=== PATIENT | female | born 1970 | race Caucasian/White ===

== ENCOUNTER → 2021-03-04 12:14 | Outpatient (BNVA) | payer OTHER, SELFPAY | PROVIDERS: PCP Internal Medicine; Visit Provider Physician Assistant | DX: E66.01 Morbid (severe) obesity due to excess calories (principal); E78.5 Hyperlipidemia, unspecified; E03.9 Hypothyroidism, unspecified; I50.9 Heart failure, unspecified; G47.00 Insomnia, unspecified; F32.9 Major depressive disorder, single episode, unspecified; K21.9 Gastro-esophageal reflux disease without esophagitis; M79.7 Fibromyalgia | CPT/HCPCS: 99202 ==

== ENCOUNTER → 2021-03-08 09:45 | Outpatient (BNVA) | payer OTHER, SELFPAY | PROVIDERS: PCP Internal Medicine; Visit Provider Anesthesiology | DX: M47.816 Spondylosis without myelopathy or radiculopathy, lumbar region (principal); M16.0 Bilateral primary osteoarthritis of hip; M79.7 Fibromyalgia; F32.9 Major depressive disorder, single episode, unspecified; E66.01 Morbid (severe) obesity due to excess calories; Z79.899 Other long term (current) drug therapy | CPT/HCPCS: 99202 ==

== ENCOUNTER 2021-04-29 11:52 | Emergency (ER) | payer OTHER, SELFPAY ==
--- NOTE | ~2021-04-29 | XR_ITS ---
EXAMINATION: XR SHOULDER, RIGHT CLINICAL INFORMATION: Right shoulder pain COMPARISON: None TECHNIQUE: AP external rotation, Grashey, scapular Y, and axillary views of the right shoulder. FINDINGS: The bones and soft tissues are normal. No fracture. Glenohumeral and acromioclavicular alignment is anatomic with normal joint space. No abnormal soft tissue calcifications. XR/XR shoulder RT min 2V IMPRESSION: No significant bony abnormality of the right shoulder identified.
[2021-04-29 12:04] VITALS: BP 136/59; PULSE 89; RESP 16; TEMP 36.7; O2SAT 98; BMI 39.9
[2021-04-29] MEDS: Acetaminophen 325 MG TABLET 650 MG PO (12:08)
--- NOTE | 2021-04-29 14:01 | ED_ITS ---
HPI - Extremity Problem General Chief complaint: Extremity Problem Stated complaint: shoulder pain Time Seen by Provider: 04/29/21 13:35 History of Present Illness HPI Narrative: 50-year-old female with past medical history of fibromyalgia, GERD, depression, hypothyroidism him a hyperlipidemia, PTSD, anxiety disorder is here today for complaining of right shoulder pain. Patient does not remember any injury. Pain has been going on for last 5 days. Patient denies sleeping on that side. Patient reports that sometimes when she moves she feels like her joint is . Unable to lift her arm up over 90?. Patient denies any fever or chills. Related Data Home Medications Medication Instructions Recorded Confirmed atorvastatin 10 mg tablet 10 mg PO DAILY 03/02/21 03/25/21 biotin 10,000 mcg capsule 10,000 mcg PO DAILY cap 03/02/21 03/25/21 clonazepam 0.5 mg tablet 0.5 mg PO TID 03/02/21 03/25/21 duloxetine 20 mg capsule,delayed 20 mg PO DAILY cap 03/02/21 03/25/21 release duloxetine 60 mg capsule,delayed 60 mg PO DAILY 03/02/21 03/25/21 release ferrous sulfate 325 mg (65 mg 325 mg PO Q OTHER DAY tab 03/02/21 03/25/21 iron) tablet furosemide 20 mg tablet 20 mg PO DAILY 03/02/21 03/25/21 hydroxyzine HCl 50 mg tablet 50 mg PO BID 03/02/21 03/25/21 hydroxyzine HCl 50 mg tablet 75 mg PO BEDTIME tab 03/02/21 03/25/21 levothyroxine 88 mcg capsule 88 mcg PO DAILY 03/02/21 03/25/21 loratadine 10 mg capsule 10 mg PO DAILY 03/02/21 03/25/21 omeprazole 20 mg capsule,delayed 20 mg PO DAILY 03/02/21 03/25/21 release oxcarbazepine 150 mg tablet 150 mg PO BID 03/02/21 03/25/21 oxycodone-acetaminophen 7.5 mg-325 1 tab PO ONCE PRN tab 03/02/21 03/02/21 mg tablet varenicline 1 mg tablet (Chantix) 1 mg PO BID 03/02/21 03/25/21 zolpidem 5 mg tablet 5 mg PO BEDTIME PRN 03/02/21 03/25/21 Previous Rx's Medication Instructions Recorded baclofen 10 mg tablet 10 mg PO TID 30 Days #90 tab 03/08/21 acetaminophen 325 mg capsule 650 mg PO Q6H PRN #20 cap 04/29/21 cyclobenzaprine 10 mg tablet 10 mg PO BID PRN #10 tab 04/29/21 Allergies Allergy/AdvReac Type Severity Reaction Status Date / Time NSAIDS (Non-Steroidal AdvReac Severe acute Verified 03/08/21 09:57 Anti-Inflamma kidney damage tramadol AdvReac Nausea Verified 04/29/21 12:07 Review of Systems Review of Systems: Constitutional : No Weight loss, No Fever, No Chills, No Night Sweats, No Fatigue, No Malaise ENT/Mouth : No Hearing loss, No Ear Pain, No Nasal Congestion, No Sinus Pain, No Hoarseness, No sore throat, No Rhinorrhea, No Swallowing Difficulty Eyes: No Eye Pain, No Swelling, No Redness, No Foreign Body, No Discharge, No Vision Changes Cardiovascular : No Chest Pain, No SOB, No Dyspnea on Exertion, No Orthopnea, No Edema, No Palpitations Respiratory : No Cough, No Sputum, No Wheezing, No Smoke Exposure, No Dyspnea Gastrointestinal : No Nausea, No Vomiting, No Diarrhea, No Constipation, No abdominal Pain, No Hematochezia, No Melena Genitourinary : no irregular bleeding, No Dysuria, No Urinary Frequency, No Hematuria, No Urinary Incontinence, No Urgency, No Flank Pain, No Urinary Flow Changes, No Hesitancy Musculoskeletal : joint pain, Myalgias, No Joint Swelling right shoulder Skin : No Skin Lesions, No rash Neuro : No Weakness, No Numbness, No Paresthesias, No Loss of Consciousness, No Dizziness, No Headache Psych : No Anxiety/Panic, No Depression, No SI/HI/AH/VH, No Social Issues, Heme/Lymph: No Bruising, No Bleeding,No Lymphadenopathy Endocrine : No Polyuria, No Polydipsia, No Temperature Intolerance Yes all other systems are reviewed and are negative [facility] Past Medical History Medical History (Updated 04/29/21 @ 15:11 by Tina Jordan [facility]-) Elevated cholesterol Fibromyalgia GERD (gastroesophageal reflux disease) Headache Spondylosis of lumbar spine Suicide attempt Thyroid disease Surgical History History of dental surgery Hx of anterior cruciate ligament surgery Hx of tubal ligation Family History Family History (Updated 03/02/21 @ 10:19 by Shakira Greenberg LPN) Mother Depression Father No problems noted. Sister Diabetes Fibromyalgia Degenerative disc disease Bipolar 1 disorder Depression Son Depression Bipolar 2 disorder Son Depression Son Depression Daughter Depression Migraine Social History Social History (Updated 03/02/21 @ 16:04 by Shakira Greenberg LPN) Alcohol intake: never Patient Tobacco Use Status: Former Tobacco user Quit Date: 02/25/2021 Advance Directives: No Advance Directives Information Provided: No Patient : No Physical Exam Vital Signs: Vital Signs: Last Vital Signs Temp 98.0 F 04/29/21 12:04 Pulse 84 04/29/21 14:07 Resp 16 04/29/21 14:07 BP 143/89 H 04/29/21 14:07 Pulse Ox 97 04/29/21 14:04 Body Mass Index 39.9 Const: General: healthy appearing, no acute distress and well developed Nutritional Appearance: well nourished Orientation/consciousness: patient oriented x3 Neck: Neck: Yes normal visual inspection, Yes full ROM and Yes no JVD Resp: Effort & Inspection: normal respiratory effort Auscultation: clear to auscultation bilaterally Cardio: Rate: regular rate Rhythm: regular rhythm Heart sounds: S1 normal heart sound present, S2 normal heart sound present, no gallops, no murmurs and no rubs Peripheral pulses: Peripheral pulses 2+ throughout and radial pulses present GI: Inspection: Yes normal to inspection and No distended Palpation (GI): Soft to palpation, Firmness to palpation present (GI), nontender and no guarding Auscultation: normal bowel sounds Skin: General skin exam: elasticity normal, turgor normal and dry skin Neuro: General: patient oriented x3 and moves all extremities Extrem: Other: Right shoulder ROM 90?. Patient unable to lift her arm past that. Complains of pain. Positive palpable tenderness to deltoid, and sternocostal head of pectoralis major. General: Yes no joint enlargement Course Course Course Narrative: 50-year-old female with past medical history of GERD, depression, hypothyroidism, hyperlipidemia, PTSD, fibromyalgia is here today with complaining of right shoulder pain. Patient reports that she had no injury and does not sleep on that side. However she does report to me that when she moves certain way she feels that her joint is . I will obtain x-ray although clinically I do not think it is a fracture. Patient received Tylenol for pain. She reports allergy to all NSAIDs. Most likely pain is muscular, mild tenderness to deltoid and sternocostal head of pectoralis major area Reevaluation(s) Reevaluation #1: X-ray negative for any abnormalities, no soft tissue swelling. We will send her home with cyclobenzaprine and Tylenol. Most likely muscular strain. Patient can follow up with her PCP to go to physical therapy. MDM - Extremity (Nontraumatic) Imaging Data Right shoulder x-ray: Radiologist's impression: FINDINGS: The bones and soft tissues are normal. No fracture. Glenohumeral and acromioclavicular alignment is anatomic with normal joint space. No abnormal soft tissue calcifications.? Discharge Plan Discharge Clinical Impression: Muscle strain Patient Disposition: Home, Self-Care Instructions: Muscle Strain (ED) Additional Instructions: You were seen here today for complaining of right shoulder pain. Your x-ray was negative for any abnormalities. You were given script for muscle relaxers. Please follow-up with your primary care provider in 2-3 days. You might need to go for physical therapy. You may apply heat to the painful areas. Prescriptions: New cyclobenzaprine 10 mg tablet 10 mg PO BID PRN (Reason: muscle spasm) Qty: 10 RF: 0 acetaminophen 325 mg capsule 650 mg PO Q6H PRN (Reason: pain) Qty: 20 RF: 0 No Action oxycodone-acetaminophen 7.5-325 mg tablet 1 tab PO ONCE PRNRF: 0 atorvastatin 10 mg tablet 10 mg PO DAILY RF: 0 zolpidem 5 mg tablet 5 mg PO BEDTIME PRN (Reason: Insomnia) RF: 0 duloxetine 60 mg capsule,delayed release(DR/EC) 60 mg PO DAILY RF: 0 duloxetine 20 mg capsule,delayed release(DR/EC) 20 mg PO DAILY RF: 0 Chantix 1 mg tablet 1 mg PO BID RF: 0 furosemide 20 mg tablet 20 mg PO DAILY RF: 0 hydroxyzine HCl 50 mg tablet 50 mg PO BID RF: 0 hydroxyzine HCl 50 mg tablet 75 mg PO BEDTIME RF: 0 omeprazole 20 mg capsule,delayed release(DR/EC) 20 mg PO DAILY RF: 0 clonazepam 0.5 mg tablet 0.5 mg PO TID RF: 0 oxcarbazepine 150 mg tablet 150 mg PO BID RF: 0 levothyroxine 88 mcg capsule 88 mcg PO DAILY RF: 0 ferrous sulfate 325 mg (65 mg iron) tablet 325 mg PO Q OTHER DAY RF: 0 loratadine 10 mg capsule 10 mg PO DAILY RF: 0 biotin 10,000 mcg capsule 10,000 mcg PO DAILY RF: 0 baclofen 10 mg tablet 10 mg PO TID 30 Days Qty: 90 RF: 8
[2021-04-29 14:04] VITALS: BP 143/89; PULSE 80; RESP 16; O2SAT 97
[2021-04-29 14:07] VITALS: BP 143/89; PULSE 84; RESP 16
== END 2021-04-29 15:42 | disposition home or self-care (01) ==
PROVIDERS: Emergency Provider Emergency Medicine; PCP Internal Medicine
DX: S46.911A Strain of unspecified muscle, fascia and tendon at shoulder and upper arm level, right arm, initial encounter (principal); X58.XXXA Exposure to other specified factors, initial encounter; M25.511 Pain in right shoulder; Y93.9 Activity, unspecified; Y92.9 Unspecified place or not applicable; Y99.9 Unspecified external cause status
CPT/HCPCS: 73030; 99283; 99284

== ENCOUNTER 2021-05-25 06:37 | Outpatient (REF) | payer OTHER, SELFPAY ==
--- NOTE | ~2021-05-25 | FL_ITS ---
EXAMINATION: XR FLUOROSCOPY WITH IMAGES CLINICAL INFORMATION: M47.816 - Spondylosis without myelopathy or radiculopathy COMPARISON: CT abdomen and pelvis 12/06/2016 TECHNIQUE: Fluoroscopy performed by Dr. Marshall Lima. Fluoroscopy time: 0.8 minutes DAP: 18.4 Gycm2 Images: 6 FINDINGS: There are spinal needles overlying the bilateral outer L3, L4, and L5 neural foramen. There is contrast seen in the respective nerve sheaths. Some early transforaminal epidural extension is suggested. No visible vascular communication. FL/FL guidance in treatment room IMPRESSION: Fluoroscopy for pain management procedures.
== END 2021-05-25 06:38 | disposition home or self-care (01) ==
LOC: HO.RADIR 06:37
PROVIDERS: Visit Provider Anesthesiology
DX: M47.816 Spondylosis without myelopathy or radiculopathy, lumbar region (principal); M16.0 Bilateral primary osteoarthritis of hip; M79.7 Fibromyalgia; F32.9 Major depressive disorder, single episode, unspecified; E66.01 Morbid (severe) obesity due to excess calories
CPT/HCPCS: 64493; 64494; Q9967

== ENCOUNTER → 2021-05-31 11:39 | Outpatient (BNVA) | payer OTHER, SELFPAY | PROVIDERS: PCP Internal Medicine; Visit Provider Anesthesiology ==

== ENCOUNTER → 2021-06-07 08:21 | Outpatient (BNVA) | payer OTHER, SELFPAY | PROVIDERS: PCP Internal Medicine; Visit Provider Anesthesiology ==

== ENCOUNTER 2021-07-20 05:44 | Outpatient (REF) | payer OTHER, SELFPAY | END 2021-07-20 05:45 | disposition home or self-care (01) | LOC: HO.RADIR 05:44 | PROVIDERS: Visit Provider Anesthesiology | DX: Z13.89 Encounter for screening for other disorder (principal) ==

== ENCOUNTER 2021-08-17 06:25 | Outpatient (REF) | payer OTHER, SELFPAY ==
--- NOTE | ~2021-08-17 | FL_ITS ---
EXAMINATION: XR FLUOROSCOPY WITH IMAGES CLINICAL INFORMATION: M47.816 - Spondylosis without myelopathy or radiculopathy COMPARISON: CT abdomen and pelvis 12/06/2016 TECHNIQUE: Fluoroscopy performed by Dr. Marshall Lima. Fluoroscopy time: 0.3 minutes DAP: 7.23 Gycm2 Images: 2 FINDINGS: There is an interlaminar spinal needle at level of L4-L5. Epidural contrast is suggested on lateral view. FL/FL guidance in treatment room IMPRESSION: Fluoroscopy for pain management procedure.
== END 2021-08-17 06:26 | disposition home or self-care (01) ==
LOC: HO.RADIR 06:25
PROVIDERS: Visit Provider Anesthesiology
DX: M47.816 Spondylosis without myelopathy or radiculopathy, lumbar region (principal); M16.0 Bilateral primary osteoarthritis of hip; M79.7 Fibromyalgia; F32.9 Major depressive disorder, single episode, unspecified; E66.01 Morbid (severe) obesity due to excess calories
CPT/HCPCS: J3300; Q9967

== ENCOUNTER 2023-10-17 | Outpatient (REF) | payer MEDICARE, MEDICAID, SELFPAY ==
[2023-10-23 23:49] LABS: HPV mRNA E6/E7 rflx Not Detected (Not Detected)
== END 2023-10-17 00:01 | disposition home or self-care (01) ==
LOC: HO.HHCLNP
PROVIDERS: Visit Provider Advanced Practice Midwife
DX: Z01.419 Encounter for gynecological examination (general) (routine) without abnormal findings (principal)
CPT/HCPCS: 87624; 88142

== ENCOUNTER 2023-12-06 08:39 | Outpatient (REF) | payer MEDICARE, SELFPAY ==
[2023-12-06 12:58] LABS: MANUAL DIFF FLAG NO
[2023-12-06 13:05] LABS: Basophils Absolute Auto 0.1 X10*3/uL (0.0-0.2); Basophils Percent Auto 1.2 % (0-2); Eosinophils Absolute Auto 0.2 X10*3/uL (0.0-0.4); Eosinophils Percent Auto 3.4 % (0-4); Hematocrit 38.3 % (37.0-47.0); Hemoglobin 12.4 g/dl (12.0-16.0); Imm Gran Abs Auto 0.02 X10*3/uL (0.00-0.03); Imm Gran Pct Auto 0.3 % (0.0-0.4); Lymphocytes Absolute Auto 2.4 X10*3/uL (1.2-4.9); Lymphocytes Percent Auto 40.4 % (20-40); Mean Corpuscular HGB Conc 32.4 g/dl (31.0-35.0); Mean Corpuscular Hemoglobin 28.6 pg (27.0-33.0); Mean Corpuscular Volume 88.2 fL (80.0-98.0); Mean Platelet Volume 9.9 fL (9.4-12.3); Monocytes Absolute Auto 0.4 X10*3/uL (0.1-1.2); Monocytes Percent Auto 7.2 % (2-11); Neutrophils Absolute Auto 2.8 x10*3/uL (2.0-8.3); Neutrophils Percent Auto 47.5 % (45-73); Platelet Count 362 X10*3/uL (160-400); Red Blood Count 4.34 X10*6/uL (4.20-5.50); Red Cell Distribution Width 13.1 % (11.0-16.0); White Blood Count 5.9 X10*3/uL (4.8-10.8)
[2023-12-06 13:06] LABS: Estimated Average Glucose 114 mg/dL; Hemoglobin A1c % 5.6 % (<6.0)
[2023-12-06 13:25] LABS: Alanine Aminotransferase 42 U/L (0-31); Albumin Level 4.1 g/dL (3.5-5.0); Alkaline Phosphatase 93 U/L (39-117); Anion Gap 13 (12-20); Aspartate Amino Transferase 28 U/L (5-31); Bilirubin Total 0.2 mg/dL (0.0-1.0); Blood Urea Nitrogen 14 mg/dL (9-16); Calcium 9.5 mg/dL (8.4-10.2); Carbon Dioxide 30 mmol/L (22-29); Chloride 100 mmol/L (96-108); Cholesterol 203 mg/dL (<200); Estimated Glomerular Filt Rate 53; Glucose Random 108 mg/dL (60-115); HDL Cholesterol 61 mg/dL (>40); LDL Cholesterol Calculated 96 mg/dL (<100); Potassium 3.9 mmol/L (3.3-5.1); Sodium 139 mmol/L (135-145); Total Protein 7.2 g/dL (6.5-8.0); Triglycerides 234 mg/dL (<150)
[2023-12-06 13:42] LABS: TSH reflex Free T4 20.54 uIU/mL (0.32-4.0)
[2023-12-06 14:41] LABS: Free T4 (Free Thyroxine) 0.56 ng/dL (0.71-1.85)
[2023-12-07 08:28] LABS: ~Hepatitis C Antibody Nonreactive (Nonreactive)
[2023-12-09 18:33] LABS: HIV RNA PCR Qn Copies Not Detected Copies/mL; HIV RNA PCR Qn Log Copies Not Detected Log cps/mL
== END 2023-12-06 08:40 | disposition home or self-care (01) ==
LOC: HO.CHCLDS 08:39
PROVIDERS: Visit Provider Internal Medicine
DX: Z11.4 Encounter for screening for human immunodeficiency virus [HIV] (principal); I50.32 Chronic diastolic (congestive) heart failure
CPT/HCPCS: 36415; 80053; 80061; 83036; 84439; 84443; 85025; 86803; 87536; 87900

== ENCOUNTER 2024-01-05 10:57 | Outpatient (AMB) | payer OTHER, MEDICAID, SELFPAY ==
--- NOTE | 2024-01-05 11:02 | A.OFFVIS_ITS ---
Vital Signs 01/05/24 11:03 Height 5 ft 5 in Weight 250 lb BMI 41.6 BP 138/68 Blood Pressure Location Lt brachial Position Sitting Pulse 83 Intake Visit Reasons: Colonoscopy Screening Intake Note: Patient new consult for 12nd pre colonoscopy screening. Patient cc: acid reflex with burning sensation and swallowing problems with solid and liquid on and off. Fisher Clam Required: No Accompanied by: Self / Same As Patient Allergies NSAIDS (Non-Steroidal Anti-Inflamma Adverse Reaction (Severe, Verified 01/05/24 11:01) acute kidney damage tramadol Adverse Reaction (Verified 01/05/24 11:01) Nausea HPI HPI Colonoscopy Screening: Details: 53 year old? female with past medical history of anxiety disorder, MDD, PTSD, hyperlipidemia, hypothyroidism, insomnia, GERD, fibromyalgia, Congestive heart failure is here today for pre colonoscopy screening.? History of Congestive heart failure, is following with [facility] in [place]. Patient will have echo done. Denies any cardiac or respiratory symptoms at this time. Patient was sent to us by her PCP.? Patient reports acid reflux and dyspepsia. Takes omeprazole 20 mg every other day and sometimes daily. Patient feels like the omeprazole is making her constipated so she only takes it every other day. Patient also reports dysphagia. Patient reports having trouble swallow anything.? Denies any personal or family history of gastrointestinal disease or cancer.? Denies history of difficulty with sedation or anesthesia in the past.? Negative for history of sleep apnea.? Denies any history of renal, pulmonary, or hepatic disease.?? No history of infectious? diseases like hepatitis A, B, C, HIV or tuberculosis.? Patient is not on any anticoagulation therapy. [facility] Medical History (Updated 01/05/24 @ 11:16 by Tina Jordan, [facility]) GERD (gastroesophageal reflux disease) Thyroid disease Elevated cholesterol Spondylosis of lumbar spine Fibromyalgia Suicide attempt Headache Surgical History History of dental surgery Hx of anterior cruciate ligament surgery Hx of tubal ligation Family History Mother Depression Father No problems noted. Sister Diabetes Fibromyalgia Degenerative disc disease Bipolar 1 disorder Depression Son Depression Bipolar 2 disorder Son Depression Son Depression Daughter Depression Migraine Social History Alcohol intake: never Patient Tobacco Use Status: Former Tobacco user Quit Date: 02/25/2021 Review of Systems Const Denies weight gain and Denies weight loss ENT Reports no additional complaints, Reports dysphagia and Denies odynophagia Card Reports no additional complaints Resp Reports no additional complaints GI Denies abdominal pain, Denies belching, Denies melena, Denies bloating, Denies change in bowel habits, Reports constipation (Occasional), Reports dysphagia, Denies excessive flatus, Reports dyspepsia, Reports heartburn, Denies diarrhea, Denies loose stools, Denies nausea, Denies odynophagia and Denies vomiting Reports no additional complaints Musc Reports no additional complaints Neuro Reports no additional complaints Psych Reports no additional complaints Endo Reports no additional complaints Physical Exam Vital Signs: Last Vital Signs Pulse 83 01/05/24 11:03 BP 138/68 01/05/24 11:03 BMI result Body Mass Index 41.6 Const General: healthy appearing and no acute distress Nutritional Appearance: well nourished Orientation/consciousness: patient oriented x3 Resp Effort & Inspection: normal respiratory effort, able to speak in complete sentences, no tracheal deviation and symmetric chest movement Auscultation: clear to auscultation bilaterally Cardio Rate: regular rate GI Inspection: Yes normal to inspection, No distended and Yes obesity Palpation (GI): Soft to palpation, not firm, nontender and No hepatosplenomegaly present Auscultation: normal bowel sounds General: Yes no CVA tenderness Back/Spine/Pelvis Back: no CVA tenderness Skin General skin exam: elasticity normal, turgor normal and dry skin Neuro General: patient oriented x3 Psych Appearance: grossly normal Mental Status: mental status grossly normal Assessment & Plan Assessment & Plan (1) GERD (gastroesophageal reflux disease): Code(s): K21.9 - Gastro-esophageal reflux disease without esophagitis Category: Medical Qualifiers: Esophagitis presence: esophagitis presence not specified Qualified Code(s): K21.9 - Gastro-esophageal reflux disease without esophagitis (2) Screen for colon cancer: Code(s): Z12.11 - Encounter for screening for malignant neoplasm of colon (3) Dysphagia: Code(s): R13.10 - Dysphagia, unspecified Qualifiers: Dysphagia type: pharyngoesophageal phase Qualified Code(s): R13.14 - Dysphagia, pharyngoesophageal phase Plan Patient denies any cardiac or respiratory symptoms. However patient does have a history of Congestive heart failure and is getting echo repeated. Patient sees [facility]. Will call for clearance. ?Denies any issues with anesthesia in the past.? Denies any history of sleep apnea.? No history infectious diseases in the past or present.? Not on any anticoagulation therapy.? No family of colon cancer.? Patient denies melena, hematochezia, unintentional weight loss or ribbon like stools.? Patient feels like she gets constipated with taking omeprazole so she only takes it every other day, however she reports that she feels that she is experiencing acid reflux on the days when she is not taking it. I will start her on pantoprazole and patient will take it daily. Trouble swallowing liquids and solids. Will send patient for barium swallow. Patient will be also send for upper endoscopy to rule out gastritis, esophagitis, duodenitis, House's, gastric or peptic ulcers, achalasia, Schatzki ring. Patient will also return in 2 months to re-evaluate. Patient will start taking Colace daily and will call the office if she will continue to be constipated. Discussed at length the pre-procedure,? prep, diet & medications as well as what to expect prior, during and after the procedure.?? Stressed the importance of good bowel prep. ?Recommended the use of Vaseline or Calmoseptine OTC & baby wipes with bowel movements to promote comfort.? ?Patient verbalizes understanding and agrees to plan of care.? She was given the opportunity to ask questions and all questions answered.? We will see her after the procedure.? Orders: Orders FL barium swallow Today R13.10 - Dysphagia, unspecified Medications: New docusate sodium 100 mg PO BEDTIME 30 caps 3RF K59.00 - Constipation, unspecified pantoprazole take one tablet half an hour before breakfast 40 mg PO DAILY 30 tabs 3RF K21.9 - Gastro-esophageal reflux disease without esophagitis bisacodyl (Dulcolax (bisacodyl)) Start taking 2 tablet every night 7 days before the procedure and 1 day before procedure take 4 tablets at noon time followed by MiraLax prep 10 mg (2 x 5 mg) PO BEDTIME 16 tabs 0RF Z12.11 - Encounter for screening for malignant neoplasm of colon polyethylene glycol 3350 (Miralax) As directed by gastroenterology department at [facility] 238 grams PO ONCE 238 grams 0RF Z12.11 - Encounter for screening for malignant neoplasm of colon pantoprazole take one tablet half an hour before breakfast 40 mg PO DAILY 30 tabs 3RF K21.9 - Gastro-esophageal reflux disease without esophagitis bisacodyl (Dulcolax (bisacodyl)) Start taking 2 tablet every night 7 days before the procedure and 1 day before procedure take 4 tablets at noon time followed by MiraLax prep 10 mg (2 x 5 mg) PO BEDTIME 16 tabs 0RF Z12.11 - Encounter for screening for malignant neoplasm of colon docusate sodium 100 mg PO BEDTIME 30 caps 3RF K59.00 - Constipation, unspecified polyethylene glycol 3350 (Miralax) As directed by gastroenterology department at [facility] 238 grams PO ONCE 238 grams 0RF Z12.11 - Encounter for screening for malignant neoplasm of colon
[2024-01-05 11:03] VITALS: BP 138/68; PULSE 83; BMI 41.6
== END 2024-01-05 12:03 | disposition home or self-care (01) ==
PROVIDERS: PCP Internal Medicine; Visit Provider Nurse Practitioner Family
DX: K21.9 Gastro-esophageal reflux disease without esophagitis (principal); Z12.11 Encounter for screening for malignant neoplasm of colon; R13.14 Dysphagia, pharyngoesophageal phase
CPT/HCPCS: 99204

== ENCOUNTER → 2024-01-05 10:57 | Outpatient (BNVA) | payer OTHER, MEDICAID, SELFPAY | PROVIDERS: PCP Internal Medicine; Visit Provider Nurse Practitioner Family ==

== ENCOUNTER 2024-04-19 14:12 | Outpatient (REF) | payer OTHER, MEDICAID, SELFPAY ==
--- NOTE | ~2024-04-19 | MM_ITS ---
EXAMINATION: MM SCREENING DIGITAL BREAST TOMOSYNTHESIS, BILATERAL CLINICAL INFORMATION: Screening. Asymptomatic. COMPARISON: Mammography: This study is compared with prior exams dating back to . TECHNIQUE: Digital breast tomosynthesis is performed in both the craniocaudal and mediolateral oblique views along with computer-aided detection (CAD). Synthesized 2D images are generated from the tomosynthesis. FINDINGS: The breasts are almost entirely fatty (ACR BI-RADS breast composition Category a). There are no significant masses, abnormal calcifications, or other abnormalities. MM/MM tomosynthesis screening BI IMPRESSION: No mammographic evidence of malignancy. ASSESSMENT: BI-RADS BI-RADS 1 - Negative RECOMMENDATION: Routine annual mammography screening. 1 year F/U This examination should not preclude the clinical evaluation of a suspicious palpable abnormality. This patient's information was entered into a reminder system with a target due date for their next mammogram. Electronically signed by: Kelli Jacob MD 05/20/2024 11:48 PM EDT
== END 2024-04-19 14:13 | disposition home or self-care (01) ==
LOC: HO.MAMMO 14:12
PROVIDERS: PCP Internal Medicine; Visit Provider Internal Medicine
DX: Z12.31 Encounter for screening mammogram for malignant neoplasm of breast (principal)
CPT/HCPCS: 77063; 77067

== ENCOUNTER → 2024-04-19 14:15 | Outpatient (BNV) | payer OTHER, MEDICAID, SELFPAY | PROVIDERS: PCP Internal Medicine; Visit Provider Radiology Diagnostic Radiology | DX: Z12.31 Encounter for screening mammogram for malignant neoplasm of breast (principal) | CPT/HCPCS: 77063; 77067 ==

== ENCOUNTER 2024-04-22 11:11 | Outpatient (AMB) | payer OTHER, MEDICAID, SELFPAY ==
--- NOTE | 2024-04-22 11:28 | A.OFFVIS_ITS ---
Vital Signs 04/22/24 11:37 Height 5 ft 5 in Weight 258 lb BMI 42.9 BP 116/74 Blood Pressure Location Lt brachial Position Sitting Pulse 86 Intake Visit Reasons: 2 mos f/u per Antoinette Intake Note: Patient 2 month follow up for dysphagia. Patient have BS s/c for middle of April, and she is not having any GI complain for today. 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 However patient does have a history of Congestive heart failure and is getting echo repeated. Patient sees [facility]. Will call for clearance. ?Denies any issues with anesthesia in the past.? Denies any history of sleep apnea.? No history infectious diseases in the past or present.? Not on any anticoagulation therapy.? No family of colon cancer.? Patient denies melena, hematochezia, unintentional weight loss or ribbon like stools.? Patient feels like she gets constipated with taking omeprazole so she only takes it every other day, however she reports that she feels that she is experiencing acid reflux on the days when she is not taking it. I will start her on pantoprazole and patient will take it daily. Trouble swallowing liquids and solids. Will send patient for barium swallow. Patient will be also send for upper endoscopy to rule out gastritis, esophagitis, duodenitis, House's, gastric or peptic ulcers, achalasia, Schatzki ring. Patient will also return in 2 months to re-evaluate. Patient will start taking Colace daily and will call the office if she will continue to be co nstipated. Discussed at length the pre-procedure,? prep, diet & medications as well as what to expect prior, during and after the procedure.?? Stressed the importance of good bowel prep. ?Recommended the use of Vaseline or Calmoseptine OTC & baby wipes with bowel movements to promote comfort.? ?Patient verbalizes understanding and agrees to plan of care.? She was given the opportunity to ask questions and all questions answered.? We will see her after the procedure.? Orders Orders FL barium swallow Today R13.10 Medications New docusate sodium 100 mg PO BEDTIME 30 caps 3RF K59.00 pantoprazole take one tablet half an hour before breakfast 40 mg PO DAILY 30 tabs 3RF K21.9 bisacodyl (Dulcolax (bisacodyl)) Start taking 2 tablet every night 7 days before the procedure and 1 day before procedure take 4 tablets at noon time followed by MiraLax prep 10 mg (2 x 5 mg) PO BEDTIME 16 tabs 0RF Z12.11 polyethylene glycol 3350 (Miralax) As directed by gastroenterology department at [facility] 238 grams PO ONCE 238 grams 0RF Z12.11 TODAY'S VISIT Patient is here today for follow-up and to discuss going for colonoscopy. Patient reports that she has been doing much better. Patient was unable to go for her appointment for barium swallow as she was sick and had to reschedule that. Appointment is scheduled in couple weeks. Patient has appointment for procedure scheduled already as well as follow-up appointment with me. Patient is taking pantoprazole and her symptoms of acid reflux and dysphagia already gone. Patient states that she is able to move her bowels better now. Patient is taking Colace daily. Patient denies dyspepsia, dysphagia or odynophagia. Denies melena, hematochezia. No issues with anesthesia in the past. No history of sleep apnea. Not on any anticoagulation medication. 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 Patient already had echo done. Denies any cardiac or respiratory symptoms at this time. [facility] Medical History (Updated 01/05/24 @ 11:16 by MARQUIS Gonzalez-) GERD (gastroesophageal reflux disease) Thyroid disease Elevated cholesterol Spondylosis of lumbar spine Fibromyalgia Suicide attempt Headache Surgical History History of dental surgery Hx of anterior cruciate ligament surgery Hx of tubal ligation Family History Mother Depression Father No problems noted. Sister Diabetes Fibromyalgia Degenerative disc disease Bipolar 1 disorder Depression Son Depression Bipolar 2 disorder Son Depression Son Depression Daughter Depression Migraine Social History Alcohol intake: never Patient Tobacco Use Status: Former Tobacco user Review of Systems Const Denies weight gain and Denies weight loss ENT Reports no additional complaints, Denies dysphagia and Denies odynophagia Card Reports no additional complaints Resp Reports no additional complaints GI Denies abdominal pain, Denies belching, Denies melena, Denies bloating, Denies change in bowel habits, Denies dysphagia, Denies excessive flatus, Denies dyspepsia, Denies heartburn, Denies diarrhea, Denies loose stools, Denies nausea, Denies odynophagia and Denies vomiting Musc Reports no additional complaints Neuro Reports no additional complaints Psych Reports no additional complaints Endo Reports no additional complaints Physical Exam Vital Signs: Last Vital Signs Pulse 86 04/22/24 11:37 BP 116/74 04/22/24 11:37 BMI result Body Mass Index 42.9 Const General: healthy appearing and no acute distress Nutritional Appearance: well nourished Orientation/consciousness: patient oriented x3 Resp Effort & Inspection: normal respiratory effort, able to speak in complete sentences, no tracheal deviation and symmetric chest movement Auscultation: clear to auscultation bilaterally Cardio Rate: regular rate GI Inspection: Yes normal to inspection, No distended and Yes obesity Palpation (GI): Soft to palpation, not firm, nontender and No hepatosplenomegaly present Auscultation: normal bowel sounds General: Yes no CVA tenderness Back/Spine/Pelvis Back: no CVA tenderness Skin General skin exam: elasticity normal, turgor normal and dry skin Neuro General: patient oriented x3 Psych Appearance: grossly normal Mental Status: mental status grossly normal Assessment & Plan Assessment & Plan (1) GERD (gastroesophageal reflux disease): Code(s): K21.9 - Gastro-esophageal reflux disease without esophagitis Category: Medical Qualifiers: Esophagitis presence: esophagitis presence not specified Qualified Code(s): K21.9 - Gastro-esophageal reflux disease without esophagitis (2) Screen for colon cancer: Code(s): Z12.11 - Encounter for screening for malignant neoplasm of colon (3) Dysphagia: Code(s): R13.10 - Dysphagia, unspecified Qualifiers: Dysphagia type: other dysphagia Qualified Code(s): R13.19 - Other dysphagia Plan Symptoms improved with pantoprazole. Patient will continue taking the medication. Avoid dietary triggers and late night snacking. Staying upright for minimum 3 hours after meals discussed with patient. Patient can continue taking Colace. She will start taking Dulcolax tablets we before the procedure to ensure that she has a good prep. What to expect before during and after procedure discussed with patient. Clear liquid diet and good bowel prep day before procedure discussed with patient. I will see patient after the procedure, sooner on as needed basis. Patient is agreeable to this plan and verbalizes understanding of instructions. She was given the opportunity to ask questions and all questions answered. Thank you for allowing me to participate in her care Medications: Refilled docusate sodium 100 mg PO BEDTIME 90 caps 3RF K59.00 - Constipation, unspecified pantoprazole take one tablet half an hour before breakfast 40 mg PO DAILY 90 tabs 3RF K21.9 - Gastro-esophageal reflux disease without esophagitis Coding Level of Care Code Est Pt Level 3 (30299) Diagnoses Gastroesophageal reflux disease, unspecified whether esophagitis present K21.9 Esophagitis presence: esophagitis presence not specified Screen for colon cancer Z12.11 Other dysphagia R13.19 Dysphagia type: other dysphagia Time Spent (min) 30 Comment 20 minutes spent with patient and additional 10 minutes spent reviewing her records
[2024-04-22 11:37] VITALS: BP 116/74; PULSE 86; BMI 42.9
== END 2024-04-22 12:06 | disposition home or self-care (01) ==
PROVIDERS: PCP Internal Medicine; Visit Provider Nurse Practitioner Family
DX: K21.9 Gastro-esophageal reflux disease without esophagitis (principal); Z12.11 Encounter for screening for malignant neoplasm of colon; R13.19 Other dysphagia
CPT/HCPCS: 99213

== ENCOUNTER → 2024-04-22 11:11 | Outpatient (BNVA) | payer OTHER, MEDICAID, SELFPAY | PROVIDERS: PCP Internal Medicine; Visit Provider Nurse Practitioner Family ==

== ENCOUNTER 2024-05-03 08:53 | Outpatient (REF) | payer MEDICARE, MEDICAID, SELFPAY ==
--- NOTE | ~2024-05-03 | FL_ITS ---
EXAMINATION: XR FLUOROSCOPY UPPER GI WITH AIR CLINICAL INFORMATION: Dysphagia COMPARISON: None TECHNIQUE: Fluoroscopic air contrast upper GI examination was performed utilizing standard techniques with thin and thick barium and effervescent granules. Numerous spot images were obtained. FINDINGS: Lateral cine images of the oropharynx and hypopharynx demonstrate normal swallow mechanism with normal epiglottic inversion and soft palate elevation. No tracheal penetration, glottic or subglottic aspiration identified. No nasopharyngeal reflux present. Hypopharyngeal structures appear normal without evidence of mass or diverticulum. There was no significant cricopharyngeal achalasia. Patient is status post ACDF of C5-C6. Dual and single contrast images of the esophagus demonstrate a normal caliber, contour, and mucosal pattern. No evidence of stricture, mass, or ulcerations identified. Esophageal peristalsis was normal. A small type I hiatal hernia is present. No significant gastroesophageal reflux was seen during the course of the examination and on reflux views. Dual contrast and single contrast images of the stomach demonstrated a normal contour. The gastric rugal folds have a thickened appearance. In addition, there are multiple foci of contrast pooling throughout the stomach that may represents small superficial aphthous ulcers. No masses are present. Contrast freely passed into the gastric antrum and duodenal bulb without delay. Single and air-contrast images of the duodenal bulb demonstrate no abnormality. The duodenal sweep has a normal appearance, course, and mucosal fold appearance. The imaged proximal jejunum has a normal fold pattern and caliber. FLUOROSCOPY TIME: 3 minutes 49 seconds Number of Spot Images: 5 Number of Cine: 14 DOSE AREA PRODUCT: 2984 uGy-m2 (microgray-meter squared) FL/FL barium swallow with air IMPRESSION: 1. Status post ACDF of C5-C6. 2. Small type I hiatal hernia. 3. Thickened gastric rugal folds. In addition there are multiple foci of contrast pooling throughout the stomach. These findings are suggestive of erosive gastritis. Recommend correlation with EGD. This procedure was performed by Rey Turner PA-C, and supervised by Dr. Fernandez
== END 2024-05-03 08:54 | disposition home or self-care (01) ==
LOC: HO.XRAY 08:53
PROVIDERS: PCP Internal Medicine; Visit Provider Nurse Practitioner Family
DX: R13.10 Dysphagia, unspecified (principal)
CPT/HCPCS: 74221

== ENCOUNTER → 2024-05-03 08:54 | Outpatient (BNV) | payer MEDICARE, MEDICAID, SELFPAY | PROVIDERS: PCP Internal Medicine; Visit Provider Physician Assistant Surgical | DX: R13.10 Dysphagia, unspecified (principal) | CPT/HCPCS: 74246 ==

== ENCOUNTER 2024-05-16 08:56 | Day surgery (SDC) | payer MEDICARE, MEDICAID, SELFPAY ==
[2024-05-16 09:27] VITALS: BP 152/83; PULSE 97; RESP 18; TEMP 36.6; O2SAT 96; BMI 42.3
[2024-05-16] MEDS: Lactated Ringers 1,000 ML 100 ML IVCONT (09:36)
--- NOTE | 2024-05-16 09:47 | P.HPSUR_ITS ---
Pre-Procedural Eval Section A - 24 Hr Update-Section A only Date of Service: 05/16/24 Section B - Complete if H&P > 30 days Chief Complaint: Encounter for screening for malignant neoplasm of Relevant Family History (Specify if Yes): No Relevant Social History: None Present Medications: see Short Stay Collaborative assessment Medical History: Significant History (GERD (gastroesophageal reflux disease) T hyroid disease Elevated cholesterol Spondylosis of lumbar spine Fibromyalgia Suicide attempt Headache) History of Previous Operations: Relevant previous surgery/procedure and date(s) (History of dental surgery Hx of anterior cruciate ligament surgery Hx of tubal ligation) Allergies: Allergies Allergy/AdvReac Type Severity Reaction Status Date / Time NSAIDS (Non-Steroidal AdvReac Severe acute Verified 04/22/24 11:28 Anti-Inflamma kidney damage tramadol AdvReac Nausea Verified 01/05/24 11:01 Review of Systems Sugical H&P ROS: Negative: Constitution, Cardiovascular, Respiratory, Neurological, Psychiatric, Hem-Onc, Allergic/Immunologic, Gastrointestinal, Genitourinary, Musculoskeletal, Integumentary, Endocrine and Eyes/Ears/Nose/Throat Exam Surgical H&P Exam: Normal: HEENT, Normal: Heart, Normal: Lungs, Normal: Extremities, Normal: Abdomen, Normal: Skin and Normal: Neurological Plan Diagnosis/Plan: Unchanged I have reviewed the history and physical and performed a pertinent physical examination on my patient. No changes have occurred unless specified. egd for dysphagia Time Spent With Patient Time: Total time managing care of this patient today ____ minutes.
--- NOTE | 2024-05-16 10:00 | P.CONAN_ITS ---
Documented by User: Angélica Benoit NP 05/15/24 09:01 HPI - Anesthesia Eval Consult details Narrative: 54yo F for Upper Endoscopy and Colonoscopy PMFSH Active Problems Active Problems: All Active Problems Generalized anxiety disorder (Acute) Panic disorder (Acute) MDD (recurrent major depressive disorder) in remission (Acute) PTSD (post-traumatic stress disorder) (Acute) Hyperlipidemia (Acute) Hypothyroid (Acute) Insomnia (Acute) Depression (Acute) GERD (gastroesophageal reflux disease) (Acute) Heart failure (Acute) Fibromyalgia (Acute) Morbid obesity (Acute) Spondylosis of lumbar spine (Acute) Fibromyalgia (Acute) Past Medical History Medical History (Updated 01/05/24 @ 11:16 by Tina Jordan, [facility]) GERD (gastroesophageal reflux disease) Thyroid disease Elevated cholesterol Spondylosis of lumbar spine Fibromyalgia Suicide attempt Headache Family History Family History Mother Depression Father No problems noted. Sister Diabetes Fibromyalgia Degenerative disc disease Bipolar 1 disorder Depression Son Depression Bipolar 2 disorder Son Depression Son Depression Daughter Depression Migraine Surgical History Surgical History History of dental surgery Hx of anterior cruciate ligament surgery Hx of tubal ligation Social History Social History Are you a primary healthcare administration intern to a significant other at home: No Do you presently have visiting nurse or other home services: No Alcohol intake: never Patient Tobacco Use Status: Former Tobacco user Use of substances other than those prescribed or required for medical reasons: No Have you been hit, kicked, punched, or otherwise hurt by someone within the past year? If so, by whom?: No Are you DNR?: No Advance Directives: No Advance Directives Information Provided: Yes Recently lost weight without trying: No Meds Allergies Allergy/AdvReac Type Severity Reaction Status Date / Time NSAIDS (Non-Steroidal AdvReac Severe acute Verified 04/22/24 11:28 Anti-Inflamma kidney damage tramadol AdvReac Nausea Verified 01/05/24 11:01 Home Medications ?Medication ?Instructions ?Recorded ?Confirmed ?Last Taken ?Type atorvastatin 10 mg tablet 10 mg PO DAILY 03/02/21 03/25/21 Unknown History biotin 10,000 mcg capsule 10,000 mcg PO DAILY 03/02/21 03/25/21 Unknown History clonazepam 0.5 mg tablet 0.5 mg PO TID 03/02/21 03/25/21 Unknown History duloxetine 20 mg capsule,delayed 20 mg PO DAILY 03/02/21 03/25/21 Unknown History release duloxetine 60 mg capsule,delayed 60 mg PO DAILY 03/02/21 03/25/21 Unknown History release ferrous sulfate 325 mg (65 mg 325 mg PO Q OTHER DAY 03/02/21 03/25/21 Unknown History iron) tablet furosemide 20 mg tablet 20 mg PO DAILY 03/02/21 03/25/21 Unknown History hydroxyzine HCl 50 mg tablet 50 mg PO BID 03/02/21 03/25/21 Unknown History hydroxyzine HCl 50 mg tablet 75 mg PO BEDTIME 03/02/21 03/25/21 Unknown History levothyroxine 88 mcg capsule 88 mcg PO DAILY 03/02/21 03/25/21 05/16/24 History loratadine 10 mg capsule 10 mg PO DAILY 03/02/21 03/25/21 Unknown History oxcarbazepine 150 mg tablet 150 mg PO BID 03/02/21 03/25/21 Unknown History oxycodone-acetaminophen 7.5 mg-325 1 tab PO ONCE PRN 03/02/21 03/02/21 Unknown History mg tablet varenicline 1 mg tablet (Chantix) 1 mg PO BID 03/02/21 03/25/21 Unknown History zolpidem 5 mg tablet 5 mg PO BEDTIME PRN Insomnia 03/02/21 03/25/21 Unknown History alprazolam 0.5 mg tablet PO 05/16/24 05/16/24 05/16/24 History Assessment and Plan Assessment Anesthesia Assessment: Chart Reviewed Documented by User: Barbara Lr DO 05/16/24 10:02 PENDING SALE TO [facility] Past Medical History Medical History (Updated 01/05/24 @ 11:16 by Tina Jordan, COMPUTER ARTIST-) GERD (gastroesophageal reflux disease) Thyroid disease Elevated cholesterol Spondylosis of lumbar spine Fibromyalgia Suicide attempt Headache Family History Family History Mother Depression Father No problems noted. Sister Diabetes Fibromyalgia Degenerative disc disease Bipolar 1 disorder Depression Son Depression Bipolar 2 disorder Son Depression Son Depression Daughter Depression Migraine Family history of problems with anesthesia: No Surgical History Surgical History History of dental surgery Hx of anterior cruciate ligament surgery Hx of tubal ligation History of Problems with Anesthesia: No Social History Social History Are you a primary healthcare administration intern to a significant other at home: No Do you presently have visiting nurse or other home services: No Alcohol intake: never Patient Tobacco Use Status: Former Tobacco user Use of substances other than those prescribed or required for medical reasons: No Have you been hit, kicked, punched, or otherwise hurt by someone within the past year? If so, by whom?: No Are you DNR?: No Advance Directives: No Advance Directives Information Provided: Yes Recently lost weight without trying: No Meds Allergies Allergy/AdvReac Type Severity Reaction Status Date / Time NSAIDS (Non-Steroidal AdvReac Severe acute Verified 04/22/24 11:28 Anti-Inflamma kidney damage tramadol AdvReac Nausea Verified 01/05/24 11:01 Home Medications ?Medication ?Instructions ?Recorded ?Confirmed ?Last Taken ?Type atorvastatin 10 mg tablet 10 mg PO DAILY 03/02/21 03/25/21 Unknown History biotin 10,000 mcg capsule 10,000 mcg PO DAILY 03/02/21 03/25/21 Unknown History clonazepam 0.5 mg tablet 0.5 mg PO TID 03/02/21 03/25/21 Unknown History duloxetine 20 mg capsule,delayed 20 mg PO DAILY 03/02/21 03/25/21 Unknown History release duloxetine 60 mg capsule,delayed 60 mg PO DAILY 03/02/21 03/25/21 Unknown History release ferrous sulfate 325 mg (65 mg 325 mg PO Q OTHER DAY 03/02/21 03/25/21 Unknown History iron) tablet furosemide 20 mg tablet 20 mg PO DAILY 03/02/21 03/25/21 Unknown History hydroxyzine HCl 50 mg tablet 50 mg PO BID 03/02/21 03/25/21 Unknown History hydroxyzine HCl 50 mg tablet 75 mg PO BEDTIME 03/02/21 03/25/21 Unknown History levothyroxine 88 mcg capsule 88 mcg PO DAILY 03/02/21 03/25/21 05/16/24 History loratadine 10 mg capsule 10 mg PO DAILY 03/02/21 03/25/21 Unknown History oxcarbazepine 150 mg tablet 150 mg PO BID 03/02/21 03/25/21 Unknown History oxycodone-acetaminophen 7.5 mg-325 1 tab PO ONCE PRN 03/02/21 03/02/21 Unknown History mg tablet varenicline 1 mg tablet (Chantix) 1 mg PO BID 03/02/21 03/25/21 Unknown History zolpidem 5 mg tablet 5 mg PO BEDTIME PRN Insomnia 03/02/21 03/25/21 Unknown History alprazolam 0.5 mg tablet PO 05/16/24 05/16/24 05/16/24 History Exam Exam Date and Time: 05/16/24 1000 Height,Weight and Vital Signs: Height 5 ft 5 in Weight 115.212 kg Vital Signs Temperature 97.8 F 05/16/24 09:27 Pulse Rate 97 05/16/24 09:27 Respiratory Rate 18 05/16/24 09:27 Blood Pressure 152/83 H 05/16/24 09:27 Pulse Oximetry 96 05/16/24 09:27 Oxygen Delivery Method Room Air 05/16/24 09:27 Temperature 97.8 F 05/16/24 09:27 Pulse Rate 97 05/16/24 09:27 Respiratory Rate 18 05/16/24 09:27 Blood Pressure 152/83 H 05/16/24 09:27 Pulse Oximetry 96 05/16/24 09:27 Oxygen Delivery Method Room Air 05/16/24 09:27 Airway Mallampati Class: I TM Dist: >3cm Neck ROM: Full Loose/Missing/Broken Teeth: Yes (edentulous) Heart: S1S2 Lungs: CTAB Assessment and Plan Assessment Anesthesia Assessment: Anesthesia Plan Discussed and Chart Reviewed Final Anesthetic Review Family History of Problems with Anesthesia: No History of Problems with Anesthesia: No NPO: Yes ASA Class: III Final Preanesthetic Review: No Changes in Pt Med Stat, Meds/Allgs Chart Reviewed, Consent Obtained/Reviewed and Anes Risks/Benef Reviewed Patient Risk: Intermediate Procedure Risk: Low Anesthetic Plan Anesthetic Plan: MAC: and Agree w/ Assess. and Plan Disposition: Standard PACU
--- NOTE | 2024-05-16 11:13 | HO.OPN-COLON ---
Colonoscopy Operative Note Operative Note Date of Service: 05/16/24 Narrative: Operative Information Procedure Description: EGD, Colonoscopy Indication: dysphagia and screening colo Anesthesia: MAC FLEXIBLE TRANSORAL UPPER GASTROINTESTINAL ENDOSCOPY AND COLONOSCOPY PROCEDURE NOTE UPPER ENDOSCOPY Consent: Indications for the procedure and potential complications of bleeding, perforation, reaction to medications and missed diagnosis were discussed with the patient and informed consent was obtained. Instrument: Olympus GIF H 190 J mid size upper endoscope Monitoring: Vital signs and clinical assessment, continuous EKG monitoring, Pulse oximetry, Carbon Dioxide monitoring and blood pressure monitoring were done throughout the procedure. Procedure: The patient was placed in the left lateral decubitis position and pre-procedure medications were administered and a bite block was placed. The endoscope was inserted into the mouth and advanced under direct vision to the third part of duodenum. A careful inspection was made as the upper endoscope was withdrawn including a retroflexed examination of the proximal stomach; Findings and interventions are described below. Findings: Larynx:normal Esophagus: GE junction at 40 cm, diaphragm hiatus at 40 cm, esophagitis dissicans in the distal esophagus, bx taken from GEJ, distal and proximal esophagus, balloon dilation done to 20 mm at UES and LES Stomach: Patchy erythema mostly at the proximal body, may be due to pill gastritis. Biopsies were obtained. Grade 2 flap valve on retroflexed examination of the cardia. Duodenum: Normal bulb and descending duodenum, Intervention: Biopsies as noted above, balloon dilation COLONOSCOPY Instrument: Olympus variable stiffness pediatric scope 190L Colonoscopy Monitoring: Vital signs and clinical assessment, continuous EKG monitoring, Pulse oximetry, Carbon Dioxide monitoring and blood pressure monitoring were done throughout the procedure. Colon withdrawal time was 12 minutes. Procedure: The patient was placed in the left lateral decubitis position and pre-procedure medications were administered. After a digital rectal examination of the ano-rectum, the video colonoscope was inserted into the rectum and advanced through the colon to the cecum/TI. The colonoscope was slowly withdrawn in a retrograde panoramic fashion and the colon mucosa was carefully examined including a retroflexed view of the rectum. Findings and interventions are described below. Procedure Difficulty:moderate Findings: Terminal Ileum-normal Cecum:normal Ascending Colon: normal Transverse Colon -normal Descending Colon: x 2 sessile polyps 12-12 mm removed with cold snare, 5-7 mm sessile polyp removed with cold forceps Sigmoid Colon: moderate diverticulosis seen Rectum: Retroflexion with small internal hemorrhoids, grade I Anorectum - normal Colon preparation: [place] Bowel Preparation Scale Right colon; 2 Transverse colon: 2 Left colon; 1-2 (0 = Unprepared colon segment with mucosa not seen due to solid stool that cannot be cleared. 1 = Portion of mucosa of the colon segment seen, but other areas of the colon segment not well seen due to staining, residual stool and/or opaque liquid. 2 = Minor amount of residual staining, small fragments of stool and/or opaque liquid, but mucosa of colon segment seen well. 3 = Entire mucosa of colon segment seen well with no residual staining, small fragments of stool or opaque liquid) Impression and Post Procedure Diagnosis: Endoscopy Findings: esophagitis dissicans gastritis Colonoscopy Findings: diverticulosis colon polyps internal hemorrhoids Plan: Await Pathology results Repeat Colonoscopy in 1-2 years due to polyps removed and areas of fair prep on left or earlier if clinically indicated High fiber diet leaflet avoid straining at stool, epsom salts and sitz bath, anusol supps or cream GERD precautions, check for PPI compliance Above findings were reviewed with the patient and relevant handouts were provided if indicated.
[2024-05-16 11:21] VITALS: BP 143/86; PULSE 96; RESP 16; TEMP 36.1; O2SAT 93
[2024-05-16 11:36] VITALS: BP 147/93; PULSE 91; RESP 16; TEMP 36.2; O2SAT 95
== END 2024-05-16 12:19 | disposition home or self-care (01) ==
PROVIDERS: PCP Internal Medicine; Visit Provider Internal Medicine Gastroenterology
PROC: (CPT 45385; principal; 2024-05-16 11:10)
DX: Z12.11 Encounter for screening for malignant neoplasm of colon (principal); D12.4 Benign neoplasm of descending colon; K57.30 Diverticulosis of large intestine without perforation or abscess without bleeding; K64.0 First degree hemorrhoids; K59.00 Constipation, unspecified; R13.19 Other dysphagia; K21.9 Gastro-esophageal reflux disease without esophagitis; K20.80 Other esophagitis without bleeding; K44.9 Diaphragmatic hernia without obstruction or gangrene; I50.9 Heart failure, unspecified; E78.00 Pure hypercholesterolemia, unspecified; M79.7 Fibromyalgia; Z88.6 Allergy status to analgesic agent; Z88.8 Allergy status to other drugs, medicaments and biological substances; Z98.890 Other specified postprocedural states; Z87.891 Personal history of nicotine dependence; Z79.899 Other long term (current) drug therapy
CPT/HCPCS: 45385; 45380; 43249; 43239; 88305; 88313; 88342; C1726; J1596; J2704

== ENCOUNTER → 2024-05-16 08:56 | Outpatient (BNV) | payer MEDICARE, MEDICAID, SELFPAY | PROVIDERS: PCP Internal Medicine; Visit Provider Internal Medicine Gastroenterology | DX: K29.70 Gastritis, unspecified, without bleeding (principal); K57.30 Diverticulosis of large intestine without perforation or abscess without bleeding; K64.8 Other hemorrhoids; D12.4 Benign neoplasm of descending colon | CPT/HCPCS: 43239; 43249; 45380; 45385 ==

== ENCOUNTER 2024-06-05 10:54 | Outpatient (AMB) | payer OTHER, MEDICAID, SELFPAY ==
[2024-06-05 10:56] VITALS: BP 118/62; PULSE 78; O2SAT 93; BMI 43.6
--- NOTE | 2024-06-05 10:56 | A.OFFVIS_ITS ---
Vital Signs 06/05/24 10:56 Height 5 ft 5 in Weight 261 lb 14.546 oz BMI 43.6 BP 118/62 Blood Pressure Location Rt brachial Position Sitting Pulse 78 Pulse Source Pulse Oximeter Pulse Oximetry (%) 93 Oxygen Delivery Method Room Air Intake Visit Reasons: S/P Double; Dr. Ortiz Intake Note: Manuela presents in office today for a scheduled s/p FUV. CC; Pt denies any complications or new concerns post op. Pt is here to discuss the findings of their procedure. Pt does report however, over the last few days, she has been having GERD breakthrough. Pantoprazole had been working well up untilt his point. Pt denies any need for refills of their medications. Le[employer] Tender Required: No Allergies NSAIDS (Non-Steroidal Anti-Inflamma Adverse Reaction (Severe, Verified 06/05/24 10:57) acute kidney damage tramadol Adverse Reaction (Verified 06/05/24 10:57) Nausea HPI HPI S/P Double; Dr. Ortiz: Details: LAST VISIT GERD (gastroesophageal reflux disease) Screen for colon cancer Dysphagia Plan Symptoms improved with pantoprazole. Patient will continue taking the medication. Avoid dietary triggers and late night snacking. Staying upright for minimum 3 hours after meals discussed with patient. Patient can continue taking Colace. She will start taking Dulcolax tablets we before the procedure to ensure that she has a good prep. What to expect before during and after procedure discussed with patient. Clear liquid diet and good bowel prep day before procedure discussed with patient. I will see patient after the procedure, sooner on as needed basis. Patient is agreeable to this plan and verbalizes understanding of instructions. She was given the opportunity to ask questions and all questions answered. ? Thank you for allowing me to participate in her care Medications Refilled docusate sodium 100 mg PO BEDTIME 90 caps 3RF K59.00 pantoprazole take one tablet half an hour before breakfast 40 mg PO DAILY 90 tabs 3RF K21.9 UPPER ENDOSCOPY AND COLONOSCOPY Findings: Larynx:normal Esophagus: GE junction at 40 cm, diaphragm hiatus at 40 cm, esophagitis dissicans in the distal esophagus, bx taken from GEJ, distal and proximal esophagus, balloon dilation done to 20 mm at UES and LES Stomach: Patchy erythema mostly at the proximal body, may be due to pill gastritis. Biopsies were obtained. Grade 2 flap valve on retroflexed examination of the cardia. Duodenum: Normal bulb and descending duodenum, Intervention: Biopsies as noted above, balloon dilation COLONOSCOPY Instrument: Olympus variable stiffness pediatric scope 190L Colonoscopy Monitoring: Vital signs and clinical assessment, continuous EKG monitoring, Pulse oximetry, Carbon Dioxide monitoring and blood pressure monitoring were done throughout the procedure. Colon withdrawal time was 12 minutes. Procedure: The patient was placed in the left lateral decubitis position and pre-procedure medications were administered. After a digital rectal examination of the ano-rectum, the video colonoscope was inserted into the rectum and advanced through the colon to the cecum/TI. The colonoscope was slowly withdrawn in a retrograde panoramic fashion and the colon mucosa was carefully examined including a retroflexed view of the rectum. Findings and interventions are described below. Procedure Difficulty:moderate Findings: Terminal Ileum-normal Cecum:normal Ascending Colon: normal Transverse Colon -normal Descending Colon: x 2 sessile polyps 12-12 mm removed with cold snare, 5-7 mm sessile polyp removed with cold forceps Sigmoid Colon: moderate diverticulosis seen Rectum: Retroflexion with small internal hemorrhoids, grade I Anorectum - normal Colon preparation: Waterman Bowel Preparation Scale Right colon; 2 Transverse colon: 2 Left colon; 1-2 (0 = Unprepared colon segment with mucosa not seen due to solid stool that cannot be cleared. 1 = Portion of mucosa of the colon segment seen, but other areas of the colon segment not well seen due to staining, residual stool and/or opaque liquid. 2 = Minor amount of residual staining, small fragments of stool and/or opaque liquid, but mucosa of colon segment seen well. 3 = Entire mucosa of colon segment seen well with no residual staining, small fragments of stool or opaque liquid) Impression and Post Procedure Diagnosis: Endoscopy Findings: esophagitis dissicans gastritis Colonoscopy Findings: diverticulosis colon polyps internal hemorrhoids Plan: Await Pathology results Repeat Colonoscopy in 1-2 years due to polyps removed and areas of fair prep on left or earlier if clinically indicated High fiber diet leaflet avoid straining at stool, epsom salts and sitz bath, anusol supps or cream GERD precautions, check for PPI compliance PATHOLOGY RESULTS Diagnosis A. Colon, descending, polypectomies: Fragments of tubular adenomata; negative for high-grade dysplasia or carcinoma. B. Stomach, biopsy: Antral-type and oxyntic mucosa with mild chronic inactive inflammation; no Helicobacter organisms seen. C. EG junction, biopsy: - Cardiofundic-type mucosa with moderate chronic inactive inflammation; no intestinal metaplasia seen. - Active esophagitis (few neutrophils and eosinophils). D. Esophagus, distal, biopsy: - Cardiofundic-type mucosa with mild chronic inactive inflammation; no intestinal metaplasia seen. - Squamous mucosa within normal limits. E. Esophagus, proximal, biopsy: Squamous epithelium within normal limits; no inflammation seen TODAY'S VISIT Patient is here today for follow-up and to discuss upper endoscopy and colonoscopy results. Patient denies any ill effects from the prep, anesthesia or procedure itself. Active esophagitis seen, confirmed with biopsy. Colonoscopy with polyps, fragments of tubular adenoma without high-grade dysplasia or carcinoma. Patient had suboptimal prep and will need to return for colonoscopy in 1-2 years. Patient reports that she was doing found on pantoprazole, however in the last few weeks her symptoms of acid reflux her return. Patient has not change anything, no food changes. Patient denies any nausea or vomiting. Reports occasional dyspepsia without dysphagia or odynophagia. Patient reports symptoms usually after meals. Reports symptoms also at bedtime. Patient denies eating late at night [facility] Medical History (Updated 06/05/24 @ 11:28 by Tina Jordan, [facility]-) Tubular adenoma of colon GERD (gastroesophageal reflux disease) Thyroid disease Elevated cholesterol Spondylosis of lumbar spine Fibromyalgia Suicide attempt Headache Surgical History History of dental surgery Hx of anterior cruciate ligament surgery Hx of tubal ligation Family History Mother Depression Father No problems noted. Sister Diabetes Fibromyalgia Degenerative disc disease Bipolar 1 disorder Depression Son Depression Bipolar 2 disorder Son Depression Son Depression Daughter Depression Migraine Social History Are you a primary resident care manager rn to a significant other at home: No Do you presently have visiting nurse or other home services: No Alcohol intake: never Patient Tobacco Use Status: Former Tobacco user Review of Systems Const Denies weight gain and Denies weight loss ENT Reports no additional complaints, Denies dysphagia and Denies odynophagia Card Reports no additional complaints Resp Reports no additional complaints GI Denies abdominal pain, Denies belching, Denies melena, Reports bloating, Denies change in bowel habits, Denies dysphagia, Denies excessive flatus, Denies dyspepsia, Reports heartburn, Denies diarrhea, Denies loose stools, Denies nausea, Denies odynophagia and Denies vomiting Reports no additional complaints Musc Reports no additional complaints Neuro Reports no additional complaints Psych Reports no additional complaints Endo Reports no additional complaints Physical Exam Vital Signs: Last Vital Signs Pulse 78 06/05/24 10:56 BP 118/62 06/05/24 10:56 Pulse Ox 93 06/05/24 10:56 Oxygen Delivery Method Room Air 06/05/24 10:56 BMI result Body Mass Index 43.6 Const General: healthy appearing and no acute distress Nutritional Appearance: obese Orientation/consciousness: patient oriented x3 Resp Effort & Inspection: normal respiratory effort, able to speak in complete sentences, no tracheal deviation and symmetric chest movement Auscultation: clear to auscultation bilaterally Cardio Rate: regular rate GI Inspection: Yes normal to inspection, No distended and Yes obesity Palpation (GI): Soft to palpation, not firm, nontender and No hepatosplenomegaly present Auscultation: normal bowel sounds General: Yes no CVA tenderness Back/Spine/Pelvis Back: no CVA tenderness Skin General skin exam: elasticity normal, turgor normal and dry skin Neuro General: patient oriented x3 Psych Appearance: grossly normal Mental Status: mental status grossly normal Assessment & Plan Assessment & Plan (1) GERD (gastroesophageal reflux disease): Code(s): K21.9 - Gastro-esophageal reflux disease without esophagitis Category: Medical Qualifiers: Esophagitis bleeding: without hemorrhage Esophagitis presence: with esophagitis Qualified Code(s): K21.00 - Gastro-esophageal reflux disease with esophagitis, without bleeding (2) Tubular adenoma of colon: Code(s): D12.6 - Benign neoplasm of colon, unspecified Category: Medical (3) Dysphagia: Code(s): R13.10 - Dysphagia, unspecified Qualifiers: Dysphagia type: unspecified Qualified Code(s): R13.10 - Dysphagia, unspecified Plan Will change PPI to Nexium. Patient will start famotidine at bedtime. Avoid dietary triggers and late night snacking. Staying upright for minimum 3 hours after meals discussed with patient. Patient will try to take Dulcolax daily. Does not empty her bowels completely. Increase fluid intake and activity to promote better bowel motility. Follow-up in the office in 1 year to discuss going for colonoscopy. Patient will call our office if she will have any GI concerning symptoms. Patient is agreeable to current plan of care and verbalizes understanding of instructions. She was given the opportunity to ask questions and all questions answered. Thank you for allowing me to participate in her care Medications: New esomeprazole magnesium (Nexium) 40 mg PO DAILY 90 caps 5RF K21.9 - Gastro- esophageal reflux disease without esophagitis famotidine (Pepcid) 20 mg PO BEDTIME 90 tabs 3RF K21.9 - Gastro-esophageal reflux disease without esophagitis Refilled bisacodyl (Dulcolax (bisacodyl)) Start taking 2 tablet every night 7 days before the procedure and 1 day before procedure take 4 tablets at noon time followed by MiraLax prep 10 mg (2 x 5 mg) PO BEDTIME 16 tabs 0RF Z12.11 - Encounter for screening for malignant neoplasm of colon Discontinued pantoprazole take one tablet half an hour before breakfast Discontinued Reason: Doctor's Order 40 mg PO DAILY 90 tabs 3RF K21.9 - Gastro-esophageal reflux disease without esophagitis Coding Level of Care Code Est Pt Level 4 (64444) Diagnoses Gastroesophageal reflux disease with esophagitis without hemorrhage K21.00 Esophagitis bleeding: without hemorrhage Esophagitis presence: with esophagitis Tubular adenoma of colon D12.6 Dysphagia, unspecified type R13.10 Dysphagia type: unspecified Time Spent (min) 35 Comment 25 minutes spent with patient and additional 10 minutes spent reviewing her records
== END 2024-06-05 11:47 | disposition home or self-care (01) ==
PROVIDERS: PCP Internal Medicine; Visit Provider Nurse Practitioner Family
DX: K21.00 Gastro-esophageal reflux disease with esophagitis, without bleeding (principal); D12.6 Benign neoplasm of colon, unspecified; R13.10 Dysphagia, unspecified
CPT/HCPCS: 99214

== ENCOUNTER → 2024-06-05 10:54 | Outpatient (BNVA) | payer OTHER, MEDICAID, SELFPAY | PROVIDERS: PCP Internal Medicine; Visit Provider Nurse Practitioner Family ==

== ENCOUNTER 2024-06-19 09:57 | Outpatient (REF) | payer OTHER, MEDICAID, SELFPAY ==
[2024-06-19 16:35] LABS: Free T4 (Free Thyroxine) 0.69 ng/dL (0.71-1.85)
== END 2024-06-19 09:58 | disposition home or self-care (01) ==
LOC: HO.CHCLDS 09:57
PROVIDERS: Visit Provider Internal Medicine
DX: E03.9 Hypothyroidism, unspecified (principal)
CPT/HCPCS: 36415; 84439; 84443

== ENCOUNTER 2024-07-12 12:55 | Outpatient (REF) | payer MEDICARE, MEDICAID, SELFPAY ==
--- NOTE | 2024-07-12 13:00 | PFT_ITS ---
Flows: FEV1: 72 % of predicted at 1.97 L FVC: 98 % of predicted at 3.38 L FEV1/FVC: 58 % Bronchodilator response: Present Volumes: Total lung capacity: 90 % of predicted at 4.80 L Residual volume: 106 % of predicted at 1.75 L Slow vital capacity: 82 % of predicted at 3.05 L Expiratory reserve volume: 29 % of predicted at 0.29 L Diffusion capacity: Normal Impression: Moderate obstructive ventilatory defect with positive bronchodilator response. Decreased expiratory reserve volume suggests extrathoracic restriction likely secondary to abdominal obesity. MTDD
[2024-07-29 13:36] VITALS: PULSE 90; RESP 16; O2SAT 92
== END 2024-07-12 12:56 | disposition home or self-care (01) ==
LOC: HO.RESP 12:55
PROVIDERS: PCP Internal Medicine; Visit Provider Internal Medicine
DX: R06.02 Shortness of breath (principal)
CPT/HCPCS: 94010; 94640; 94727; 94729

== ENCOUNTER → 2024-07-12 14:00 | Outpatient (BNV) | payer MEDICARE, MEDICAID, SELFPAY | PROVIDERS: PCP Internal Medicine; Visit Provider Internal Medicine Pulmonary Disease | DX: R06.02 Shortness of breath (principal) | CPT/HCPCS: 94060; 94727; 94729 ==

== ENCOUNTER 2024-08-02 11:09 | Outpatient (REF) | payer MEDICARE, MEDICAID, SELFPAY ==
[2024-08-02 14:08] LABS: Appearance Urine Turbid; Color Urine Yellow; Glucose Urine UA Negative (Negative); Leukocyte Esterase Urine Small (1+) (Negative); Nitrite Urine Negative (Negative); PH 7.5 (5.0-9.0); UMIC TRIGGER UA YES; Urine Blood Negative (Negative); Urine Ketones Negative (Negative); Urine Protein Negative (Neg-Trace)
[2024-08-02 14:14] LABS: Bacteria Urine 4+ (None Seen); Hyaline Casts Urine 0-2 /LPF (0-2); RBC Urine 0-2 /HPF (0-2); Squamous Epithelial Cell Urine >20 /HPF (0-2)
[2024-08-02 14:47] LABS: TSH reflex Free T4 1.89 uIU/mL (0.32-4.0)
== END 2024-08-02 11:10 | disposition home or self-care (01) ==
LOC: HO.CHCLDS 11:09
PROVIDERS: Visit Provider Internal Medicine
DX: E03.9 Hypothyroidism, unspecified (principal); R31.29 Other microscopic hematuria
CPT/HCPCS: 36415; 81001; 84443

== ENCOUNTER 2024-12-09 14:28 | Outpatient (AMB) | payer MEDICARE, MEDICAID, SELFPAY ==
[2024-12-09 14:52] VITALS: BP 144/82; PULSE 84; O2SAT 95; BMI 46.4
--- NOTE | 2024-12-09 14:52 | MHC.OFFVIS ---
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 Allergies NSAIDS (Non-Steroidal Anti-Inflamma Adverse Reaction (Severe, Verified 12/09/24 14:53) acute kidney damage tramadol Adverse Reaction (Verified 12/09/24 14:53) Nausea Medication List - Last Reconciled 12/09/24 by Julieta Vargas, CREATIVE SERVICES WRITER acetaminophen 650 mg (2 x 325 mg) PO Q6H PRN albuterol sulfate 90 mcg/actuation inhalation alprazolam PO atorvastatin 10 mg PO DAILY baclofen 10 mg PO TID 30 days bisacodyl (Dulcolax (bisacodyl)) 10 mg (2 x 5 mg) PO BEDTIME cetirizine 10 mg PO DAILY docusate sodium 100 mg PO BEDTIME duloxetine 60 mg PO BID esomeprazole magnesium (Nexium) 40 mg PO DAILY famotidine (Pepcid) 20 mg PO BEDTIME ferrous sulfate 325 mg PO Q OTHER DAY fluticasone propionate 50 mcg/actuation sprays intranasal furosemide 20 mg PO DAILY hydroxyzine HCl 50 mg PO BID levothyroxine 100 mcg PO DAILY mirtazapine 15 mg PO BEDTIME ondansetron mg PO oxcarbazepine 300 mg PO BID oxcarbazepine 150 mg PO DAILY trazodone 50 mg PO BEDTIME HPI Comments Details: Manuela is very pleasant 54 years old female who presents in the this office after 4. years of absence. She was under my care in 2020, she received medial branch blocks and also she received interlaminar L4-5 epidural steroid injections. Now she is back in my office with complains on pain in the lower back. She reports that standing and walking aggravate she pain. She reports that flexing backwards aggravate her pain more than flexing forward. She denies pain aggravation with prolonged sitting. She reports that she can- sleep normally because of her pain, she can not do activity of daily living, she is able to take care of herself but she can not function normally. She is on permanent disability. Cold applications weather changes and motions aggravate her pain. She reports severity of pain 8 to 10/10. She reports pain in the lumbar spine with radiation on the posterior and lateral surfaces of bilateral lower extremities. In terms of tissue damage he describes her pain as pulsing, throbbing, pounding, pinching, cramping, crushing, dull, hurting, heavy, tiring, exhausting, tight, squeezing, tearing. She reports that she never had an MRI of the lumbar spine, she never had physical therapy. She had injections as above with me. Her past medical history significant for depression anxiety bipolar disorder and PTSD, she is suffering from headaches dizziness and fainting she is suffering from asthma and shortness of breath. She has history of arthritis. Her past surgical history significant for ACDF in 2022 in February. It was done in [facility]. Her neurosurgeon was Dr. Joyce. She reports that she stopped smoking cigarettes 1 year ago she denies drinking alcohol she drinks 1 large cup of coffee a day and she denies any recreational drugs. [facility] Medical History (Updated 12/09/24 @ 15:06 by Marshall Lima MD) Tubular adenoma of colon GERD (gastroesophageal reflux disease) Thyroid disease Elevated cholesterol Spondylosis of lumbar spine Fibromyalgia Suicide attempt Headache Surgical History History of dental surgery Hx of anterior cruciate ligament surgery Hx of tubal ligation Family History Mother Depression Father No problems noted. Sister Diabetes Fibromyalgia Degenerative disc disease Bipolar 1 disorder Depression Son Depression Bipolar 2 disorder Son Depression Son Depression Daughter Depression Migraine Social History Are you a primary direct care provider to a significant other at home: No Do you presently have visiting nurse or other home services: No Alcohol intake: never Patient Tobacco Use Status: Former Tobacco user Review of Systems Const All systems reviewed & are unremarkable except as noted in HPI and below ENT Reports Normal hearing present Card Reports no additional complaints Resp Reports as per HPI GI Reports no additional complaints Reports no additional complaints Musc Reports as per HPI Neuro Reports no additional complaints, Reports Normal hearing present, Denies Abnormal speech present, Denies confusion and Denies Sensory deficit (Neuro) Psych Denies confusion Endo Reports no additional complaints Physical Exam Vital Signs: Last Vital Signs Pulse 84 12/09/24 14:52 BP 144/82 H 12/09/24 14:52 Pulse Ox 95 12/09/24 14:52 Oxygen Delivery Method Room Air 12/09/24 14:52 BMI result Body Mass Index 46.4 Const General: no acute distress; No confusion Nutritional Appearance: obese morbidly obese Orientation/consciousness: patient oriented x3 and No confusion Eyes General: appearance normal, both eyes and all related structures Pupils: Equal, round and reactive pupils present EOM: EOMs intact bilaterally Neck Neck: Yes full ROM Chest Chest palpation & inspection: normal inspection of the chest Resp Effort & Inspection: normal respiratory effort, able to speak in complete sentences, normal respiratory pattern, no audible wheezes and no cough Cardio Jugular venous distension: no JVD GI Inspection: Yes normal to inspection Back/Spine/Pelvis Other: Able to stand on bilateral tiptoes in bilateral heels, able to flex herself forward but unable to flex herself backwards due to severe pain. Neuro General: patient oriented x3, gait normal and No confusion Cranial nerves: Yes CN's II-XII intact bilaterally, Yes Equal, round and reactive pupils present, Yes Normal hearing present and Yes Ability to bilaterally elevate shoulders present Speech: No Abnormal speech present Gait exam (Neuro): Normal gait present Motor exam (neuro): 5/5 motor strength present throughout Sensory Exam: No Sensory deficit (Neuro) Extrem General: No pedal edema Psych Speech and movement: Normal speech and movement present Affect: normal affect Attitude: cooperative Thought process: Normal thought process present Thought content: Normal thought content present Insight: Good insight present (Psych) Judgement: Good judgement present (Psych) Assessment & Plan Assessment & Plan (1) Spondylosis of lumbar region without myelopathy or radiculopathy: Code(s): M47.816 - Spondylosis without myelopathy or radiculopathy, lumbar region Category: Medical (2) Facet arthropathy, lumbar: Code(s): M47.816 - Spondylosis without myelopathy or radiculopathy, lumbar region Category: Medical (3) Disc degeneration, lumbar: Code(s): M51.369 - Other intervertebral disc degeneration, lumbar region without mention of lumbar back pain or lower extremity pain Category: Medical Plan This patient will be sent for physical therapy to treat her lower back pain. I also send her for MRI of the lumbar spine. After completion of the examination of the MRI I will decide what injections and or neuromodulation could be employed to treat this patient's pain. I we will see this patient in 45 days when she complete her physical therapy. Orders: Orders PT Evaluation and Treatment Today M47.816 - Spondylosis without myelopathy or radiculopathy, lumbar region, M51.369 - Other intervertebral disc degeneration, lumbar region without mention of lumbar back pain or lower extremity pain MR lumbar spine wo con Today M47.816 - Spondylosis without myelopathy or radiculopathy, lumbar region, M51.369 - Other intervertebral disc degeneration, lumbar region without mention of lumbar back pain or lower extremity pain Medications: New acetaminophen (Tylenol Extra Strength) Do not take this preparation of Tylenol with any other Tylenol containing medications. 500 mg PO Q6H PRN 120 tabs 8RF fever 30 days Discontinued acetaminophen Discontinued Reason: Doctor's Order 650 mg (2 x 325 mg) PO Q6H PRN 20 caps 0RF pain Coding Level of Care Code New Pt Level 3 (80261) Diagnoses Spondylosis of lumbar region without myelopathy or radiculopathy M47.816 Facet arthropathy, lumbar M47.816 Disc degeneration, lumbar M51.369
== END 2024-12-09 15:03 | disposition home or self-care (01) ==
LOC: HO.PMC 14:28
PROVIDERS: PCP Internal Medicine; Referring Provider Internal Medicine; Visit Provider Anesthesiology
DX: M47.816 Spondylosis without myelopathy or radiculopathy, lumbar region (principal); M51.369 Other intervertebral disc degeneration, lumbar region without mention of lumbar back pain or lower extremity pain
CPT/HCPCS: 99203

== ENCOUNTER → 2024-12-09 14:28 | Outpatient (BNVA) | payer MEDICARE, MEDICAID, SELFPAY | PROVIDERS: PCP Internal Medicine; Referring Provider Internal Medicine; Visit Provider Anesthesiology | DX: M47.816 Spondylosis without myelopathy or radiculopathy, lumbar region (principal); M51.369 Other intervertebral disc degeneration, lumbar region without mention of lumbar back pain or lower extremity pain | CPT/HCPCS: 99202 ==

== ENCOUNTER 2024-12-12 13:10 | Outpatient (REF) | payer MEDICARE, MEDICAID, SELFPAY ==
[2024-12-12 14:12] LABS: MANUAL DIFF FLAG NO
[2024-12-12 15:12] LABS: Basophils Absolute Auto 0.1 X10*3/uL (0.0-0.2); Basophils Percent Auto 1.6 % (0-2); Eosinophils Absolute Auto 0.1 X10*3/uL (0.0-0.4); Hematocrit 37.3 % (37.0-47.0); Hemoglobin 12.3 g/dl (12.0-16.0); Imm Gran Abs Auto 0.06 X10*3/uL (0.00-0.03); Imm Gran Pct Auto 0.9 % (0.0-0.4); Lymphocytes Absolute Auto 2.3 X10*3/uL (1.2-4.9); Lymphocytes Percent Auto 33.7 % (20-40); Mean Corpuscular Hemoglobin 27.3 pg (27.0-33.0); Mean Corpuscular Volume 82.7 fL (80.0-98.0); Mean Platelet Volume 9.6 fL (9.4-12.3); Monocytes Absolute Auto 0.6 X10*3/uL (0.1-1.2); Monocytes Percent Auto 8.2 % (2-11); Neutrophils Absolute Auto 3.7 x10*3/uL (2.0-8.3); Neutrophils Percent Auto 53.6 % (45-73); Platelet Count 396 X10*3/uL (160-400); Red Blood Count 4.51 X10*6/uL (4.20-5.50); Red Cell Distribution Width 12.8 % (11.0-16.0); White Blood Count 6.9 X10*3/uL (4.8-10.8)
[2024-12-27 12:07] LABS: Class Alternaria alternata 0; Class Aspergillus fumigatus 0; Class Bermuda Grass 0; Class Birch 0; Class Cat Dander 0; Class Cladosporium herbarum 0; Class Cockroach 0; Class Derm. pterony 0; Class Dermatophagoides farinae 0; Class Dog Dander 0; Class Elm 0; Class Maple Box Elder 0; Class Mountain Cedar 0; Class Mouse Urine Protein 0; Class Oak 0; Class Penicillium crysogenum 0; Class Sycamore 0; Class Timothy Grass 0; Class Walnut Tree 0; D001 IgE D pteronyssinus <0.10 kU/L; D002 - IgE D farinae <0.10 kU/L; E001 - IgE Cat Dander <0.10 kU/L; E005 - IgE Dog Dander <0.10 kU/L; E072-IgE Mouse Urine <0.10 kU/L; G002 IgE Bermuda Grass <0.10 kU/L; G006 - IgE Timothy Grass <0.10 kU/L; I006-IgE Cockroach, German <0.10 kU/L; M001 IgE Penicillium chrysogen <0.10 kU/L; M002 - IgE Cladosporium herbar <0.10 kU/L; M003 - IgE Aspergillus fumigat <0.10 kU/L; M006 - IgE Alternaria alternat <0.10 kU/L; T001 IgE Maple/Box Elder <0.10 kU/L; T003 IgE Common Silver Birch <0.10 kU/L; T006 - IgE Cedar, Mountain <0.10 kU/L; T007 - IgE Oak, White <0.10 kU/L; T008 IgE Elm, American <0.10 kU/L; T010 - IgE Walnut <0.10 kU/L; T011 - IgE Maple Leaf Sycamore <0.10 kU/L
== END 2024-12-12 13:11 | disposition home or self-care (01) ==
LOC: HO.LAB 13:10
PROVIDERS: PCP Internal Medicine; Visit Provider Internal Medicine Pulmonary Disease
DX: Z91.09 Other allergy status, other than to drugs and biological substances (principal); G47.33 Obstructive sleep apnea (adult) (pediatric); Z87.891 Personal history of nicotine dependence; R06.09 Other forms of dyspnea
CPT/HCPCS: 36415; 82785; 85025; 86003; 99212

== ENCOUNTER 2024-12-12 13:10 | Outpatient (AMB) | payer MEDICARE, MEDICAID, SELFPAY ==
[2024-12-12 13:34] VITALS: BP 132/82; PULSE 96; O2SAT 96; BMI 46.9
--- NOTE | 2024-12-12 13:34 | MHC.OFFVIS ---
Vital Signs 12/12/24 13:34 Height 5 ft 5 in Weight 282 lb BMI 46.9 BP 132/82 Blood Pressure Location Rt brachial Position Sitting Pulse 96 Pulse Source Doppler Pulse Oximetry (%) 96 Oxygen Delivery Method Room Air Intake Visit Reasons: asthma Allergies NSAIDS (Non-Steroidal Anti-Inflamma Adverse Reaction (Severe, Verified 12/12/24 13:42) acute kidney damage tramadol Adverse Reaction (Verified 12/12/24 13:42) Nausea HPI HPI asthma: Details: 54-year-old lady, recent 20+ pack-year smoker, with underlying obesity and congestive heart failure referred for evaluation pulmonary component to dyspnea. Patient states that she previously used albuterol MDI with some affect, but recently it is no longer helping. She also was tried on Trelegy and another unspecified inhaler that she was not able to tolerate. She does complain of significant dyspnea including at rest, orthopnea, and with exertion. She does complain of multiple environmental allergies for which she is taking Zyrtec and Flonase. She denies exposure to industrial dusts. Patient does not have family history of lung disease. She has been observed snoring and has daytime somnolence. [facility] Medical History (Updated 12/12/24 @ 14:02 by Ezio Law MD) Tubular adenoma of colon GERD (gastroesophageal reflux disease) Thyroid disease Elevated cholesterol Spondylosis of lumbar spine Fibromyalgia Suicide attempt Headache Surgical History (Reviewed 06/05/24 @ 10:57 by Roman Novak [facility]) History of dental surgery Hx of anterior cruciate ligament surgery Hx of tubal ligation Family History (Reviewed 06/05/24 @ 10:57 by Roman Novak [facility]) Mother Depression Father No problems noted. Sister Diabetes Fibromyalgia Degenerative disc disease Bipolar 1 disorder Depression Son Depression Bipolar 2 disorder Son Depression Son Depression Daughter Depression Migraine Social History (Updated 12/12/24 @ 13:47 by Nara Luna Sarah) Are you a primary long term care pharmacist to a significant other at home: No Do you presently have visiting nurse or other home services: No Alcohol intake: never Patient Tobacco Use Status: Former Tobacco user Tobacco use type: Cigarette Years Smoked: quit 2023, started age 16, 1PPD, and vape. e-Cigarette/Vaping Use: Former Use Review of Systems Const Reports daytime sleepiness, Denies excessive sweating, Reports fatigue, Denies fever(s), Denies lethargy, Reports malaise, Denies night sweats, Reports snoring and Denies weight loss Eyes Denies blurry vision and Denies itchy eyes ENT Denies nasal congestion, Denies post nasal drip, Denies sinus pain, Denies sinus pressure and Denies other ( Thrush) Card Denies chest pain, Reports pedal edema, Reports dyspnea, Reports dyspnea on exertion, Reports orthopnea and Reports paroxysmal nocturnal dyspnea Resp Denies cough, Denies hemoptysis, Denies excessive phlegm production, Reports dyspnea, Reports dyspnea on exertion, Reports snoring and Denies wheezing GI Denies abdominal pain and Denies heartburn Musc Denies myalgias, Denies arthralgias and Denies joint swelling Skin/Breast Denies rash Neuro Denies memory loss and Denies seizure-like activity Psych Denies abnormal sleep pattern, Denies anxiety and Denies memory loss Endo Denies excessive sweating, Reports fatigue and Denies heat intolerance Braden/Lymph Denies easy bruising Aller/Immun Denies itchy eyes, Denies seasonal rhinorrhea and Denies wheezing Physical Exam Vital Signs: Last Vital Signs Pulse 96 12/12/24 13:34 BP 132/82 12/12/24 13:34 Pulse Ox 96 12/12/24 13:34 Oxygen Delivery Method Room Air 12/12/24 13:34 BMI result Body Mass Index 46.9 Const General: no acute distress and alert Nutritional Appearance: obese Orientation/consciousness: Other orientation findings ( oriented) HEENT Head: Yes atraumatic Eyes General: appearance normal, both eyes and all related structures Sclerae: sclerae normal EOM: EOMs intact bilaterally Neck Neck: Yes supple Lymphatic: no lymphadenopathy noted Resp Effort & Inspection: normal respiratory effort and no use of accessory muscles Auscultation: clear to auscultation bilaterally Cardio Rate: regular rate Rhythm: regular rhythm Heart sounds: no gallops, no murmurs and no rubs Skin General skin exam: other ( warm) Extrem General: No clubbing, No cyanosis and Yes edema (1+ bilateral) Assessment & Plan Assessment & Plan (1) JACINDA (obstructive sleep apnea): Code(s): G47.33 - Obstructive sleep apnea (adult) (pediatric) Category: Medical Plan: Unrestful sleep, daytime somnolence, snoring. [place] Sleepiness Scale score of 16. Will obtain home sleep study. (2) Personal history of nicotine dependence: Code(s): Z87.891 - Personal history of nicotine dependence Category: Medical Plan: Will obtain lung cancer screening CT chest. (3) Dyspnea on exertion: Code(s): R06.09 - Other forms of dyspnea Category: Medical Plan: Multifactorial with contribution from underlying pulmonary, cardiac, obesity/deconditioning etiologies. Will assess cardiac component with 2D echocardiogram. Will switch furosemide to Bumex 1 mg daily. Results of pulmonary function test reviewed, patient does have underlying moderate obstructive ventilatory defect with positive bronchodilator response. Will add Anoro and continue on albuterol MDI. (4) Environmental allergies: Code(s): Z91.09 - Other allergy status, other than to drugs and biological substances Category: Medical Plan: Will obtain IgE level, CBC with differential, and RAST panel for further evaluation. Orders: Orders Resp Allergy Profile Region I Today Z91.09 - Other allergy status, other than to drugs and biological substances Complete Blood Count Auto Diff Today Z91.09 - Other allergy status, other than to drugs and biological substances CA echo transthorac w con Today I50.9 - Heart failure, unspecified RT home sleep study Today G47.33 - Obstructive sleep apnea (adult) (pediatric) CT lung screening Today Z87.891 - Personal history of nicotine dependence Medications: New umeclidinium-vilanterol 62.5-25 mcg/actuation (Anoro Ellipta) 1 inh inhalation DAILY 1 ea 6RF R06.09 - Other forms of dyspnea bumetanide 1 mg PO DAILY 30 tabs 6RF R06.09 - Other forms of dyspnea Coding Level of Care Code New Pt Level 5 (07113) Diagnoses JACINDA (obstructive sleep apnea) G47.33 Personal history of nicotine dependence Z87.891 Dyspnea on exertion R06.09 Environmental allergies Z91.09
--- OUTSIDE RECORDS SUMMARY | 2024-12-12 16:17 | XMS_ITS | Encounter Summary ---
Author Organization [employer] Address [address] [place] [address] Care Team Providers Care Bulb Packer Name Role Phone Fabio Jones MD Primary Care Prov ider Encounter Details Date Type Department Care Team (Late st Contact Info) Description 06/19/2024 Orders Only [facility] [address], [place] [phone] Maco Galeano MD [address], [place] [phone] Social History Tobacco Use Types Packs/Day Years Used Date Smoking Tobacco: Former Smokeless Tobacco: Former Comments:Vape nicotine 5mg Alcohol Use Standard Drinks/Week Comments Never 0 (1 standard drink = 0.6 oz pur e alcohol) Depression Answer Date Recorded Patient Health Questionnaire-9 Score 15 10/17/2023 Patient Health Questionnaire-9 Score 15 10/17/2023 Last PHQ-9: Questionnaire Data Not on file 0 10/17/2023 Housing Stability Answer Date Recorded What is your housing situation today? I have sabino castillo 09/04/[address] you li ve. Do you have problems with any of the following? None of the above 09/04/2023 Food Insecurity Answer Date Recorded Within the past 12 months, y ou worried that your food would run out before you got money to buy more: Never True 09/04/2023 Within the past 12 months,th e food you bought just didn't last and you didn't have enough money to get more: Never True Transportation Answer Date Recorded In the past 12 months, has l ack of transportation kept you from medical appts, meetings, work or from getting things needed for daily living? No 09/04/2023 Utilities Answer Date Recorded In the past 12 months, has t he electric, gas, oil or water company threatened to shut off services in your home? No 09/04/2023 Depression Answer Date Recorded Patient Health Questionnaire-2 Score 4 10/17/2023 Comments No Sex and Gender Information Value Date Recorded Sex Assigned at Female 07/20/2023 2:54 PM EDT Legal Sex Female 2:52 PM EDT Gender Identity Female 07/20/2023 2:54 PM EDT Sexual Orientation Don't know 11/14/2023 1: 36 PM EST Sexual Orientation Straight 11/14/2023 1: 36 PM EST documented as of this encounter Plan of Treatment Upcoming Encounters Date Type Department Care Team ([facility] st Contact Info) Description 01/07/2025 1:30 PM EDT Office Visit [facility] [address], [place] [phone] Fabio Jones MD [address], [place] [phone] documented as of this encounter Procedures Procedure Name Priority Date/Time Associated Diagnosis Comments T4, FREE Routine 06/19/2024 9:58 AM EDT documented in this encounter Results * (ABNORMAL) T4, Free (06/19/2024 9:58 AM EDT) Free T4 (Free Thyroxine) 0.69(L) 0.71 - 1.85 ng/dL [facility] 06/19/2024 9:58 AM EDT 06/19/2024 2:37 PM EDT us Maco Galeano MD LAB BLOOD ORDERABLES Final Result [facility] [address] [place] [phone] documented in this encounter Visit Diagnoses Not on filedocumented in this encounter Additional Health Concerns Assessment Noted Time PHQ-9 Depression Total Score: 15 024 2:46 PM EST documented as of this encounter Care Teams Bulb Packer Relationship Specialty Start Date End Date SierraFabio Arguelles MD [address] [place] [phone] PCP - General Internal Medicine 09/05/23 documented as of this encounter
--- OUTSIDE RECORDS SUMMARY | 2024-12-12 16:17 | XMS_ITS | Clinical Summary ---
Author Organization [employer] Address [address] [facility] 7 [place] [address] Care Team Providers Care Anode Builder Name Role Phone Fabio Jones MD Primary Care Prov ider Allergies Active Allergy Reactions Criticality Noted Date Comments Nsaids 09/04/2023 Other reaction(s): I have kidney problems and was told not to take them Tramadol 09/04/2023 Other reaction(s): CAUSES NAUSEA AND VOMITING Medications * This document contains information received from the source organization and may not represent a complete record from that organization. mirtazapine (Remeron) 15 MG tablet Take 15 mg by mouth at bedtime. 3 Active OXcarbazepine (Trileptal) 300 MG tabletIndications: Fibromyalgia Take 1 tablet (300 mg) by mouth 2 times daily. 60 tablet 4 Active DULoxetine (Cymbalta) [address] capsuleIndications :Fibromyalgia Take 1 capsule (60 mg) by mouth 2 times daily. 60 capsule 4 Active hydrOXYzine pamoate (Vistaril) 25 MG capsule TAKE 1 CAPSULE(25 MG) BY MOUTH EVERY 12 HOURS NEEDED FOR ANXIETY 60 capsule 1 4 Active cetirizine (ZyrTEC) 10 MG tablet Take 1 tablet (10 mg) by mouth Once per day. 90 tablet 3 4 025 Active furosemide (Lasix) 20 MG tablet Take 1 tablet (20 mg) by mouth Once per day. 90 tablet 3 4 025 Active atorvastatin (Lipitor) 10 MG tablet Take 1 tablet (10 mg) by mouth Once per day. 90 tablet 3 4 025 Active traZODone (Desyrel) 50 MG tablet TAKE 1 TABLET(50 MG) BY MOUTH AT BEDTIME 30 tablet 4 Active varenicline (Chantix) 1 MG tabletIndications: Smoker Take 1 tablet (1 mg) by mouth 2 times daily. Take with full glass of water. 120 tablet 4 Active levothyroxine (Synthroid) 112 MCG tabletIndications: Acquired hypothyroidism Take 1 tablet (112 mcg) by mouth before breakfast. 30 tablet 11 4 025 Active Fluticasone-Umecli din-Vilant (Trelegy Ellipta) 100-62.5-25 MCG/ACT aerosol powder Inhale 1 puff Once per day. 60 each 3 4 Active albuterol 108 (90 Base) MCG/ACT inhaler Inhale 2 puffs every 6 (six) hours if needed for wheezing. 18 g 11 4 025 Active fluticasone (Flonase) 50 MCG/ACT nasal spray SHAKE GENTLY, PRIME PUMP AND ADMINISTER 1-2 SPRAYS INTO EACH NOSTRIL ONCE DAILY. CLEAN TIP AFTERWARDS 16 g 3 5 Active baclofen (Lioresal) 10 MG tablet TAKE 1 TABLET(10 MG) BY MOUTH TWICE DAILY 60 tablet 1 5 Active lidocaine (Lidoderm) 5 % patchIndications:C hronic bilateral low back pain with right-sided sciatica Apply 1 patch topically Once per day. Remove & discard patch within 12 hours or as directed by MD. 20 patch 3 5 Active Active Problems Problem Noted Date Diagnosed Date Bipolar disease, chronic 10/22/2024 Moderate episode of recurrent major depressive d isorder 10/22/2024 Class 3 severe obesity due t o excess calories with serious comorbidity and body mass index (BMI) of 40.0 to 44.9 in adult 10/22/2024 Chronic bilateral low back pain with right-sided sciatica 10/22/2024 Moderate persistent asthma without complication 06/10/2024 Assessment & Plan (08/02/2024 2:13 PM EST): Patient with low dose inhaled steroid, still using albuterol rescue 1-2 times a day, will optimize therapy to trellegy ellipta, follow up in 2 months Assessment & Plan (06/10/2024 10:28 AM EDT): Pft not done yet, she is using rescue inhaler more than 2 times a week, will add asmanex daily, call back if not improving, er precautions reviewed Acquired hypothyroidism 12/01/2023 Assessment & Plan (06/10/2024 10:29 AM EDT): Labs previously ordered for guidance not performed, will follow up results Assessment & Plan (03/15/2024 3:48 PM EDT): Told to get new blood work for guidance of therapy Assessment & Plan (12/01/2023 12:37 PM EDT): Will send tsh for guidance of therapy Seasonal allergies 12/01/2023 Assessment & Plan (12/01/2023 12:38 PM EDT): Will send flonase, continue zyrtec Shortness of breath 12/01/2023 Assessment & Plan (12/01/2023 12:41 PM EDT): Will send pft and will renew albuterol SHERYL (generalized anxiety disorder) 10/17/2023 Chronic diastolic congestive heart failure 09/04 Assessment & Plan (06/10/2024 10:24 AM EDT): Followed by cardiology, recent echo showed preserved EF with no diastolgy, will follow reccomendations Assessment & Plan (03/15/2024 3:48 PM EDT): Followed by cardiology, denied shortness of breath, will follow up reccomendations Assessment & Plan (12/01/2023 12:35 PM EDT): Has scheduled follow up with cardiology, no recent exacerbation, continue furosemide and adequate blood pressure control Assessment & Plan (09/04/2023 9:20 PM EST): Patient refers used to be followed at [facility] cardiology, will place referal Fibromyalgia 09/04/2023 Assessment & Plan (09/04/2023 9:23 PM EST): On duloxetine, reviewed lifestyle changes to improve condition MDD (major depressive disorder) 09/04/2023 Assessment & Plan (09/04/2023 9:24 PM EST): Will place [facility] referral, meds will be renewed as needed until followed by psych PTSD (post-traumatic stress disorder) 09/04/2023 Degenerative disc disease, cervical 09/04/2023 Assessment & Plan (03/15/2024 3:47 PM EDT): Patient had cervical surgery over 1 year ago, will refer to ortho as she refers continue with cervical pain for evaluation Assessment & Plan (12/01/2023 12:39 PM EDT): Patient had surgery on [place] back on February 2023, needs follow up, will send to neurosurgery Screening for colon cancer 09/04/2023 Assessment & Plan (09/04/2023 9:27 PM EST): Will refer for colonoscopy Screening for malignant neoplasm of cervix 09/04 Screening for breast cancer 09/04/2023 Assessment & Plan (09/04/2023 9:28 PM EST): Will refer for screening mammo Resolved Problems Problem Noted Date Diagnosed Date Resolved Date Anxiety 09/04/2023 10/17/2023 Encounters Date Type Department Care Team Description 12/12/2024 Orders Only GENERIC EXTERNAL DATA DEPARTMENT Provider, Generic External Data 10/22/2024 1:30 PM EST Office Visit [facility] [address] [place] [address] Fabio Jones MD Bipolar disease, chronic (CMS/HCC) (Primary Dx); Moderate episode of recurrent major depressive disorder (CMS/HCC); Class 3 severe obesity due to excess calories with serious comorbidity and body mass index (BMI) of 40.0 to 44.9 in adult (CMS/HCC); Chronic diastolic congestive heart failure (CMS/HCC); Dietary counseling; Exercise counseling; Chronic bilateral low back pain with right-sided sciatica; Moderate persistent asthma without complication 10/22/2024 Telephone [facility] [address] [place] [address] Fabio Jones MD Orthopedic APPT 10/22/2024 Travel 10/15/2024 Travel 10/10/2024 Travel 10/10/2024 Refill [facility] [address] [place] [address] Fabio Jones MD 10/09/2024 Refill [facility] [address] [place] [address] Fabio Jones MD 10/08/2024 Refill [facility] [address] [place] [address] Fabio Jones MD 10/01/2024 Telephone [facility] [address] [place] [address] Fabio Jones MD Chart Prep 09/25/2024 Travel from Last 3 Months Immunizations Name Administration Dates Next Due Influenza Injectable Quadriv alant Preservative Free IIV4 MDCK 10/07/2020 Influenza Whole 08/10/2010,06/04/2009 Influenza injectable quadriv alent preservative free 08/15/2020,06/05/2019 Influenza, IIV3, injectable 06/21/2016,1 ,09/19/2014,07/09,07/09/2012,08/29/2011 Influenza, seasonal, injecta ble, preservative free 07/16/2024,06/21/2016,07/10/2015 Pneumococcal Conjugate PCV 20 08/02/2024 Pneumococcal Polysaccharide PPSV23 02/28/2019 Tdap 02/08/2020, 9,07/10/2015,03/12 Family History Medical History Relation Name Comments No Known Problems Father Kidney cancer Mother Relation Name Status Comments Father Mother Social History Tobacco Use Types Packs/Day Years Used Date Smoking Tobacco: Former Smokeless Tobacco: Former Tobacco Cessation:Counseling Given: Not Answered Comments:Vape nicotine 5mg Alcohol Use Standard Drinks/Week Comments Never 0 (1 standard drink = 0.6 oz pur e alcohol) Depression Answer Date Recorded Patient Health Questionnaire-9 Score 0 08/02/2024 Patient Health Questionnaire-9 Score 0 08/02/2024 Last PHQ-9: Questionnaire Data Not on file 1 10/02/2023 Housing Stability Answer Date Recorded What is [...] Answer Date Recorded Patient Health Questionnaire-2 Score 0 08/02/2024 Comments No Sex and Gender Information Value Date Recorded Sex Assigned at Female 07/20/2023 2:54 PM EDT Legal Sex Female 2:52 PM EDT Gender Identity Female 07/20/2023 2:54 PM EDT Sexual Orientation Don't know 11/14/2023 1: 36 PM EST Sexual Orientation Straight 11/14/2023 1: 36 PM EST Last Filed Vital Signs Vital Sign Reading Time Taken Comments Blood Pressure 131/90 10/22/2024 1:35 PM EST Pulse 94 10/22/2024 1:35 PM EST Temperature 36.9 ??C (98.4 ??F) 10/22/2024 1:35 PM ES T Respiratory Rate 20 10/22/2024 1:35 PM EST Oxygen Saturation 96% 10/22/2024 1:35 PM EST Inhaled Oxygen Concentration - - Weight 122 kg (269 lb) 10/22/2024 1:35 PM EST Height 165.1 cm (5' 5 ) 10/22/2024 1:35 PM EST Body Mass Index 44.76 10/22/2024 1:35 PM EST Plan of Treatment Upcoming Encounters Date Type Department Care Team ([facility] st Contact Info) Description 01/07/2025 1:30 PM EDT Office Visit [facility] [address] [place] [address] Fabio Jones MD [address] [place] [address] Health Maintenance Due Date Last Done Comments CT Colonography 1970 Colonoscopy 1970 Colorectal Cancer Screening 1970 FIT DNA/Cologuard 1970 FIT 1970 FOBT 1970 Sigmoidoscopy 1970 Alcohol/Substance Use Screening 1982 Hepatitis B Vaccines (1 of 3 - 19+ 3-dose series) 1989 Zoster Vaccines (1 of 2) 2020 COVID-19 Vaccine ( - 2023- season) 2024 01/27/2021, 12/30/2020 SDOH Screening 09/04/2024 09/04/2023 Tobacco Screening 10/17/2024 10/17/2023 Depression Screening 08/02/2025 08/02/2024, 08/02/20 24 Mammogram 04/19/2026 04/19/2024 Cervical Cancer Screening 10/17/2028 HPV/Cotest 10/17/2028 10/17/2023 Pap Smear 10/17/2028 10/17/2023 Lipid Panel 12/05/2028 12/06/2023 DTaP/Tdap/Td Vaccines (5 - Td or Tdap) 02/07/2030 02/08/2020, 03/13/2019, 07/10/2015, Additional history exists HIV Screening 12/05/2033 RSV Patients and Patients Aged 60 years or older (1 - 1-dose 75+ series) 2045 Hepatitis C Screening Completed 12/06/2023 Influenza Vaccine Completed 07/16/2024, , 08/15/2020, Additional history exists Pneumococcal Vaccine: 50+ Years Completed 08/02/2024, 02/28/2019 HIB Vaccines Aged Out No longer eligi ble based on patient's age to complete this topic HPV Vaccines Aged Out No longer eligi ble based on patient's age to complete this topic Hepatitis A Vaccines Aged Out No long er eligible based on patient's age to complete this topic IPV Vaccines Aged Out No longer eligi ble based on patient's age to complete this topic Meningococcal Vaccine Aged Out No rasheed teodora eligible based on patient's age to complete this topic RSV under 20 months Aged Out No longe r eligible based on patient's age to complete this topic Rotavirus Vaccines Aged Out No longer eligible based on patient's age to complete this topic Procedures Procedure Name Priority Date/Time Associated Diagnosis Comments CBC WITH AUTO DIFFERENTIAL Routine 12/12/2024 2:10 PM EDT BI MAMMOGRAM SCREENING TOMOSYNTHESIS BILATERAL Routine 04/19/2024 2:15 PM EDT HEPATITIS C AB W/REFL TO HCV RNA, QN, PCR Routine 12/06/2023 8:43 AM EDT Chronic diastolic congestive heart failure (CMS/HCC) LIPID PANEL, STANDARD Routine 12/06/2023 8:43 AM EDT Chronic diastolic congestive heart failure (CMS/HCC) HPV MRNA E6/E7 REFLEX TO HPV 16, 18/45 Routine 10/17/2023 2:00 PM EST PAP SMEAR Routine 10/17/2023 2:00 PM EST Cervical cancer screening from Last 3 Months or Most Recently Relevant to Health Maintenance Results * (ABNORMAL) CBC auto differential (12/12/2024 2:10 PM EDT) White Blood Count 6.9 4.8 - 10.8 X10*3/uL [facility] Red Blood Count 4.51 4.20 - 5.50 X10*6/uL [facility] Hemoglobin 12.3 12.0 - 16.0 g/dl [facility] Hematocrit 37.3 37.0 - 47.0 % [facility] Mean Corpuscular Volume 82.7 80.0 - 98.0 fL [facility] Mean Corpuscular Hemoglobin 27.3 27.0 - 33.0 pg [facility] Mean Corpuscular HGB Conc 33.0 31.0 - 35.0 g/dl [facility] Red Cell Distribution Width 12.8 11.0 - 16.0 % [facility] Platelet Count 396 160 - 400 X10*3/uL [facility] Mean Platelet Volume 9.6 9.4 - 12.3 fL [facility] Neutrophils Percent Auto 53.6 45 - 73 % [facility] Imm Gran Pct Auto 0.9(H) 0.0 - 0.4 % [facility] Lymphocytes Percent Auto 33.7 20 - 40 % [facility] Monocytes Percent Auto 8.2 2 - 11 % [facility] Eosinophils Percent Auto 2.0 0 - 4 % [facility] Basophils Percent Auto 1.6 0 - 2 % [facility] NRBC Pct Auto 0.0 0.0 - 0.2 /100WBC [facility] Neutrophils Absolute Auto 3.7 2.0 - 8.3 x10*3/uL [facility] Imm Gran Abs Auto 0.06(H) 0.00 - 0.03 X10*3/uL [facility] Lymphocytes Absolute Auto 2.3 1.2 - 4.9 X10*3/uL [facility] Monocytes Absolute Auto 0.6 0.1 - 1.2 X10*3/uL [facility] Eosinophils Absolute Auto 0.1 0.0 - 0.4 X10*3/uL [facility] Basophils Absolute Auto 0.1 0.0 - 0.2 X10*3/uL [facility] NRBC Abs Auto 0.000 0.0 - 0.012 X10*3/uL [facility] 12/12/2024 2:10 PM EDT 12/12/2024 2:10 PM EDT us Generic External Data Provider LAB BLOOD ORDERAB LES Final Result [facility] [address] [place] [phone] * BI Mammogram Screening Tomosynthesis Bilateral (04/19/2024 2:15 PM EDT) Anatomical Region Laterality Modality Breast Bilateral Mammography 04/19/2024 2:15 PM EDT Narrative 05/20/2024 11:50 PM EDT ? [facility] [place] ? [address] ?[place] [phone] ? Mammography Report ? Signed ? Patient: StoneManuela A ?MR#: [id number] ?? [id number] ? : 1970 ?Acct:[id number] ? Age/Sex: 53 / F ?ADM Date: 04/19/24 ? Loc: HO.MAMMO ? Attending Dr: Fabio Schneider MD ? Ordering Physician: Fabio Jones MD ?Res ?? ults: 1Negative ? Date of Service: 04/19/24 ?Follow Up: 1 Year From Orig ?? inal Mammogram ? Procedure(s): MM tomosynthesis screening BI ?? Accession Number(s): [id number] ? cc: Fabio Jones MD ? EXAMINATION: ?? MM SCREENING DIGITAL BREAST TOMOSYNTHESIS, BILATERAL ? CLINICAL INFORMATION: ? Screening. Asymptomatic. ? COMPARISON: ?? Mammography: This study is compared with prior exams dating back to ? 202. ?? TECHNIQUE: ?? Digital breast tomosynthesis is performed in both the craniocaudal and ?? mediolateral oblique views along with computer-aided detection (CAD). ? Synthesized 2D images are generated from the tomosynthesis. ? FINDINGS: ?? The breasts are almost entirely fatty (ACR BI-RADS breast composition ?? Category a). ? There are no significant masses, abnormal calcifications, or other ?? abnormalities. ? MM/MM tomosynthesis screening BI ?? IMPRESSION: ?? No mammographic evidence of malignancy. ? ASSESSMENT: ? BI-RADS BI-RADS 1 - Negative ? RECOMMENDATION: ?? Routine annual mammography screening. ? 1 year F/U ? This examination should not preclude the clinical evaluation of a ?? suspicious palpable abnormality. ? This patient's information was entered into a reminder system with a ?? target due date for their next mammogram. ? Electronically signed by: ??Kelli Jacob MD ??05/20/2024 11:48 PM EDT RP ? Dictated By: ?Kelli Jacob MD ? Signed By: ?<Electronically signed by Kelli Jacob MD in OV> ? 05/20/24 2348 ? DD/ 1415 ? TD/TT: 04/19/24 1435 ? Restaurant Hostess: ? Procedure Note Seng Montoya - 05/20/2024 [facility] [address] [place] [address] Mammography Report Signed Patient: Manuela May AMR#: [id number] : 1970Acct:[id number] Age/Sex: 53 / FADM Date: 04/19/24 Loc: [facility] Attending Dr: Fabio Schneider MD Ordering Physician: Fabio Jones ults: 1Negative Date of Service: 08/02/24Follow Up: 1 Year From Orig ina Mammogram Procedure(s): MM tomosynthesis screening BI Accession Number(s): [id number] cc: Fabio Jones MD EXAMINATION: MM SCREENING DIGITAL BREAST TOMOSYNTHESIS, BILATERAL CLINICAL INFORMATION: Screening. Asymptomatic. COMPARISON: Mammography: This study is compared with prior exams dating back to . TECHNIQUE: Digital breast tomosynthesis is performed in both the craniocaudal and mediolateral oblique views along with computer-aided detection (CAD). Synthesized 2D images are generated from the tomosynthesis. FINDINGS: The breasts are almost entirely fatty (ACR BI-RADS breast composition Category a). There are no significant masses, abnormal calcifications, or other abnormalities. MM/MM tomosynthesis screening BI IMPRESSION: No mammographic evidence of malignancy. ASSESSMENT: BI-RADS BI-RADS 1 - Negative RECOMMENDATION: Routine annual mammography screening. 1 year F/U This examination should not preclude the clinical evaluation of a suspicious palpable abnormality. This patient's information was entered into a reminder system with a target due date for their next mammogram. Electronically signed by: Kelli Jacob MD 05/20/2024 11:48 PM EDT Dictated By: Kelli Jacob MD Signed By: <Electronically signed by Kelli Jacob MD in OV> 05/20/24 2348 DD/ 1415 TD/TT: 04/19/24 1435 Restaurant Hostess: Fabio Schneider MD IM BI PROCEDURES Final Result * Hepatitis C Antibody with Reflex to HCV, RNA, Quantitative, Real-Time PCR (12/06/2023 8:43 AM EDT) Hepatitis C Antibody Nonreactive Nonreactive [facility] Comment:Antibodies to HCV no t detected; does not exclude early acuteHCV infection. Blood Venous blood specimen / Unknown 12/06/2023 8:43 AM EDT 12/06/2023 1:02 PM EDT Fabio Schneider MD LAB BLOOD ORDERABL ES Final Result Performing Organization Address City/[facility] [address]/ZIP Co de Phone Number [facility] [address] [place] [address] [phone] * (ABNORMAL) Lipid Panel, Standard (12/06/2023 8:43 AM EDT) Triglycerides 234(H) <150 mg/dL [facility] Comment:Desirable Triglyceri de: less than 150 mg/dLBorderline High Triglyceride 150-199 mg/dLHigh Triglyceride: 200-499 mg/dLVery High Triglyceride: greater than or equal to 5OO mg/dL Cholesterol 203(H) <200 mg/dL [facility] Comment:Desirable Cholestero l: less than 200 mg/dLBorderline High Cholesterol: 200-239 mg/dLHigh Cholesterol: greater than 239 mg/dL LDL Cholesterol Calculated 96 <100 mg/dL [facility] Comment:Desirable LDL: less than 100 mg/dLNear Optimal/Above Optimal LDL: 110- 129 mg/dLBorderline High LDL: 130-159 mg/dLHigh LDL: 160-189 mg/dLVery High LDL: greater than or equal to 190 mg/dL HDL Cholesterol 61 >40 mg/dL [facility] Comment:Desirable HDL: great er than 40 mg/dL Note: This HDL assay may give artificially low results in patients with liver disease. Blood Venous blood specimen / Unknown 12/06/2023 8:43 AM EDT 12/06/2023 12:57 PM EDT Fabio Schneider MD LAB BLOOD ORDERABL ES Final Result Performing Organization Address City/[facility] [address]/ZIP Co de Phone Number [facility] [address] [place] [address] [phone] * HPV mRNA E6/E7 w/Reflex to HPV Genotypes 16, 18/45 (10/17/2023 2:00 PM EST) HPV nRNA E6/E7 Not Detected Not Detected [facility] Comment:Methodology: Transcr iption-Mediated AmplificationThis assay detects E6/E7 viral messenger RNA (mRNA) from 14high-risk HPV types (16,18,31,33,35,39,45,51,52,56,58,59,66,68).Cervical sources are required for HPV testing.If a vaginal source from a patient who has had atotal hysterectomy with removal of cervix wassubmitted, please contact the testing laboratoryfor alternative testing options.For additional information, please refer tohttp://education.MePlease/faq/QRH506b5(This link if provided for information/educational purposes only.)THIS TEST WAS PERFORMED AT:[facility] [place] [phone] THAKUR MD HPV mRNA E6/E7 [facility] HPV 16 RNA [facility] HPV 18/45 RNA [facility] 10/17/2023 2:00 PM EST 10/19/2023 9:50 AM EST Ciarra Martin [facility] CYTOLOGY ORDERABLES F inal Result [facility] [address] [place] [address] [phone] * Pap Smear (10/17/2023 2:00 PM EST) Swab Cervix uteri structure / Unknown 10/17/2023 2:00 PM EST 10/19/2023 9:50 AM EST Narrative [facility] - 11/01/2023 7:22 AM EST ----- ------- Name: Manuela May Sarah ?Age/Sex: 53/F ? : 1970 Unit#: [id number] ?? Attend Dr: ?Re10/17/23 ?Status: PRE REF ? Location: HO.LNP ?Disch: ? ----- ------- SPEC : [id number] ? RECD: 10/19/23 ? STATUS: ??SOUT ? REQ NUM: [id number] ? OCHOA: 10/17/23-1400 ? SUBM DR: CIARRA MARTIN CNM ? ENTERED: ??10/19/23 ?SP TYPE: Pap Smr ?OTHR DR: ? ORDERED: ??Pap Smear ? Interpretation ?? Satisfactory for evaluation. ?? No endocervical cells seen. ?? Mild inflammation. ?? Negative for intraepithelial lesion or malignancy. ?HPV mRNA E6/E7: ?NOT DETECTED ? This assay detects E6/E7 viral messenger RNA (mRNA) from 14 high-risk HPV types (16, 18, ?? 31, 33, 35, 39, 45, 51, 52, 56, 58, 59, 66, 68) ?? HPV testing performed by [facility], [place], [place]. ??See reference laboratory ?? portion of the EMR for entire report. ?Clinical Information LMP: Postmenopausal Previous PAP test: Unknown date/findings ? Material Received ?? ThinPrep-Cervical ----- ------- Signed (signature on file) MIRIAM Singh (ASCP) 11/01/23721 ? ----- ------- ? END OF REPORT ? us Ciarra Martin [facility] CYTOLOGY ORDERABLES F inal Result [facility] [address] [place] [address] [phone] from Last 3 Months or Most Recently Relevant to Health Maintenance Insurance [facility] STANDARD [employer] MEDICARE REPLACEMENT Care Teams Anode Builder Relationship Specialty Start Date End Date Fabio Jones MD [address] [place] [phone] PCP - General Internal Medicine 09/05/23
--- OUTSIDE RECORDS SUMMARY | 2024-12-12 16:17 | XMS_ITS | Encounter Summary ---
Author Organization [employer] Address [address] [facility] [address] [place] [address] Care Team Providers Care Prompt Care Rn Name Role Phone Fabio Jones MD Primary Care Prov ider Reason for Visit * Reason Comments Med Refill Encounter Details Date Type Department Care Team ([facility] st Contact Info) Description 10/09/2024 Refill [facility] [address] [place] [address] Fabio Jones MD [address] [place] [address] Social History Tobacco Use Types Packs/Day Years [...] Upcoming Encounters Date Type Department Care Team (Late st Contact Info) Description 01/07/2025 1:30 PM EDT Office Visit [facility] [address] [place] [address] Fabio Jones MD [address] [place] [address] documented as of this encounter Visit Diagnoses Not on filedocumented in this encounter Additional Health Concerns Assessment Noted Time PHQ-9 Depression Total Score: 0 08/02/20 24 10:30 AM EST documented as of this encounter Care Teams Prompt Care Rn Relationship Specialty Start Date End Date Fabio Jones MD [address] [place] [address] PCP - General Internal Medicine 09/05/23 documented as of this encounter
--- OUTSIDE RECORDS SUMMARY | 2024-12-12 16:17 | XMS_ITS | Encounter Summary ---
Author Organization [employer] Address [address] [facility] 7 [place] [address] Care Team Providers Care Block Hand Name Role Phone Fabio Jones MD Primary Care Prov ider Reason for Visit * Reason Comments Med Refill Encounter Details Date Type Department Care Team ([facility] st Contact Info) Description 10/08/2024 Refill [facility] PEDS [address] [place] [address] Fabio Jones MD [address] [place] [address] Social History Tobacco Use Types Packs/Day Years [...] Description 01/07/2025 1:30 PM EDT Office Visit [facility] MED & PEDS [address] [place] [address] Fabio Jones MD [address] [place] [address] documented as of this encounter Visit Diagnoses Not on filedocumented in this encounter Additional Health Concerns Assessment Noted Time PHQ-9 Depression Total Score: 0 08/02/20 24 10:30 AM EST documented as of this encounter Care Teams Block Hand Relationship Specialty Start Date End Date Fabio Jones MD [address] [place] [address] PCP - General Internal Medicine 09/05/23 documented as of this encounter
--- OUTSIDE RECORDS SUMMARY | 2024-12-12 16:17 | XMS_ITS | Patient Health Record ---
Author Organization [facility] Emelia cohen Billing Info Address [address] [place] [id number] Care Team Providers Care Print Designer Name Role Phone HOLLY DUNN Primary Care Provider FRAN JACOBO Unavailable [phone] Laura Covarrubias MD Unavailable Unavailable Allergies Allergen (clinical drug ingredient) Drug/Non Drug Allergy documented on EMR Reaction Allergy Type Onset Date Status Non-steroidal anti-inflammatory agent (FN) NSAIDs Unknown Drug Allergy Active Reason For Referral No Information Medications Medication SIG (Take, Route, Frequency, Duration) Notes Start Date End Date Status Tylenol 8 Hour 650 MG 2 tablets as neede d Orally every 8 hrs Not-Taking Ferrous Sulfate 325 (65 Fe) MG 1 tablet Orally every other day for 90 day(s) Not-Taking Collagen 1500/C 500-50-0.8 MG as directed Orally Active HydrOXYzine HCl 50 MG 1 tablet Orally on ce a day for 90 day(s) Not-Taking Biotin 71300 MCG 1 tablet Orally Once a day Not-Taking Mirtazapine 15 MG 1 tablet at bedtime Orally Once a day Active Acetaminophen 325 MG 1 tablet as needed Orally tid as needed Not-Taking Baclofen 10 MG 1 tablet as needed Orally Twice a day for 90 day(s) Active Magnesium Hydroxide 400 MG 1 tab(s) Orally Daily ovc Not-Taking Atorvastatin Calcium 10 MG 1 tablet Oral ly Once a day for 90 day(s) Active Albuterol Sulfate HFA 108 (90 Base) MCG/ACT 1 puff as needed Inhalation every 4 hrs Not-Takin g Omeprazole 20 MG 1 capsule 30 minutes before morning meal Orally Once a day for 90 day(s) Active Clonazepam 0.5 MG 1 tablet Orally TID Psych Active Furosemide 20 MG 1 tablet Orally Once a day for 90 day(s) Active Cetirizine HCl 10 MG 1 tablet Orally Onc e a day for 30 day(s) Not-Taking Levothyroxine Sodium 88 MCG 1 tablet in the morning on an empty stomach Orally Once a day for 90 day(s) Active Oxcarbazepine 150 MG 1 tablet Orally Twi ce a day Psych Active BusPIRone HCl 10 MG 1 tablet Orally Twic e a day Active Meclizine HCl 25 MG 1 tablet as needed Orally tid as needed Not-Taking Zolpidem Tartrate 5 MG 1 tablet at bedti me Orally Once a day Psych Not-Taking Immunizations Vaccine Route Administration Date Status Comme nts zFLU 4V (FLUARIX QUAD), 6 MO+, NO PRES - ALL PAYORS IM Intramuscular 08/30/2022 Administered [facility] [phone] Social History Tobacco Use: Social History Observation Description Date Details (start date - stop date) Current Smoker NA - NA Tobacco Status: Question Answer Notes Patient is a current every day smoker Problems Problem Type SNOMED Code ICD Code Onset Dates Problem Status W/U Status Risk Notes Problem 7648750513243 Cervicalgia (M54.2) Active confirmed Problem [id number] Cervical myelopathy (G95.9) Active confirmed Plan Of Treatment Pending Test Test Name Order Date Magnesium ([facility]) 08/30/2022 Iron ([facility]) 08/30/2022 Free T4 ([facility]) 08/30/2022 TSH ([facility]) 08/30/2022 Complete Metabolic Panel ([facility]) 08/30 Lipid Panel ([facility]) 08/30/2022 Complete Blood Count ([facility]) 2 Insurance Providers Payer Name Payer Address Payer Phone Subscriber Number Group Number Insured Name Patient Relationship to Insured Coverage Start Date Coverage End Date [employer] PPO MEDICARE PLAN [address] [place], [place] [id number] Manuela Self - patient is the insured 3 [place] [address] [facility] [id number] Manuela May Self - patient is the insured 3 [employer] PPO [address] [address] [place], [place] [id number] Manuela May Self - patient is the insured 3 Medical (General) History Medical History History ICD Code Hyperlipidemia Esophageal reflux Depression Anxiety Surgical History Surgery Date(Month/Year) colonoscopy, repeat in 5 years, 2019 tubal ligation knee arthroscopy, right Hospitalization History Reason Date(Month/Year) see above
--- OUTSIDE RECORDS SUMMARY | 2024-12-12 16:17 | XMS_ITS | Encounter Summary ---
Author Organization [employer] Address [address] [facility] 7t [place] [address] Care Team Providers Care Medical Stenographer Name Role Phone Fabio Jones MD Primary Care Prov ider Encounter Details Date Type Department Care Team (Late st Contact Info) Description 07/05/2024 Orders Only [facility] MED & PEDS [address] [place], [place] [phone] Maco Galeano MD [address] [place], [place] [phone] Acquired hypothyroidism (Primary Dx) Social History Tobacco Use Types Packs/Day Years [...] Description 01/07/2025 1:30 PM EDT Office Visit [facility] MED & PEDS [address] [place] [address] Fabio Jones MD [address] [place] [address] documented as of this encounter Visit Diagnoses Diagnosis Acquired hypothyroidism- Primary Unspecified hypothyroidism documented in this encounter Additional Health Concerns Assessment Noted Time PHQ-9 Depression Total Score: 15 024 2:46 PM EST documented as of this encounter Care Teams Medical Stenographer Relationship Specialty Start Date End Date Fabio Jones MD [address] [place] [address] PCP - General Internal Medicine 09/05/23 documented as of this encounter
--- OUTSIDE RECORDS SUMMARY | 2024-12-12 16:18 | XMS_ITS | Encounter Summary ---
Author Organization [employer] Address [address] [place] [address] 7 [place] [address] Care Team Providers Care Veneer Puller Name Role Phone Fabio Jones MD Primary Care Prov ider Reason for Visit * Reason Onset Date Comments New Patient 07/20/2023 Encounter Details Date Type Department Care Team (Late Contact Info) Description 07/20/2023 Telephone [facility] [address] [place] [address] Augusto Jordan MD [address] [place] [address] New Patient Social History Tobacco Use Types Packs/Day Years Used Date Smoking Tobacco: Never Assessed Comments Unknown Sex and Gender Information Value Date Recorded Sex Assigned at Female 07/20/2023 2:54 PM EDT Legal Sex Female 2:52 PM EDT Gender Identity Female 07/20/2023 2:54 PM EDT Sexual Orientation Don't know 11/14/2023 1: 36 PM EST Sexual Orientation Straight 11/14/2023 1: 36 PM EST documented as of this encounter Miscellaneous Notes * Telephone Encounter - Darrell Burnett - 07/20/2023 2:56 PM EDT 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 EFFECTIVE SINCE 07/20/2023 documented in this encounter Plan of Treatment Upcoming Encounters Date Type Department Care Team (Late Contact Info) Description 01/07/2025 1:30 PM EDT Office Visit [facility] MED & PEDS [address] [place], [place] [phone] Fabio Jones MD [address] [place] [address] documented as of this encounter Visit Diagnoses Not on filedocumented in this encounter Care Teams Veneer Puller Relationship Specialty Start Date End Date Fabio Jones MD [address] [place] [address] PCP - General Internal Medicine 09/05/23 documented as of this encounter
--- OUTSIDE RECORDS SUMMARY | 2024-12-12 16:18 | XMS_ITS | Encounter Summary ---
Author Organization [employer] Address [address] [facility] [address] [place] [address] Care Team Providers Care Sales Planning Manager Name Role Phone Fabio Jones MD Primary Care Prov ider Reason for Visit * Reason Onset Date Comments Med Refill 12/11/2023 Encounter Details Date Type Department Care Team ([facility] Contact Info) Description 12/11/2023 Telephone [facility] MED & PEDS [address] [place] [address] Fabio Jones MD [address] [place] [address] Med Refill Social History Tobacco Use Types Packs/Day Years [...] encounter Miscellaneous Notes * Telephone Encounter - Viki Rodriguez - 12/11/2023 2:11 PM EDT TC from pt requesting medication refill. Medications needing refill : DULoxetine (Cymbalta) [address] capsule OXcarbazepine (Trileptal) 300 MG tablet To be sent to: [id number] [place], [place] - [facility] BIB [facility] documented in this encounter Plan of Treatment Upcoming Encounters Date Type Department Care Team (Late st Contact Info) Description 01/07/2025 1:30 PM EDT Office Visit [facility] MED & PEDS [address] [place] [address] Fabio Jones MD [address] [place] [address] documented as of this encounter Visit Diagnoses Not on filedocumented in this encounter Additional Health Concerns Assessment Noted Time PHQ-9 Depression Total Score: 15 024 2:46 PM EST documented as of this encounter Care Teams Sales Planning Manager Relationship Specialty Start Date End Date Fabio Jones MD [address] [place] [address] PCP - General Internal Medicine 09/05/23 documented as of this encounter
--- OUTSIDE RECORDS SUMMARY | 2024-12-12 16:18 | XMS_ITS | Encounter Summary ---
Author Organization [employer] Address [address] [facility] 7 [place] [address] Care Team Providers Care Fish And Wildlife Biologist Name Role Phone Fabio Jones MD Primary Care Prov ider Reason for Visit * Reason Onset Date Comments Results 12/11/2023 Encounter Details Date Type Department Care Team ([facility] Contact Info) Description 12/11/2023 Telephone [facility] MED & PEDS [address] [place] [address] Fabio Jones MD [address] [place] [address] Results Social History Tobacco Use Types Packs/Day Years [...] encounter Miscellaneous Notes * Telephone Encounter - Wing Charly RN - 12/12/2023 9:56 AM EDT Tc to pt regarding lab results, updated meds, repeating TSH labs, and lowering cholesterol through adjusting diet and exercise. Pt also requested refill for oxcarbazepine, 300 mg, and duloxetine, 60 mg. States for oxcarbazepine, she does not have a dose for tonight. States to pt that message would be sent to other provider since PCP is off. Pt verbalized understanding and agreement with plan. * Telephone Encounter - Saray Engle RN - 12/11/2023 2:14 PM EDT PCP off. Please review and advise on lab results * Telephone Encounter - Viki Rodriguez - 12/11/2023 2:13 PM EDT TC from pt requesting call back regarding Results. Type of results: labs Date when done: 12/05 Facility: [facility] Please contact pt at [phone] documented in this encounter Plan of Treatment Upcoming Encounters Date Type Department Care Team (Late st Contact Info) Description 01/07/2025 1:30 PM EDT Office Visit [facility] MED [facility] PEDS [address] [place] [address] Fabio Jones MD [address] [place] [address] documented as of this encounter Visit Diagnoses Not on filedocumented in this encounter Additional Health Concerns Assessment Noted Time PHQ-9 Depression Total Score: 15 024 2:46 PM EST documented as of this encounter Care Teams Fish And Wildlife Biologist Relationship Specialty Start Date End Date Fabio Jones MD [address] [place] [address] PCP - General Internal Medicine 09/05/23 documented as of this encounter
--- OUTSIDE RECORDS SUMMARY | 2024-12-12 16:18 | XMS_ITS | Data Portability ---
Author Organization Ward Oconnor Address [address] [facility] [address] [place] [address] Assessment Encounter Date Assessment Date Assessment LastModified by Organization Details LastModified Time 11/15/2022 11/15/2022 52yo with complaints of neck, shoulder, knee, and low back pain. she had minimal relief with cdmbb. she has ptsd, fibromyalgia, and bipolar. she unable to take nsaids. she moved from [place]. we will order emg/ncs. we will continue norco 5mg #5 for severe pain. refer to neurosurgion moderate stenosis. she has upcoming knee injections. ASSESSMENT: PLANS AND RECOMMENDATIONS : 1. nal Procedures: cervical dmbb with minimal relief. orthovisc injection right knee 2. Medications: norco 5mg #5 The patient understands the risks of utilizing pain medication, including addiction, tolerance, dependence, respiratory depression, overdose and . Tried/Failed Medications: 3. Physical Therapy: Encourages the patient to remain active, continue at home stretching and exercises. Last date of PT/Chiro: 4. DME: 5. Urine Drug Monitorin. Risk Category: Category [1__]. Date of last RASS/ORT: [09/08__] 7. PDMP: As per our protocol, the prescription drug monitoring program (E-FORCSE/PROSTHETIC AIDE AWARE) was reviewed and used in medical decision making. 8. Follow up: 2 weeks post-procedure All questions were answered, and patient agrees with this plan. [email or web address] Not available 11/15/2022 15:26:41 12/26/2022 12/26/2022 Ms May presents with a 6-month history of bilateral upper extremity numbness and tingling. She notes left greater than right. She notes pain sometimes starts in the periscapular area and sometimes at the elbow. She notes digit 4 and 5 most involved. Notes weakness when symptoms are worse. She notes symptoms are intermittent but becoming more consistent. The NCS/EMG report will be uploaded to the chart under the results section. Not available 12/30/2022 09:29:00 01/09/2023 01/09/2023 52yo with complaints of neck, shoulder, knee, and low back pain. she had emg with cubital tunnel compression. will refert for elbow evaluation. she has chronic cervical radic. she has pain with turning her head. she has upcoming surgical referral. she had lumbar injection with worse pain. pain shooting down her leg. she takes norco prn. discussed risk/benefits. lowest possible. vapes- counseled on smoking. ASSESSMENT: PLANS AND RECOMMENDATIONS : 1. nal Procedures: discussed nerve injection - will refer to elbow specialisth cervical dmbb with minimal relief. orthovisc injection right knee 2. Medications: norco 5mg #5 The patient understands the risks of utilizing pain medication, including addiction, tolerance, dependence, respiratory depression, overdose and . Tried/Failed Medications: 3. Physical Therapy: Encourages the patient to remain active, continue at home stretching and exercises. Last date of PT/Chiro: 4. DME: 5. Urine Drug Monitoring: udt 10/17/22 6. Risk Category: Category [1__]. Date of last RASS/ORT: [09/08__] 7. PDMP: As per our protocol, the prescription drug monitoring program (E-FORCSE/PROSTHETIC AIDE AWARE) was reviewed and used in medical decision making. 8. Follow up: 2 weeks post-procedure All questions were answered, and patient agrees with this plan. [email or web address] Not available 01/09/2023 10:39:29 Plan of Treatment Reminders Order Date Submit Date Provider Last Modified By Organization Details Last Modified Time Details Appointments None recorded. Lab None recorded. Referral hand surgeon referral - nerve compression left elbow; please call patient to schedule 2022 023 EDER Ospina MD, [address] [facility], [facility] [address], [place], [address], 05/09/202 3 17:29:08 neurologica l surgeon referral - Please schedule patient an appt for eval/treat for cervical stenosis. Thanks! 2022 023 anderson Joyce MD, [address], [facility] [address], [place], [address], 3 17:14:06 Procedures nerve conduction study/EMG (PROC) - 60 minutes, BILATERAL UPPER EXTREMITIES 2022 023 casey 53 [facility], [address] , [place], [address], 3 12:19:22 Surgeries None recorded. Imaging None recorded. Medication Orders hydrocodone 5 mg-acetamin ophen 325 mg tablet 2022 023 [id number], [address] [place], [place], [phone], 3 17:12:24 hydrocodone 5 mg-acetamin ophen 325 mg tablet 2022 023 [id number], [address], [place], [phone], 3 08:48:45 Patient TargetsNo targets recorded. Patient Instructions Encounter Date Encounter Id Patient Instructions Last Modified By Organization Details Last Modified Time 11/15/2022 [id number] E-Forsce Review: As per our protocol, the prescription drug monitoring program (E- FORCSE/PROSTHETIC AIDE AWARxE) was reviewed and used in medical decision making. Opioid Risk Information: As part of the educational protocol for those patients prescribed scheduled based pain medications, an informational handout provided by the CDC and the [facility] was given to the patient. This informational handout informs the patient of the risks and side effects of opioid use alone and with other scheduled medications. Additionally, it reviews helpful rules when taking scheduled medications and identifies two websites to obtain more information. Additionally, a phone number is provided if the patient feels they are struggling with addiction or have concerns about their medication usage. Patient questions were addressed. Home Exercise Program: As part of the comprehensive treatment at [facility] we have initiated a structured home exercise program. This program identifies specific exercises to stretch, strengthen and improve function of the associated muscles. We will monitor the overall progress as the treatment protocols continue and assess whether a prescribed program is indicated. Medication Assessment: As part of the ongoing assessment of the patient? s response to the medication management protocol an overall functional improvement or stabilization of the ADL's is continually assessed as well as any adverse effects associated with each class of medications utilized. Additionally, medical monitoring, patient compliance and red flags are reviewed and acted on accordingly. Medication Discussion And Monitoring: Medication protocol: All medications reviewed through the patient intake form and EMR. Controlled Medication Policy signed and reviewed. I have evaluated the risks and benefits of opioid therapy to this patient and have answered all questions by the patient in this regard. Prescriptions for more than 72 hours are indicated and medically necessary for the treatment of chronic malignant and non-malignant pain. The pain is significant enough to interfere with daily activities of living and has decreased the patients' quality of life. We will monitor for compliance and adjust as indicated. We have reviewed the four A's of medication management as it relates to analgesia, activity improvement, adverse reactions, and abuse indicators with the patient. Precautions were given regarding the use of scheduled substances. The patient has been instructed to take medications only as prescribed, and notify our office of any concomitant medications or new medications prescribed by the patients' other physicians. The patient is advised of the risks of opioid therapy including but not limited to cognitive impairment, incoordination, physical dependence, addiction and psychomotor slowing. The patient has been advised to speak to their pharmacist for a complete list of risks and side effects of opioid therapy. The patient was advised that the goals of the therapy are improved function and improved pain control. At the physician's discretion, we have explained that the treatment may be weaned and/or immediately discontinued if treatment goals are not met or if non-compliance occurs. The patient is advised to avoid cognitive/motor tasks during initiation of therapy and avoid these tasks indefinitely if impairment is suspected. If symptoms of addiction are suspected (drug craving, psychic effects, or other concerning symptoms), the patient has instructed to immediately contact our office for alteration in treatment protocol and recommendations. The patient is aware the Clinic does not perform drug dependence treatment or offer addiction recovery programs; however, will be able to refer to an appropriate facility if indicated. Medication Monitoring: As part of the evaluation and follow up protocol for all patients on controlled substances, periodic and random urine drug monitoring will be performed to assess compliance and identify possible aberrant behavior associated with these medications. The patient understands that this is mandatory and has agreed to participate as part of our treatment protocol. Procedure Indications: Indications: Therapeutic relief of ongoing Pain with an average Pain Score of 6/10 or greater, refractory to conservative care, including, but not limited to rest, medications, and structured home exercise program. Alternative Treatments have been discussed and based on the response to the requested injective therapy, additional rehabilitative and diagnostic testing may be medically indicated. Furthermore, a repeat injection may be performed if over 50% relief is obtain from this procedure. Alternatively, a change in the recommended procedure may be indicated if limited relief is obtained. Surgical consultative assessment may be indicated based on the response from conservative and interventional treatments recommended. Injection/consent/ treatment TREATMENT: As part of the comprehensive treatment plan discussed with the patient, Injective therapy to diagnose and treat the ongoing pain generator has been discussed in detail. This included the general risks and benefits of the treatment plan. The patient will be scheduled for the treatment protocol with reassessment prior to any procedure and adjustments made to the performed injection based on the symptom pattern and response to the previous injections. The patient verbally acknowledges a desire to schedule the procedures, authorization if required will be obtained and additional information will be provided by our procedure scheduling dept. CONSENT: Medication, conservative and Interventional procedures discussed with the patient in detail. Risks and benefits were explained, and all questions were answered prior to check-out. Patient advised to call us with any additional questions, discuss specific risk and adverse reactions of prescribed medications with their pharmacist and to obtain specific pre-procedure instructions at the scheduling counter prior to leaving our clinic. Patient education and information resources were provided to the patient. [email or web address] Not available 11/15/2022 15:55:23 01/09/2023 [id number] PDMP (Physician Drug Monitoring Program)/E-Forsfransico Review: As per our protocol, the prescription drug monitoring program (E- FORCSE/PROSTHETIC AIDE AWARxE) was reviewed and used in medical decision making. Alternatives to Opioids: As part of the educational protocol for those patients prescribed scheduled based pain medications, an informational handout about Alternatives to Opioids has been provided to the patient. This informational handout informs the patient of the risks and side effects of opioid use alone and with other scheduled medications. Additionally, it reviews helpful rules when taking scheduled medications and identifies two websites to obtain more information. Additionally, a phone number is provided if the patient feels they are struggling with addiction or have concerns about their medication usage. Patient questions were addressed. Home Exercise Program: As part of the comprehensive treatment at [facility] we have initiated a structured home exercise program. This program identifies specific exercises to stretch, strengthen and improve function of the associated muscles. We will monitor the overall progress as the treatment protocols continue and assess whether a prescribed program is indicated. Opioid Education: The patient has been educated on the risks, benefits and alternatives of prescribed medication, including but not limited to nausea, vomiting, constipation, sedation, dizziness, addiction, dependency and tolerance with the long-term opioid medication usage. The patient was educated not to drive or operate heavy machinery if sedated on medication. The patient verbalized understanding, and the Opioid Medication Agreement (Opioid Agreement) has been reviewed and signed by the patient. The patient is receiving an adequate analgesic benefit from the medications prescribed with improvement in ability to function. The patient reports no adverse effects from the medication prescribed and displays no aberrant drug related behaviors. Medication Assessment: As part of the ongoing assessment of the patient? s response to the medication management protocol an overall functional improvement or stabilization of the ADL's is continually assessed as well as any adverse effects associated with each class of medications utilized. Additionally, medical monitoring, patient compliance and red flags are reviewed and acted on accordingly. Medication Discussion And Monitoring: Medication protocol: All medications reviewed through the patient intake form and EMR. Controlled Medication Policy signed and reviewed. I have evaluated the risks and benefits of opioid therapy to this patient and have answered all questions by the patient in this regard. Prescriptions for more than 72 hours are indicated and medically necessary for the treatment of chronic malignant and non-malignant pain. The pain is significant enough to interfere with daily activities of living and has decreased the patients' quality of life. We will monitor for compliance and adjust as indicated. We have reviewed the four A's of medication management as it relates to analgesia, activity improvement, adverse reactions, and abuse indicators with the patient. Precautions were given regarding the use of scheduled substances. The patient has been instructed to take medications only as prescribed, and notify our office of any concomitant medications or new medications prescribed by the patients' other physicians. The patient is advised of the risks of opioid therapy including but not limited to cognitive impairment, incoordination, physical dependence, addiction and psychomotor slowing. This can lead to serious injury and falls. Patient instructed not to drive or operate heavy machinery until they know how it effects them as impairment can result in serious injury and/or to them or others when operating a motor vehicle. The patient has been advised to speak to their pharmacist for a complete list of risks and side effects of opioid therapy. The patient was advised that the goals of the therapy are improved function and improved pain control. At the physician's discretion, we have explained that the treatment may be weaned and/or immediately discontinued if treatment goals are not met or if non-compliance occurs. The patient is advised to avoid cognitive/motor tasks during initiation of therapy and avoid these tasks indefinitely if impairment is suspected. If symptoms of addiction are suspected (drug craving, psychic effects, or other concerning symptoms), the patient has instructed to immediately contact our office for alteration in treatment protocol and recommendations. The patient is aware the Clinic does not perform drug dependence treatment or offer addiction recovery programs; however, will be able to refer to an appropriate facility if indicated. Medication Monitoring: As part of the evaluation and follow up protocol for all patients on controlled substances, periodic and random urine drug monitoring will be performed to assess compliance and identify possible aberrant behavior associated with these medications. The patient understands that this is mandatory and has agreed to participate as part of our treatment protocol. [email or web address] Not available 01/09/2023 10:44:37 Reason for Referral Neurological Surgeon Referra l for Neck pain Please schedule patient an appt for eval/treat for cervical stenosis. Thanks! Referring Physician: [facility], Encounter Date: 11/15/2022 Hand Surgeon Referral for Co mpression of left median nerve at elbow nerve compression left elbow; please call patient to schedule Referring Physician: [facility], Encounter Date: 01/09/2023 Results Created Date Observation Date Name Description Value Unit Range Abnormal Flag Note LastModifiedBy Organization Detail LastModifiedTime 12/31/1912/26/2022 nerve condu ction study /EMG (PROC ) No observ ation record ed. [email or web address] [facility] [address] [place], [address], 12/30/2022 12:25:27 Result Notes None recorded. Problems Name Problem SNOMED Code Status Onset Date Resolution Date Notes Provider Name and Address Organization Details Recorded Time Neck pain 42927697 Active 2021 Rhasheda Bickley null, MD - [facility] 2 09:44:50 Pain of knee region 5651287448 Active 2021 Rhasheda Bickley null, MD - [facility] 2 09:44:58 Pain in upper limb 637245348 Active 2022 Rhasheda Bickley null, MD - [facility] 3 15:56:05 Fibromyalgia 710136514 Active 2022 An Monalisa null, MD - [facility] 3 10:39:26 Fibromyalgia 525698515 Active 2022 An Monalisa null, MD - [facility] 3 10:39:37 Cervical spondylosis 381948535 Active 2022 An Monalisa null, MD - [facility] 3 10:39:38 Problem Notes None recorded. Procedures Surgical History Date Name Laterality Status Provider Name and Address Organization Details Recorded Time 3 SE Flowsheet completed OSBALDO PABLO [address] [place], [address], [place] MD - [facility] 12/30/2022 09:29:02 3 Kure INTRA-ARTICULAR KNEE INJECTION UNDER ULTRASOUND GUIDANCE completed Laura Covarrubias MD [address] [place], [address], [place] MD - [facility] 11/16/2022 11:55:48 3 SE Cervical MBB Bilateral completed Laura Covarrubias MD [address] [place], [address], [place] MD - [facility] 11/01/2022 10:00:16 3 SE Cervical MBB Bilateral completed Laura Covarrubias MD [address] [place], [address], [place] - [facility] 09/25/2022 22:00:54 2 Kure INTRA-ARTICULAR KNEE INJECTION UNDER ULTRASOUND GUIDANCE completed Laura Covarrubias MD [address] [place], [address], [place] MD Garnica [facility] 09/07/2022 16:02:54 Knee Surgery completed Amari Taylor MD - [facility] 09/06/2022 16:52:56 Imaging Results Imaging Date Name Status LastModified by Organiz ation Details LastModified Time 12/26/2022 nerve conduction study/EMG (PROC) [facility] [address] [place], [address], 12/30/2022 12:25:27 Procedure Notes None recorded. Medical Equipment None Reported. Allergies Allergen ID Allergen Name Allergen Category Reaction Reaction Severity Criticality Documentation Date Start Date Code Code System Note Provider Name and Address Organization Details Recorded Time 185906 ibuprofen medicatio n other Not available Not available 09/06/2022 5640 RxNorm Amari jackson MD - [facility] 2 16:52:43 [id number] Easprin medicatio n Not available Not available Not available 09/06/2022 22317 4 RxNorm Windy Fails MD manuel - [facility] 3 11:29:45 112316 Non-stero idal anti-infl ammatory agent (product) medicatio n other Not available Not available 09/06/2022 17099 005 SNOMED Amari jackson MD - [facility] 2 16:52:43 Medications Name Sig Start Date Stop Date Status Note LastModified by Organization Details LastModified Time methocarbam ol 500 mg tablet TAKE 1 TABLET BY MOUTH TWICE DAILY NEEDED FOR MUSCLE PAINS 12/26 completed Not Available Not Available Not Available oxcarbazepi ne 150 mg tablet TAKE 1 TABLET BY MOUTH TWICE DAILY active Not Available Not Available No t Available atorvastati n 10 mg tablet TAKE 1 TABLET BY MOUTH EVERY DAY active Not Available Not Available No t Available hydrocodone 5 mg-acetamin ophen 325 mg tablet Take 1 tablet every day by oral route as needed. 2022 active efx Not Available Not Available Not Avai lable hydroxyzine pamoate 50 mg capsule TAKE 1 CAPSULE BY MOUTH THREE TIMES DAILY NEEDED FOR ANXIETY active Not Available Not Available No t Available hydroxyzine HCl 50 mg tablet TAKE 1 TABLET BY MOUTH EVERY DAY active Not Available Not Available No t Available levothyroxi ne 88 mcg tablet TAKE 1 TABLET BY MOUTH EVERY DAY IN THE MORNING ON AN EMPTY STOMACH active Not Available Not Available No t Available meclizine 25 mg tablet active Not Available Not Available Not Available baclofen 10 mg tablet TAKE 1 TABLET BY MOUTH TWICE DAILY NEEDED active Not Available Not Available No t Available omeprazole 20 mg capsule,del ayed release TAKE 1 CAPSULE BY MOUTH EVERY DAY 30 MINUTES BEFORE BREAKFAST active Not Available Not Available No t Available furosemide 20 mg tablet TAKE 1 TABLET BY MOUTH EVERY DAY active Not Available Not Available No t Available mirtazapine 15 mg tablet TAKE 1/2 TABLET BY MOUTH AT BEDTIME active Not Available Not Available No t Available albuterol sulfate HFA 90 mcg/actuati on aerosol inhaler active Not Available Not Available Not Available diazepam 5 mg tablet TAKE 1 TABLET 30 MINUTES PRIOR TO MRI DO NOT DRIVE, AND MUST HAVE A 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 12/26 completed Not Available Not Available Not Available duloxetine 60 mg capsule,del ayed release TAKE 1 CAPSULE BY MOUTH TWICE DAILY active Not Available Not Available No t Available FeroSul 325 mg (65 mg iron) tablet TAKE 1 TABLET BY MOUTH EVERY OTHER DAY 12/26 completed Not Available Not Available Not Available duloxetine 40 mg capsule,del ayed release 10/17 completed Not Available Not Available Not Available Vitals Date Recorded Body height Body mass index (BMI) Body weight Systolic blood pressure Diastolic blood pressure Provider Name and Address Organization Details Last Updated DateTime 11/15/2022 165.1 cm 39.9 kg/m2 554344.1 7 g 122 mm[Hg] 84 mm[Hg] Nataly Garnica [facility] 02/28/202 3 14:52:19 Date Recorded Body height Body temperature Body mass index (BMI) Body weight Systolic blood pressure Diastolic blood pressure Provider Name and Address Organization Details Last Updated DateTime 3 165.1 cm 96.8 [degF] 39.9 kg/m2 839035. 17 g 115 mm[Hg] 71 mm[Hg] Windy Fails MD - [facility] 3 11:29:22 Date Recorded Body height Body mass index (BMI) Body weight Systolic blood pressure Diastolic blood pressure Provider Name and Address Organization Details Last Updated DateTime 12/26/2022 165.1 cm 39.9 kg/m2 302695.1 7 g 124 mm[Hg] 64 mm[Hg] Windy Fails MD - [facility] 3 13:58:50 Date Recorded Body height Body mass index (BMI) Body weight Heart rate Systolic blood pressure Diastolic blood pressure Provider Name and Address Organization Details Last Updated DateTime 3 165.1 cm 39.9 kg/m2 169264. 17 g 82 /min 133 mm[Hg] 85 mm[Hg] India Bridges [place] [facility] 3 10:13:41 Social History Question Answer Notes LastModified by Organizat ion Details LastModified Time Tobacco Smoking Status Current Every Day Smoker Amari jackson [facility] 09/06/2022 16:52:53 Pain Level. 9 Information n ot available 12/26/2022 How Much Tobacco Do You Smoke? 0.5 PPD Information not available 09/06/2022 How Many Years Have You Smoked Tobacco? 20 Information not available 09/06/2022 Sex: Unknown Functional Status None recorded. Mental Status None recorded. Family History Relationship Description Onset Age of this Age Resolved Age Notes LastModified by Organization Details LastModified Time Maternal Grandmother Heart disease rbickley Not available 2021 16:52:46 Maternal Grandmother Arthritis rbickley Not available 16:52:46 Mother Arthritis rbickley Not availabl e 09/06/2022 16:52:46 Maternal Grandfather Arthritis rbickley Not available 16:52:46 Maternal Grandfather Heart disease rbickley Not available 2021 16:52:46 Sister Back problem jannet Not avail able 09/06/2022 16:52:46 Sister Disorder of thyroid gland jannet Not available 2021 16:52:46 Sister Arthritis jannet Not availabl e 09/06/2022 16:52:46 Medical History Condition Response Thyroid Disease Y Depression Y Anxiety Disorder Y Arthritis Y Back Injury Y Fibromyalgia Y Headaches Y Gynecological HistoryNo gynecological history recorded. Obstetrics History GPAL:G 0 P 0 0 0 0 Past Encounters Encounter ID Performer Location Encounter Start Date Encounter Closed Date Diagnosis/Indication Diagnosis SNOMED-CT Code Diagnosis ICD10 Code Diagnosis Note [id number] MD [facility] [address] [place] [address] 09/06/2022 16:36:12 09/06/2022 17:56:06 Neck pain 35348640 M54.2 Pain of knee region 1003 601537 M25.569 Fibromyalgia 895338579 M 79.7 [id number] Laura Covarrubias MD [place] [facility] [address] [place] [address] 09/07/2022 15:33:10 09/07/2022 17:22:45 Pain of right knee joint 8233714990 66999 M25.976 [id number] MD [facility] [place] [facility] [address] [place] [address] 09/21/2022 13:31:20 09/21/2022 15:22:14 Neck pain 04535056 M54.2 Pain of knee region 1003 186312 M25.569 Fibromyalgia 696031230 M 79.7 Cervical spondylosis 387 205888 M47.477 [id number] MD Marcello [place] [facility] [address] [place] [address] 09/23/2022 08:29:51 09/26/2022 07:53:05 Cervical spondylosis 957314775 M47.425 [id number] MD [facility] [place] [facility] [address] [place] [address] 10/17/2022 14:30:35 10/17/2022 15:26:21 Neck pain 24500872 M54.2 Pain of knee region 1003 217333 M25.569 Fibromyalgia 446337161 M 79.7 Cervical spondylosis 387 158319 M47.812 patient has failed therapy, nsaids, and home exercise ( 3 days per week from february to aug 2022) [id number] [facility] [address] [place] [address] 11/01/2022 08:48:10 11/02/2022 09:38:22 Cervical spondylosis 056859247 M47.812 patient has failed therapy, nsaids, and home exercise ( 3 days per week from february to aug 2022) [id number] MD Jennifer [facility] [address] [place] [address] 11/15/2022 14:29:29 11/15/2022 17:14:05 Neck pain 87921909 M54.2 Pain of knee region 1003 473910 M25.569 Fibromyalgia 958871999 M 79.7 Cervical spondylosis 387 369190 M47.812 patient has failed therapy, nsaids, and home exercise ( 3 days per week from february to aug 2022) Pain in upper limb 83837 6003 M79.794 [id number] MD Mino [facility] [address] [place] [address] 11/16/2022 11:23:47 11/16/2022 12:24:09 Osteoarthritis of right knee joint 5309506169 67580 M17.11 [id number] OSBALDO PABLO D.O [place] [facility] [address] [place] [address] 12/26/2022 13:43:08 12/26/2022 16:30:26 Paresthesia of upper limb 87633562 R20.2 [id number] MD Mino [facility] [address] [place] [address] 01/09/2023 10:04:53 01/09/2023 12:52:51 Neck pain 34090316 M54.2 Pain of knee region 1003 472673 M25.569 Fibromyalgia 190004650 M 79.7 Cervical spondylosis 387 002579 M47.812 patient has failed therapy, nsaids, and home exercise ( 3 days per week from february to aug 2022) Pain in upper limb 98975 6003 M79.603 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 1531164146 54136 G56.12 Health Concerns Section Related Observation LastModified by Organization Detai ls LastModified Time None Recorded Concern Status LastModified by Organization Details LastModified Time None Recorded Advance Directives Directive None Recorded Payers Encounter Date Sequence Insurance Name Policy Number Policy Levine Covered Member ID Levine Member ID Guarantor Name 11/01/2022 1 [place] Manuela A Stone [id number] Manuela Stone 11/01/2022 2 [place] [employer] Manuela A Stone [id number] Manuela Stone 11/15/2022 1 [place] Manuela A Stone [id number] Manuela Stone 11/15/2022 2 [place] [employer] [employer] Manuela A Stone [id number] Manuela Stone 11/16/2022 1 [place] Manuela A Stone [id number] Manuela Stone 11/16/2022 2 [place] [employer] [employer] Manuela A Stone [id number] Manuela Stone 12/26/2022 2 [place] [employer] [employer] Manuela A Stone [id number] Manuela Stone 12/26/2022 1 [employer] (MEDICARE REPLACEMENT PPO) [id number] Manuela A Stone [id number] Manuela Stone 01/09/2023 2 [place] [employer] [employer] Manuela A Stone [id number] Maneula Stone 01/09/2023 1 [employer] (MEDICARE REPLACEMENT PPO) [id number] Manuela A Stone [id number] Manuela Stone Notes Date Note Type Note Provider Name and Address Organization Details Recorded Time 11/01/2022 text/html Ms. May is a 52yo with history of cervical neck pain in the setting of cervical spondylosis. positive facet loading. pain 6/10 and limiting function. PLAN AND RECOMMENDATIONS: CARE PLAN WITHIN THE MEDICAL NOTE BELOW DISCUSSED WITH THE PATIENT PART OF THE ONGOING TREATMENT AND RECOMMENDATIONS. We will proceed with cervical dmbb to decrease pain and improve function. INDICATIONS FOR PROCEDURE: Please see previous EMR notes for history and physical. Procedure risks, benefits, and alternative were explained to the patient. Risks to include, but are not limited to bleeding, infection, worsened pain, no pain relief, nerve damage, paralysis, headache, inadvertent dural puncture, adverse reaction to the medications, seizure, stroke were all explained to the patient. The patient was agreeable to proceed and, thus, an informed consent was obtained. Patient understands that they can be sore for up to 1 month. The patient tolerated the procedure well without complication. The patient is instructed to call or go to the nearest ER, should they have any change in their symptoms, any fevers or chills, any local or systemic signs of infection. Laura Covarrubias MD [address] [place], [address], [employer] [facility] [employer] 11/01/2022 12:20:24 11/15/2022 text/html HPI NewReported bypatient.Location :general pain Timing:years ago; constant Context:cannot identify Quality:aching; burning; sharp; shooting EDER Severity:average pain 10/10; worst pain 10/10 Aggravating Factors:sitting; walking; cold weather; damp weather; bending Alleviating Factors:lying down Past Treatments Include:muscle relaxants; steroid injection; tens unit, PT/Chiro care, nerve blocks eder Prior Imaging:CT scan; MRI; x ray; emg/ncsPain Management F/UReported bypatient.Location :NECK, KNEE Quality:aching Severity:severe (8-10) Duration:present for >12 months Timing:constant Context:overuse Alleviating Factors:rest Aggravating Factors:movement/p ositioning; bending over; STANDING, SITTING, WEATHER Ms. May is a 52yo with complaints of neck, knee pain, and spasm. Imaging:MRI cervical spine . Multilevel disc osteophytic complexes results in moderate central calan stenosis at C5-6 and mild at C6-72. Multilevel foraminal stenosis which is moderate bilaterally at C2-3, moderate on right at C4-5, and moderate bilaterally at C5-6. Laura Covarrubias MD [address] [facility] [place], [address], MD [facility] [employer] 11/16/2022 08:48:41 11/16/2022 text/html HISTORY: Ms. Yaneth bhatti is a 52y with right knee pain. pain limiting function. PLAN AND RECOMMENDATIONS: CARE PLAN WITHIN THE MEDICAL NOTE BELOW DISCUSSED WITH THE PATIENT PART OF THE ONGOING TREATMENT AND RECOMMENDATIONS. INDICATIONS FOR PROCEDURE: Please see previous EMR notes for history and physical. Procedure risks, benefits, and alternative were explained to the patient. Risks to include, but are not limited to bleeding, infection, worsened pain, no pain relief, nerve damage, paralysis, headache, inadvertent dural puncture, adverse reaction to the medications, seizure, stroke were all explained to the patient. The patient was agreeable to proceed and, thus, an informed consent was obtained. Patient understands that they can be sore for up to 1 month. The patient tolerated the procedure well without complication. The patient is instructed to call or go to the nearest ER, should they have any change in their symptoms, any fevers or chills, any local or systemic signs of infection. Laura Covarrubias MD [address] [facility], [place], [address], MD [facility] [employer] 11/16/2022 11:56:24 12/26/2022 text/html Ms May present s with a 6-month history of bilateral upper extremity numbness and tingling. She notes left greater than right. She notes pain sometimes starts in the periscapular area and sometimes at the elbow. She notes digit 4 and 5 most involved. Notes weakness when symptoms are worse. She notes symptoms are intermittent but becoming more consistent. OSBALDO PABLO D.O [address] [facility], [place], [address], MD [facility] [employer] 12/30/2022 09:34:20 01/09/2023 text/html HPI NewReported bypatient.Location :neck; lower back; general pain Timing:years ago; constant Context:cannot identify; bending; twisting Quality:aching; burning; sharp; shooting EDER Severity:average pain 10/10; worst pain 10/10 Aggravating Factors:sitting; walking; cold weather; damp weather; bending Alleviating Factors:lying down Past Treatments Include:muscle relaxants; steroid injection; tens unit, PT/Chiro care, nerve blocks eder Prior Imaging:CT scan; MRI; x ray; emg/ncsPain Management F/UReported bypatient.Location :NECK, KNEE Quality:aching Severity:severe (8-10) Duration:present for >12 months Timing:constant Context:overuse Alleviating Factors:rest Aggravating Factors:movement/p ositioning; bending over; STANDING, SITTING, WEATHER Ms. May is a 52yo with complaints of neck, knee pain, and spasm. Imaging:MRI cervical spine . Multilevel disc osteophytic complexes results in moderate central calan stenosis at C5-6 and mild at C6-72. Multilevel foraminal stenosis which is moderate bilaterally at C2-3, moderate on right at C4-5, and moderate bilaterally at C5-6. Laura Covarrubias MD [address] [place], [address], - [employer] [facility] 01/09/2023 16:57:30 OBGyn Episode No OBEpisode recorded.
--- OUTSIDE RECORDS SUMMARY | 2024-12-12 16:18 | XMS_ITS | Encounter Summary ---
Author Organization [employer] Address [address] [facility] 7 [place] [address] Care Team Providers Care Vehicle Cost Engineer Name Role Phone Fabio Jones MD Primary Care Prov ider Reason for Visit * Reason Onset Date Comments Med Refill 05/03/2024 Encounter Details Date Type Department Care Team ([facility] Contact Info) Description 05/03/2024 Refill [facility] CHC MED & PEDS [address] [place] [address] Fabio Jones MD [address] [place] [address] Social History Tobacco Use Types Packs/Day Years [...] Upcoming Encounters Date Type Department Care Team ([facility] st Contact Info) Description 01/07/2025 1:30 PM EDT Office Visit [facility] MED & PEDS [address] [place] [address] Fabio Jones MD [address] [place] [address] documented as of this encounter Visit Diagnoses Not on filedocumented in this encounter Additional Health Concerns Assessment Noted Time PHQ-9 Depression Total Score: 15 024 2:46 PM EST documented as of this encounter Care Teams Vehicle Cost Engineer Relationship Specialty Start Date End Date Fabio Jones MD [address] [place] [address] PCP - General Internal Medicine 09/05/23 documented as of this encounter
--- OUTSIDE RECORDS SUMMARY | 2024-12-12 16:18 | XMS_ITS | Encounter Summary ---
Author Organization [employer] Address [address] [facility] 7t [place] [address] Care Team Providers Care Bow Machine Operator Name Role Phone Fabio Jones MD Primary Care Prov ider Encounter Details Date Type Department Care Team (Late st Contact Info) Description 12/11/2023 Orders Only [facility] CHC MED & PEDS [address] [place], [place] [phone] Maco Galeano MD [address] [place], [place] [phone] Acquired hypothyroidism (Primary Dx); Fibromyalgia Social History Tobacco Use Types Packs/Day Years [...] as of this encounter Miscellaneous Notes * Result Encounter Note - Maco Galeano MD - 12/11/2023 7:40 PM EDT Please call to find out if Ms Manuela Smith Stone is compliant to her medication. If not I will increase the dose of her levothyroxine. documented in this encounter Plan of Treatment Upcoming Encounters Date Type Department Care Team (Late st Contact Info) Description 01/07/2025 1:30 PM EDT Office Visit [facility] MED & PEDS [address] [place] [address] SierraFabio Arguelles MD [address] [place] [address] documented as of this encounter Procedures Procedure Name Priority Date/Time Associated Diagnosis Comments TSH W/REFLEX TO FT4 Routine 06/19/2024 9:58 AM EDT Acquired hypothyroidism documented in this encounter Results * (ABNORMAL) TSH W/Reflex to FT4 (06/19/2024 9:58 AM EDT) TSH reflex Free T4 9.10(H) 0.32 - 4.0 uIU/mL [facility] Blood Venous blood specimen / Unknown 06/19/2024 9:58 AM EDT 06/19/2024 2:37 PM EDT us Maco Galeano MD LAB BLOOD ORDERABLES Final Result [facility] [address] [place] [phone] [phone] documented in this encounter Visit Diagnoses Diagnosis Acquired hypothyroidism- Primary Unspecified hypothyroidism Fibromyalgia Unspecified myalgia and myositis documented in this encounter Additional Health Concerns Assessment Noted Time PHQ-9 Depression Total Score: 15 024 2:46 PM EST documented as of this encounter Care Teams Bow Machine Operator Relationship Specialty Start Date End Date Fabio Jones MD [address] [place] [address] PCP - General Internal Medicine 09/05/23 documented as of this encounter
--- OUTSIDE RECORDS SUMMARY | 2024-12-12 16:18 | XMS_ITS | Patient Health Record ---
Author Organization [facility] Address [address] [place] [address] Care Team Providers Care Laborer Concrete Plant Name Role Phone Guanaco Caldera Primary Care Provider Reason For Referral No Information Plan Of Treatment No Information Insurance Providers Payer Name Payer Address Payer Phone Subscriber Number Group Number Insured Name Patient Relationship to Insured Coverage Start Date Coverage End Date [facility] [address] [address] [id number] Manuela May Self - patient is the insured
--- OUTSIDE RECORDS SUMMARY | 2024-12-12 16:18 | XMS_ITS | Encounter Summary ---
Author Organization [employer] Address [address] [facility] 7t [place] [address] Care Team Providers Care Hadoop Developer Name Role Phone Fabio Jones MD Primary Care Prov ider Encounter Details Date Type Department Care Team (Late st Contact Info) Description 12/12/2024 Orders Only GENERIC EXTERNAL DATA DEPARTMENT Provider, Generic External Data Social History Tobacco Use Types Packs/Day Years [...] 1:30 PM EDT Office Visit [facility] MED & PEDS [address] [place] [address] Fabio Jones MD [address] [place], [place] [phone] documented as of this encounter Procedures Procedure Name Priority Date/Time Associated Diagnosis Comments CBC WITH AUTO DIFFERENTIAL Routine 12/12/2024 2:10 PM EDT documented in this encounter Results * (ABNORMAL) CBC auto differential (12/12/2024 2:10 PM EDT) White Blood Count 6.9 4.8 - 10.8 X10*3/uL [facility] Red Blood Count 4.51 4.20 - 5.50 X10*6/uL [facility] Hemoglobin 12.3 12.0 - 16.0 g/dl [facility] Hematocrit 37.3 37.0 - 47.0 % [facility] Mean Corpuscular Volume 82.7 80.0 - 98.0 fL [facility] Mean Corpuscular Hemoglobin 27.3 27.0 - 33.0 pg [facility] Mean Corpuscular HGB Conc 33.0 31.0 - 35.0 g/dl [facility] Red Cell Distribution Width 12.8 11.0 - 16.0 % [facility] Platelet Count 396 160 - 400 X10*3/uL [facility] Mean Platelet Volume 9.6 9.4 - 12.3 fL [facility] Neutrophils Percent Auto 53.6 45 - 73 % [facility] Imm Gran Pct Auto 0.9(H) 0.0 - 0.4 % [facility] Lymphocytes Percent Auto 33.7 20 - 40 % [facility] Monocytes Percent Auto 8.2 2 - 11 % [facility] Eosinophils Percent Auto 2.0 0 - 4 % [facility] Basophils Percent Auto 1.6 0 - 2 % [facility] NRBC Pct Auto 0.0 0.0 - 0.2 /100WBC [facility] Neutrophils Absolute Auto 3.7 2.0 - 8.3 x10*3/uL [facility] Imm Gran Abs Auto 0.06(H) 0.00 - 0.03 X10*3/uL [facility] Lymphocytes Absolute Auto 2.3 1.2 - 4.9 X10*3/uL [facility] Monocytes Absolute Auto 0.6 0.1 - 1.2 X10*3/uL [facility] Eosinophils Absolute Auto 0.1 0.0 - 0.4 X10*3/uL [facility] Basophils Absolute Auto 0.1 0.0 - 0.2 X10*3/uL [facility] NRBC Abs Auto 0.000 0.0 - 0.012 X10*3/uL [facility] 12/12/2024 2:10 PM EDT 12/12/2024 2:10 PM EDT us Generic External Data Provider LAB BLOOD ORDERAB LES Final Result [facility] [address] [place] [address] [phone] documented in this encounter Visit Diagnoses Not on filedocumented in this encounter Additional Health Concerns Assessment Noted Time PHQ-9 Depression Total Score: 0 08/02/20 24 10:30 AM EST documented as of this encounter Care Teams Hadoop Developer Relationship Specialty Start Date End Date Fabio Jones MD [address] [place] [address] PCP - General Internal Medicine 09/05/23 documented as of this encounter
--- OUTSIDE RECORDS SUMMARY | 2024-12-12 16:18 | XMS_ITS | Encounter Summary ---
Author Organization [employer] Address [address] [facility] 7 [place] [address] Care Team Providers Care Student Assistance Counselor Name Role Phone Fabio Jones MD Primary Care Prov ider Reason for Visit * Reason Comments Med Refill Encounter Details Date Type Department Care Team ([facility] st Contact Info) Description 12/12/2023 Refill [facility] MED & PEDS [address] [place] [address] Fabio Jones MD [address] [place] [address] Social History Tobacco Use Types Packs/Day Years [...] Description 01/07/2025 1:30 PM EDT Office Visit [facility] MED & PEDS [address] [place] [address] Fabio Jones MD [address] [place] [address] documented as of this encounter Visit Diagnoses Not on filedocumented in this encounter Additional Health Concerns Assessment Noted Time PHQ-9 Depression Total Score: 15 024 2:46 PM EST documented as of this encounter Care Teams Student Assistance Counselor Relationship Specialty Start Date End Date Fabio Jones MD [address] [place] [address] PCP - General Internal Medicine 09/05/23 documented as of this encounter
--- OUTSIDE RECORDS SUMMARY | 2024-12-12 16:18 | XMS_ITS | Encounter Summary ---
Author Organization [employer] Address [address] [facility] 7t [place] [address] Care Team Providers Care Ancillary Services Manager Therapy Name Role Phone Fabio Jones MD Primary Care Prov ider Encounter Details Date Type Department Care Team (Late st Contact Info) Description 12/29/2023 Orders Only [facility] CH[facility] MED & PEDS [address] [place], [place] [phone] Fabio Jones MD [address] [place], [place] [phone] Chronic diastolic congestive heart failure (CMS/HCC) Social History Tobacco Use Types Packs/Day Years [...] 1:30 PM EDT Office Visit [facility] MED & PEDS [address] [place] [address] Fabio Jones MD [address] [place] [address] documented as of this encounter Procedures Procedure Name Priority Date/Time Associated Diagnosis Comments AMB REFERRAL TO CARDIOLOGY Routine 12/14/2023 Chronic diastolic congestive heart failure (CMS/HCC) documented in this encounter Results * Referral to Cardiology (12/14/2023) Fabio Schneider MD OUTPATIENT REFERRA L ORDERABLES Final Result documented in this encounter Visit Diagnoses Diagnosis Chronic diastolic congestive heart failure (CMS/HCC) documented in this encounter Additional Health Concerns Assessment Noted Time PHQ-9 Depression Total Score: 15 024 2:46 PM EST documented as of this encounter Care Teams Ancillary Services Manager Therapy Relationship Specialty Start Date End Date aFbio Jones MD [address] [place] [address] PCP - General Internal Medicine 09/05/23 documented as of this encounter
--- OUTSIDE RECORDS SUMMARY | 2024-12-12 16:18 | XMS_ITS | Encounter Summary ---
Author Organization [email or web address] Address [address] [facility] 7t [place] [address] Care Team Providers Care Residential Framing Carpenter Name Role Phone Fabio Jones MD Primary Care Prov ider Encounter Details Date Type Department Care Team (Late st Contact Info) Description 03/27/2024 Orders Only [facility] CHC MED & PEDS [address] [place], [place] [phone] Fabio Jones MD [address] [place] [address] Social History Tobacco Use Types Packs/Day Years [...] Upcoming Encounters Date Type Department Care Team ([facility] st Contact Info) Description 01/07/2025 1:30 PM EDT Office Visit [facility] CHC MED & PEDS [address] [place] [address] Fabio Jones MD [address] [place], [place] [phone] documented as of this encounter Procedures Procedure Name Priority Date/Time Associated Diagnosis Comments BI MAMMOGRAM SCREENING TOMOSYNTHESIS BILATERAL Routine 04/19/2024 2:15 PM EDT documented in this encounter Results * BI Mammogram Screening Tomosynthesis Bilateral (04/19/2024 2:15 PM EDT) Anatomical Region Laterality Modality Breast Bilateral Mammography 04/19/2024 2:15 PM EDT Narrative 05/20/2024 11:50 PM EDT ? [facility] ? [address] ?[place] [address] ? Mammography Report ? Signed ? Patient: Stone,Manuela A ?MR#: [id number] ?? [id number] ? : 1970 ?Acct:[id number] ? Age/Sex: 53 / F ?ADM Date: 08/02/24 ? Loc: HO.MAMMO ? Attending Dr: Fabio Schneider MD ? Ordering Physician: Fabio Jones MD ?Res ?? ults: 1Negative ? Date of Service: 04/19/24 ?Follow Up: 1 Year From Orig ?? inal Mammogram ? Procedure(s): MM tomosynthesis screening BI ?? Accession Number(s): [id number] ? cc: Fabio Jones MD ? EXAMINATION: [...] DD/ 1415 ? TD/TT: 04/19/24 1435 ? Media Marketing Specialist: ? Procedure Note Lindsay, Image - 05/20/2024 [facility] [address] [place] [address] Mammography Report Signed Patient: Manuela May AMR#: [id number] : 1970Acct:[id number] Age/Sex: 53 / FADM Date: 04/19/24 Loc: HO.MAMMO Attending Dr: Fabio Schneider MD Ordering Physician: Fabio Jones ults: 1Negative Date of Service: 04/19/24Follow Up: 1 Year From Orig inal Mammogram Procedure(s): MM tomosynthesis screening BI Accession Number(s): [id number] cc: Fabio Jones MD EXAMINATION: MM SCREENING [...] Kelli Jacob MD 05/20/2024 11:48 PM EDT RP Dictated By: Kelli Jacob MD Signed By: <Electronically signed by Kelli Jacob MD in OV> 05/20/24 2198 DD/ 1415 TD/TT: 04/19/24 1435 Media Marketing Specialist: us Fabio Schneider MD IMG BI PROCEDURES Final Result documented in this encounter Visit Diagnoses Not on filedocumented in this encounter Additional Health Concerns Assessment Noted Time PHQ-9 Depression Total Score: 15 024 2:46 PM EST documented as of this encounter Care Teams Residential Framing Carpenter Relationship Specialty Start Date End Date Fabio Jones MD [address] [place] [address] PCP - General Internal Medicine 09/05/23 documented as of this encounter
--- OUTSIDE RECORDS SUMMARY | 2024-12-12 16:18 | XMS_ITS | Clinical Summary ---
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 Name Role Phone Fabio Jones Primary Care Provide r Surgical History Surgery Date Site/Laterality Comments TUBAL LIGATION PROCEDURE: HISTORICAL TUBAL LIGATION KNEE SURGERY PROCEDURE: HISTORICAL KNEE SURGERY; COMMENT: right COLONOSCOPY 2019 PROCEDURE: HISTORICAL COLONOSCOPY; COMMENT: polyps, rpt 5 yrs Medical History Medical History Date Comments CKD (chronic kidney disease) stage 3, GFR 30-59 ml/min (CMS/HCC) 08/04/2020 DX:CKD (chronic kidney dise ase) stage 3, GFR 30-59 ml/min (HCC) Hypothyroid 09/14/2020 DX:Hypothyroid Hyperlipidemia 09/14/2020 DX:Hyperlipidemi a Essential hypertension DX:Essent ial hypertension Esophageal reflux DX:Esophageal reflux Bronchitis DX:Bronchitis Family History Medical History Relation Name Comments Depression Daughter Alcohol abuse Father Lung cancer Mother Osteoporosis Mother Other: kidney CA Mother Arthritis Sister 1 Depression Sister 1 Diabetes Sister 1 Migraines Sister 1 Osteoporosis Sister 1 Other: cervical Disc DZ Sister 1 Other: fibromyalgia Sister 1 Depression Son 1 Depression Son 2 Depression Son 3 Breast cancer Neg Hx Colon cancer Neg Hx Ovarian cancer Neg Hx Relation Name Status Comments Brother Alive Daughter Father Other Mother Alive Sister 1 Alive Sister 2 Alive Son 1 Son 2 Son 3 Social History Tobacco Use Types Packs/Day Years Used Date Smoking Tobacco: Every Day Cigarettes Smokeless Tobacco: Never Alcohol Use Standard Drinks/Week Comments No 0 (1 standard drink = 0.6 oz pur e alcohol) Comments Unknown Sex and Gender Information Value Date Recorded Sex Assigned at Not on file Legal Sex Female 10:26 PM EST Gender Identity Not on file Sexual Orientation Not on file Obstetrics History Last Filed Vital Signs Vital Sign Reading Time Taken Comments Blood Pressure 128/88 12/14/2023 1:04 PM EDT Sit ting L Arm Pulse 76 12/14/2023 1:04 PM EDT Temperature - - Respiratory Rate - - Oxygen Saturation - - Inhaled Oxygen Concentration - - Weight 117 kg (257 lb) 04/16/2024 8:12 AM EDT Height 165.1 cm (5' 5 ) 04/16/2024 8:12 AM EDT Body Mass Index 42.77 04/16/2024 8:12 AM EDT Plan of Treatment Health Maintenance Due Date Last Done Comments Hepatitis B Vaccines (1 of 3 - 19+ 3-dose series) 1989 Pneumococcal Vaccine: 50+ Years (2 of 2 - PCV) 02/29/2020 02/28/2019 Pneumococcal Vaccine: Pediatrics (0 to 5 Years) and At-Risk Patients (6 to 64 Years) (2 of 2 - PCV) 02/29/2020 02/28/2019 Zoster Vaccines (1 of 2) 2020 Cholesterol Screening (Lipid Panel) 08/27/2020 HIV Screening 08/27/2020 Hepatitis C Screening 08/27/2020 Social Influencers of Health Screening 08/27/2020 Cervical Cancer Screening: P ap Smear 11/01/2022 11/01/2019 Breast Cancer Screening 03/20/2023 03/20/20 21, 10/25/2019 Hypertension/CHF/CAD Annual BMP Blood Test 04/11/2024 COVID-19 Vaccine (3 - 2023-2 5 season) 2024 01/27/2021, 12/30/2020 Influenza Vaccine (#1) 2024 , 06/21/2016, 07/10/2015 Depression Screening 10/17/2024 10/17/2023 DTaP,Tdap,and Td Vaccines (2 - Td or Tdap) 07/10/2025 07/10/2015 Colorectal Cancer Screening: Colonoscopy 10/13/2025 10/13/2020 HIB Vaccines Aged Out No longer eligi [...] on patient's age to complete this topic MMR Vaccines Aged Out No longer eligi ble based on patient's age to complete this topic Meningococcal ACWY Vaccine Aged Out N o longer eligible based on patient's age to complete this topic Meningococcal B Vacine Aged Out No lo nger eligible based on patient's age to complete this topic RSV Immunization Patients Under 20 months Aged Out No longer eligible b ased on patient's age to complete this topic Varicella Vaccines Aged Out No longer eligible based on patient's age to complete this topic Procedures Procedure Name Priority Date/Time Associated Diagnosis Comments SCREENING MAMMOGRAPHY BI 2-VIEW BREAST INC CAD Routine 03/20/2021 1:41 PM EDT Encounter for screening mammogram for malignant neoplasm of breast PAP SMEAR Routine 11/01/2019 from Last 3 Months or Most Recently Relevant to Health Maintenance Results * SCREENING MAMMOGRAPHY BI 2-VIEW BREAST INC CAD (03/20/2021 1:41 PM EDT) Anatomical Region Laterality Modality Radiographic Willow ging 02/19/2021 4:22 PM EDT Narrative 03/23/2021 4:39 PM EDT This is a summary report. The complete report is available in the patient's medical record. If you cannot access the medical record, please contact the sending organization for a detailed fax or copy. Exam: Screening mammogram Findings: Digital bilateral full-field screening mammography is performed with tomosynthesis and interpreted with the aid of computer-aided detection. ??Comparison is made with 10/25/2019. Breast parenchyma is composed of scattered fibroglandular densities. ??Sonographically proven cyst in the outer right breast at the 9 o'clock position has mildly decreased in size. No new suspicious mass, architectural distortion, or suspicious calcifications. Impression: No mammographic evidence of malignancy. BI-RADS 2-benign Procedure Note Deisi Greco MD - 09/06/2022 This is a summary report. The complete report is available in thepatient's medical record. If you cannot access the medical record, pleasecontact the sending organization for a detailed fax or copy. Exam: Screening mammogram Findings: Digital bilateral full-field screening mammography is performedwith tomosynthesis and interpreted with the aid of computer-aideddetection. Comparison is made with 10/25/2019. Breast parenchyma is composed of scattered fibroglandular densities.Sonographically proven cyst in the outer right breast at the 9 o'clockposition has mildly decreased in size. No new suspicious mass,architectural distortion, or suspicious calcifications. Impression: No mammographic evidence of malignancy. BI-RADS 2-benign us Marta Ayala DO IMG XR PROCEDURES Final Resul t * Pap smear (11/01/2019) 11/01/2019 Narrative HISTORICAL TESTING LAB RESULTING AGENCY - 11/07/2019 2:10 PM EST [id number] THINPREP PAP AMD CELL BLOCK: NEGATIVE FOR SQUAMOUS INTRAEPITHELIAL LESION AND MALIGNANCY . CLUE CELLS ARE PRESENT. CLAUDIA DUBOSE , CT(ASCP) (CASE SCREENED 11 05 2019) HEMALATHA ARCHER M.D. , PATHOLOGIST (CASE ELECTRONICALLY SIGNED 11 06 2019) RESULT OF APTIMA HIGH RISK HPV ASSAY: HIGH RISK HPV: ??NEGATIVE (SEROTYPES 16,18,31,33,35,39,45,51,52,56,58,59,66,68) COMPLETED ON 2019-11-04 ADEQUACY: SATISFACTORY ENDOCERVICAL/TRANSFORMATION ZONE COMPONENT PRESENT. SOURCE: THINPREP PAP HPV ANY DX: ??REFLEX 16 AND 18, CERVICAL, IMAGED CLINICAL INFORMATION: HPV ANY DIAGNOSIS. LMP 10/03/19, PAP HX NEG [Z12.4] CB 11/04/19 us Marta Ayala DO LAB CYTOLOGY ORDERABLES Final Result HISTORICAL TESTING LAB RESULTING AGENCY from Last 3 Months or Most Recently Relevant to Health Maintenance Care Teams Kitchen Food Assembler Relationship Specialty Start Date End Date Fabio Jones [address], [place] PCP - General 09/05/23
--- OUTSIDE RECORDS SUMMARY | 2024-12-12 16:18 | XMS_ITS | Data Portability ---
Author Organization AAKASH Copeland fadi Manjarrez, [email or web address]_THOMAS_MOBILE [facility] Address [address] [place] [address] Care Team Providers Care Irrigationist Name Role Phone NUSRAT KYLIE Primary Care Provider Assessment No assessment recorded. Plan of Treatment Reminders Order Date Submit Date Provider Last Modified By Organization Details Last Modified Time Details Appointments None recorded. Lab lipid panel, serum 2022 023 [facility] [address], [place], [address], 3 08:22:30 CMP, serum or plasma 2022 023 [facility], [address], [place], [address], 3 08:22:27 CBC w/ auto diff 2022 023 [facility], [address], [place], [address], 3 08:22:23 HbA1c (hemoglobin A1c), blood 2022 023 [facility], [address], [place], [address], 3 11:12:38 Hepatitis C IgG Ab, qual, serum 2022 023 [facility], [address], [place], [address], 3 08:22:33 unlisted lab - TSH reflex to t4f 2022 023 [facility], [address], [place], [address], 3 11:12:42 Referral sleep medicine referral 2022 023 [email or web address] 6 [facility], [address], [place], [address], 4 09:56:19 Procedures None recorded. Surgeries None recorded. Imaging US, echocardiog miko, transthorac ic, complete, w/ color flow 2022 023 [email or web address] [facility] [address], [place], [address], 3 15:25:02 Medication Orders cetirizine 10 mg tablet 2022 023 [id number], [address], [place], [id number], 3 10:25:40 baclofen 10 mg tablet 2022 023 [facility] #[id number], [address], [place], [place], [id number], 3 10:25:40 omeprazole 20 mg capsule,del ayed release 2022 023 [facility] #[id number], [address], [place], [place], [id number], 3 10:25:40 atorvastati n 10 mg tablet 2022 023 [id number], [address], [id number], 10:25:41 furosemide 20 mg tablet 2022 023 [id number], [address], [place], [place], [id number], 10:25:42 Patient TargetsNo targets recorded. Patient Instructions Encounter Date Encounter Id Patient Instructions Last Modified By Organization Details Last Modified Time 01/25/2023 [id number] Assessment: 1. L eft cubital tunnel syndrome 2. Chronic C8-T1 radiculopathy bilaterally, being managed by neurosurgery Plan: Patient's diagnosis was discussed in great detail with them. Patient's EMG results were discussed with them. Patient verbalized understanding of results. We discussed conservative measures including heat application, gentle range of motion exercises, and oral/topical anti-inflammatories. She was provided with ulnar nerve gliding exercises. She was fitted for a left cubital tunnel brace. It was medically necessary for her to leave the office with this DME today. The patient has {{weakness* instabil ity weakness and instability}} of their {{right left* bilate ral}} upper extremity which requires stabilization from a {{semi-rigid* rigid} } orthosis to improve function. At this time, she is scheduled for neck surgery at the end of this month. We will defer any aggressive intervention until after this procedure. We will trial these conservative measures at this time. She will return to the office in approximately 2 months for reevaluation. At that time, she is still having significant symptoms to the left upper extremity, then we could consider injection. [email or web address] Not available 01/30/2023 08:54:38 02/06/2023 [id number] allergies: care instructions Not available 02/06/2023 10:25:21 managing your allergies: care instructions Not available 02/06/2023 10:25:22 spinal stenosis: care instructions Not available 02/06/2023 10:25:22 Preventing Depression From Coming Back: Care Instructions Not available 02/06/2023 10:25:21 gastroesophageal reflux disease (GERD): care instructions Not available 02/06/2023 10:25:21 high cholesterol : care instructions Not available 02/06/2023 10:25:22 bipolar disorder : care instructions Not available 02/06/2023 10:25:22 learning about m ood disorders Not available 02/06/2023 10:25:21 sleep apnea: car e instructions Not available 02/06/2023 10:27:22 hypothyroidism: care instructions Not available 02/06/2023 10:25:22 heart failure: c are instructions Not available 02/06/2023 10:25:21 learning about h eart failure Not available 02/06/2023 10:25:21 If referrals wer e placed, give the referral team 1 week to contact you. If you do not hear from them, contact the referral team at [phone]. Unless instructed otherwise, complete your labs 1 week before your upcoming appointment. If results are not available to discuss by your appointment date, then you may have to reschedule your appointment. If a lipid panel (cholesterol labs) is being checked, fast 8 hours before doing labs. Results will automatically appear on your patient portal, so it is highly advised to register for an account at: [email or web address] Contact your pharmacy for refills at least 1 week before running out of medications. Controlled substances such as ADHD medications, testosterone, pain medications, Xanax, etc. should be taken as prescribed. Contact the office if there are any concerns regarding these medications. Failure to take these medications as prescribed may result in dismissal from the practice. An appointment is usually needed before your provider makes the decision to order medications, labs, imaging, referrals, etc. It is not appropriate to request a prescription for antibiotics or new medications over the phone or the patient portal. You will be expected to be checked in and have paperwork completed before the appointment time. The appointment time is the time to be spent in the exam room with your health care provider. It is not the time to arrive to the clinic. Arrive before the appointment time so that you have enough time to check in and complete paperwork. If you have unfinished paperwork at the time of the appointment time or attempt to check in close to or after the appointment time, then you may need to reschedule your appointment. For most patients, it is a good idea to be seen every 6 months, alternating between an annual exam and a 6-month follow-up Feel free to contact the clinic with any questions or concerns at [phone] . If you have a medical emergency, go to the Emergency Department. Symptoms and situations that need immediate evaluation in the Emergency Department include: 1. strokes (new or worsening numbness, tingling or weakness of the face, arms, or legs, slurred speech, confusion, difficulty getting words out, inability to recognize words or numbers) 2. heart attacks (pressure-like chest pain that may or may not move to the left jaw or left arm that is worse with physical activity, and is improved with rest) 3. difficulty breathing (especially in patients diagnosed with asthma, COPD, or congestive heart failure 4. traumatic injuries (head injuries, injuries where broken bones are suspected, car accidents, etc.) 5. high blood pressure readings of 180/120 or greater confirmed on recheck after relaxing for 5-15 minutes 6. severe abdominal pain (especially if associated with nausea, green or bloody vomit, bloody stools) 7. mental health conditions where you may be a danger to yourself or others Not available 02/06/2023 10:21:54 Reason for Referral Sleep Medicine Referral for Obstructive sleep apnea syndrome Referring Physician: Kylie Mccormack, Family Medicine, Encounter Date: 02/06/2023 Results Created Date Observation Date Name Description Value Unit Range Abnormal Flag Note LastModifiedBy Organization Detail LastModifiedTime 02/15/2002/15/2023 CBC WITH DIFFE RENTI AL/PL ATELE T WBC 7.2 x10e3 /uL 3.4-10 .8 Not Available [facility] ([facility]) [address] [place], [address], 02/15/2023 08:22:23 02/15/2002/15/2023 CBC WITH DIFFE RENTI AL/PL ATELE T RBC 4.67 x10e6 /uL 3.77-5 .28 Not Available [facility] ([facility]) [address] [place], [address], 02/15/2023 08:22:23 02/15/20 23 02/15/2023 CBC WITH DIFFE RENTI AL/PL ATELE T hemoglobin 12.9 g/dL 11.1-1 5.9 Not Available [facility] ([facility]) [address] [facility], [place], [address], 02/15/2023 08:22:23 02/15/20 23 02/15/2023 CBC WITH DIFFE RENTI AL/PL ATELE T hematocrit 40.5 % 34.0-4 6.6 Not Available [facility] ([facility]) [address] [facility], [place], [address], 02/15/2023 08:22:23 02/15/20 23 02/15/2023 CBC WITH DIFFE RENTI AL/PL ATELE T MCV 87 fL 79-97 Not Available [facility] ([facility]) [address] [facility], [place], [address], 02/15/2023 08:22:23 02/15/20 23 02/15/2023 CBC WITH DIFFE RENTI AL/PL ATELE T MCH 27.6 pg 26.6-3 3.0 Not Available [facility] ([facility]) [address] [place], [address], 02/15/2023 08:22:23 02/15/20 23 02/15/2023 CBC WITH DIFFE RENTI AL/PL ATELE T MCHC 31.9 g/dL 31.5-3 5.7 Not Available [facility] ([facility]) [address] [place], [address], 02/15/2023 08:22:23 02/15/20 23 02/15/2023 CBC WITH DIFFE RENTI AL/PL ATELE T RDW 13.6 % 11.7-1 5.4 Not Available [facility] ([facility]) [address] [place], [address], 02/15/2023 08:22:23 02/15/20 23 02/15/2023 CBC WITH DIFFE RENTI AL/PL ATELE T platelets 447 x10e3 /uL 150-45 0 Not Available [facility] ([facility]) [address] [facility], [place], [address], 02/15/2023 08:22:23 02/15/20 23 02/15/2023 CBC WITH DIFFE RENTI AL/PL ATELE T neutrophils 63 % not estab. Not Available [facility] ([facility]) [address] [facility], [place], [address], 02/15/2023 08:22:23 02/15/20 23 02/15/2023 CBC WITH DIFFE RENTI AL/PL ATELE T lymphs 25 % not estab. Not Available [facility] ([facility]) [address] [facility], [place], [address], 02/15/2023 08:22:23 02/15/20 23 02/15/2023 CBC WITH DIFFE RENTI AL/PL ATELE T monocytes 8 % not estab. Not Available [facility] ([facility]) [address] [facility], [place], [address], 02/15/2023 08:22:23 02/15/20 23 02/15/2023 CBC WITH DIFFE RENTI AL/PL ATELE T eos 2 % not estab. Not Available [facility] ([facility]) [address] [facility], [place], [address], 02/15/2023 08:22:23 02/15/20 23 02/15/2023 CBC WITH DIFFE RENTI AL/PL ATELE T basos 1 % not estab. Not Available [facility] ([facility]) [address] [facility], [place], [address], 02/15/2023 08:22:23 02/15/20 23 02/15/2023 CBC WITH DIFFE RENTI AL/PL ATELE T immature cells AURICULAR THERAPIST Not Available [facility] ([facility]) [address] [facility], [place], [address], 02/15/2023 08:22:23 02/15/20 23 02/15/2023 CBC WITH DIFFE RENTI AL/PL ATELE T neutrophils (absolute) 4.6 x10e3 /uL 1.4-7. 0 Not Available [facility] ([facility]) [address] [facility], [place], [address], 02/15/2023 08:22:23 02/15/20 23 02/15/2023 CBC WITH DIFFE RENTI AL/PL ATELE T lymphs (absolute) 1.8 x10e3 /uL 0.7-3. 1 Not Available [facility] ([facility]) [address] [facility], [place], [address], 02/15/2023 08:22:23 02/15/20 23 02/15/2023 CBC WITH DIFFE RENTI AL/PL ATELE T monocytes(ab solute) 0.6 x10e3 /uL 0.1-0. 9 Not Available [facility] ([facility]) [address] [place], [address], 02/15/2023 08:22:23 02/15/20 23 02/15/2023 CBC WITH DIFFE RENTI AL/PL ATELE T eos (absolute) 0.1 x10e3 /uL 0.0-0. 4 Not Available [facility] ([facility]) [address] [place], [address], 02/15/2023 08:22:23 02/15/20 23 02/15/2023 CBC WITH DIFFE RENTI AL/PL ATELE T baso (absolute) 0.1 x10e3 /uL 0.0-0. 2 Not Available [facility] ([facility]) [address] [place], [address], 02/15/2023 08:22:23 02/15/20 23 02/15/2023 CBC WITH DIFFE RENTI AL/PL ATELE T immature granulocytes 1 % not estab. Not Available [facility] ([facility]) [address] [facility], [place], [address], 02/15/2023 08:22:23 02/15/20 23 02/15/2023 CBC WITH DIFFE RENTI AL/PL ATELE T immature grans (abs) 0.1 x10e3 /uL 0.0-0. 1 Not Available [facility] ([facility]) [address] [facility], [place], [address], 02/15/2023 08:22:23 02/15/20 23 02/15/2023 CBC WITH DIFFE RENTI AL/PL ATELE T NRBC AURICULAR THERAPIST Not Available [facility] ([facility]) [address] [facility], [place], [address], 02/15/2023 08:22:23 02/15/20 23 02/15/2023 CBC WITH DIFFE RENTI AL/PL ATELE T hematology comments: AURICULAR THERAPIST Not Available [facility] ([facility]) [address] [facility], [place], [address], 02/15/2023 08:22:23 02/15/20 23 02/15/2023 COMP. METAB OLIC PANEL (14) glucose 102 mg/dL 70-99 above high normal Not Available [facility] ([facility]) [address] [facility], [place], [address], 02/15/2023 08:22:26 02/15/20 23 02/15/2023 COMP. METAB OLIC PANEL (14) BUN 12 mg/dL 6-24 Not Available [facility] ([facility]) [address] [facility] [place], [address], 02/15/2023 08:22:26 02/15/20 23 02/15/2023 COMP. METAB OLIC PANEL (14) creatinine 0.87 mg/dL 0.57-1 .00 Not Available [facility] ([facility]) [address], [place], [address], 02/15/2023 08:22:26 02/15/20 23 02/15/2023 COMP. METAB OLIC PANEL (14) eGFR 80 mL/mi n/1.7 3 >59 Not Available [facility] ([facility]) [address], [place], [address], 02/15/2023 08:22:26 02/15/20 23 02/15/2023 COMP. METAB OLIC PANEL (14) BUN/creatini ne ratio 14 9-23 Not Available [facility] ([facility]) [address], [place], [address], 02/15/2023 08:22:26 02/15/20 23 02/15/2023 COMP. METAB OLIC PANEL (14) sodium 138 mmol/ L 134-14 4 Not Available [facility] ([facility]) [address], [place], [address], 02/15/2023 08:22:26 02/15/20 23 02/15/2023 COMP. METAB OLIC PANEL (14) potassium 4.8 mmol/ L 3.5-5. 2 Not Available [facility] ([facility]) [address], [place], [address], 02/15/2023 08:22:26 02/15/20 23 02/15/2023 COMP. METAB OLIC PANEL (14) chloride 101 mmol/ L 96-106 Not Available [facility] ([place] [facility]) [address], [place], [address], 02/15/2023 08:22:26 02/15/20 23 02/15/2023 COMP. METAB OLIC PANEL (14) carbon dioxide, total 22 mmol/ L 20-29 Not Available [facility] ([place] [facility]) [address], [place], [address], 02/15/2023 08:22:26 02/15/20 23 02/15/2023 COMP. METAB OLIC PANEL (14) calcium 9.7 mg/dL 8.7-10 .2 Not Available [facility] ([facility]) [address], [place], [address], 02/15/2023 08:22:26 02/15/20 23 02/15/2023 COMP. METAB OLIC PANEL (14) protein, total 7.2 g/dL 6.0-8. 5 Not Available [facility] ([facility]) [address] [place], [address], 02/15/2023 08:22:26 02/15/20 23 02/15/2023 COMP. METAB OLIC PANEL (14) albumin 4.5 g/dL 3.8-4. 9 Not Available [facility] ([facility]) [address] [facility] [place], [address], 02/15/2023 08:22:26 02/15/20 23 02/15/2023 COMP. METAB OLIC PANEL (14) globulin, total 2.7 g/dL 1.5-4. 5 Not Available [facility] ([facility]) [address] [facility] [place], [address], 02/15/2023 08:22:26 02/15/20 23 02/15/2023 COMP. METAB OLIC PANEL (14) A/G ratio 1.7 1.2-2. 2 Not Available [facility] ([facility]) [address] [facility] [place], [address], 02/15/2023 08:22:26 02/15/20 23 02/15/2023 COMP. METAB OLIC PANEL (14) bilirubin, total <0.2 mg/dL 0.0-1. 2 Not Available [facility] ([facility]) [address] [facility] [place], [address], 02/15/2023 08:22:26 02/15/20 23 02/15/2023 COMP. METAB OLIC PANEL (14) alkaline phosphatase 113 IU/L 44-121 Not Available [facility] ([facility]) [address] [place], [address], 02/15/2023 08:22:26 02/15/20 23 02/15/2023 COMP. METAB OLIC PANEL (14) AST (SGOT) 30 IU/L 0-40 Not Available [facility] ([facility]) [address] [place], [address], 02/15/2023 08:22:26 02/15/20 23 02/15/2023 COMP. METAB OLIC PANEL (14) ALT (SGPT) 47 IU/L 0-32 above high normal Not Available [facility] ([facility]) [address] [place], [address], 02/15/2023 08:22:26 02/15/20 23 02/15/2023 LIPID PANEL cholesterol, total 259 mg/dL 100-19 9 above high normal Not Available [facility] ([facility]) [address] [place], [address], 02/15/2023 08:22:30 02/15/20 23 02/15/2023 LIPID PANEL triglyceride s 281 mg/dL 0-149 above high normal Not Available [facility] ([facility]) [address] [place], [address], 02/15/2023 08:22:30 02/15/20 23 02/15/2023 LIPID PANEL HDL cholesterol 64 mg/dL >39 Not Available [facility] ([facility]) [address] [place], [address], 02/15/2023 08:22:30 02/15/20 23 02/15/2023 LIPID PANEL VLDL cholesterol rosalee 51 mg/dL 5-40 above high normal Not Available [facility] ([facility]) [address] [place], [address], 02/15/2023 08:22:30 02/15/20 23 02/15/2023 LIPID PANEL LDL chol calc ([facility]) 144 mg/dL 0-99 above high normal Not Available [facility] ([facility]) [address] [facility], [place], [address], 02/15/2023 08:22:30 02/15/20 23 02/15/2023 LIPID PANEL comment: AURICULAR THERAPIST Not Available [facility] ([facility]) [address] [facility], [place], [address], 02/15/2023 08:22:30 02/15/2002/15/2023 HCV ANTIB FADUMO hep C virus Ab NON REACTI VE non reacti ve HCV antib fadumo alone does not diffe renti ate betwe en previ ously resol cortney infec tion and activ e infec tion. Equiv ocal and React miah HCV antib afdumo resul ts shoul d be follo wed up with an HCV RNA test to suppo rt the diagn osis of activ e HCV infec tion. Not Available [facility] ([facility]) [address] [facility], [place], [address], 02/15/2023 08:22:33 02/15/20 23 02/15/2023 HEMOG LOBIN A1C hemoglobin A1C 6.0 % 4.8-5. 6 above high normal Predi abete s: 5.7 - 6.4 Diabe kashif: >6.4 Glyce belinda contr ol for adult s with diabe kashif: <7.0 Not Available [facility] ([facility]) [address] [facility], [place], [address], 02/15/2023 11:12:38 02/15/2002/15/2023 TSH REFLE X TO T4F TSH 1.880 uIU/m L 0.450- 4.500 Not Available [facility] ([facility]) [address] [facility], [place], [address], 02/15/2023 11:12:41 Result Notes None recorded. Problems Name Problem SNOMED Code Status Onset Date Resolution Date Notes Provider Name and Address Organization Details Recorded Time Pain in elbow 72029323 Active 023 ongoing for a while Dary jackson [facility] 11:38:57 Problem Notes None recorded. Procedures Surgical History Date Name Laterality Status Provider Name and Address Organization Details Recorded Time Orthopedic Surgery completed Dary Barnett [facility] 01/25/2023 12:17:18 Imaging Results None recorded. Procedure Notes None recorded. Medical Equipment None Reported. Medications Name Sig Start Date Stop Date Status Note LastModified by Organization Details LastModified Time methocarbam ol 500 mg tablet TAKE 1 TABLET BY MOUTH TWICE DAILY NEEDED FOR MUSCLE PAINS 01/25 completed Not Available Not Available Not Available oxcarbazepi ne 150 mg tablet TAKE 1 TABLET BY MOUTH TWICE DAILY 01/25 completed Not Available Not Available Not Available trazodone 50 mg tablet TAKE 1 TABLET BY MOUTH EVERY NIGHT AT BEDTIME DIRECTED FOR INSOMNIA active Not Available Not Available No t Available cetirizine 10 mg tablet TAKE 1 TABLET BY MOUTH EVERY DAY active Not Available Not Available No t Available atorvastati n 10 mg tablet TAKE 1 TABLET BY MOUTH EVERY NIGHT AT BEDTIME active Not Available Not Available No t Available azithromyci n 250 mg tablet TAKE 2 TABLETS BY MOUTH FOR 1 DAY THEN TAKE 1 TABLET BY MOUTH DAILY FOR 4 DAYS 01/25 completed Not Available Not Available Not Available hydrocodone 5 mg-acetamin ophen 325 mg tablet TAKE 1 TABLET BY MOUTH EVERY DAY NEEDED active Not Available Not Available No t Available prednisone 20 mg tablet TAKE 1 TABLET BY MOUTH DAILY 01/25 completed Not Available Not Available Not Available hydroxyzine pamoate 50 mg capsule TAKE 1 CAPSULE BY MOUTH THREE TIMES DAILY NEEDED FOR ANXIETY 01/25 completed Not Available Not Available Not Available hydroxyzine HCl 50 mg tablet TAKE 1 TABLET BY MOUTH EVERY DAY 01/25 completed Not Available Not Available Not Available oxcarbazepi ne 300 mg tablet TAKE 1 TABLET BY MOUTH TWICE DAILY active Not Available Not Available No t Available levothyroxi ne 88 mcg tablet TAKE 1 TABLET BY MOUTH EVERY MORNING 30 MINUTES BEFORE FOOD AND OTHER MEDICATIO NS 2023 active Not Available Not Available Not Avai lable meclizine 25 mg tablet TAKE 1 TABLET BY MOUTH THREE TIMES DAILY NEEDED FOR DIZZINESS . 02/06 completed Not Available Not Available Not Available baclofen 10 mg tablet TAKE 1 TABLET BY MOUTH TWICE DAILY NEEDED active Not Available Not Available No t Available hydrocodone 7.5 mg-acetamin ophen 325 mg tablet TAKE 1 TABLET BY MOUTH EVERY 6 HOURS FOR 7 DAYS NEEDED FOR PAIN active Not Available Not Available No t Available buspirone 10 mg tablet TAKE 1 TABLET BY MOUTH TWICE DAILY FOR ANXIETY active Not Available Not Available No t Available omeprazole 20 mg capsule,del ayed release TAKE 1 CAPSULE BY MOUTH EVERY DAY NEEDED 2023 active Not Available Not Available Not Avai lable furosemide 20 mg tablet TAKE 1 TABLET BY MOUTH EVERY DAY active Not Available Not Available No t Available mirtazapine 15 mg tablet TAKE 1/2 TABLET BY MOUTH AT BEDTIME active Not Available Not Available No t Available albuterol sulfate HFA 90 mcg/actuati on aerosol inhaler active Not Available Not Available Not Available ondansetron 4 mg disintegrat ing tablet DISSOLVE 1 TABLET ON THE TONGUE THREE TIMES DAILY NEEDED FOR NAUSEA active Not Available Not Available No t Available diazepam 5 mg tablet 01/25 completed Not Available Not Available Not Available duloxetine 20 mg capsule,del ayed release TAKE 2 CAPSULES BY MOUTH ONCE A DAY IN THE AFTERNOON . 01/25 completed Not Available Not Available Not Available duloxetine 60 mg capsule,del ayed release TAKE 1 CAPSULE BY MOUTH TWICE DAILY active Not Available Not Available No t Available FeroSul 325 mg (65 mg iron) tablet TAKE 1 TABLET BY MOUTH EVERY OTHER DAY 01/25 completed Not Available Not Available Not Available Vitals Date Recorded Body height Body mass index (BMI) Body weight Heart rate Body temperature Oxygen saturation Oxygen saturation in Arterial blood by Pulse oximetry Pain severity - 0-10 verbal numeric rating [Score] - Reported Systolic blood pressure Diastolic blood pressure Provider Name and Address Organization Details Last Updated DateTime 3 165.1 cm 41.3 kg/m2 159737. 91 g 84 /min 97.2 [degF] 97 % 97 % 2 121 mm[Hg] 81 mm[Hg] Dary Barnett [place] - [place] - [facility] 3 11:35:30 Date Recorded Body height Body mass index (BMI) Body weight Heart rate Body temperature Oxygen saturation Oxygen saturation in Arterial blood by Pulse oximetry Pain severity - 0-10 verbal numeric rating [Score] - Reported Systolic blood pressure Diastolic blood pressure Provider Name and Address Organization Details Last Updated DateTime 3 165.1 cm 41.3 kg/m2 972960. 26 g 101 /min 97.1 [degF] 96 % 96 % 8 133 mm[Hg] 86 mm[Hg] Dominick Adams [place] - [place] - [facility] 3 09:51:13 Social History Question Answer Notes LastModified by Organizat ion Details LastModified Time Tobacco Smoking Status Current Some Day Smoker Not Available [employer] 01/25/2023 11:22:09 Do You Have An Advance Directive? No [email or web address] Information not available 01/25/2023 What Is Your Level Of Alcohol Consumption? None API-27 Information not available 01/25/2023 Are You Currently Employed? No API-27 Information not available 02/06/2023 What Is The Highest Grade Or Level Of School You Have Completed Or The Highest Degree You Have Received? [id number] API-27 Information not available 02/06/2023 Which Of Your Hands Is Dominant? Right API-27 Information not available 02/06/2023 Where Do You Live? Apartment API-27 Information not available 02/06/2023 Place Of [place] Informatio n not available 01/25/2023 Patients Living Environment Safe And Secure? Yes [email or web address]-27 Information not available 01/25/2023 High Risk For Falls? No Information not available 01/25/2023 Readiness To Learn Accepting Information not available 01/25/2023 Barriers To Learning None Information not available 01/25/2023 Learning Preferences No Preferences Information not available 01/25/2023 In The Last 12 Months Did You Skip Medications To Save Money? No API-27 Information not available 02/06/2023 In The Last 12 Months, Was There A Time When You Needed To See A Doctor But Could Not Because Of Cost? No API-27 Information not available 02/06/2023 In The Last 12 Months, Have You Ever Had To Go Without Health Care Because You Didn? t Have A Way To Get There? No API-27 Information not available 02/06/2023 In The Last 12 Months Did You Ever Eat Less Than You Fishtail You Should Because There Wasn? t Enough Money For Food? No API-27 Information not available 02/06/2023 In The Past 12 Months Has The Electric, Gas, Oil, Or Water Company Threatened To Shut Off Services In Your Home? No API-27 Information not available 02/06/2023 Are You Worried That In The Next 2 Months You May Not Have Stable Housing? No API-27 Information not available 02/06/2023 Do You Feel Physically And Emotionally Unsafe Where You Currently Live? No API-27 Information not available 02/06/2023 Do You Want Help Finding Or Keeping Work Or A Job? No API-27 Information not available 02/06/2023 Do You Want Help With School Or Training? For Example, Starting Or Completing Job Training Or Getting A High School Diploma, GED, Or Equivalent? No API-27 Information not available 02/06/2023 Do You Often Feel Lonely? No API-27 Information not available 02/06/2023 Have You Had A Fever And/or Symptoms Of A Lower Respiratory Illness (cough, Difficulty Breathing, Etc)? No API-27 Information not available 01/25/2023 Have You Had Any Of These Symptoms: Chills ,Headache, Fatigue, Muscle Or Body Aches , Sore Throat, New Loss Of Taste Or Smell, Nausea Or Vomiting, Or Diarrhea? No API-27 Information not available 01/25/2023 Have You Had A COVID-19 Vaccine In The Last 7 Days? No API-27 Information not available 01/25/2023 In The Past 10 Days, Have You Been Told You May Have COVID-19 Or Have Been Tested For COVID-19? No API-27 Information not available 01/25/2023 What Was The Date Of Your Most Recent Tobacco Screening? 02/06/2023 Information not available 02/06/2023 What Is Your Current Pack Years? 10-19packyears API-27 Information not available 01/25/2023 What Is Your Relationship Status? Single API-27 Information not available 02/06/2023 How Much Tobacco Do You Smoke? 1 PPW Information not available 02/06/2023 Has Tobacco Cessation Counseling Been Provided? Yes Information not available 02/06/2023 On What Date Was Tobacco Cessation Counseling Provided? 02/06/2023 Information not available 02/06/2023 Are You Currently In School? No API-27 Information not available 02/06/2023 Sex: Female Functional Status Question Answer Note LastModified by Organization D etails LastModified Time Are you able to care for yourself? Yes API-27 Information n ot available 01/25/2023 Mental Status None recorded. Family History Relationship Description Onset Age of this Age Resolved Age Notes LastModified by Organization Details LastModified Time Paternal Grandmother Arthritis [email or web address] Not available 01/16 11:22:07 Paternal Grandmother Diabetes mellitus [email or web address] Not available 2022 11:22:07 Mother Depressive disorder [email or web address] Not available 2022 11:22:07 Mother Arthritis [email or web address] Not available 01/25/2023 11:22:07 Sister Depressive disorder [email or web address] Not available 2022 11:22:07 Sister Arthritis [email or web address] Not available 01/25/2023 11:22:07 Sister Anxiety [email or web address] Not available 11:22:07 Sister Diabetes mellitus [email or web address] Not available 2022 11:22:07 Sister Autoimmune disease [email or web address] Not available 2022 11:22:07 Paternal Grandfather Arthritis [email or web address] Not available 01/16 11:22:07 Unspecified Relation Heart disease [email or web address] Not available 01/25 12:09:58 Unspecified Relation Anemia [email or web address] Not available 2022 12:10:05 Notes:muscular/neuro disease , kidney problem Medical History Condition Response acid reflux/GERD Y neurologic disease Y diabetes mellitus Y musculoskeletal disease Y back pain Y arthritis Y depression Y heart disease Y hypothyroidism Y high cholesterol Y heart attack (MD) Y fibromyalgia Y stroke Y Gynecological HistoryNo gynecological history recorded. Obstetrics History GPAL:G 0 P 0 0 0 0 Immunizations Vaccine Type Date Status Note Provider Nam e and Address Organization Details Recorded Time zoster recombinant 12/06/2022 completed Dominick [place] - [facility] 02/06/2023 09:52:30 Tdap 12/06/2022 completed Dominick Adams null[place] - [facility] 02/06/2023 09:52:30 Influenza, split virus, quadrivalent, PF 08/30/2022 completed Dominick Adams null[place] - [facility] 02/06/2023 09:52:30 Past Encounters Encounter ID Performer Location Encounter Start Date Encounter Closed Date Diagnosis/Indication Diagnosis SNOMED-CT Code Diagnosis ICD10 Code Diagnosis Note [id number] TOOTIE Ahumada [facility]TH O_HAND_SU MMIT_[facility]B [address] [place] [address] 01/25/2023 11:22:05 01/25/2023 12:07:27 Ulnar nerve entrapment at elbow 653206724 G56.22 [id number] Kylie Mccormack MD [facility]PC_A [address] [facility] [place] [address] 02/06/2023 09:36:14 02/06/2023 10:36:17 Hyperlipidemia 41812946 E78.5 On Atorvastat in 10mg, tolerating well. Needs updated labs. Hypothyroidism 46462779 E03.9 On Levothyrox ine 88mcg, tolerating well. Needs updated labs.-awai ting labs to determine refill dose Spinal tee nosis in cervical region 23647928 M48.02 Planned for surgery 02/15/23.-o btain records Bipolar disorder 4781716 4 F31.9 Stable on Oxcarbazep ine.-mark nue Oxcarbazep ine per Psychiatry Anxiety 39971610 F41.9 Stable on Duloxetine , Buspirone. -continue meds, f/u with Psychiatry Major depr essive disorder 903645945 F32.9 PHQ-9 score 12. No SI/HI. Stable on Duloxetine , Mirtazapin e.-continu e Duloxetine per Psychiatry Spasm 26716952 R25.2 Stable on PRN Baclofen. Congestive heart failure 70969311 I50.9 Reports history of CHF. No recent echo. On Furosemide , tolerating well. Not in acute HF. Allergic rhinitis 888053 04 J30.9 Controlled on Cetirizine in the past. Requesting refill. Gastroesop hageal reflux disease 239268227 K21.9 Stable. No unintentio nal weight loss. On PRN Omeprazole .-avoid trigger foods, large meals in one sitting, and eating close to bedtime-us e medication s as needed if preventati ve measures above do not control reflux Hepatitis C screening 41 1012134 Z11.59 Screening as below. Obstructiv e sleep apnea syndrome 42105353 G47.33 Possible. Reports snoring, unrefreshi ng sleep, and daytime somnolence . Health Concerns Section Related Observation LastModified by Organization Detai ls LastModified Time None Recorded Concern Status LastModified by Organization Details LastModified Time None Recorded Advance Directives Directive N: Payers Encounter Date Sequence Insurance Name Policy Number Policy Levine Covered Member ID Levine Member ID Guarantor Name 01/25/2023 2 [place] [facility] [employer] Manuela A Stone [id number] Manuela Stone 01/25/2023 1 [employer] (MEDICARE REPLACEMENT PPO) [id number] A Manuela A Stone [id number] Manuela Stone 02/06/2023 2 [place] [employer] Manuela A Stone [id number] Manuela Stone 02/06/2023 1 [employer] (MEDICARE REPLACEMENT PPO) [id number] A Manuela A Stone [id number] Manuela Stone Notes Date Note Type Note Provider Name and Address Organization Details Recorded Time 01/25/2023 text/html Ms. May is a 52-year-old female, [id number], on disability, who [facility]. She is complaining of persistent numbness and tingling to the left upper extremity for the last 2 years. She states that the numbness and tingling is intermittent. She states that she will feel it radiate down to the fourth and fifth digits. She states that she does feel as if she is losing a bit of hand strength. She states that she will sometimes drop things. She states that the symptoms will sometimes wake her up at night while she is sleeping. She was sent for a nerve study which was completed on 12/26/2022. It demonstrated mild left cubital tunnel syndrome as well as a chronic C8-T1 radiculopathy bilaterally. She states that she is currently being evaluated by neurosurgery and is in fact scheduled for a neck procedure at the end of this month. She denies any additional complaints. She denies any significant symptoms to the right upper extremity. The patient's past medical history, surgical history, family history, surgical history, allergies and medications were all reviewed and discussed. TOOTIE Ahumada [address], [place], [address], [facility] 01/30/2023 08:54:45 02/06/2023 text/html 52 y/o F PMH HLD , CHF, hypothyroidism here for establishing care, JACINDA, HLD, hypothyroidism, CHF, bipolar disorder, MMD, anxiety, cervical spinal stenosis, spasms, allergic rhinitis, GERD. #JACINDA - Reports snoring, unrefreshing sleep, and daytime somnolence. Hx of CHF. #HLD - On Atorvastatin, tolerating well. No muscle aches. Denies CP, ALBARADO, SOB, blurred vision. #hypothyroidism - On Levothyroxine, tolerating well. #CHF - Reports history of CHF. On Furosemide. Reports no recent echo in the past year. Does not recall further details regarding her diagnosis/condition. No lower extremity edema, SOB, orthopnea. #bipolar disorder - Followed by Psychiatry. On Oxcarbazepine, tolerating well. #MDD - No SI/HI. Doing well on Duloxetine, Mirtazapine. #anxiety - Stable on Duloxetine, Buspirone. #cervical spinal stenosis - Planned for Neurosurgery next week. No acute loss of bowel/bladder function. #spasm - Back muscle spasms stable on Baclofen. Requesting refill. #allergic rhinitis - Reports nasal congestion that was controlled on Cetirizine in the past. Requesting refill. #GERD - No unintentional weight loss. On PRN Omeprazole, and doing dietary/lifestyle modifications. Kylie Mccormack MD [address], [place], [address], [facility] 02/06/2023 12:59:31 OBGyn Episode No OBEpisode recorded.
--- OUTSIDE RECORDS SUMMARY | 2024-12-12 16:18 | XMS_ITS | Encounter Summary ---
Author Organization [employer] Address [address] [place] [address] Care Team Providers Care Public Relations Assistant Name Role Phone Fabio Jones MD Primary Care Prov ider Encounter Details Date Type Department Care Team (Late st Contact Info) Description 12/21/2023 Orders Only [facility] CHC MED & PEDS [address] [place], [place] [phone] Fabio Jones MD [address] [place] [address] Social History Tobacco Use Types Packs/Day Years [...] Description 01/07/2025 1:30 PM EDT Office Visit [facility] MED & PEDS [address] [place] [address] Fabio Jones MD [address] [place] [address] documented as of this encounter Visit Diagnoses Not on filedocumented in this encounter Additional Health Concerns Assessment Noted Time PHQ-9 Depression Total Score: 15 024 2:46 PM EST documented as of this encounter Care Teams Public Relations Assistant Relationship Specialty Start Date End Date Fabio Jones MD [address] [place] [address] PCP - General Internal Medicine 09/05/23 documented as of this encounter
== END 2024-12-12 13:58 | disposition home or self-care (01) ==
LOC: HO.HPS 13:11
PROVIDERS: PCP Internal Medicine; Visit Provider Internal Medicine Pulmonary Disease
DX: G47.33 Obstructive sleep apnea (adult) (pediatric) (principal); Z87.891 Personal history of nicotine dependence; R06.09 Other forms of dyspnea
CPT/HCPCS: 99214

== ENCOUNTER 2025-01-02 08:03 | Outpatient (REF) | payer MEDICARE, MEDICAID, SELFPAY ==
--- NOTE | ~2025-01-02 | XR_ITS ---
EXAMINATION: XR CERVICAL SPINE CLINICAL INFORMATION: M54.2 - Cervicalgia COMPARISON: None available. TECHNIQUE: 3 views of the cervical spine were obtained. FINDINGS: Craniocervical junction is intact. Metallic hardware placed placed anterior and anchor with screws at C5-C6 resulting in arthrodesis. Reverse curvature apex at C5-C6. No acute cortical disruption. No gross malalignment. No lytic or blastic lesions. Upper airways patent. XR/XR cervical spine 3V IMPRESSION: Status post anterior cervical fusion/arthrodesis C5-6. Electronically signed by: Mich Waters MD 01/03/2025 07:55 AM EDT
--- OUTSIDE RECORDS SUMMARY | 2025-01-03 08:15 | XMS_ITS | Encounter Summary ---
Author Organization [employer] Address [address] [facility] 7t [place] [address] Care Team Providers Care Linseed Oil Temperer Name Role Phone Fabio Jones MD Primary Care Prov ider Encounter Details Date Type Department Care Team (Late st Contact Info) Description 07/05/2024 Orders Only [facility] MED & PEDS [address] [place], [place] [phone] Maco Galeano MD [address] [place], [place] [phone] Acquired hypothyroidism (Primary Dx) Social History Tobacco [...] Description 01/07/2025 1:30 PM EDT Office Visit [facility] MED & PEDS [address] [place] [address] Fabio Jones MD [address] [place] [address] documented as of this encounter Visit Diagnoses Diagnosis Acquired hypothyroidism- Primary Unspecified hypothyroidism documented in this encounter Additional Health Concerns Assessment Noted Time PHQ-9 Depression Total Score: 15 024 2:46 PM EST documented as of this encounter Care Teams Linseed Oil Temperer Relationship Specialty Start Date End Date Fabio Jones MD [address] [place] [address] PCP - General Internal Medicine 09/05/23 documented as of this encounter
--- OUTSIDE RECORDS SUMMARY | 2025-01-03 08:15 | XMS_ITS | Clinical Summary ---
Author Organization [employer] Address 75 [facility] 7t [place] [address] Care Team Providers Care Historian Dramatic Arts Name Role Phone Fabio Jones MD Primary [...] Patient refers used to be followed at [facility] cardiology, will place referal Fibromyalgia [...] 12:39 PM EDT): Patient had surgery on [place] back on February 2023, needs follow up, [...] Care Team Description 12/31/2024 Travel 12/17/2024 Refill [facility] MED & PEDS [address] [place] [address] Fabio Jones MD 12/17/2024 Refill [facility] [address] [place] [address] Fabio Jones MD 12/12/2024 Orders Only GENERIC EXTERNAL DATA DEPARTMENT Provider, Generic External Data 10/22/2024 1:30 PM EST Office Visit [facility] [address] [place] [address] Fabio Jones MD Bipolar disease, chronic ([facility]/HCC) (Primary Dx); Moderate episode of recurrent major depressive disorder ([facility]); Class 3 severe obesity due to excess calories with serious comorbidity and body mass index (BMI) of 40.0 to 44.9 in adult ([facility]); Chronic diastolic congestive heart failure ([facility]); Dietary counseling; Exercise counseling; Chronic bilateral low back pain with right-sided sciatica; Moderate persistent asthma without complication 10/22/2024 Telephone [facility] P[facility] [address] [place] [address] Fabio Jones MD Orthopedic APPT 10/22/2024 Travel 10/15/2024 Travel 10/10/2024 Travel 10/10/2024 Refill [facility] [address] [place] [address] Fabio Jones MD 10/09/2024 Refill [facility] [address] [place] [address] Fabio Jones MD 10/08/2024 Refill [facility] [address] [place] [address] Fabio Jones MD from Last 3 Months [...] Description 01/07/2025 1:30 PM EDT Office Visit [facility] P[facility] [address] [place], [place] [phone] SierraFabio Arguelles MD [address] [place], [place] [phone] Health Maintenance Due Date Last Done Comments [...] 2:10 PM EDT) Immunoglobulin E TNP kU/L [facility] Comment:TEST NOT PERFORMED.Q uantity not sufficient. Mouse Urine Proteins (E72) IgE <0.10 kU/L [facility] Class 0 [facility] Cockroach (I6) IgE <0.10 kU/L [facility] Class 0 [facility] Dermatophagoides farinae (D2) IgE <0.10 kU/L [facility] Class 0 [facility] Cat Dander (E1) IgE <0.10 kU/L [facility] Class 0 [facility] Comment:THIS TEST WAS PERFOR MED AT:[employer] [address] [place] [address]EBACRDHRUV THAKUR MD Dog Dander (E5) IgE <0.10 kU/L [facility] Class 0 [facility] Comment:THIS TEST WAS PERFOR MED AT:[employer] [address] [place] [address]GMFYEDHRUV THAKUR MD Raul Grass (G6) IgE <0.10 kU/L [facility] Class 0 [facility] Cladosporium herbarum (M2) IgE <0.10 kU/L [facility] Class 0 [facility] Aspergillus Fumigatis (M3) IgE <0.10 kU/L [facility] Class 0 [facility] Alternaria alternata (M6) IgE <0.10 kU/L [facility] Class 0 [facility] Comment:THIS TEST WAS PERFOR MED AT:[employer] [address] [place] [address]QJGXYDHRUV THAUKR MD [place] (t6) IgE <0.10 kU/L [facility] Class 0 [facility] Elsinore (T7) IgE <0.10 kU/L [facility] Class 0 [facility] Chaffee Tree (T10) IgE <0.10 kU/L [facility] Class 0 [facility] Bronx (T11) IgE <0.10 kU/L [facility] Class 0 [facility] Crockett (T14) IgE TNP kU/L [facility] Comment:TEST(S) NOT PERFORME D: [place] (T14) IGE CLASS WHITE ALAN (T15) IGE CLASSTEST NOT PERFORMED.Quantity not sufficient. Class TNP [facility] White Alan (t15) IgE TNP [facility] Class TNP [facility] White Leverett (T70) IgE TNP kU/L [facility] Comment:TEST NOT PERFORMED.Q uantity not sufficient. Class TNP [facility] Common Ragweed (Short) (W1) IgE TNP kU/L [facility] Comment:TEST NOT PERFORMED.Q uantity not sufficient. Class TNP [facility] Mugwort (w6) IgE TNP kU/L [facility] Comment:TEST NOT PERFORMED.Q uantity not sufficient. Class TNP [facility] Dermatophagoides pteronyssinus (D1) IgE <0.10 kU/L [facility] Class 0 [facility] Bermuda Grass (g2) IgE <0.10 kU/L [facility] Class 0 [facility] Penicillium Notatum (M1) IgE <0.10 kU/L [facility] Class 0 [facility] Birch (T3) IgE <0.10 kU/L [facility] Class 0 [facility] Elm (t8) IgE <0.10 kU/L [facility] Class 0 [facility] Maple ([place]) (T1) IgE <0.10 kU/L [facility] Class 0 [facility] Rough Pigweed (W14) IgE TNP [facility] Class TNP [facility] Sheep Tornado (W18) IgE TNP [facility] Class TNP [facility] Allergen Comment See Below [facility] Comment: Specific ?Level of AllergenIGE [...] and its analyticalperformance characteristics have been determined by[facility]. It has not been cleared or approvedby the U.S. Food and Drug Administration. This assayhas been validated pursuant to the CLIA regulationsand is used for clinical purposes.THIS TEST WAS PERFORMED AT:[employer] [address] ??[phone] THAKUR MD 12/12/2024 2:10 PM EDT 12/12/2024 2:10 PM EDT us Generic External Data Provider LAB BLOOD ORDERAB LES Final Result [facility] [address] [place] [address] [phone] * (ABNORMAL) CBC auto differential (12/12/2024 2:10 PM EDT) White Blood Count 6.9 4.8 - 10.8 X10*3/uL [facility] Red Blood Count 4.51 4.20 - 5.50 X10*6/uL [facility] Hemoglobin 12.3 12.0 - 16.0 g/dl [facility] Hematocrit 37.3 37.0 - 47.0 % [facility] Mean Corpuscular Volume 82.7 80.0 - 98.0 fL [facility] Mean Corpuscular Hemoglobin 27.3 27.0 - 33.0 pg [facility] Mean Corpuscular HGB Conc 33.0 31.0 - 35.0 g/dl [facility] Red Cell Distribution Width 12.8 11.0 - 16.0 % [facility] Platelet Count 396 160 - 400 X10*3/uL [facility] Mean Platelet Volume 9.6 9.4 - 12.3 fL [facility] Neutrophils Percent Auto 53.6 45 - 73 % [facility] Imm Gran Pct Auto 0.9(H) 0.0 - 0.4 % [facility] Lymphocytes Percent Auto 33.7 20 - 40 % [facility] Monocytes Percent Auto 8.2 2 - 11 % [facility] Eosinophils Percent Auto 2.0 0 - 4 % [facility] Basophils Percent Auto 1.6 0 - 2 % [facility] NRBC Pct Auto 0.0 0.0 - 0.2 /100WBC [facility] Neutrophils Absolute Auto 3.7 2.0 - 8.3 x10*3/uL [facility] Imm Gran Abs Auto 0.06(H) 0.00 - 0.03 X10*3/uL [facility] Lymphocytes Absolute Auto 2.3 1.2 - 4.9 X10*3/uL [facility] Monocytes Absolute Auto 0.6 0.1 - 1.2 X10*3/uL [facility] Eosinophils Absolute Auto 0.1 0.0 - 0.4 X10*3/uL [facility] Basophils Absolute Auto 0.1 0.0 - 0.2 X10*3/uL [facility] NRBC Abs Auto 0.000 0.0 - 0.012 X10*3/uL [facility] 12/12/2024 2:10 PM EDT 12/12/2024 2:10 PM EDT us Generic External Data Provider LAB BLOOD ORDERAB LES Final Result Performing Organization Address [facility]/State/[facility] Co de Phone Number [facility] [address] [place] [address] [phone] * BI Mammogram Screening Tomosynthesis Bilateral (04/19/2024 2:15 PM EDT) Anatomical Region Laterality Modality Breast Bilateral Mammography 04/19/2024 2:15 PM EDT Narrative 05/20/2024 11:50 PM EDT ? [facility] [place] ? [address] ?[place] [address] ? Mammography Report ? Signed ? Patient: StoneManuela A ?MR#: [id number] ?? 670 ? : 1970 ?Acct:[id number] ? Age/Sex: 53 / F ?ADM Date: 08/02/24 ? Loc: HO.MAMMO ? Attending Dr: Fabio Schneider MD ? Ordering Physician: Fabio Jones MD ?Res ?? ults: 1Negative ? Date of Service: 04/19/24 ?Follow Up: 1 Year From Orig ?? inal Mammogram ? Procedure(s): MM tomosynthesis screening BI ?? Accession Number(s): [id number] ? cc: Fabio Jones MD ? EXAMINATION: [...] DD/ 1415 ? TD/TT: 04/19/24 1435 ? Oil Distributor: ? Procedure Note Donotuseinterpreter, Image - 05/20/20[facility] [address] [place] [address] Mammography Report Signed Patient: Manuela May AMR#: [id number] 670 : 1970Acct:[id number] Age/Sex: 53 / FADM Date: 04/19/24 Loc: HO.MAMMO Attending Dr: Fabio Schneider MD Ordering Physician: Fabio Jones ults: 1Negative Date of Service: 04/19/24Follow Up: 1 Year From Orig inal Mammogram Procedure(s): MM tomosynthesis screening BI Accession Number(s): [id number] cc: Fabio Jones MD EXAMINATION: MM SCREENING [...] 05/20/24 2348 DD/ 1415 TD/TT: 04/19/24 1435 Oil Distributor: us Fabio Schneider MD IMG BI PROCEDURES Final Result * Hepatitis C Antibody with Reflex to HCV, RNA, Quantitative, Real-Time PCR (12/06/2023 8:43 AM EDT) Hepatitis C Antibody Nonreactive Nonreactive [facility] Comment:Antibodies to HCV no t detected; does not exclude early acuteHCV infection. Blood Venous blood specimen / Unknown 12/06/2023 8:43 AM EDT 12/06/2023 1:02 PM EDT us Fabio Schneider MD LAB BLOOD ORDERABL ES Final Result [facility] [address] [place] [phone] * (ABNORMAL) Lipid Panel, Standard (12/06/2023 8:43 AM EDT) Triglycerides 234(H) <150 mg/dL [facility] Comment:Desirable Triglyceri de: less than 150 mg/dLBorderline High Triglyceride 150-199 mg/dLHigh Triglyceride: 200-499 mg/dLVery High Triglyceride: greater than or equal to 5OO mg/dL Cholesterol 203(H) <200 mg/dL [facility] Comment:Desirable Cholestero l: less than 200 mg/dLBorderline High Cholesterol: 200-239 mg/dLHigh Cholesterol: greater than 239 mg/dL LDL Cholesterol Calculated 96 <100 mg/dL [facility] Comment:Desirable LDL: less than 100 mg/dLNear Optimal/Above Optimal LDL: 110- 129 mg/dLBorderline High LDL: 130-159 mg/dLHigh LDL: 160-189 mg/dLVery High LDL: greater than or equal to 190 mg/dL HDL Cholesterol 61 >40 mg/dL [facility] Comment:Desirable HDL: great er than 40 mg/dL Note: This HDL assay may give artificially low results in patients with liver disease. Blood Venous blood specimen / Unknown 12/06/2023 8:43 AM EDT 12/06/2023 12:57 PM EDT Fabio Schneider MD LAB BLOOD ORDERABL ES Final Result Performing Organization Address [facility]/ZIP Co de Phone Number [facility] [address] [place] [phone] * HPV mRNA E6/E7 w/Reflex to HPV Genotypes 16, 18/45 (10/17/2023 2:00 PM EST) HPV nRNA E6/E7 Not Detected Not Detected [facility] Comment:Methodology: Transcr iption-Mediated AmplificationThis assay detects E6/E7 viral messenger RNA (mRNA) from 14high-risk HPV types (16,18,31,33,35,39,45,51,52,56,58,59,66,68).Cervical sources are required for HPV testing.If a vaginal source from a patient who has had atotal hysterectomy with removal of cervix wassubmitted, please contact the testing laboratoryfor alternative testing options.For additional information, please refer tohttp://education.Explorra/faq/BBW822u8(This link if provided for information/educational purposes only.)THIS TEST WAS PERFORMED AT:[employer] [place] [phone] THAKUR MD HPV mRNA E6/E7 TNP [facility] HPV 16 RNA [facility] HPV 18/45 RNA [facility] 10/17/2023 2:00 PM EST 10/19/2023 9:50 AM EST John Martin CNM LAB CYTOLOGY ORDERABLES F inal Result Performing Organization Address [facility]/ZIP Co de Phone Number [facility] [address] [place] [phone] * Pap Smear (10/17/2023 2:00 PM EST) Swab Cervix uteri structure / Unknown 10/17/2023 2:00 PM EST 10/19/2023 9:50 AM EST Narrative [facility] - 11/01/2023 7:22 AM EST ----- ------- Name: Manuela May Sarah ?Age/Sex: 53/F ? : 1970 Unit#: [id number] ?? Attend Dr: ?Re10/17/23 ?Status: PRE REF ? Location: HO.LNP ?Disch: ? ----- ------- SPEC : [id number] ? RECD: 10/19/23-949 ? STATUS: ??SOUT ? REQ NUM: [id number] ? OCHOA: 10/17/23-1400 ? SUBM DR: JOHN MARTIN CNM ? ENTERED: ??10/19/23-1131 ?SP TYPE: [...] 66, 68) ?? HPV testing performed by [facility], [place], [place]. ??See reference laboratory ?? portion of the EMR for entire report. ?Clinical Information LMP: Postmenopausal Previous PAP test: Unknown date/findings ? Material Received ?? ThinPrep-Cervical ----- ------- Signed (signature on file) MIRIAM Singh (ASCP) 11/01/23721 ? ----- ------- ? END OF REPORT ? us John Martin [facility] CYTOLOGY ORDERABLES F inal Result [facility] [address] [place] [address] [phone] from Last 3 Months or Most Recently Relevant to Health Maintenance [place] [address] [place] [address] STANDARD [employer] MEDICARE REPLACEMENT Care Teams Historian Dramatic Arts Relationship Specialty Start Date End Date Fabio Jones MD [address] [place] [phone] PCP - General Internal Medicine 09/05/23
--- OUTSIDE RECORDS SUMMARY | 2025-01-03 08:15 | XMS_ITS | Patient Health Record ---
Author Organization [facility] Address [address] [place] [address] Care Team Providers Care [employer] Consultant Name Role Phone Guanaco Caldera Primary Care Provider [phone] Reason For Referral No Information Plan Of Treatment No Information Insurance Providers Payer Name Payer Address Payer Phone Subscriber Number Group Number Insured Name Patient Relationship to Insured Coverage Start Date Coverage End Date [facility] [facility] [address] [address] [id number] Manuela May Self - patient is the insured
--- OUTSIDE RECORDS SUMMARY | 2025-01-03 08:15 | XMS_ITS | Encounter Summary ---
Author Organization [employer] Address [address] [facility] 7t [place] [address] Care Team Providers Care Putty Glazer Name Role Phone Fabio Jones MD Primary Care Prov ider Encounter Details Date Type Department Care Team (Late st Contact Info) Description 06/19/2024 Orders Only [facility] [address] [place], [place] [phone] Maco Galeano MD [address] [place], [place] [phone] Social History Tobacco Use Types Packs/Day Years [...] Upcoming Encounters Date Type Department Care Team ([facility] st Contact Info) Description 01/07/2025 1:30 PM EDT Office Visit [facility] [address] [place], [place] [phone] Fabio Jones MD [address] [place], [place] [phone] documented as of this encounter Procedures Procedure Name Priority Date/Time Associated Diagnosis Comments T4, FREE Routine 06/19/2024 9:58 AM EDT documented in this encounter Results * (ABNORMAL) T4, Free (06/19/2024 9:58 AM EDT) Free T4 (Free Thyroxine) 0.69(L) 0.71 - 1.85 ng/dL [facility] 06/19/2024 9:58 AM EDT 06/19/2024 2:37 PM EDT us Maco Galeano MD LAB BLOOD ORDERABLES Final Result [facility] [address] [place] [phone] [phone] documented in this encounter Visit Diagnoses Not on filedocumented in this encounter Additional Health Concerns Assessment Noted Time PHQ-9 Depression Total Score: 15 024 2:46 PM EST documented as of this encounter Care Teams Putty Glazer Relationship Specialty Start Date End Date SierraFabio Arguelles MD [address] [place] [phone] PCP - General Internal Medicine 09/05/23 documented as of this encounter
--- OUTSIDE RECORDS SUMMARY | 2025-01-03 08:15 | XMS_ITS | Patient Health Record ---
Author Organization [facility] Emelia cohen Billing Info Address [address] [place] [id number] Care Team Providers Care Precast Worker Name Role Phone HOLLY DUNN Primary Care Provider FRAN JACOBO Unavailable [phone] Laura Covarrubias MD Unavailable Unavailable Allergies Allergen [...] a day for 90 day(s) Not-Taking Biotin 63066 MCG 1 tablet Orally Once a day [...] - ALL PAYORS IM Intramuscular 08/30/2022 Administered [facility] [id number] Social History Tobacco Use: Social History Observation Description Date Details (start date - stop date) Current Smoker NA - NA Tobacco Status: Question Answer Notes Patient is a current every day smoker Problems Problem Type SNOMED Code ICD Code Onset Dates Problem Status W/U Status Risk Notes Problem [id number] Cervicalgia (M54.2) Active confirmed Problem 111015010 Cervical myelopathy (G95.9) Active confirmed Plan Of [...] Date [employer] PPO MEDICARE PLAN [address] [place], [place] [id number] Lalo Manuela Self - patient is the insured 3 [place] [address] [facility] [id number] Manuela May Self - patient is the insured 3 [employer] PPO [address] [address] [place], [place] [id number] Manuela May Self - patient is the insured 3 Medical (General) History Medical History History ICD Code Hyperlipidemia Esophageal reflux Depression Anxiety Surgical History Surgery Date(Month/Year) colonoscopy, repeat in 5 years, 2019 tubal ligation knee arthroscopy, right Hospitalization History Reason Date(Month/Year) see above
--- OUTSIDE RECORDS SUMMARY | 2025-01-03 08:15 | XMS_ITS | Encounter Summary ---
Author Organization [employer] Address [address] [facility] 7 [place] [address] Care Team Providers Care Fishing Tool Supervisor Name Role Phone Fabio Jones MD Primary Care Prov ider Reason for Visit * Reason Comments Med Refill Encounter Details Date Type Department Care Team ([facility] st Contact Info) Description 10/08/2024 Refill [facility] CHC MED & PEDS [address] [place] [address] Fabio Jones MD [address] [place] [address] Social History Tobacco Use Types Packs/Day Years [...] Description 01/07/2025 1:30 PM EDT Office Visit [facility] MED & PEDS [address] [place] [address] Fabio Jones MD [address] [place] [address] documented as of this encounter Visit Diagnoses Not on filedocumented in this encounter Additional Health Concerns Assessment Noted Time PHQ-9 Depression Total Score: 0 08/02/20 24 10:30 AM EST documented as of this encounter Care Teams Fishing Tool Supervisor Relationship Specialty Start Date End Date Fabio Jones MD [address] [place] [address] PCP - General Internal Medicine 09/05/23 documented as of this encounter
--- OUTSIDE RECORDS SUMMARY | 2025-01-03 08:15 | XMS_ITS | Encounter Summary ---
Author Organization [employer] Address [address] [facility] 7 [place] [address] Care Team Providers Care Underwriter Mortgage Loan Name Role Phone Fabio Jones MD Primary Care Prov ider Reason for Visit * Reason Comments Med Refill Encounter Details Date Type Department Care Team ([facility] st Contact Info) Description 10/09/2024 Refill [facility] CHC MED & PEDS [address] [place] [address] Fabio Jones MD [address] [place] [address] Social History Tobacco Use Types Packs/Day Years [...] [facility] MED [facility]ED[facility] [address] [place] [address] Fabio Jones MD [address] [place] [address] documented as of this encounter Visit Diagnoses Not on filedocumented in this encounter Additional Health Concerns Assessment Noted Time PHQ-9 Depression Total Score: 0 08/02/20 24 10:30 AM EST documented as of this encounter Care Teams Underwriter Mortgage Loan Relationship Specialty Start Date End Date Fabio Jones MD [address] [place] [address] PCP - General Internal Medicine 09/05/23 documented as of this encounter
--- OUTSIDE RECORDS SUMMARY | 2025-01-03 08:16 | XMS_ITS | Encounter Summary ---
Author Organization [employer] Address [address] [facility] 7t [place] [address] Care Team Providers Care Emt Paramedic Name Role Phone Fabio Jones MD Primary Care Prov ider Encounter Details Date Type Department Care Team (Late st Contact Info) Description 12/29/2023 Orders Only [facility] CHC MED & PEDS [address] [place], [place] [phone] Fabio Jones MD [address] [place], [place] [phone] Chronic diastolic congestive heart failure (CMS/HCC) Social [...] [facility] [address] [place] [address] Fabio Jones MD [address] [place] [address] documented as of this encounter Procedures Procedure [...] documented as of this encounter Care Teams Emt Paramedic Relationship Specialty Start Date End Date Fabio Jones MD [address] [place] [address] PCP - General Internal Medicine 09/05/23 documented as of this encounter
--- OUTSIDE RECORDS SUMMARY | 2025-01-03 08:16 | XMS_ITS | Encounter Summary ---
Author Organization [employer] Address [address] [facility] 7t [place] [address] Care Team Providers Care Cytology Laboratory Manager Name Role Phone Fabio Jones MD Primary Care Prov ider Encounter Details Date Type Department Care Team (Late st Contact Info) Description 12/21/2023 Orders Only [facility] CHC MED & PEDS [address] [place], [place] [phone] Fabio Jones MD [address] [place] [address] Social History Tobacco Use Types Packs/Day Years [...] Description 01/07/2025 1:30 PM EDT Office Visit [facility] MED & PEDS [address] [place] [address] Fabio Jones MD [address] [place] [address] documented as of this encounter Visit Diagnoses Not on filedocumented in this encounter Additional Health Concerns Assessment Noted Time PHQ-9 Depression Total Score: 15 024 2:46 PM EST documented as of this encounter Care Teams Cytology Laboratory Manager Relationship Specialty Start Date End Date Fabio Jones MD [address] [place] [address] PCP - General Internal Medicine 09/05/23 documented as of this encounter
--- OUTSIDE RECORDS SUMMARY | 2025-01-03 08:16 | XMS_ITS | Encounter Summary ---
Author Organization [employer] Address [address] [facility] 7 [place] [address] Care Team Providers Care Fine Arts Instructor Name Role Phone Fabio Jones MD Primary Care Prov ider Reason for Visit * Reason Onset Date Comments Results 12/11/2023 Encounter Details Date Type Department Care Team ([facility] Contact Info) Description 12/11/2023 Telephone [facility] CHC MED & PEDS [address] [place] [address] Fabio Jones MD [address] [place] [address] Results Social History Tobacco Use Types Packs/Day [...] results: labs Date when done: 12/05 Facility: [facility] Please contact pt at [phone] documented in this encounter Plan of Treatment Upcoming Encounters Date Type Department Care Team (Late st Contact Info) Description 01/07/2025 1:30 PM EDT Office Visit [facility] CHC MED & PEDS [address] [place] [address] Fabio Jones MD [address] [place] [address] documented as of this encounter Visit Diagnoses Not on filedocumented in this encounter Additional Health Concerns Assessment Noted Time PHQ-9 Depression Total Score: 15 024 2:46 PM EST documented as of this encounter Care Teams Fine Arts Instructor Relationship Specialty Start Date End Date Fabio Jones MD [address] [place] [address] PCP - General Internal Medicine 09/05/23 documented as of this encounter
--- OUTSIDE RECORDS SUMMARY | 2025-01-03 08:16 | XMS_ITS | Encounter Summary ---
Author Organization [employer] Address [address] [facility] 7 [place] [address] Care Team Providers Care Binder Stripper Hand Name Role Phone Fabio Jones MD Primary Care Prov ider Reason for Visit * Reason Comments Med Refill Encounter Details Date Type Department Care Team ([facility] st Contact Info) Description 12/12/[address] [facility] CHC MED & PEDS [address] [place] [address] Fabio Jones MD [address] [place] [address] Social History Tobacco Use Types Packs/Day Years [...] 1:30 PM EDT Office Visit [facility] MED & PEDS [address] [place] [address] Fabio Jones MD [address] [place] [address] documented as of this encounter Visit Diagnoses Not on filedocumented in this encounter Additional Health Concerns Assessment Noted Time PHQ-9 Depression Total Score: 15 024 2:46 PM EST documented as of this encounter Care Teams Binder Stripper Hand Relationship Specialty Start Date End Date Fabio Jones MD [address] [place] [address] PCP - General Internal Medicine 09/05/23 documented as of this encounter
--- OUTSIDE RECORDS SUMMARY | 2025-01-03 08:16 | XMS_ITS | Encounter Summary ---
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 EFFECTIVE SINCE 07/20/2023 documented in this encounter Plan of Treatment Upcoming Encounters Date Type Department Care Team (Late Contact Info) Description 01/07/2025 1:30 PM EDT Office Visit [facility] CHC MED & PEDS [address] [place], [place] [phone] Fabio Jones MD [address] [place] [address] documented as of this encounter Visit Diagnoses Not on filedocumented in this encounter Care Teams Fibreglass Lay Up Worker Relationship Specialty Start Date End Date Fabio Jones MD [address] [place] [address] PCP - General Internal Medicine 09/05/23 documented as of this encounter
--- OUTSIDE RECORDS SUMMARY | 2025-01-03 08:16 | XMS_ITS | Encounter Summary ---
Author Organization [employer] Address [address] [facility] 7 [place] [address] Care Team Providers Care Cycle Analyst Name Role Phone Fabio Jones MD Primary Care Prov ider Reason for Visit * Reason Onset Date Comments Med Refill 12/11/2023 Encounter Details Date Type Department Care Team ([facility] Contact Info) Description 12/11/2023 Telephone [facility] CHC MED & PEDS [address] [place] [address] Fabio Jones MD [address] [place] [address] Med Refill Social History Tobacco Use Types [...] 300 MG tablet To be sent to: [id number] [place], [place] - [facility] BIB [facility] documented in this encounter Plan of Treatment Upcoming Encounters Date Type Department Care Team (Late st Contact Info) Description 01/07/2025 1:30 PM EDT Office Visit [facility] MED & PEDS [address] [place] [address] Fabio Jones MD [address] [place] [address] documented as of this encounter Visit Diagnoses Not on filedocumented in this encounter Additional Health Concerns Assessment Noted Time PHQ-9 Depression Total Score: 15 024 2:46 PM EST documented as of this encounter Care Teams Cycle Analyst Relationship Specialty Start Date End Date Fabio Jones MD [address] [place] [address] PCP - General Internal Medicine 09/05/23 documented as of this encounter
--- OUTSIDE RECORDS SUMMARY | 2025-01-03 08:16 | XMS_ITS | Encounter Summary ---
Author Organization [employer] Address [address] [facility] 7 [place] [address] Care Team Providers Care Manager Of Procurement Name Role Phone Fabio Jones MD Primary Care Prov ider Reason for Visit * Reason Comments Med Refill Encounter Details Date Type Department Care Team (Late st Contact Info) Description 12/17/2024 Refill [facility] CHC MED & PEDS [address] [place] [address] Fabio Jones MD [address] [place] [address] Social History Tobacco Use Types Packs/Day Years [...] [facility] [address] [place] [address] Fabio Jones MD [address] [place] [address] documented as of this encounter Visit Diagnoses Not on filedocumented in this encounter Additional Health Concerns Assessment Noted Time PHQ-9 Depression Total Score: 0 08/02/20 24 10:30 AM EST documented as of this encounter Care Teams Manager Of Procurement Relationship Specialty Start Date End Date Fabio Jones MD [address] [place] [address] PCP - General Internal Medicine 09/05/23 documented as of this encounter
--- OUTSIDE RECORDS SUMMARY | 2025-01-03 08:17 | XMS_ITS | Data Portability ---
Author Organization Ward Oconnor Address [address] [facility] [place] [address] Assessment Encounter Date Assessment Date Assessment LastModified by Organization Details LastModified Time 11/15/2022 11/15/2022 52yo with complaints of neck, shoulder, knee, and low back pain. she had minimal relief with cdmbb. she has ptsd, fibromyalgia, and bipolar. she unable to take nsaids. she moved from [place]. we will order emg/ncs. we will continue [...] our protocol, the prescription drug monitoring program (E-FORCSE/MANUFACTURING PROCESS ENGINEER AWARE) was reviewed and used in medical [...] to the chart under the results section. [email or web address] Not available 12/30/2022 09:29:00 01/09/2023 01/09/2023 52yo [...] our protocol, the prescription drug monitoring program (E-FORCSE/MANUFACTURING PROCESS ENGINEER AWARE) was reviewed and used in medical [...] to schedule 2022 023 EDER Ospina MD, [address] [facility], [facility] [address], [place], [address], 05/09/202 3 17:29:08 neurologica l surgeon referral - Please schedule patient an appt for eval/treat for cervical stenosis. Thanks! 2022 023 anderson Joyce MD, [address], [facility] [address], [place], [address], 3 17:14:06 Procedures nerve conduction study/EMG (PROC) - 60 minutes, BILATERAL UPPER EXTREMITIES 2022 023 casey 53 [facility], [address] , [place], [address], 3 12:19:22 Surgeries None recorded. Imaging None recorded. Medication Orders hydrocodone 5 mg-acetamin ophen 325 mg tablet 2022 023 [facility] #[id number], [address] [place], [place], [id number], 3 17:12:24 hydrocodone 5 mg-acetamin ophen 325 mg tablet 2022 023 [facility] #[id number], [address] [place], [phone], 3 08:48:45 Patient TargetsNo targets recorded. Patient Instructions Encounter Date Encounter Id Patient Instructions Last Modified By Organization Details Last Modified Time 11/15/2022 [id number] E-Forsce Review: As per our protocol, the prescription drug monitoring program (E- FORCSE/MANUFACTURING PROCESS ENGINEER AWARxE) was reviewed and used in medical decision making. Opioid Risk Information: As part of the educational protocol for those patients prescribed scheduled based pain medications, an informational handout provided by the CDC and the [facility] was given to the patient. [...] As part of the comprehensive treatment at [facility] we have initiated a structured home exercise [...] patient. [email or web address] Not available 11/15/2022 15:55:23 01/09/2023 [id number] PDMP (Physician Drug Monitoring Program)/E-Forsfransico Review: As per our protocol, the prescription drug monitoring program (E- FORCSE/MANUFACTURING PROCESS ENGINEER AWARxE) was reviewed and used in medical [...] As part of the comprehensive treatment at [facility] we have initiated a structured home exercise [...] ation record ed. [email or web address] [facility] [address] [place], [address], 12/30/2022 12:25:27 Result Notes None recorded. Problems Name Problem SNOMED Code Status Onset Date Resolution Date Notes Provider Name and Address Organization Details Recorded Time Neck pain 53272846 Active 2021 Rhasheda Bickley null, MD - [facility] 2 09:44:50 Pain of knee region 5305145880 Active 2021 Rhasheda Bickley null, MD - [facility] 2 09:44:58 Pain in upper limb 151434452 Active 2022 Rhasheda Bickley null, MD - [facility] 3 15:56:05 Fibromyalgia 766981324 Active 2022 An Monalisa null, MD - [facility] 3 10:39:26 Fibromyalgia 864846020 Active 2022 An Monalisa null, MD - [facility] 3 10:39:37 Cervical spondylosis 784908391 Active 2022 An Monalisa null, MD - [facility] 3 10:39:38 Problem Notes None recorded. Procedures Surgical History Date Name Laterality Status Provider Name and Address Organization Details Recorded Time 3 SE Flowsheet completed OSBALDO PABLO D.O [address] [place], [address], [place] MD - [facility] 12/30/2022 09:29:02 3 Kure INTRA-ARTICULAR KNEE INJECTION UNDER ULTRASOUND GUIDANCE completed Laura Covarrubias MD [address] [place], [address], [place] MD - [facility] 11/16/2022 11:55:48 3 SE Cervical MBB Bilateral completed Laura Covarrubias MD [address] [place], [address], [place] MD - [facility] 11/01/2022 10:00:16 3 SE Cervical MBB Bilateral completed Laura Covarrubias MD [address] [place], [address], [place] - [facility] 09/25/2022 22:00:54 2 Kure INTRA-ARTICULAR KNEE INJECTION UNDER ULTRASOUND GUIDANCE completed Laura Covarrubias MD [address] [place], [address], [place] MD Garnica [facility] 09/07/2022 16:02:54 Knee Surgery completed Amari Taylor MD - [facility] 09/06/2022 16:52:56 Imaging Results Imaging Date Name Status LastModified by Organiz ation Details LastModified Time 12/26/2022 nerve conduction study/EMG (PROC) completed [facility] [address] [place], [address], 12/30/2022 12:25:27 Procedure Notes None recorded. Medical Equipment None Reported. Allergies Allergen ID Allergen Name Allergen Category Reaction Reaction Severity Criticality Documentation Date Start Date Code Code System Note Provider Name and Address Organization Details Recorded Time 696985 ibuprofen medicatio n other Not available Not available 09/06/2022 5640 RxNorm Amari jackson MD - [facility] 2 16:52:43 883796 Easprin medicatio n Not available Not available Not available 09/06/2022 38929 4 RxNorm Windy Fails MD manuel - [facility] 3 11:29:45 953665 Non-stero idal anti-infl ammatory agent (product) medicatio n other Not available Not available 09/06/2022 11259 005 SNOMED Amari jackson MD - [facility] [...] DO NOT DRIVE, AND MUST HAVE A DIRECTOR HEALTH 09/23 completed Not Available Not Available Not [...] Updated DateTime 11/15/2022 165.1 cm 39.9 kg/m2 608186.1 7 g 122 mm[Hg] 84 mm[Hg] Nataly Garnica [facility] 02/28/202 3 14:52:19 Date Recorded Body height Body temperature Body mass index (BMI) Body weight Systolic blood pressure Diastolic blood pressure Provider Name and Address Organization Details Last Updated DateTime 3 165.1 cm 96.8 [degF] 39.9 kg/m2 070456. 17 g 115 mm[Hg] 71 mm[Hg] Windy Fails MD - [facility] 3 11:29:22 Date Recorded Body height Body mass index (BMI) Body weight Systolic blood pressure Diastolic blood pressure Provider Name and Address Organization Details Last Updated DateTime 12/26/2022 165.1 cm 39.9 kg/m2 671516.1 7 g 124 mm[Hg] 64 mm[Hg] Windy Fails MD - [facility] 3 13:58:50 Date Recorded Body height Body mass index (BMI) Body weight Heart rate Systolic blood pressure Diastolic blood pressure Provider Name and Address Organization Details Last Updated DateTime 3 165.1 cm 39.9 kg/m2 814237. 17 g 82 /min 133 mm[Hg] 85 mm[Hg] India [place] [employer] 3 10:13:41 Social History Question Answer Notes LastModified by Organizat ion Details LastModified Time Tobacco Smoking Status Current Every Day Smoker Amari jackson [facility] 09/06/2022 16:52:53 Pain Level. 9 [...] e 09/06/2022 16:52:46 Medical History Condition Response Anxiety Disorder Y Thyroid Disease Y Arthritis Y Back Injury Y Fibromyalgia Y Headaches Y Depression Y Gynecological HistoryNo gynecological history recorded. Obstetrics History GPAL:G 0 P 0 0 0 0 Past Encounters Encounter ID Performer Location Encounter Start Date Encounter Closed Date Diagnosis/Indication Diagnosis SNOMED-CT Code Diagnosis ICD10 Code Diagnosis Note [id number] MD [facility] [address] [place] [address] 09/06/2022 16:36:12 09/06/2022 17:56:06 Neck pain 94613698 M54.2 Pain of knee region 1003 630583 M25.569 Fibromyalgia 576871951 M 79.7 [id number] MD [facility] [address] [place] [address] 09/07/2022 15:33:10 09/07/2022 17:22:45 Pain of right knee joint 0481605970 88055 M25.473 [id number] MD [facility] [address] [place] [address] 09/21/2022 13:31:20 09/21/2022 15:22:14 Neck pain 89615105 M54.2 Pain of knee region 1003 297772 M25.569 Fibromyalgia 442622958 M 79.7 Cervical spondylosis 387 995017 M47.436 [id number] MD Marcello [place] [facility] [address] [place] [address] 09/23/2022 08:29:51 09/26/2022 07:53:05 Cervical spondylosis 071103377 M47.013 [id number] MD [facility] [address] [place] [address] 10/17/2022 14:30:35 10/17/2022 15:26:21 Neck pain 43634245 M54.2 Pain of knee region 1003 389566 M25.569 Fibromyalgia 924968626 M 79.7 Cervical spondylosis 387 388400 M47.812 patient has failed therapy, nsaids, and home exercise ( 3 days per week from february to aug 2022) [id number] [facility] [address] [place] [address] 11/01/2022 08:48:10 11/02/2022 09:38:22 Cervical spondylosis 873055712 M47.812 patient has failed therapy, nsaids, and home exercise ( 3 days per week from february to aug 2022) [id number] MD Jennifer Cochrana ce [address] [place] [address] 11/15/2022 14:29:29 11/15/2022 17:14:05 Neck pain 68511385 M54.2 Pain of knee region 1003 119456 M25.569 Fibromyalgia 695810527 M 79.7 Cervical spondylosis 387 372391 M47.812 patient has failed therapy, nsaids, and home exercise ( 3 days per week from february to aug 2022) Pain in upper limb 39407 6003 M79.714 [id number] MD Mino Cochrancomadeleine [facility] [address] [place] [address] 11/16/2022 11:23:47 11/16/2022 12:24:09 Osteoarthritis of right knee joint 3108768451 60713 M17.11 [id number] OSBALDO PABLO D.O [employer] [facility] [address] [place] [address] 12/26/2022 13:43:08 12/26/2022 16:30:26 Paresthesia of upper limb 94814612 R20.2 [id number] MD Mino Cochrancomadeleine [facility] [address] [place] [address] 01/09/2023 10:04:53 01/09/2023 12:52:51 Neck pain 27146820 M54.2 Pain of knee region 1003 047835 M25.569 Fibromyalgia 762069069 M 79.7 Cervical spondylosis 387 177566 M47.812 patient has failed therapy, nsaids, and home exercise ( 3 days per week from february to aug 2022) Pain in upper limb 55409 6003 M79.603 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 Health Concerns Section Related Observation LastModified by Organization Detai ls LastModified Time None Recorded Concern Status LastModified by Organization Details LastModified Time None Recorded Advance Directives Directive None Recorded Payers Encounter Date Sequence Insurance Name Policy Number Policy Levine Covered Member ID Levine Member ID Guarantor Name 11/01/2022 1 [place] Manuela A Stone [id number] Manuela Stone 11/01/2022 2 [place] [employer] Manuela A Stone [id number] Manuela Stone 11/15/2022 1 [place] Manuela A Stone [id number] Manuela Stone 11/15/2022 2 [place] Manuela A Stone [id number] Manuela Stone 11/16/2022 1 [place] Manuela A Stone [id number] Manuela Stone 11/16/2022 2 [place] Manuela A Stone [id number] Manuela Stone 12/26/2022 2 [place] Manuela A Stone [id number] Manuela Stone 12/26/2022 1 [employer] (MEDICARE REPLACEMENT PPO) [id number] Manuela A Stone [id number] Manuela Stone 01/09/2023 2 [place] Manuela A Stone [id number] Manuela Stone 01/09/2023 1 [employer] (MEDICARE REPLACEMENT PPO) [id number] Manuela A Stone [id number] Manuela Stone Notes Date Note Type Note [...] systemic signs of infection. Laura Covarrubias MD [address] [place], [address], [facility] 11/01/2022 12:20:24 11/15/2022 text/html HPI NewReported bypatient.Location [...] moderate bilaterally at C5-6. Laura Covarrubias MD [address] [place], [address], MD [facility] 11/16/2022 08:48:41 11/16/2022 text/html HISTORY: Ms. Yaneth [...] signs of infection. Laura Covarrubias MD [address] [facility], [place], [address], MD [facility] 11/16/2022 11:56:24 12/26/2022 text/html Ms May present [...] becoming more consistent. OSBALDO PABLO D.O [address] [facility], [place], [address], MD [facility] 12/30/2022 09:34:20 01/09/2023 text/html HPI NewReported bypatient.Location [...] moderate bilaterally at C5-6. Laura Covarrubias MD [address] [place], [address], - [facility] 01/09/2023 16:57:30 OBGyn Episode No OBEpisode recorded.
--- OUTSIDE RECORDS SUMMARY | 2025-01-03 08:17 | XMS_ITS | Encounter Summary ---
Author Organization [employer] Address [address] [facility] 7t [place] [address] Care Team Providers Care Safety Lead Name Role Phone Fabio Jones MD Primary Care Prov ider Encounter Details Date Type Department Care Team (Late st Contact Info) Description 03/27/2024 Orders Only [facility] [address] [place], [place] [phone] Fabio Jones MD [address] [place] [address] Social History Tobacco Use Types Packs/Day Years [...] Upcoming Encounters Date Type Department Care Team ([facility] st Contact Info) Description 01/07/2025 1:30 PM EDT Office Visit [facility] [address] [place] [address] Fabio Jones MD [address] [place], [place] [phone] documented as of this encounter Procedures Procedure Name Priority Date/Time Associated Diagnosis Comments BI MAMMOGRAM SCREENING TOMOSYNTHESIS BILATERAL Routine 04/19/2024 2:15 PM EDT documented in this encounter Results * BI Mammogram Screening Tomosynthesis Bilateral (04/19/2024 2:15 PM EDT) Anatomical Region Laterality Modality Breast Bilateral Mammography 04/19/2024 2:15 PM EDT Narrative 05/20/2024 11:50 PM EDT ? [facility] ? [address] ?[place] [address] ? Mammography Report ? Signed ? Patient: Stone,Manuela A ?MR#: [id number] ?? [id number] ? : 1970 ?Acct:[id number] ? Age/Sex: 53 / F ?ADM Date: 08/02/24 ? Loc: HO.MAMMO ? Attending Dr: Fabio Schneider MD ? Ordering Physician: Fabio Jones MD ?Res ?? ults: 1Negative ? Date of Service: 04/19/24 ?Follow Up: 1 Year From Orig ?? inal Mammogram ? Procedure(s): MM tomosynthesis screening BI ?? Accession Number(s): [id number] ? cc: Fabio Jones MD ? EXAMINATION: [...] DD/ 1415 ? TD/TT: 04/19/24 1435 ? Loan And Credit Manager: ? Procedure Note Lindsay, Image - 05/20/2024 [facility] [address] [place] [address] Mammography Report Signed Patient: Manuela May AMR#: [id number] : 1970Acct:[id number] Age/Sex: 53 / FADM Date: 04/19/24 Loc: HO.MAMMO Attending Dr: Fabio Schneider MD Ordering Physician: Fabio Jones ults: 1Negative Date of Service: 04/19/24Follow Up: 1 Year From Orig inal Mammogram Procedure(s): MM tomosynthesis screening BI Accession Number(s): [id number] cc: Fabio Jones MD EXAMINATION: MM SCREENING [...] by Kelli Jacob MD in OV> 05/20/24 [id number] DD/ 1415 TD/TT: 04/19/24 1435 Loan And Credit Manager: us Fabio Schneider MD IMG BI PROCEDURES Final Result documented in this encounter Visit Diagnoses Not on filedocumented in this encounter Additional Health Concerns Assessment Noted Time PHQ-9 Depression Total Score: 15 024 2:46 PM EST documented as of this encounter Care Teams Safety Lead Relationship Specialty Start Date End Date Fabio Jones MD [address] [place] [address] PCP - General Internal Medicine 09/05/23 documented as of this encounter
--- OUTSIDE RECORDS SUMMARY | 2025-01-03 08:17 | XMS_ITS | Encounter Summary ---
Author Organization [employer] Address [address] [facility] 7 [place] [address] Care Team Providers Care Roofer Name Role Phone Fabio Jones MD Primary Care Prov ider Reason for Visit * Reason Onset Date Comments Med Refill 05/03/2024 Encounter Details Date Type Department Care Team ([facility] st Contact Info) Description 05/03/2024 Refill [facility] MED & PEDS [address] [place] [address] Fabio Jones MD [address] [place] [address] Social History Tobacco Use Types Packs/Day Years [...] Upcoming Encounters Date Type Department Care Team ([facility] st Contact Info) Description 01/07/2025 1:30 PM EDT Office Visit [facility] MED [facility] PEDS [address] [place] [address] Fabio Jones MD [address] [place] [address] documented as of this encounter Visit Diagnoses Not on filedocumented in this encounter Additional Health Concerns Assessment Noted Time PHQ-9 Depression Total Score: 15 024 2:46 PM EST documented as of this encounter Care Teams Roofer Relationship Specialty Start Date End Date Fabio Jones MD [address] [place] [address] PCP - General Internal Medicine 09/05/23 documented as of this encounter
--- OUTSIDE RECORDS SUMMARY | 2025-01-03 08:17 | XMS_ITS | Clinical Summary ---
Author Organization Patient Business Ser [facility][note 3] Address [address] [place] [address] Care Team Providers Care Superintendent Stevedoring Name Role Phone Fabio Jones Primary Care [...] disea se) stage 3, GFR 30-59 ml/min ([facility]) Hypothyroid 09/14/2020 DX:Hypothyroid Hyperlipidemia 09/14/2020 DX:Hyperlipidemi a [...] RESULTING AGENCY - 11/07/2019 2:10 PM EST [id number] THINPREP PAP AMD CELL BLOCK: NEGATIVE FOR [...] Recently Relevant to Health Maintenance Care Teams Superintendent Stevedoring Relationship Specialty Start Date End Date Fabio Jones [address] [place], [place] PCP - General 09/05/23
--- OUTSIDE RECORDS SUMMARY | 2025-01-03 08:17 | XMS_ITS | Encounter Summary ---
Author Organization [employer] Address [address] [facility] [address] [place] [address] Care Team Providers Care Document Preparer Microfilming Name Role Phone Fabio Jones MD Primary Care Prov ider Encounter Details Date Type Department Care Team (Late st Contact Info) Description 12/11/2023 Orders Only [facility] MED & PEDS [address] [place], [place] [phone] Maco Galeano MD [address] [place], [place] [phone] Acquired hypothyroidism (Primary Dx); Fibromyalgia Social History [...] 01/07/2025 1:30 PM EDT Office Visit [facility] P[facility] [address] [place] [address] SierraFabio Arguelles MD [address] [place] [address] documented as of this encounter Procedures Procedure Name Priority Date/Time Associated Diagnosis Comments TSH W/REFLEX TO FT4 Routine 06/19/2024 9:58 AM EDT Acquired hypothyroidism documented in this encounter Results * (ABNORMAL) TSH W/Reflex to FT4 (06/19/2024 9:58 AM EDT) TSH reflex Free T4 9.10(H) 0.32 - 4.0 uIU/mL [facility] Blood Venous blood specimen / Unknown 06/19/2024 9:58 AM EDT 06/19/2024 2:37 PM EDT us Maco Galeano MD LAB BLOOD ORDERABLES Final Result [facility] [address] [place] [address] [phone] documented in this encounter Visit Diagnoses Diagnosis Acquired hypothyroidism- Primary Unspecified hypothyroidism Fibromyalgia Unspecified myalgia and myositis documented in this encounter Additional Health Concerns Assessment Noted Time PHQ-9 Depression Total Score: 15 024 2:46 PM EST documented as of this encounter Care Teams Document Preparer Microfilming Relationship Specialty Start Date End Date Fabio Jones MD [address] [place] [address] PCP - General Internal Medicine 09/05/23 documented as of this encounter
--- OUTSIDE RECORDS SUMMARY | 2025-01-03 08:17 | XMS_ITS | Encounter Summary ---
Author Organization [employer] Address [address] [facility] 7 [place] [address] Care Team Providers Care Awning Craftsman Name Role Phone Fabio Jones MD Primary [...] 1:30 PM EDT Office Visit [facility] MED & PEDS [address] [place] [address] Fabio Jones MD [address] [place] [address] documented as of this encounter Visit Diagnoses Not on filedocumented in this encounter Additional Health Concerns Assessment Noted Time PHQ-9 Depression Total Score: 0 08/02/20 24 10:30 AM EST documented as of this encounter Care Teams Awning Craftsman Relationship Specialty Start Date End Date Fabio Jones MD [address] [place] [address] PCP - General Internal Medicine 09/05/23 documented as of this encounter
== END 2025-01-02 08:04 | disposition home or self-care (01) ==
LOC: HO.HOSX 08:03
PROVIDERS: Visit Provider Physical Medicine & Rehabilitation
DX: M54.2 Cervicalgia (principal); R20.0 Anesthesia of skin; Z98.1 Arthrodesis status; G56.22 Lesion of ulnar nerve, left upper limb
CPT/HCPCS: 72040; 99202

== ENCOUNTER 2025-01-02 10:24 | Outpatient (AMB) | payer MEDICARE, MEDICAID, SELFPAY ==
[2025-01-02 10:41] VITALS: BMI 46.9
--- NOTE | 2025-01-02 10:41 | MHC.OFFVIS ---
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 States she has had neck pain for many years approx 10 yrs. No injury she can recall. Pain is triggered randomly, gets headaches and radiates to the back of her head. States she was seen with doctors while she was in [place] and was told she needs surgical intervention. She is not sure what the surgery it was but she moved forward with surgery however states she continues to have pain. Patient is also being seen with pain management Dr Lima who ordered MRI (lumbar) and depending on results, will move forward with injections. Patient referred by [facility] DR Fabio Schneider. Allergies NSAIDS (Non-Steroidal Anti-Inflamma Adverse Reaction (Severe, Verified 01/02/25 10:53) acute kidney damage tramadol Adverse Reaction (Verified 01/02/25 10:53) Nausea Medication List - Last Reconciled 01/02/25 by Jessy Edwards MD acetaminophen (Tylenol Extra Strength) 500 mg PO Q6H PRN 30 days albuterol sulfate 90 mcg/actuation inhalation alprazolam PO atorvastatin 10 mg PO DAILY baclofen 10 mg PO TID 30 days bisacodyl (Dulcolax (bisacodyl)) 10 mg (2 x 5 mg) PO BEDTIME bumetanide 1 mg PO DAILY cetirizine 10 mg PO DAILY docusate sodium 100 mg PO BEDTIME duloxetine 60 mg PO BID esomeprazole magnesium (Nexium) 40 mg PO DAILY famotidine (Pepcid) 20 mg PO BEDTIME fluticasone propionate 50 mcg/actuation sprays intranasal hydroxyzine HCl 50 mg PO BID levothyroxine 100 mcg PO DAILY mirtazapine 15 mg PO BEDTIME oxcarbazepine 300 mg PO BID trazodone 50 mg PO BEDTIME umeclidinium-vilanterol 62.5-25 mcg/actuation (Anoro Ellipta) 1 inh inhalation DAILY HPI Comments Details: Here today for neck pain. PCP from [facility] referred her for neck pain, although she is already seeing Dr. Lima for both neck and back pain. Dr. Lima had requested for her past surgical records, from [place]. Chronic neck pain. Surgery 2 years ago, in [place]. Still has neck pain, that would radiate to shoulders or up to back of her head. Would radiate to left arm. The same symptoms as before surgery. Left hand, mostly 4th and 5th digits, get numb. [facility] Medical History (Updated 01/02/25 @ 11:08 by Jessy Edwards MD) Tubular adenoma of colon GERD (gastroesophageal reflux disease) Thyroid disease Elevated cholesterol Spondylosis of lumbar spine Fibromyalgia Suicide attempt Headache Surgical History (Updated 01/02/25 @ 11:05 by Jessy Edwards MD) History of dental surgery Hx of anterior cruciate ligament surgery Hx of tubal ligation Family History Mother Depression Father No problems noted. Sister Diabetes Fibromyalgia Degenerative disc disease Bipolar 1 disorder Depression Son Depression Bipolar 2 disorder Son Depression Son Depression Daughter Depression Migraine Social History (Updated 12/12/24 @ 13:47 by Nara Luna [facility]) Are you a primary home care rn to a significant other at home: No Do you presently have visiting nurse or other home services: No Alcohol intake: never Patient Tobacco Use Status: Former Tobacco user Tobacco use type: Cigarette Years Smoked: quit 2023, started age 16, 1PPD, and vape. e-Cigarette/Vaping Use: Former Use Review of Systems Const All systems reviewed & are unremarkable except as noted in HPI and below Physical Exam Vital Signs: BMI result Body Mass Index 46.9 Constitutional: Patient appears to be in no acute distress, well nourished and well developed. Patient was appropriately conversant and oriented. Good historian. MSK: Inspection reveals appropriate head and neck positioning. No pain with palpation over the neck musculature. Cervical ROM was full. Spurling's sign positive left. Bilateral shoulder, elbow and wrist ROM WNL. No ligamentous laxity or crepitance. No increased effusion. Negative carpal compression. Positive Tinel's sign on left elbow. Strength is 5/5 in all muscle groups tested. No increased tone noted. Neurological: Neurologic examination of the upper and lower extremities was nonfocal with intact sensation, muscle stretch reflexes and without focal motor deficits. All reflexes upper and lower symmetric and intact. Wallace?s negative bilaterally. Babinski was down going bilaterally. Clonus was negative. Gait is non-antalgic without loss of balance. Results Reviewed Results Reviewed: Cervical spine x-ray done today in the office, images reviewed, screws noted C5-6. I reviewed records from the following: Pain management Assessment & Plan Assessment & Plan (1) Numbness of left hand: Code(s): R20.0 - Anesthesia of skin Category: Medical (2) History of fusion of cervical spine: Code(s): Z98.1 - Arthrodesis status Category: Surgical (3) Chronic cervical radiculopathy: Code(s): M54.12 - Radiculopathy, cervical region Category: Medical (4) Ulnar neuropathy at elbow: Code(s): G56.20 - Lesion of ulnar nerve, unspecified upper limb Category: Medical Qualifiers: Laterality: left Qualified Code(s): G56.22 - Lesion of ulnar nerve, left upper limb Plan Chronic neck pain with numbness in left 4th and 5th digits. Chronic cervical radiculopathy versus ulnar neuropathy at the elbow. She will continue to follow up with Dr. Lima for the neck pain. Next visit 01/23/2025. We will schedule for EMG to determine between radiculopathy versus ulnar neuropathy. Assessment and plan discussed with patient, and patient was agreeable. All questions were answered thoroughly. Jessy Edwards MD, JAYLIN Board Certified, [place] Board of Physical Medicine and Rehabilitation (ABPMR) Board Certified, [place] Board of Electrodiagnostic Medicine (ABEM) Orders: Orders XR cervical spine 3V Today M54.2 - Cervicalgia NE electromyogram (EMG) Today G56.20 - Lesion of ulnar nerve, unspecified upper limb, M54.12 - Radiculopathy, cervical region, R20.0 - Anesthesia of skin, Z98.1 - Arthrodesis status NE nerve conduction velocity Today G56.20 - Lesion of ulnar nerve, unspecified upper limb, M54.12 - Radiculopathy, cervical region, R20.0 - Anesthesia of skin, Z98.1 - Arthrodesis status Coding Level of Care Code New Pt Level 4 (79904) Diagnoses Numbness of left hand R20.0 History of fusion of cervical spine Z98.1 Chronic cervical radiculopathy M54.12 Ulnar neuropathy at elbow of left upper extremity G56.22 Laterality: left
--- OUTSIDE RECORDS SUMMARY | 2025-01-02 12:27 | XMS_ITS | Encounter Summary ---
Author Organization [employer] Address [address] [facility] [address] [place] [address] Care Team Providers Care Assembly Line Inspector Name Role Phone Fabio Jones MD Primary Care Prov ider Reason for Visit * Reason Onset Date Comments Med Refill 12/11/2023 Encounter Details Date Type Department Care Team ([facility] Contact Info) Description 12/11/2023 Telephone [facility] CHC MED & PEDS [address] [place] [address] Fabio Jones MD [address] [place] [address] Med Refill Social History Tobacco Use Types [...] 300 MG tablet To be sent to: [id number] [place], [place] - [facility] BIB [place] [facility] documented in this encounter Plan of Treatment Upcoming Encounters Date Type Department Care Team (Late st Contact Info) Description 01/07/2025 1:30 PM EDT Office Visit [facility] MED & PEDS [address] [place] [address] Fabio Jones MD [address] [place] [address] documented as of this encounter Visit Diagnoses Not on filedocumented in this encounter Additional Health Concerns Assessment Noted Time PHQ-9 Depression Total Score: 15 024 2:46 PM EST documented as of this encounter Care Teams Assembly Line Inspector Relationship Specialty Start Date End Date Fabio Jones MD [address] [place] [address] PCP - General Internal Medicine 09/05/23 documented as of this encounter
--- OUTSIDE RECORDS SUMMARY | 2025-01-02 12:27 | XMS_ITS | Encounter Summary ---
Author Organization [employer] Address [address] [facility] 7 [place] [address] Care Team Providers Care Embroidery Supervisor Name Role Phone Fabio Jones MD Primary Care Prov ider Reason for Visit * Reason Comments Med Refill Encounter Details Date Type Department Care Team ([facility] st Contact Info) Description 10/08/2024 Refill [facility] CHC MED & PEDS [address] [place] [address] Fabio Jones MD [address] [place] [address] Social History Tobacco Use Types Packs/Day Years [...] Description 01/07/2025 1:30 PM EDT Office Visit [facility] MED & PEDS [address] [place] [address] Fabio Jones MD [address] [place] [address] documented as of this encounter Visit Diagnoses Not on filedocumented in this encounter Additional Health Concerns Assessment Noted Time PHQ-9 Depression Total Score: 0 08/02/20 24 10:30 AM EST documented as of this encounter Care Teams Embroidery Supervisor Relationship Specialty Start Date End Date Fabio Jones MD [address] [place] [address] PCP - General Internal Medicine 09/05/23 documented as of this encounter
--- OUTSIDE RECORDS SUMMARY | 2025-01-02 12:27 | XMS_ITS | Encounter Summary ---
Author Organization [employer] Address [address] [facility] [address] [place] [address] Care Team Providers Care Cigar Head Puncher Name Role Phone Fabio Jones MD Primary Care Prov ider Reason for Visit * Reason Onset Date Comments Results 12/11/2023 Encounter Details Date Type Department Care Team ([facility] Contact Info) Description 12/11/2023 Telephone [facility]EDS [address] [place] [address] Fabio Jones MD [address] [place] [address] Results Social History Tobacco Use Types Packs/Day [...] results: labs Date when done: 12/05 Facility: [facility] Please contact pt at [phone] documented in this encounter Plan of Treatment Upcoming Encounters Date Type Department Care Team (Late st Contact Info) Description 01/07/2025 1:30 PM EDT Office Visit [facility] [address] [place] [address] Fabio Jones MD [address] [place] [address] documented as of this encounter Visit Diagnoses Not on filedocumented in this encounter Additional Health Concerns Assessment Noted Time PHQ-9 Depression Total Score: 15 024 2:46 PM EST documented as of this encounter Care Teams Cigar Head Puncher Relationship Specialty Start Date End Date Fabio Jones MD [address] [place] [address] PCP - General Internal Medicine 09/05/23 documented as of this encounter
--- OUTSIDE RECORDS SUMMARY | 2025-01-02 12:27 | XMS_ITS | Encounter Summary ---
Author Organization [employer] Address [address] [facility] 7[address] [place] [address] Care Team Providers Care Retail Key Holder Name Role Phone Fabio Jones MD Primary Care Prov ider Encounter Details Date Type Department Care Team (Late st Contact Info) Description 12/29/2023 Orders Only [facility]S [address] [place], [place] [phone] Fabio Jones MD [address] [place], [place] [phone] Chronic diastolic congestive heart failure (CMS/HCC) Social [...] Description 01/07/2025 1:30 PM EDT Office Visit [facility] MED [facility] PEDS [address] [place] [address] Fabio Jones MD [address] [place] [address] documented as of this encounter Procedures Procedure [...] documented as of this encounter Care Teams Retail Key Holder Relationship Specialty Start Date End Date Fabio Jones MD [address] [place] [address] PCP - General Internal Medicine 09/05/23 documented as of this encounter
--- OUTSIDE RECORDS SUMMARY | 2025-01-02 12:27 | XMS_ITS | Patient Health Record ---
Author Organization [facility] Address [address] [place] [address] Care Team Providers Care Art Coordinator Name Role Phone Guanaco Caldera Primary Care Provider Reason For Referral No Information Plan Of Treatment No Information Insurance Providers Payer Name Payer Address Payer Phone Subscriber Number Group Number Insured Name Patient Relationship to Insured Coverage Start Date Coverage End Date [facility] [address] [address] [id number] Manuela May Self - patient is the insured
--- OUTSIDE RECORDS SUMMARY | 2025-01-02 12:27 | XMS_ITS | Encounter Summary ---
Author Organization [employer] Address [address] [facility] 7[address] [place] [address] Care Team Providers Care Confectionery Drops Machine Operator Name Role Phone Fabio Jones MD Primary Care Prov ider Encounter Details Date Type Department Care Team (Late st Contact Info) Description 06/19/2024 Orders Only [facility] MED [facility] PEDS [address] [place], [place] [phone] Maco Galeano MD [address] [place], [place] [phone] Social History Tobacco Use Types Packs/Day Years [...] Upcoming Encounters Date Type Department Care Team ([facility] st Contact Info) Description 01/07/2025 1:30 PM EDT Office Visit [facility]EDS [address] [place], [place] [phone] Fabio Jones MD [address] [place], [place] [phone] documented as of this encounter Procedures Procedure Name Priority Date/Time Associated Diagnosis Comments T4, FREE Routine 06/19/2024 9:58 AM EDT documented in this encounter Results * (ABNORMAL) T4, Free (06/19/2024 9:58 AM EDT) Free T4 (Free Thyroxine) 0.69(L) 0.71 - 1.85 ng/dL [facility] 06/19/2024 9:58 AM EDT 06/19/2024 2:37 PM EDT us Maco Galeano MD LAB BLOOD ORDERABLES Final Result [facility] [address] [place] [phone] documented in this encounter Visit Diagnoses Not on filedocumented in this encounter Additional Health Concerns Assessment Noted Time PHQ-9 Depression Total Score: 15 024 2:46 PM EST documented as of this encounter Care Teams Confectionery Drops Machine Operator Relationship Specialty Start Date End Date SierraFabio Arguelles MD [address] [place] [phone] PCP - General Internal Medicine 09/05/23 documented as of this encounter
--- OUTSIDE RECORDS SUMMARY | 2025-01-02 12:27 | XMS_ITS | Patient Health Record ---
Author Organization [facility] Emelia cohen Billing Info Address [address] [place] [id number] Care Team Providers Care Guide Changer Name Role Phone HOLLY DUNN Primary Care Provider FRAN JACOBO Unavailable [phone] Laura Covarrubias MD Unavailable Unavailable Allergies Allergen [...] a day for 90 day(s) Not-Taking Biotin 97828 MCG 1 tablet Orally Once a day [...] - ALL PAYORS IM Intramuscular 08/30/2022 Administered [facility] [phone] Social History Tobacco Use: Social History Observation Description Date Details (start date - stop date) Current Smoker NA - NA Tobacco Status: Question Answer Notes Patient is a current every day smoker Problems Problem Type SNOMED Code ICD Code Onset Dates Problem Status W/U Status Risk Notes Problem 3589235065745 Cervicalgia (M54.2) Active confirmed Problem [id number] Cervical myelopathy (G95.9) Active confirmed Plan Of [...] Date [employer] PPO MEDICARE PLAN [address] [place], [place] [id number] [place] Manuela Self - patient is the insured 3 [place]ID [place] [address] [facility] [id number] Manuela May Self - patient is the insured 3 [employer] PPO [address] [address] [place], [place] [id number] Manuela May Self - patient is the insured 3 Medical (General) History Medical History History ICD Code Hyperlipidemia Esophageal reflux Depression Anxiety Surgical History Surgery Date(Month/Year) colonoscopy, repeat in 5 years, 2019 tubal ligation knee arthroscopy, right Hospitalization History Reason Date(Month/Year) see above
--- OUTSIDE RECORDS SUMMARY | 2025-01-02 12:27 | XMS_ITS | Data Portability ---
Author Organization AAKASH Copeland fadi Manjarrez, zCLSD_SHMG_ENDO_THOMAS_MOBILE [facility] Address [address] [place] [address] Care Team Providers Care French Polisher Name Role Phone NUSRAT KYLIE Primary Care Provider Assessment No assessment recorded. Plan of Treatment Reminders Order Date Submit Date Provider Last Modified By Organization Details Last Modified Time Details Appointments None recorded. Lab lipid panel, serum 2022 023 [facility], [address], [place], [address], 3 08:22:30 CMP, serum or plasma 2022 023 [facility], [address], [place], [address], 3 08:22:27 CBC w/ auto diff 2022 023 [facility], [address], [place], [address], 3 08:22:23 HbA1c (hemoglobin A1c), blood 2022 023 [facility], [address], [place], [address], 3 11:12:38 Hepatitis C IgG Ab, qual, serum 2022 023 [facility], [address], [place], [address], 3 08:22:33 unlisted lab - TSH reflex to t4f 2022 023 [facility], [address], [place], [address], 3 11:12:42 Referral sleep medicine referral 2022 023 [email or web address] 6 [facility], [address], [place], [address], 4 09:56:19 Procedures None recorded. Surgeries None recorded. Imaging US, echocardiog miko, transthorac ic, complete, w/ color flow 2022 023 [email or web address] 34 [facility]), [address], [place], [address], 3 15:25:02 Medication Orders cetirizine 10 mg tablet 2022 023 [id number], [address], [id number], 3 10:25:40 baclofen 10 mg tablet 2022 023 [facility] #78276, [address], [place], [place], [id number], 3 10:25:40 omeprazole 20 mg capsule,del ayed release 2022 023 [facility] #29367, [address], [place], [place], [id number], 3 10:25:40 atorvastati n 10 mg tablet 2022 023 [facility], [address], [place], [id number], 10:25:41 furosemide 20 mg tablet 2022 023 [facility], [address], [place], [place], [id number], 10:25:42 Patient TargetsNo targets recorded. Patient Instructions Encounter Date Encounter Id Patient Instructions Last Modified By Organization Details Last Modified Time 01/25/2023 [id number] Assessment: 1. L eft cubital tunnel syndrome [...] injection. [email or web address] Not available 01/30/2023 08:54:38 02/06/2023 [id number] allergies: care instructions Not available 02/06/2023 10:25:21 [...] from them, contact the referral team at [phone]. Unless instructed otherwise, complete your labs 1 [...] advised to register for an account at: [email or web address] Contact your pharmacy for refills at least [...] clinic with any questions or concerns at [phone] . If you have a medical emergency, [...] x10e3 /uL 3.4-10 .8 Not Available [facility] ([facility]) [address] [place], [address], 02/15/2023 08:22:23 02/15/2002/15/2023 CBC WITH DIFFE RENTI AL/PL ATELE T RBC 4.67 x10e6 /uL 3.77-5 .28 Not Available [facility] ([facility]) [address] [place], [address], 02/15/2023 08:22:23 02/15/20 23 02/15/2023 CBC WITH DIFFE RENTI AL/PL ATELE T hemoglobin 12.9 g/dL 11.1-1 5.9 Not Available [facility] ([facility]) [address] [facility] [address], [place], [address], 02/15/2023 08:22:23 02/15/20 23 02/15/2023 CBC WITH DIFFE RENTI AL/PL ATELE T hematocrit 40.5 % 34.0-4 6.6 Not Available [facility] ([facility]) [address] [facility] [address] [address], [place], [address], 02/15/2023 08:22:23 02/15/20 23 02/15/2023 CBC WITH DIFFE RENTI AL/PL ATELE T MCV 87 fL 79-97 Not Available [facility] ([facility]) [address] [facility], [place], [address], 02/15/2023 08:22:23 02/15/20 23 02/15/2023 CBC WITH DIFFE RENTI AL/PL ATELE T MCH 27.6 pg 26.6-3 3.0 Not Available [facility] ([facility]) [address] [place], [address], 02/15/2023 08:22:23 02/15/20 23 02/15/2023 CBC WITH DIFFE RENTI AL/PL ATELE T MCHC 31.9 g/dL 31.5-3 5.7 Not Available [facility] ([facility]) [address] [place], [address], 02/15/2023 08:22:23 02/15/20 23 02/15/2023 CBC WITH DIFFE RENTI AL/PL ATELE T RDW 13.6 % 11.7-1 5.4 Not Available [facility] ([facility]) [address] [place], [address], 02/15/2023 08:22:23 02/15/20 23 02/15/2023 CBC WITH DIFFE RENTI AL/PL ATELE T platelets 447 x10e3 /uL 150-45 0 Not Available [facility] ([facility]) [address] [facility] [address], [place], [address], 02/15/2023 08:22:23 02/15/20 23 02/15/2023 CBC WITH DIFFE RENTI AL/PL ATELE T neutrophils 63 % not estab. Not Available [facility] ([facility]) [address] [facility] [address], [place], [address], 02/15/2023 08:22:23 02/15/20 23 02/15/2023 CBC WITH DIFFE RENTI AL/PL ATELE T lymphs 25 % not estab. Not Available [facility] ([facility]) [address] [facility] [address], [place], [address], 02/15/2023 08:22:23 02/15/20 23 02/15/2023 CBC WITH DIFFE RENTI AL/PL ATELE T monocytes 8 % not estab. Not Available [facility] ([facility]) [address] [facility] [address], [place], [address], 02/15/2023 08:22:23 02/15/20 23 02/15/2023 CBC WITH DIFFE RENTI AL/PL ATELE T eos 2 % not estab. Not Available [facility] ([facility]) [address] [facility] [address], [place], [address], 02/15/2023 08:22:23 02/15/20 23 02/15/2023 CBC WITH DIFFE RENTI AL/PL ATELE T basos 1 % not estab. Not Available [facility] ([facility]) [address] [facility] [address], [place], [address], 02/15/2023 08:22:23 02/15/20 23 02/15/2023 CBC WITH DIFFE RENTI AL/PL ATELE T immature cells BAILIFF Not Available [facility] ([facility]) [address] [facility] [address], [place], [address], 02/15/2023 08:22:23 02/15/20 23 02/15/2023 CBC WITH DIFFE RENTI AL/PL ATELE T neutrophils (absolute) 4.6 x10e3 /uL 1.4-7. 0 Not Available [facility] ([facility]) [address] [facility] [address], [place], [address], 02/15/2023 08:22:23 02/15/20 23 02/15/2023 CBC WITH DIFFE RENTI AL/PL ATELE T lymphs (absolute) 1.8 x10e3 /uL 0.7-3. 1 Not Available [facility] ([facility]) [address] [facility] [address], [place], [address], 02/15/2023 08:22:23 02/15/20 23 02/15/2023 CBC WITH DIFFE RENTI AL/PL ATELE T monocytes(ab solute) 0.6 x10e3 /uL 0.1-0. 9 Not Available [facility] ([facility]) [address] [place], [address], 02/15/2023 08:22:23 02/15/20 23 02/15/2023 CBC WITH DIFFE RENTI AL/PL ATELE T eos (absolute) 0.1 x10e3 /uL 0.0-0. 4 Not Available [facility] ([facility]) [address] [place], [address], 02/15/2023 08:22:23 02/15/20 23 02/15/2023 CBC WITH DIFFE RENTI AL/PL ATELE T baso (absolute) 0.1 x10e3 /uL 0.0-0. 2 Not Available [facility] ([facility]) [address] [place], [address], 02/15/2023 08:22:23 02/15/20 23 02/15/2023 CBC WITH DIFFE RENTI AL/PL ATELE T immature granulocytes 1 % not estab. Not Available [facility] ([facility]) [address] [facility] [address], [place], [address], 02/15/2023 08:22:23 02/15/20 23 02/15/2023 CBC WITH DIFFE RENTI AL/PL ATELE T immature grans (abs) 0.1 x10e3 /uL 0.0-0. 1 Not Available [facility] ([facility]) [address] [facility] [address], [place], [address], 02/15/2023 08:22:23 02/15/20 23 02/15/2023 CBC WITH DIFFE RENTI AL/PL ATELE T NRBC BAILIFF Not Available [facility] ([facility]) [address] [facility] [address], [place], [address], 02/15/2023 08:22:23 02/15/20 23 02/15/2023 CBC WITH DIFFE RENTI AL/PL ATELE T hematology comments: BAILIFF Not Available [facility] ([facility]) [address] [facility] [address], [place], [address], 02/15/2023 08:22:23 02/15/20 23 02/15/2023 COMP. METAB OLIC PANEL (14) glucose 102 mg/dL 70-99 above high normal Not Available [facility] ([facility]) [address] [facility] [address], [place], [address], 02/15/2023 08:22:26 02/15/20 23 02/15/2023 COMP. METAB OLIC PANEL (14) BUN 12 mg/dL 6-24 Not Available [facility] ([facility]) [address] [facility] [place], [address], 02/15/2023 08:22:26 02/15/20 23 02/15/2023 COMP. METAB OLIC PANEL (14) creatinine 0.87 mg/dL 0.57-1 .00 Not Available [facility] ([facility]) [address], [place], [address], 02/15/2023 08:22:26 02/15/20 23 02/15/2023 COMP. METAB OLIC PANEL (14) eGFR 80 mL/mi n/1.7 3 >59 Not Available [facility] ([facility]) [address], [place], [address], 02/15/2023 08:22:26 02/15/20 23 02/15/2023 COMP. METAB OLIC PANEL (14) BUN/creatini ne ratio 14 9-23 Not Available [facility] ([facility]) [address], [place], [address], 02/15/2023 08:22:26 02/15/20 23 02/15/2023 COMP. METAB OLIC PANEL (14) sodium 138 mmol/ L 134-14 4 Not Available [facility] ([facility]) [address], [place], [address], 02/15/2023 08:22:26 02/15/20 23 02/15/2023 COMP. METAB OLIC PANEL (14) potassium 4.8 mmol/ L 3.5-5. 2 Not Available [facility] ([facility]) [address], [place], [address], 02/15/2023 08:22:26 02/15/20 23 02/15/2023 COMP. METAB OLIC PANEL (14) chloride 101 mmol/ L 96-106 Not Available [facility] ([place] [facility]) [address], [place], [address], 02/15/2023 08:22:26 02/15/20 23 02/15/2023 COMP. METAB OLIC PANEL (14) carbon dioxide, total 22 mmol/ L 20-29 Not Available [facility] ([place] [facility]) [address], [place], [address], 02/15/2023 08:22:26 02/15/20 23 02/15/2023 COMP. METAB OLIC PANEL (14) calcium 9.7 mg/dL 8.7-10 .2 Not Available [facility] ([facility]) [address], [place], [address], 02/15/2023 08:22:26 02/15/20 23 02/15/2023 COMP. METAB OLIC PANEL (14) protein, total 7.2 g/dL 6.0-8. 5 Not Available [facility] ([facility]) [address] [place], [address], 02/15/2023 08:22:26 02/15/20 23 02/15/2023 COMP. METAB OLIC PANEL (14) albumin 4.5 g/dL 3.8-4. 9 Not Available [facility] ([facility]) [address] [facility] [place], [address], 02/15/2023 08:22:26 02/15/20 23 02/15/2023 COMP. METAB OLIC PANEL (14) globulin, total 2.7 g/dL 1.5-4. 5 Not Available [facility] ([facility]) [address] [facility] [place], [address], 02/15/2023 08:22:26 02/15/20 23 02/15/2023 COMP. METAB OLIC PANEL (14) A/G ratio 1.7 1.2-2. 2 Not Available [facility] ([facility]) [address] [facility] [place], [address], 02/15/2023 08:22:26 02/15/20 23 02/15/2023 COMP. METAB OLIC PANEL (14) bilirubin, total <0.2 mg/dL 0.0-1. 2 Not Available [facility] ([facility]) [address] [facility] [place], [address], 02/15/2023 08:22:26 02/15/20 23 02/15/2023 COMP. METAB OLIC PANEL (14) alkaline phosphatase 113 IU/L 44-121 Not Available [facility] ([facility]) [address] [place], [address], 02/15/2023 08:22:26 02/15/20 23 02/15/2023 COMP. METAB OLIC PANEL (14) AST (SGOT) 30 IU/L 0-40 Not Available [facility] ([facility]) [address] [place], [address], 02/15/2023 08:22:26 02/15/20 23 02/15/2023 COMP. METAB OLIC PANEL (14) ALT (SGPT) 47 IU/L 0-32 above high normal Not Available [facility] ([facility]) [address] [place], [address], 02/15/2023 08:22:26 02/15/20 23 02/15/2023 LIPID PANEL cholesterol, total 259 mg/dL 100-19 9 above high normal Not Available [facility] ([facility]) [address] [place], [address], 02/15/2023 08:22:30 02/15/20 23 02/15/2023 LIPID PANEL triglyceride s 281 mg/dL 0-149 above high normal Not Available [facility] ([facility]) [address] [place], [address], 02/15/2023 08:22:30 02/15/20 23 02/15/2023 LIPID PANEL HDL cholesterol 64 mg/dL >39 Not Available [facility]) [address] [place], [address], 02/15/2023 08:22:30 02/15/20 23 02/15/2023 LIPID PANEL VLDL cholesterol rosalee 51 mg/dL 5-40 above high normal Not Available [facility] ([facility]) [address] [place], [address], 02/15/2023 08:22:30 02/15/20 23 02/15/2023 LIPID PANEL LDL chol calc ([facility]) 144 mg/dL 0-99 above high normal Not Available [facility] ([facility]) [address] [facility] [address], [place], [address], 02/15/2023 08:22:30 02/15/20 23 02/15/2023 LIPID PANEL comment: BAILIFF Not Available [facility] ([facility]) [address] [facility] [address], [place], [address], 02/15/2023 08:22:30 02/15/2002/15/2023 HCV ANTIB FADUMO hep C virus Ab NON REACTI VE non reacti ve HCV antib fadumo alone does not diffe renti ate betwe en previ ously resol cortney infec tion and activ e infec tion. Equiv ocal and React miah HCV antib fadumo resul ts shoul d be follo wed up with an HCV RNA test to suppo rt the diagn osis of activ e HCV infec tion. Not Available [facility] ([facility]) [address] [facility] [address], [place], [address], 02/15/2023 08:22:33 02/15/20 23 02/15/2023 HEMOG LOBIN A1C hemoglobin A1C 6.0 % 4.8-5. 6 above high normal Predi abete s: 5.7 - 6.4 Diabe kashif: >6.4 Glyce belinda contr ol for adult s with diabe kashif: <7.0 Not Available [facility] ([facility]) [address] [facility] [address], [place], [address], 02/15/2023 11:12:38 02/15/2002/15/2023 TSH REFLE X TO T4F TSH 1.880 uIU/m L 0.450- 4.500 Not Available [facility] ([facility]) [address] [facility] [address], [place], [address], 02/15/2023 11:12:41 Result Notes None recorded. Problems Name Problem SNOMED Code Status Onset Date Resolution Date Notes Provider Name and Address Organization Details Recorded Time Pain in elbow 52073629 Active 023 ongoing for a while Dary jackson [facility] 11:38:57 Problem Notes None recorded. Procedures Surgical History Date Name Laterality Status Provider Name and Address Organization Details Recorded Time Orthopedic Surgery completed Dary Barnett [facility] 01/25/2023 12:17:18 Imaging Results None recorded. Procedure [...] Updated DateTime 3 165.1 cm 41.3 kg/m2 978963. 91 g 84 /min 97.2 [degF] 97 % 97 % 2 121 mm[Hg] 81 mm[Hg] Dary Barnett [place] [facility] 3 11:35:30 Date Recorded Body height Body mass index (BMI) Body weight Heart rate Body temperature Oxygen saturation Oxygen saturation in Arterial blood by Pulse oximetry Pain severity - 0-10 verbal numeric rating [Score] - Reported Systolic blood pressure Diastolic blood pressure Provider Name and Address Organization Details Last Updated DateTime 3 165.1 cm 41.3 kg/m2 411021. 26 g 101 /min 97.1 [degF] 96 % 96 % 8 133 mm[Hg] 86 mm[Hg] Dominick Adams [place] - [facility] 3 09:51:13 Social History Question Answer Notes [...] Or The Highest Degree You Have Received? [id number] [email or web address] Information not available 02/06/2023 Which Of Your Hands Is Dominant? Right [email or web address] Information not available 02/06/2023 Where Do You Live? Apartment [email or web address] Information not available 02/06/2023 [facility] [place] In[facility] n not available 01/25/2023 Patients Living [...] Did You Ever Eat Less Than You [place] You Should Because There Wasn? t Enough [...] , kidney problem Medical History Condition Response hypothyroidism Y fibromyalgia Y arthritis Y heart disease Y depression Y acid reflux/GERD Y neurologic disease Y heart attack ([place]) Y diabetes mellitus Y musculoskeletal disease Y stroke Y high cholesterol Y back pain Y Gynecological HistoryNo gynecological history recorded. Obstetrics History GPAL:G 0 P 0 0 0 0 Immunizations Vaccine Type Date Status Note Provider Nam e and Address Organization Details Recorded Time zoster recombinant 12/06/2022 completed Dominick jackson[place] - [facility] 02/06/2023 09:52:30 Tdap 12/06/2022 completed Dominick Adams null[place] - [facility] 02/06/2023 09:52:30 Influenza, split virus, quadrivalent, PF 08/30/2022 completed Dominick Adams null[place] - [facility] 02/06/2023 09:52:30 Past Encounters Encounter ID Performer Location Encounter Start Date Encounter Closed Date Diagnosis/Indication Diagnosis SNOMED-CT Code Diagnosis ICD10 Code Diagnosis Note [id number] TOOTIE Ahumada [facility] O_HAND_SU MMIT_MOB [address] [place] [address] 01/25/2023 11:22:05 01/25/2023 12:07:27 Ulnar nerve entrapment at elbow 850109098 G56.22 [id number] Kylie Mccormack MD [id number]_A [id number] [facility] [address] [place] [address] 02/06/2023 09:36:14 02/06/2023 10:36:17 Hyperlipidemia 93701732 E78.5 On Atorvastat in 10mg, tolerating well. Needs updated labs. Hypothyroidism 12703293 E03.9 On Levothyrox ine 88mcg, tolerating well. Needs updated labs.-awai ting labs to determine refill dose Spinal tee nosis in cervical region 91905163 M48.02 Planned for surgery 02/15/23.-o btain records Bipolar disorder 7462685 4 F31.9 Stable on Oxcarbazep ine.-mark nue Oxcarbazep ine per Psychiatry Anxiety 45709434 F41.9 Stable on Duloxetine , Buspirone. -continue meds, f/u with Psychiatry Major depr essive disorder 827092098 F32.9 PHQ-9 score 12. No SI/HI. Stable on Duloxetine , Mirtazapin e.-continu e Duloxetine per Psychiatry Spasm 71784214 R25.2 Stable on PRN Baclofen. Congestive heart failure 42302712 I50.9 Reports history of CHF. No recent echo. On Furosemide , tolerating well. Not in acute HF. Allergic rhinitis 323034 04 J30.9 Controlled on Cetirizine in the past. Requesting refill. Gastroesop hageal reflux disease 944731782 K21.9 Stable. No unintentio nal weight loss. On PRN Omeprazole .-avoid trigger foods, large meals in one sitting, and eating close to bedtime-us e medication s as needed if preventati ve measures above do not control reflux Hepatitis C screening 41 3435272 Z11.59 Screening as below. Obstructiv e sleep apnea syndrome 41611690 G47.33 Possible. Reports snoring, unrefreshi ng sleep, [...] [place] [facility] [employer] Manuela A Stone [id number] Manuela Stone 01/25/2023 1 [employer] (MEDICARE REPLACEMENT PPO) [id number] A Manuela A Stone [id number] Manuela Stone 02/06/2023 2 [place] [employer] Manuela A Stone [id number] Manuela Stone 02/06/2023 1 [employer] (MEDICARE REPLACEMENT PPO) [id number] A Manuela A Stone [id number] Manuela Stone Notes Date Note Type Note Provider Name and Address Organization Details Recorded Time 01/25/2023 text/html Ms. May is a 52-year-old female, dxlwo-your-ostfyhgf, on disability, who presents to the Hand [...] discussed. TOOTIE Ahumada [address], [place], [address], [facility] 01/30/2023 08:54:45 02/06/2023 text/html 52 y/o F [...] Kylie Mccormack MD [address], [place], [address], [facility] 02/06/2023 12:59:31 OBGyn Episode No OBEpisode recorded.
--- OUTSIDE RECORDS SUMMARY | 2025-01-02 12:27 | XMS_ITS | Encounter Summary ---
Author Organization [employer] Address [address] [facility] [address] [place] [address] Care Team Providers Care Customer Service Supervisor Name Role Phone Fabio Jones MD Primary Care Prov ider Encounter Details Date Type Department Care Team (Late st Contact Info) Description 07/05/2024 Orders Only [facility] [address], [place] [phone] Maco Galeano MD [address] [place], [place] [phone] Acquired hypothyroidism (Primary Dx) Social History Tobacco [...] 1:30 PM EDT Office Visit [facility] [address] [place] [address] Fabio Jones MD [address] [place] [address] documented as of this encounter Visit Diagnoses Diagnosis Acquired hypothyroidism- Primary Unspecified hypothyroidism documented in this encounter Additional Health Concerns Assessment Noted Time PHQ-9 Depression Total Score: 15 024 2:46 PM EST documented as of this encounter Care Teams Customer Service Supervisor Relationship Specialty Start Date End Date Fabio Jones MD [address] [place] [address] PCP - General Internal Medicine 09/05/23 documented as of this encounter
--- OUTSIDE RECORDS SUMMARY | 2025-01-02 12:27 | XMS_ITS | Encounter Summary ---
Author Organization [employer] Address [address] [place] [address] 7 [place] [address] Care Team Providers Care Salon/Spa Manager Name Role Phone Fabio Jones MD Primary Care Prov ider Reason for Visit * Reason Onset Date Comments New Patient 07/20/2023 Encounter Details Date Type Department Care Team (Late Contact Info) Description 07/20/[address] 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 EFFECTIVE SINCE 07/20/2023 documented in this encounter Plan of Treatment Upcoming Encounters Date Type Department Care Team (Late Contact Info) Description 01/07/2025 1:30 PM EDT Office Visit [facility]S [address] [place], [place] [phone] Fabio Jones MD [address] [place] [address] documented as of this encounter Visit Diagnoses Not on filedocumented in this encounter Care Teams Salon/Spa Manager Relationship Specialty Start Date End Date Fabio Jones MD [address] [place] [address] PCP - General Internal Medicine 09/05/23 documented as of this encounter
--- OUTSIDE RECORDS SUMMARY | 2025-01-02 12:27 | XMS_ITS | Encounter Summary ---
Author Organization [employer] Address [address] [facility] 7 [place] [address] Care Team Providers Care Sole Leveler Machine Name Role Phone Fabio Jones MD Primary Care Prov ider Reason for Visit * Reason Comments Med Refill Encounter Details Date Type Department Care Team ([facility] st Contact Info) Description 12/12/2023 Refill [facility] [address] [place] [address] Fabio Jones MD [address] [place] [address] Social History Tobacco Use Types Packs/Day Years [...] Description 01/07/2025 1:30 PM EDT Office Visit [facility] [address] [place] [address] Fabio Jones MD [address] [place] [address] documented as of this encounter Visit Diagnoses Not on filedocumented in this encounter Additional Health Concerns Assessment Noted Time PHQ-9 Depression Total Score: 15 024 2:46 PM EST documented as of this encounter Care Teams Sole Leveler Machine Relationship Specialty Start Date End Date Fabio Jones MD [address] [place] [address] PCP - General Internal Medicine 09/05/23 documented as of this encounter
--- OUTSIDE RECORDS SUMMARY | 2025-01-02 12:27 | XMS_ITS | Encounter Summary ---
Author Organization [employer] Address 75 [facility] 7 [place] [address] Care Team Providers Care Master Brewer Name Role Phone Fabio Jones MD Primary Care Prov ider Reason for Visit * Reason Comments Med Refill Encounter Details Date Type Department Care Team ([facility] st Contact Info) Description 10/09/2024 Refill [facility] MED & PEDS [address] [place] [address] Fabio Jones MD [address] [place] [address] Social History Tobacco Use Types Packs/Day Years [...] 1:30 PM EDT Office Visit [facility] MED & [facility]EDS [address] [place] [address] Fabio Jones MD [address] [place] [address] documented as of this encounter Visit Diagnoses Not on filedocumented in this encounter Additional Health Concerns Assessment Noted Time PHQ-9 Depression Total Score: 0 08/02/20 24 10:30 AM EST documented as of this encounter Care Teams Master Brewer Relationship Specialty Start Date End Date Fabio Jones MD [address] [place] [address] PCP - General Internal Medicine 09/05/23 documented as of this encounter
--- OUTSIDE RECORDS SUMMARY | 2025-01-02 12:27 | XMS_ITS | Clinical Summary ---
Author Organization [employer] Address 75 [facility] 7t [place] [address] Care Team Providers Care Systems Software Developer Name Role Phone Fabio Jones MD [...] Take 15 mg by mouth at bedtime. 023 Active OXcarbazepine (Trileptal) 300 MG tabletIndications :Fibromyalgia Take 1 tablet (300 mg) by mouth 2 times daily. 60 tablet 024 Active DULoxetine (Cymbalta) [address] capsuleIndication s:Fibromyalgia Take 1 capsule (60 mg) by mouth 2 times daily. 60 capsule 024 Active hydrOXYzine pamoate (Vistaril) 25 MG capsule TAKE 1 CAPSULE(25 MG) BY MOUTH EVERY 12 HOURS NEEDED FOR ANXIETY 60 capsule 1 024 Active cetirizine (ZyrTEC) 10 MG tablet Take 1 tablet (10 mg) by mouth Once per day. 90 tablet 3 024 2024 Active furosemide (Lasix) 20 MG tablet Take 1 tablet (20 mg) by mouth Once per day. 90 tablet 3 024 2024 Active atorvastatin (Lipitor) 10 MG tablet Take 1 tablet (10 mg) by mouth Once per day. 90 tablet 3 024 07/05/ 2025 Active traZODone (Desyrel) 50 MG tablet TAKE 1 TABLET(50 MG) BY MOUTH AT BEDTIME 30 tablet 024 Active varenicline (Chantix) 1 MG tabletIndications :Smoker Take 1 tablet (1 mg) by mouth 2 times daily. Take with full glass of water. 120 tablet 024 Active levothyroxine (Synthroid) 112 MCG tabletIndications :Acquired hypothyroidism Take 1 tablet (112 mcg) by mouth before breakfast. 30 tablet 11 024 2024 Active Fluticasone-Umecl idin-Vilant (Trelegy Ellipta) 100-62.5-25 MCG/ACT aerosol powder Inhale 1 puff Once per day. 60 each 3 024 Active albuterol 108 (90 Base) MCG/ACT inhaler Inhale 2 puffs every 6 (six) hours if needed for wheezing. 18 g 11 024 2024 Active fluticasone (Flonase) 50 MCG/ACT nasal spray SHAKE GENTLY, PRIME PUMP AND ADMINISTER 1-2 SPRAYS INTO EACH NOSTRIL ONCE DAILY. CLEAN TIP AFTERWARDS 16 g 3 025 Active lidocaine (Lidoderm) 5 % patchIndications: Chronic bilateral low back pain with right-sided sciatica Apply 1 patch topically Once per day. Remove & discard patch within 12 hours or as directed by MD. 20 patch 3 025 Active baclofen (Lioresal) 10 MG tablet TAKE 1 TABLET(10 MG) BY MOUTH TWICE DAILY 60 tablet 1 025 Active baclofen (Lioresal) 10 MG tablet TAKE 1 TABLET(10 MG) BY MOUTH TWICE DAILY 60 tablet 1 025 2024 Discontinued(R eorder (will not trigger notification to Pharmacy)) Active Problems Problem Noted Date Diagnosed Date [...] times a day, will optimize therapy to gerda parra, follow up in 2 months Assessment & [...] Patient refers used to be followed at [facility] cardiology, will place referal Fibromyalgia 09/04/2023 [...] 12:39 PM EDT): Patient had surgery on [place] back on February 2023, needs follow up, [...] Encounters Date Type Department Care Team Description 12/31/2024 Travel 12/17/2024 Refill [facility] MED & PEDS [address] [place] [address] Fabio Jones MD 12/17/2024 Refill [facility] MED & PEDS [address] [place] [address] Fabio Jones MD 12/12/2024 Orders Only GENERIC EXTERNAL DATA DEPARTMENT Provider, Generic External Data 10/22/2024 1:30 PM EST Office Visit [facility] MED & PEDS [address] [place] [address] Fabio Jones MD Bipolar disease, chronic ([facility]/HCC) (Primary Dx); Moderate episode of recurrent major depressive disorder ([facility]); Class 3 severe obesity due to excess calories with serious comorbidity and body mass index (BMI) of 40.0 to 44.9 in adult ([facility]); Chronic diastolic congestive heart failure ([facility]); Dietary counseling; Exercise counseling; Chronic bilateral low back pain with right-sided sciatica; Moderate persistent asthma without complication 10/22/2024 Telephone [facility] MED & PEDS [address] [place] [address] Fabio Jones MD Orthopedic APPT 10/22/2024 Travel 10/15/2024 Travel 10/10/2024 Travel 10/10/2024 Refill [facility] MED & PEDS [address] [place] [address] Fabio Jones MD 10/09/2024 Refill [facility] MED & PEDS [address] [place] [address] Fabio Jones MD 10/08/2024 Refill [facility] MED & PEDS [address] [place] [address] Fabio Jones MD from Last 3 Months Immunizations Name Administration [...] Description 01/07/2025 1:30 PM EDT Office Visit [facility] MED & PEDS [address] [place], [place] [phone] SierraFabio Arguelles MD [address] [place], [place] [phone] Health Maintenance Due Date Last Done Comments CT Colonography 1970 Colonoscopy 1970 Colorectal Cancer Screening 1970 FIT DNA/Cologuard 1970 FIT 1970 FOBT 1970 Sigmoidoscopy 1970 Alcohol/Substance Use Screening 1982 Hepatitis B Vaccines (1 of 3 - 19+ 3-dose series) 1989 Zoster Vaccines (1 of 2) 2020 COVID-19 Vaccine ( season) 2024 01/27/2021, 12/30/2020 SDOH Screening 09/04/2024 [...] Procedure Name Priority Date/Time Associated Diagnosis Comments RESPIRATORY ALLERGY PROFILE REGION I Routine 12/12/2024 2:10 PM EDT CBC WITH AUTO DIFFERENTIAL Routine 12/12/2024 2:10 [...] Recently Relevant to Health Maintenance Results * Respiratory Allergy Profile Region I (12/12/2024 2:10 PM EDT) Immunoglobulin E TNP kU/L [facility] Comment:TEST NOT PERFORMED.Q uantity not sufficient. Mouse Urine Proteins (E72) IgE <0.10 kU/L [facility] Class 0 [facility] Cockroach (I6) IgE <0.10 kU/L [facility] Class 0 [facility] Dermatophagoides farinae (D2) IgE <0.10 kU/L [facility] Class 0 [facility] Cat Dander (E1) IgE <0.10 kU/L [facility] Class 0 [facility] Comment:THIS TEST WAS PERFOR MED AT:[facility] [id number] [place] [id number] THAKUR MD Dog Dander (E5) IgE <0.10 kU/L [facility] Class 0 [facility] Comment:THIS TEST WAS PERFOR MED AT:[facility] [id number] [place] [address]CDQQCDHRUV THAKUR MD Raul Grass (G6) IgE <0.10 kU/L [facility] Class 0 [facility] Cladosporium herbarum (M2) IgE <0.10 kU/L [facility] Class 0 [facility] Aspergillus Fumigatis (M3) IgE <0.10 kU/L [facility] Class 0 [facility] Alternaria alternata (M6) IgE <0.10 kU/L [facility] Class 0 [facility] Comment:THIS TEST WAS PERFOR MED AT:[facility] [id number] [place] [address]QIWTVDHRUV THAKUR MD [place] (t6) IgE <0.10 kU/L [facility] Class 0 [facility] [place] (T7) IgE <0.10 kU/L [facility] Class 0 [facility] Campus Tree (T10) IgE <0.10 kU/L [facility] Class 0 [facility] Rewey (T11) IgE <0.10 kU/L [facility] Class 0 [facility] Addison (T14) IgE TNP kU/L [facility] Comment:TEST(S) NOT PERFORME D: [place] (T14) IGE CLASS WHITE ALAN (T15) IGE CLASSTEST NOT PERFORMED.Quantity not sufficient. Class TNP [facility] White Alan (t15) IgE TNP [facility] Class TNP [facility] [place] (T70) IgE TNP kU/L [facility] Comment:TEST NOT PERFORMED.Q uantity not sufficient. Class TNP [facility] Common Ragweed (Short) (W1) IgE TNP kU/L [facility] Comment:TEST NOT PERFORMED.Q uantity not sufficient. Class TNP [facility] Mugwort (w6) IgE TNP kU/L [facility] Comment:TEST NOT PERFORMED.Q uantity not sufficient. Class TNP [facility] Dermatophagoides pteronyssinus (D1) IgE <0.10 kU/L [facility] Class 0 [facility] Bermuda Grass (g2) IgE <0.10 kU/L [facility] Class 0 [facility] Penicillium Notatum (M1) IgE <0.10 kU/L [facility] Class 0 [facility] Birch (T3) IgE <0.10 kU/L [facility] Class 0 [facility] Elm (t8) IgE <0.10 kU/L [facility] Class 0 [facility] Maple (Piute) (T1) IgE <0.10 kU/L [facility] Class 0 [facility] Rough Pigweed (W14) IgE TNP [facility] Class TNP [facility] Sheep Arb[place] (W18) IgE TNP [facility] Class TNP [facility] Allergen Comment See Below [facility] Comment: Specific ?Level of AllergenIGE Class ?kU/L ? Specific IGE Antibody ----- ? --------- ?0 ?<0.10 ? Absent/Undetectable ??0/1 ?0.10-0.34 ? Very Low Level ??1 ?0.35-0.69 ? Low Level ??2 ?0.70-3.49 ? Moderate Level ??3 ?3.50-17.4 ? High Level ??4 ?17.5-49.9 ? Very High Level ??5 ?50-100 ?Very High Level ??6 ?>100 ?Very High LevelThe clinical relevance of allergen results of0.10-0.34 kU/L are undetermined and intended forspecialist use.Allergens denoted with a include results usingone or more analyte specific reagents. In thosecases, the test was developed and its analyticalperformance characteristics have been determined by[facility]. It has not been cleared or approvedby the U.S. Food and Drug Administration. This assayhas been validated pursuant to the CLIA regulationsand is used for clinical purposes.THIS TEST WAS PERFORMED AT:[facility] [address] ??[phone] THAKUR MD 12/12/2024 2:10 PM EDT 12/12/2024 2:10 PM EDT us Generic External Data Provider LAB BLOOD ORDERAB LES Final Result [facility] [address] [place] [address] [phone] * (ABNORMAL) CBC auto differential (12/12/2024 2:10 PM EDT) White Blood Count 6.9 4.8 - 10.8 X10*3/uL [facility] Red Blood Count 4.51 4.20 - 5.50 X10*6/uL [facility] Hemoglobin 12.3 12.0 - 16.0 g/dl [facility] Hematocrit 37.3 37.0 - 47.0 % [facility] Mean Corpuscular Volume 82.7 80.0 - 98.0 fL [facility] Mean Corpuscular Hemoglobin 27.3 27.0 - 33.0 pg [facility] Mean Corpuscular HGB Conc 33.0 31.0 - 35.0 g/dl [facility] Red Cell Distribution Width 12.8 11.0 - 16.0 % [facility] Platelet Count 396 160 - 400 X10*3/uL [facility] Mean Platelet Volume 9.6 9.4 - 12.3 fL [facility] Neutrophils Percent Auto 53.6 45 - 73 % [facility] Imm Gran Pct Auto 0.9(H) 0.0 - 0.4 % [facility] Lymphocytes Percent Auto 33.7 20 - 40 % [facility] Monocytes Percent Auto 8.2 2 - 11 % [facility] Eosinophils Percent Auto 2.0 0 - 4 % [facility] Basophils Percent Auto 1.6 0 - 2 % [facility] NRBC Pct Auto 0.0 0.0 - 0.2 /100WBC [facility] Neutrophils Absolute Auto 3.7 2.0 - 8.3 x10*3/uL [facility] Imm Gran Abs Auto 0.06(H) 0.00 - 0.03 X10*3/uL [facility] Lymphocytes Absolute Auto 2.3 1.2 - 4.9 X10*3/uL [facility] Monocytes Absolute Auto 0.6 0.1 - 1.2 X10*3/uL [facility] Eosinophils Absolute Auto 0.1 0.0 - 0.4 X10*3/uL [facility] Basophils Absolute Auto 0.1 0.0 - 0.2 X10*3/uL [facility] NRBC Abs Auto 0.000 0.0 - 0.012 X10*3/uL [facility] 12/12/2024 2:10 PM EDT 12/12/2024 2:10 PM EDT us Generic External Data Provider LAB BLOOD ORDERAB LES Final Result Performing Organization Address [facility]/State/[facility] Co de Phone Number [facility] [address] [place] [address] [phone] * BI Mammogram Screening Tomosynthesis Bilateral (04/19/2024 2:15 PM EDT) Anatomical Region Laterality Modality Breast Bilateral Mammography 04/19/2024 2:15 PM EDT Narrative 05/20/2024 11:50 PM EDT ? [facility] [place] ? [address] ?[place] [address] ? Mammography Report ? Signed ? Patient: StoneManuela A ?MR#: [id number] ?? [id number] ? : 1970 ?Acct:[id number] ? Age/Sex: 53 / F ?ADM Date: 08/02/24 ? Loc: HO.MAMMO ? Attending Dr: Fabio Schneider MD ? Ordering Physician: Fabio Jones MD ?Res ?? ults: 1Negative ? Date of Service: 04/19/24 ?Follow Up: 1 Year From Orig ?? inal Mammogram ? Procedure(s): MM tomosynthesis screening BI ?? Accession Number(s): [id number] ? cc: Fabio Jones MD ? EXAMINATION: [...] DD/ 1415 ? TD/TT: 04/19/24 1435 ? Health Education Coordinator: ? Procedure Note Donotuseinterpreter, Image - [facility]/20/2024 [facility] [address] [place] [address] Mammography Report Signed Patient: Manuela May AMR#: [id number] : 1970Acct:[id number] Age/Sex: 53 / FADM Date: 04/19/24 Loc: HO.MAMMO Attending Dr: Fabio Schneider MD Ordering Physician: Fabio Jones ults: 1Negative Date of Service: 04/19/24Follow Up: 1 Year From Orig inal Mammogram Procedure(s): MM tomosynthesis screening BI Accession Number(s): [id number] cc: Fabio Jones MD EXAMINATION: MM SCREENING [...] 05/20/24 2348 DD/ 1415 TD/TT: 04/19/24 1435 Health Education Coordinator: us Fabio Schneider MD IMG BI PROCEDURES Final Result * Hepatitis C Antibody with Reflex to HCV, RNA, Quantitative, Real-Time PCR (12/06/2023 8:43 AM EDT) Hepatitis C Antibody Nonreactive Nonreactive [facility] Comment:Antibodies to HCV no t detected; does not exclude early acuteHCV infection. Blood Venous blood specimen / Unknown 12/06/2023 8:43 AM EDT 12/06/2023 1:02 PM EDT us Fabio Schneider MD LAB BLOOD ORDERABL ES Final Result [facility] [address] [place] [phone] * (ABNORMAL) Lipid Panel, Standard (12/06/2023 8:43 AM EDT) Triglycerides 234(H) <150 mg/dL [facility] Comment:Desirable Triglyceri de: less than 150 mg/dLBorderline High Triglyceride 150-199 mg/dLHigh Triglyceride: 200-499 mg/dLVery High Triglyceride: greater than or equal to 5OO mg/dL Cholesterol 203(H) <200 mg/dL [facility] Comment:Desirable Cholestero l: less than 200 mg/dLBorderline High Cholesterol: 200-239 mg/dLHigh Cholesterol: greater than 239 mg/dL LDL Cholesterol Calculated 96 <100 mg/dL [facility] Comment:Desirable LDL: less than 100 mg/dLNear Optimal/Above Optimal LDL: 110- 129 mg/dLBorderline High LDL: 130-159 mg/dLHigh LDL: 160-189 mg/dLVery High LDL: greater than or equal to 190 mg/dL HDL Cholesterol 61 >40 mg/dL [facility] Comment:Desirable HDL: great er than 40 mg/dL Note: This HDL assay may give artificially low results in patients with liver disease. Blood Venous blood specimen / Unknown 12/06/2023 8:43 AM EDT 12/06/2023 12:57 PM EDT Fabio Schneider MD LAB BLOOD ORDERABL ES Final Result Performing Organization Address [facility]/ZIP Co de Phone Number [facility] [address] [place] [phone] * HPV mRNA E6/E7 w/Reflex to HPV Genotypes 16, 18/45 (10/17/2023 2:00 PM EST) HPV nRNA E6/E7 Not Detected Not Detected [facility] Comment:Methodology: Transcr iption-Mediated AmplificationThis assay detects E6/E7 viral messenger RNA (mRNA) from 14high-risk HPV types (16,18,31,33,35,39,45,51,52,56,58,59,66,68).Cervical sources are required for HPV testing.If a vaginal source from a patient who has had atotal hysterectomy with removal of cervix wassubmitted, please contact the testing laboratoryfor alternative testing options.For additional information, please refer [email or web address](This link if provided for information/educational purposes only.)THIS TEST WAS PERFORMED AT:[employer] [place] [id number] THAKUR MD HPV mRNA E6/E7 TNP [facility] HPV 16 RNA [facility] HPV 18/45 RNA [facility] 10/17/2023 2:00 PM EST 10/19/2023 9:50 AM EST Ciarra Martin CNM LAB CYTOLOGY ORDERABLES F inal Result Performing Organization Address [facility]/ZIP Co de Phone Number [facility] [address] [place] [phone] * Pap Smear (10/17/2023 2:00 PM EST) Swab Cervix uteri structure / Unknown 10/17/2023 2:00 PM EST 10/19/2023 9:50 AM EST Narrative [facility] - 11/01/2023 7:22 AM EST ----- ------- Name: Manuela May Sarah ?Age/Sex: 53/F ? : 1970 Unit#: [id number] ?? Attend Dr: ?Re10/17/23 ?Status: PRE REF ? Location: HO.LNP ?Disch: ? ----- ------- SPEC : [id number] ? RECD: 10/19/23-949 ? STATUS: ??SOUT ? REQ NUM: [id number] ? OCHOA: 10/17/23-1400 ? SUBM DR: CIARRA MARTIN CNM ? ENTERED: ??10/19/23-1131 ?SP TYPE: Pap Smr ?OTHR : ? ORDERED: ??Pap Smear ? Interpretation ?? [...] 66, 68) ?? HPV testing performed by [facility], [place], [place]. ??See reference laboratory ?? portion of the EMR for entire report. ?Clinical Information LMP: Postmenopausal Previous PAP test: Unknown date/findings ? Material Received ?? ThinPrep-Cervical ----- ------- Signed (signature on file) MIRIAM Singh (ASCP) 11/01/23721 ? ----- ------- ? END OF REPORT ? us Ciarra Martin [facility] CYTOLOGY ORDERABLES F inal Result [facility] [address] [place] [address] [phone] from Last 3 Months or Most Recently Relevant to Health Maintenance [place] [address] [address] STANDARD [employer] MEDICARE REPLACEMENT Care Teams Systems Software Developer Relationship Specialty Start Date End Date Fabio Jones MD [address] [place] [phone] PCP - General Internal Medicine 09/05/23
--- OUTSIDE RECORDS SUMMARY | 2025-01-02 12:27 | XMS_ITS | Encounter Summary ---
Author Organization [employer] Address [address] [facility] 7 [place] [address] Care Team Providers Care Coding Spec Name Role Phone Fabio Jones MD Primary Care Prov ider Reason for Visit * Reason Comments Med Refill Encounter Details Date Type Department Care Team (Late st Contact Info) Description 12/17/2024 Refill [facility] [address] [place] [address] Fabio Jones MD [address] [place] [address] Social History Tobacco Use Types Packs/Day Years [...] [facility] [address] [place] [address] Fabio Jones MD [address] [place] [address] documented as of this encounter Visit Diagnoses Not on filedocumented in this encounter Additional Health Concerns Assessment Noted Time PHQ-9 Depression Total Score: 0 08/02/20 24 10:30 AM EST documented as of this encounter Care Teams Coding Spec Relationship Specialty Start Date End Date Fabio Jones MD [address] [place] [address] PCP - General Internal Medicine 09/05/23 documented as of this encounter
--- OUTSIDE RECORDS SUMMARY | 2025-01-02 12:27 | XMS_ITS | Encounter Summary ---
Author Organization [employer] Address [address] [facility] 7t [place] [address] Care Team Providers Care Cycle Repairer Name Role Phone Fabio Jones MD Primary Care Prov ider Encounter Details Date Type Department Care Team (Late st Contact Info) Description 12/21/2023 Orders Only [facility]S [address] [place], [place] [phone] Fabio Jones MD [address] [place] [address] Social History Tobacco Use Types Packs/Day Years [...] Office Visit [facility] & PEDS [address] [place] [address] Fabio Jones MD [address] [place] [address] documented as of this encounter Visit Diagnoses Not on filedocumented in this encounter Additional Health Concerns Assessment Noted Time PHQ-9 Depression Total Score: 15 024 2:46 PM EST documented as of this encounter Care Teams Cycle Repairer Relationship Specialty Start Date End Date Fabio Jones MD [address] [place] [address] PCP - General Internal Medicine 09/05/23 documented as of this encounter
--- OUTSIDE RECORDS SUMMARY | 2025-01-02 12:28 | XMS_ITS | Encounter Summary ---
Author Organization [employer] Address [address] [facility] 7t [place] [address] Care Team Providers Care Packing And Shipping Clerk Name Role Phone Fabio Jones MD Primary Care Prov ider Encounter Details Date Type Department Care Team (Late st Contact Info) Description 12/11/2023 Orders Only [facility] & PEDS [address] [place], [place] [phone] Maco Galeano MD [address] [place], [place] [phone] Acquired hypothyroidism (Primary Dx); Fibromyalgia Social History [...] 1:30 PM EDT Office Visit [facility] [address] [place] [address] SierraFabio Arguelles MD [address] [place] [address] documented as of this encounter Procedures Procedure Name Priority Date/Time Associated Diagnosis Comments TSH W/REFLEX TO FT4 Routine 06/19/2024 9:58 AM EDT Acquired hypothyroidism documented in this encounter Results * (ABNORMAL) TSH W/Reflex to FT4 (06/19/2024 9:58 AM EDT) TSH reflex Free T4 9.10(H) 0.32 - 4.0 uIU/mL [facility] Blood Venous blood specimen / Unknown 06/19/2024 9:58 AM EDT 06/19/2024 2:37 PM EDT us Maco Galeano MD LAB BLOOD ORDERABLES Final Result [facility] [address] [place] [address] [phone] documented in this encounter Visit Diagnoses Diagnosis Acquired hypothyroidism- Primary Unspecified hypothyroidism Fibromyalgia Unspecified myalgia and myositis documented in this encounter Additional Health Concerns Assessment Noted Time PHQ-9 Depression Total Score: 15 024 2:46 PM EST documented as of this encounter Care Teams Packing And Shipping Clerk Relationship Specialty Start Date End Date Fabio Jones MD [address] [place] [phone] PCP - General Internal Medicine 09/05/23 documented as of this encounter
--- OUTSIDE RECORDS SUMMARY | 2025-01-02 12:28 | XMS_ITS | Encounter Summary ---
Author Organization [employer] Address [address] [facility] 7 [place] [address] Care Team Providers Care Ply Splicer Name Role Phone Fabio Jones MD Primary Care Prov ider Encounter Details Date Type Department Care Team (Latest Contact Info) Description 12/31/2024 Travel Social History Tobacco Use Types Packs/Day Years [...] Description 01/07/2025 1:30 PM EDT Office Visit [facility] MED & PEDS [address] [place] [address] Fabio Jones MD [address] [place] [address] documented as of this encounter Visit Diagnoses Not on filedocumented in this encounter Additional Health Concerns Assessment Noted Time PHQ-9 Depression Total Score: 0 08/02/20 24 10:30 AM EST documented as of this encounter Care Teams Ply Splicer Relationship Specialty Start Date End Date Fabio Jones MD [address] [place] [address] PCP - General Internal Medicine 09/05/23 documented as of this encounter
--- OUTSIDE RECORDS SUMMARY | 2025-01-02 12:28 | XMS_ITS | Clinical Summary ---
Author Organization Patient Business Ser [facility] Address [address] [place] [address] Care Team Providers Care Regional Driver Name Role Phone Fabio Jones Primary Care Provide r Surgical History Surgery Date Site/Laterality Comments TUBAL LIGATION PROCEDURE: HISTORICAL TUBAL LIGATION KNEE SURGERY PROCEDURE: HISTORICAL KNEE SURGERY; COMMENT: right COLONOSCOPY 2019 PROCEDURE: HISTORICAL COLONOSCOPY; COMMENT: polyps, rpt 5 yrs Medical History Medical History Date Comments CKD (chronic kidney disease) stage 3, GFR 30-59 ml/min (CMS/HCC V24, CMS/HCC V28) 08/04/2020 DX:CKD (chronic kidney disea se) stage 3, GFR 30-59 ml/min ([facility]) Hypothyroid 09/14/2020 DX:Hypothyroid Hyperlipidemia 09/14/2020 DX:Hyperlipidemi a [...] - 2023-2 5 season) 2024 01/27/2021, 12/30/2020 Depression Screening 10/17/2024 10/17/2023 Influenza Vaccine (Season Ended) 2025 10/07/2020, 06/21/2016, 07/10/2015 DTaP,Tdap,and Td Vaccines (2 - Td or [...] age to complete this topic Meningococcal B Vaccine Aged Out No l onger eligible based on patient's age to complete [...] RESULTING AGENCY - 11/07/2019 2:10 PM EST [id number] THINPREP PAP AMD CELL BLOCK: NEGATIVE FOR [...] Recently Relevant to Health Maintenance Care Teams Regional Driver Relationship Specialty Start Date End Date Fabio Jones [address] [place], [place] PCP - General 09/05/23
--- OUTSIDE RECORDS SUMMARY | 2025-01-02 12:28 | XMS_ITS | Encounter Summary ---
Author Organization [employer] Address [address] [facility] 7 [place] [address] Care Team Providers Care Flat Polisher Name Role Phone Fabio Jones MD Primary Care Prov ider Reason for Visit * Reason Onset Date Comments Med Refill 05/03/2024 Encounter Details Date Type Department Care Team ([facility] st Contact Info) Description 05/03/2024 Refill [facility]EDS [address] [place] [address] Fabio Jones MD [address] [place] [address] Social History Tobacco Use Types Packs/Day Years [...] Upcoming Encounters Date Type Department Care Team ([facility] st Contact Info) Description 01/07/2025 1:30 PM EDT Office Visit [facility] MED & PEDS [address] [place] [address] Fabio Jones MD [address] [place] [address] documented as of this encounter Visit Diagnoses Not on filedocumented in this encounter Additional Health Concerns Assessment Noted Time PHQ-9 Depression Total Score: 15 024 2:46 PM EST documented as of this encounter Care Teams Flat Polisher Relationship Specialty Start Date End Date Fabio Jones MD [address] [place] [address] PCP - General Internal Medicine 09/05/23 documented as of this encounter
--- OUTSIDE RECORDS SUMMARY | 2025-01-02 12:28 | XMS_ITS | Encounter Summary ---
Author Organization [employer] Address [address] [facility] 7t [place] [address] Care Team Providers Care Forensic Sergeant Name Role Phone Fabio Jones MD Primary Care Prov ider Encounter Details Date Type Department Care Team (Late st Contact Info) Description 03/27/2024 Orders Only [facility] MED [facility] PEDS [address] [place], [place] [phone] Fabio Jones MD [address] [place] [address] Social History Tobacco Use Types Packs/Day Years [...] Description 01/07/2025 1:30 PM EDT Office Visit [facility] [address] [place] [address] Fabio Jones MD [address] [place], [place] [phone] documented as of this encounter Procedures Procedure Name Priority Date/Time Associated Diagnosis Comments BI MAMMOGRAM SCREENING TOMOSYNTHESIS BILATERAL Routine 04/19/2024 2:15 PM EDT documented in this encounter Results * BI Mammogram Screening Tomosynthesis Bilateral (04/19/2024 2:15 PM EDT) Anatomical Region Laterality Modality Breast Bilateral Mammography 04/19/2024 2:15 PM EDT Narrative 05/20/2024 11:50 PM EDT ? [facility] [place] ? [address] ?[place] [address] ? Mammography Report ? Signed ? Patient: Stone,Manuela A ?MR#: [id number] ?? [id number] ? : 1970 ?Acct:[id number] ? Age/Sex: 53 / F ?ADM Date: 08/02/24 ? Loc: HO.MAMMO ? Attending Dr: Fabio Schneider MD ? Ordering Physician: Fabio Jones MD ?Res ?? ults: 1Negative ? Date of Service: 04/19/24 ?Follow Up: 1 Year From Orig ?? inal Mammogram ? Procedure(s): MM tomosynthesis screening BI ?? Accession Number(s): [id number] ? cc: Fabio Jones MD ? EXAMINATION: [...] DD/ 1415 ? TD/TT: 04/19/24 1435 ? Gas Appliance Servicer: ? Procedure Note Lindsay, Image - 05/20/2024 [facility] [address] [place] [address] Mammography Report Signed Patient: Manuela May AMR#: [id number] : 1970Acct:[id number] Age/Sex: 53 / FADM Date: 04/19/24 Loc: HO.MAMMO Attending Dr: Fabio Schneider MD Ordering Physician: Fabio Jones ults: 1Negative Date of Service: 04/19/24Follow Up: 1 Year From Orig inal Mammogram Procedure(s): MM tomosynthesis screening BI Accession Number(s): [id number] cc: Fabio Jones MD EXAMINATION: MM SCREENING [...] by Kelli Jacob MD in OV> 05/20/24 2498 DD/ 1415 TD/TT: 04/19/24 1435 Gas Appliance Servicer: us Fabio Schneider MD IMG BI PROCEDURES Final Result documented in this encounter Visit Diagnoses Not on filedocumented in this encounter Additional Health Concerns Assessment Noted Time PHQ-9 Depression Total Score: 15 024 2:46 PM EST documented as of this encounter Care Teams Forensic Sergeant Relationship Specialty Start Date End Date Fabio Jones MD [address] [place] [phone] PCP - General Internal Medicine 09/05/23 documented as of this encounter
== END 2025-01-02 11:06 | disposition home or self-care (01) ==
LOC: HO.HOS 10:25
PROVIDERS: PCP Internal Medicine; Visit Provider Physical Medicine & Rehabilitation
DX: R20.0 Anesthesia of skin (principal); Z98.1 Arthrodesis status; M54.12 Radiculopathy, cervical region; G56.22 Lesion of ulnar nerve, left upper limb
CPT/HCPCS: 99204

== ENCOUNTER → 2025-01-02 10:26 | Outpatient (BNV) | payer MEDICARE, MEDICAID, SELFPAY | PROVIDERS: Visit Provider Radiology Diagnostic Radiology | DX: M54.2 Cervicalgia (principal) | CPT/HCPCS: 72040 ==

== ENCOUNTER → 2025-01-15 07:51 | Outpatient (REF) | payer MEDICARE, MEDICAID, SELFPAY ==
--- NOTE | 2025-01-15 07:54 | CA_ITS ---
Transthoracic Echocardiogram Patient (Last, First, Middle): Manuela May A Gender: Female Date of : 1970 Age: 54 Procedure Date: 01/15/2025 Procedure Type: Transthoracic Echocardiogram Location: OP Height: 165.1 cm Weight: 122.47 kg BSA: 2.25 m2 Heart Rate: bpm BP: 112 / 82 mmHg Public Affairs Manager: TO Referring MD: Ezio Law MD Brush Worker: Rickey Han MD Symptoms: I50.9 - Heart failure, unspecified Study Quality: Technically Difficult/Contrast ECG Rhythm: Sinus Conclusions: - 1. Technically limited study despite use of contrast agent 2. Normal LV ejection fraction 60 65% with impaired relaxation filling pattern 3. Cardiac valvular Dopplers within normal limits 4. Normal measured RV systolic pressure Findings Procedure Information Contrast agent, definity, is being given per protocol without apparent complications. Left Ventricle Normal left ventricular size, thickness, and systolic function. The visually estimated ejection fraction is between 60-65%. Spectral Doppler is indicative of an impaired relaxation filling pattern. Right Ventricle The right ventricle was not well visualized. Atria The left atrium was not well visualized. Interatrial shunt cannot be excluded. The right atrium was not well visualized. Aortic Valve The aortic valve structure and function is likely normal. There is no aortic valve stenosis. There is no aortic valve regurgitation. Mitral Valve The mitral valve was not well visualized. There is no mitral valve regurgitation. There is no mitral valve stenosis. Pulmonic Valve The pulmonic valve was not well visualized. Tricuspid Valve The tricuspid valve was not well visualized. There is trace tricuspid valve regurgitation. The right ventricular systolic pressure is normal. The right ventricular systolic pressure is 19 mmHg. Normal right atrial pressure. Great Vessels The aorta was not well visualized. The pulmonary artery was not well visualized. There is no dilatation of the ascending aorta measuring 2.80 cm. Venous The inferior vena cava is normal in size. Pericardium/Pleural The pericardium was not well visualized. Prior Study Comparison No prior study available for comparison. Measurements 2D Linear Measurements IVSd: 0.84 0.6-0.9/0.6-1.0 cm LVIDd: 4.93 3.9-5.3/4.2-5.9 cm LVIDd Index: 2.19 2.4-3.2/2.2-3.1 cm/m2 LVIDs: 3.32 2.0-3.6 cm LVPWd: 0.79 0.7-1.1 cm LV Mass: 168.71 67-162/88-224 g LV Mass Index: 74.98 43-95/49-115 g/m2 LVOT Diam: 2.30 3.0+(-)1.3 cm 2D Systolic Function EF 4C: 58.70 >55% EF 2C: 64.90 >55% EF BiP: 63.00 >55% Mitral Valve MV Pk E: 0.47 MV PK A: 0.55 MV Decel Time: 147.00 E/A: 0.80 E'Lateral: 7.94 E'Medial: 6.31 E/E' Med: 7.40 E/E' Lat: 5.90 PHT: 43.00 MVA PHT: 5.12 Decel Brooks: 3.19 Aortic Valve AoV Pk Simón: 1.31 AoV Mn Simón: 0.94 AoV VTI: 0.27 AoV Pk Grad: 7.00 Aov Mn Grad: 4.00 MANFRED Cont.VTI: 2.91 LVOT LVOT Pk Simón: 0.97 LVOT Mn Simón: 0.64 LVOT VTI: 0.19 LVOT Pk Grad: 4.00 LVOT Mn Grad: 2.00 LVOT Diam: 2.30 LVOT Area: 4.15 Diastolic Function MV Pk E: 0.47 MV Pk A: 0.55 E/A: 0.80 E'Medial: 6.31 E/E' Med: 7.40 E' Laterial: 7.94 E/E' Lat: 5.90 Right Ventricle TAPSE (mm): 19.80 TVS' Simón: 10.90 Tricuspid Valve TR Pk Simón: 2.00 TR Pk Grad: 16.00 RA Press: 3.00 RVSP: 19.00 Great Vessels Aorta Sinus of Valsalva: 3.19 2.0-3.5 cm Ao Asc: 2.80 2.1-3.4 cm Updated in Other Vendor System with Status of Final Rickey Han MD electronically signed on 01/15/2025 5:21:52 PM with status of Final
--- OUTSIDE RECORDS SUMMARY | 2025-01-15 07:54 | XMS_ITS | Encounter Summary ---
Author Organization [employer] Address [address] [facility] [address] [place] [address] Care Team Providers Care Analytical Data Scientist Name Role Phone Fabio Jones MD Primary Care Prov ider Reason for Visit * Reason Comments Med Refill Encounter Details Date Type Department Care Team ([facility] st Contact Info) Description 12/12/[address] [facility] MED & PEDS [address] [place] [address] Fabio Jones MD [address] [place] [address] Social History Tobacco Use Types Packs/Day Years [...] Care Team (Late st Contact Info) Description 03/10/2025 10:30 AM EDT Telemedicine [facility] MED & PEDS [address] [place] [address] Fabio Jones MD [address] [place] [address] documented as of this encounter Visit Diagnoses Not on filedocumented in this encounter Additional Health Concerns Assessment Noted Time PHQ-9 Depression Total Score: 15 024 2:46 PM EST documented as of this encounter Care Teams Analytical Data Scientist Relationship Specialty Start Date End Date Fabio Jones MD [address] [place] [address] PCP - General Internal Medicine 09/05/23 documented as of this encounter
--- OUTSIDE RECORDS SUMMARY | 2025-01-15 07:54 | XMS_ITS | Encounter Summary ---
Author Organization [employer] Address [address] [place] [address] Care Team Providers Care Student Career Development Specialist Name Role Phone Fabio Jones MD Primary Care Prov ider Encounter Details Date Type Department Care Team (Late st Contact Info) Description 12/29/2023 Orders Only [facility] MED & PEDS [address] [place], [place] [phone] Fabio Jones MD [address] [place], [place] [phone] Chronic diastolic congestive heart failure (CMS/HCC) Social [...] Info) Description 03/10/2025 10:30 AM EDT Telemedicine [facility] MED & PEDS [address] [place] [address] Fabio Jones MD [address] [place] [address] documented as of this encounter Procedures Procedure [...] as of this encounter Care Teams Student Career Development Specialist Relationship Specialty Start Date End Date Fabio Jones MD [address] [place] [address] PCP - General Internal Medicine 09/05/23 documented as of this encounter
--- OUTSIDE RECORDS SUMMARY | 2025-01-15 07:54 | XMS_ITS | Encounter Summary ---
Author Organization [employer] Address [address] [place] [address] Care Team Providers Care Psychiatric Aide Instructor Name Role Phone Fabio Jones MD Primary Care Prov ider Encounter Details Date Type Department Care Team (Late st Contact Info) Description 12/11/2023 Orders Only [facility] CH[facility] MED & PEDS [address] [place], [place] [phone] Maco Galeano MD [address] [place], [place] [phone] Acquired hypothyroidism (Primary Dx); Fibromyalgia Social History [...] Info) Description 03/10/2025 10:30 AM EDT Telemedicine [facility] MED & PEDS [address] [place] [address] SierraFabio Arguelles MD [address] [place] [address] documented as of this encounter Procedures Procedure Name Priority Date/Time Associated Diagnosis Comments TSH W/REFLEX TO FT4 Routine 06/19/2024 9:58 AM EDT Acquired hypothyroidism documented in this encounter Results * (ABNORMAL) TSH W/Reflex to FT4 (06/19/2024 9:58 AM EDT) TSH reflex Free T4 9.10(H) 0.32 - 4.0 uIU/mL [facility] Blood Venous blood specimen / Unknown 06/19/2024 9:58 AM EDT 06/19/2024 2:37 PM EDT us Maco Galeano MD LAB BLOOD ORDERABLES Final Result [facility] [address] [place] [phone] documented in this encounter Visit Diagnoses Diagnosis Acquired hypothyroidism- Primary Unspecified hypothyroidism Fibromyalgia Unspecified myalgia and myositis documented in this encounter Additional Health Concerns Assessment Noted Time PHQ-9 Depression Total Score: 15 024 2:46 PM EST documented as of this encounter Care Teams Psychiatric Aide Instructor Relationship Specialty Start Date End Date Fabio Jones MD [address] [place] [id number] PCP - General Internal Medicine 09/05/23 documented as of this encounter
--- OUTSIDE RECORDS SUMMARY | 2025-01-15 07:54 | XMS_ITS | Encounter Summary ---
Author Organization [employer] Address [address] [facility] [address] [place] [address] Care Team Providers Care Salesperson Furs Name Role Phone Fabio Jones MD Primary Care Prov ider Reason for Visit * Reason Onset Date Comments Med Refill 05/03/2024 Encounter Details Date Type Department Care Team ([facility] st Contact Info) Description 05/03/2024 Refill [facility] MED & PEDS [address] [place] [address] Fabio Jones MD [address] [place] [address] Social History Tobacco Use Types Packs/Day Years [...] Upcoming Encounters Date Type Department Care Team ([facility] st Contact Info) Description 03/10/2025 10:30 AM EDT Telemedicine [facility] MED & PEDS [address] [place] [address] Fabio Jones MD [address] [place] [address] documented as of this encounter Visit Diagnoses Not on filedocumented in this encounter Additional Health Concerns Assessment Noted Time PHQ-9 Depression Total Score: 15 024 2:46 PM EST documented as of this encounter Care Teams Salesperson Furs Relationship Specialty Start Date End Date Fabio Jones MD [address] [place] [address] PCP - General Internal Medicine 09/05/23 documented as of this encounter
--- OUTSIDE RECORDS SUMMARY | 2025-01-15 07:54 | XMS_ITS | Encounter Summary ---
Author Organization [employer] Address [address] [facility] [address] [place] [address] Care Team Providers Care Fuels Sales Representative Name Role Phone Fabio Jones MD Primary Care Prov ider Reason for Visit * Reason Comments Med Refill Encounter Details Date Type Department Care Team ([facility] st Contact Info) Description 10/09/2024 Refill [facility] CH[facility] MED & PEDS [address] [place] [address] Fabio Jones MD [address] [place] [address] Social History Tobacco Use Types Packs/Day Years [...] Info) Description 03/10/2025 10:30 AM EDT Telemedicine [facility] MED [facility] PEDS [address] [place] [phone] Fabio Jones MD [address] [place] [address] documented as of this encounter Visit Diagnoses Not on filedocumented in this encounter Additional Health Concerns Assessment Noted Time PHQ-9 Depression Total Score: 0 08/02/20 24 10:30 AM EST documented as of this encounter Care Teams Fuels Sales Representative Relationship Specialty Start Date End Date Fabio Jones MD [address] [place] [address] PCP - General Internal Medicine 09/05/23 documented as of this encounter
--- OUTSIDE RECORDS SUMMARY | 2025-01-15 07:54 | XMS_ITS | Data Portability ---
Author Organization AAKASH Copeland fadi Manjarrez, zCLSD_SHMG_ENDO_THOMAS_MOBILE [facility] Address [address] [place] [address] Care Team Providers Care Prints And Drawings Curator Name Role Phone NUSRAT KYLIE Primary Care Provider [phone] Assessment No assessment recorded. Plan of Treatment Reminders Order Date Submit Date Provider Last Modified By Organization Details Last Modified Time Details Appointments None recorded. Lab lipid panel, serum 2022 023 [facility], [address], [place], [address], 3 08:22:30 CMP, serum or plasma 2022 023 [facility], [address], [place], [address], 3 08:22:27 CBC w/ auto diff 2022 023 [facility], [address], [place], [address], 3 08:22:23 HbA1c (hemoglobin A1c), blood 2022 023 [facility]A [facility], [address], [place], [address], 3 11:12:38 Hepatitis C IgG Ab, qual, serum 2022 023 [facility], [address], [place], [address], 3 08:22:33 unlisted lab - TSH reflex to t4f 2022 023 CARMITA [facility], [address], [place], [address], 3 11:12:42 Referral sleep medicine referral 2022 023 [email or web address] 6 [facility], [address], [place], [address], 4 09:56:19 Procedures None recorded. Surgeries None recorded. Imaging US, echocardiog miko, transthorac ic, complete, w/ color flow 2022 023 [email or web address] [facility]), [address], [place], [address], 3 15:25:02 Medication Orders cetirizine 10 mg tablet 2022 023 [id number], [address], [place], [id number], 3 10:25:40 baclofen 10 mg tablet 2022 023 [facility] #50206, [address], [place], [place], [id number], 3 10:25:40 omeprazole 20 mg capsule,del ayed release 2022 023 [facility] #08774, [address], [place], [place], [id number], 3 10:25:40 atorvastati n 10 mg tablet 2022 023 [facility]36, [address], [place], [id number], 10:25:41 furosemide 20 mg tablet 2022 023 [facility], [address], [place], [place], [id number], 10:25:42 Patient TargetsNo targets recorded. Patient Instructions Encounter Date Encounter Id Patient Instructions Last Modified By Organization Details Last Modified Time 01/25/2023 [id number] Assessment: 1. L eft cubital tunnel syndrome [...] injection. [email or web address] Not available 01/30/2023 08:54:38 02/06/2023 [id number] allergies: care instructions Not available 02/06/2023 10:25:21 [...] from them, contact the referral team at [phone]. Unless instructed otherwise, complete your labs 1 [...] advised to register for an account at: [email or web address] Contact your pharmacy for refills at least [...] clinic with any questions or concerns at [phone] . If you have a medical emergency, [...] x10e3 /uL 3.4-10 .8 Not Available [facility] ([facility]) [address] [place], [address], 02/15/2023 08:22:23 02/15/2002/15/2023 CBC WITH DIFFE RENTI AL/PL ATELE T RBC 4.67 x10e6 /uL 3.77-5 .28 Not Available [facility] ([facility]) [address] [place], [address], 02/15/2023 08:22:23 02/15/20 23 02/15/2023 CBC WITH DIFFE RENTI AL/PL ATELE T hemoglobin 12.9 g/dL 11.1-1 5.9 Not Available [facility] ([facility]) [address] [facility], [place], [address], 02/15/2023 08:22:23 02/15/20 23 02/15/2023 CBC WITH DIFFE RENTI AL/PL ATELE T hematocrit 40.5 % 34.0-4 6.6 Not Available [facility] ([facility]) [address] [facility], [place], [address], 02/15/2023 08:22:23 02/15/20 23 02/15/2023 CBC WITH DIFFE RENTI AL/PL ATELE T MCV 87 fL 79-97 Not Available [facility] ([facility]) [address] [facility], [place], [address], 02/15/2023 08:22:23 02/15/20 23 02/15/2023 CBC WITH DIFFE RENTI AL/PL ATELE T MCH 27.6 pg 26.6-3 3.0 Not Available [facility] ([facility]) [address] [place], [address], 02/15/2023 08:22:23 02/15/20 23 02/15/2023 CBC WITH DIFFE RENTI AL/PL ATELE T MCHC 31.9 g/dL 31.5-3 5.7 Not Available [facility] ([facility]) [address] [place], [address], 02/15/2023 08:22:23 02/15/20 23 02/15/2023 CBC WITH DIFFE RENTI AL/PL ATELE T RDW 13.6 % 11.7-1 5.4 Not Available [facility] ([facility]) [address] [place], [address], 02/15/2023 08:22:23 02/15/20 23 02/15/2023 CBC WITH DIFFE RENTI AL/PL ATELE T platelets 447 x10e3 /uL 150-45 0 Not Available [facility] ([facility]) [address] [facility], [place], [address], 02/15/2023 08:22:23 02/15/20 23 02/15/2023 CBC WITH DIFFE RENTI AL/PL ATELE T neutrophils 63 % not estab. Not Available [facility] ([facility]) [address] [facility], [place], [address], 02/15/2023 08:22:23 02/15/20 23 02/15/2023 CBC WITH DIFFE RENTI AL/PL ATELE T lymphs 25 % not estab. Not Available [facility] ([facility]) [address] [facility], [place], [address], 02/15/2023 08:22:23 02/15/20 23 02/15/2023 CBC WITH DIFFE RENTI AL/PL ATELE T monocytes 8 % not estab. Not Available [facility] ([facility]) [address] [facility], [place], [address], 02/15/2023 08:22:23 02/15/20 23 02/15/2023 CBC WITH DIFFE RENTI AL/PL ATELE T eos 2 % not estab. Not Available [facility] ([facility]) [address] [facility], [place], [address], 02/15/2023 08:22:23 02/15/20 23 02/15/2023 CBC WITH DIFFE RENTI AL/PL ATELE T basos 1 % not estab. 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 0 Not Available [facility] ([facility]) [address] [facility], [place], [address], 02/15/2023 08:22:23 02/15/20 23 02/15/2023 CBC WITH DIFFE RENTI AL/PL ATELE T lymphs (absolute) 1.8 x10e3 /uL 0.7-3. 1 Not Available [facility] ([facility]) [address] [facility], [place], [address], 02/15/2023 08:22:23 02/15/20 23 02/15/2023 CBC WITH DIFFE RENTI AL/PL ATELE T monocytes(ab solute) 0.6 x10e3 /uL 0.1-0. 9 Not Available [facility] ([facility]) [address] [place], [address], 02/15/2023 08:22:23 02/15/20 23 02/15/2023 CBC WITH DIFFE RENTI AL/PL ATELE T eos (absolute) 0.1 x10e3 /uL 0.0-0. 4 Not Available [facility] ([facility]) [address] [place], [address], 02/15/2023 08:22:23 02/15/20 23 02/15/2023 CBC WITH DIFFE RENTI AL/PL ATELE T baso (absolute) 0.1 x10e3 /uL 0.0-0. 2 Not Available [facility] ([facility]) [address] [place], [address], 02/15/2023 08:22:23 02/15/20 23 02/15/2023 CBC WITH DIFFE RENTI AL/PL ATELE T immature granulocytes 1 % not estab. Not Available [facility] ([facility]) [address] [facility], [place], [address], 02/15/2023 08:22:23 02/15/20 23 02/15/2023 CBC WITH DIFFE RENTI AL/PL ATELE T immature grans (abs) 0.1 x10e3 /uL 0.0-0. 1 Not Available [facility] ([facility]) [address] [facility], [place], [address], 02/15/2023 08:22:23 02/15/20 23 02/15/2023 CBC WITH DIFFE RENTI AL/PL ATELE T NRBC MACHINE STUFFER AUTOMATIC Not Available [facility] ([facility]) [address] [facility], [place], [address], 02/15/2023 08:22:23 02/15/20 23 02/15/2023 CBC WITH DIFFE RENTI AL/PL ATELE T hematology comments: MACHINE STUFFER AUTOMATIC Not Available [facility] ([facility]) [address] [facility], [place], [address], 02/15/2023 08:22:23 02/15/20 23 02/15/2023 COMP. METAB OLIC PANEL (14) glucose 102 mg/dL 70-99 above high normal Not Available [facility] ([facility]) [address] [facility], [place], [address], 02/15/2023 08:22:26 02/15/20 23 02/15/2023 COMP. METAB OLIC PANEL (14) BUN 12 mg/dL 6-24 Not Available [facility] ([facility]) [address] [facility] [place], [address], 02/15/2023 08:22:26 02/15/20 23 02/15/2023 COMP. METAB OLIC PANEL (14) creatinine 0.87 mg/dL 0.57-1 .00 Not Available [facility] ([facility]) [address], [place], [address], 02/15/2023 08:22:26 02/15/20 23 02/15/2023 COMP. METAB OLIC PANEL (14) eGFR 80 mL/mi n/1.7 3 >59 Not Available [facility] ([facility]) [address], [place], [address], 02/15/2023 08:22:26 02/15/20 23 02/15/2023 COMP. METAB OLIC PANEL (14) BUN/creatini ne ratio 14 9-23 Not Available [facility] ([facility]) [address], [place], [address], 02/15/2023 08:22:26 02/15/20 23 02/15/2023 COMP. METAB OLIC PANEL (14) sodium 138 mmol/ L 134-14 4 Not Available [facility] ([facility]) [address], [place], [address], 02/15/2023 08:22:26 02/15/20 23 02/15/2023 COMP. METAB OLIC PANEL (14) potassium 4.8 mmol/ L 3.5-5. 2 Not Available [facility] ([facility]) [address], [place], [address], 02/15/2023 08:22:26 02/15/20 23 02/15/2023 COMP. METAB OLIC PANEL (14) chloride 101 mmol/ L 96-106 Not Available [facility] ([place] [facility]) [address], [place], [address], 02/15/2023 08:22:26 02/15/20 23 02/15/2023 COMP. METAB OLIC PANEL (14) carbon dioxide, total 22 mmol/ L 20-29 Not Available [facility] ([place] [facility]) [address], [place], [address], 02/15/2023 08:22:26 02/15/20 23 02/15/2023 COMP. METAB OLIC PANEL (14) calcium 9.7 mg/dL 8.7-10 .2 Not Available [facility] ([facility]) [address], [place], [address], 02/15/2023 08:22:26 02/15/20 23 02/15/2023 COMP. METAB OLIC PANEL (14) protein, total 7.2 g/dL 6.0-8. 5 Not Available [facility] ([facility]) [address] [place], [address], 02/15/2023 08:22:26 02/15/20 23 02/15/2023 COMP. METAB OLIC PANEL (14) albumin 4.5 g/dL 3.8-4. 9 Not Available [facility] ([facility]) [address] [facility] [place], [address], 02/15/2023 08:22:26 02/15/20 23 02/15/2023 COMP. METAB OLIC PANEL (14) globulin, total 2.7 g/dL 1.5-4. 5 Not Available [facility] ([facility]) [address] [facility] [place], [address], 02/15/2023 08:22:26 02/15/20 23 02/15/2023 COMP. METAB OLIC PANEL (14) A/G ratio 1.7 1.2-2. 2 Not Available [facility] ([facility]) [address] [facility] [place], [address], 02/15/2023 08:22:26 02/15/20 23 02/15/2023 COMP. METAB OLIC PANEL (14) bilirubin, total <0.2 mg/dL 0.0-1. 2 Not Available [facility] ([facility]) [address] [facility] [place], [address], 02/15/2023 08:22:26 02/15/20 23 02/15/2023 COMP. METAB OLIC PANEL (14) alkaline phosphatase 113 IU/L 44-121 Not Available [facility] ([facility]) [address] [place], [address], 02/15/2023 08:22:26 02/15/20 23 02/15/2023 COMP. METAB OLIC PANEL (14) AST (SGOT) 30 IU/L 0-40 Not Available [facility] ([facility]) [address] [place], [address], 02/15/2023 08:22:26 02/15/20 23 02/15/2023 COMP. METAB OLIC PANEL (14) ALT (SGPT) 47 IU/L 0-32 above high normal Not Available [facility] ([facility]) [address] [place], [address], 02/15/2023 08:22:26 02/15/20 23 02/15/2023 LIPID PANEL cholesterol, total 259 mg/dL 100-19 9 above high normal Not Available [facility] ([facility]) [address] [place], [address], 02/15/2023 08:22:30 02/15/20 23 02/15/2023 LIPID PANEL triglyceride s 281 mg/dL 0-149 above high normal Not Available [facility] ([facility]) [address] [place], [address], 02/15/2023 08:22:30 02/15/20 23 02/15/2023 LIPID PANEL HDL cholesterol 64 mg/dL >39 Not Available [facility] ([facility]) [address] [place], [address], 02/15/2023 08:22:30 02/15/20 23 02/15/2023 LIPID PANEL VLDL cholesterol rosalee 51 mg/dL 5-40 above high normal Not Available [facility] ([facility]) [address] [place], [address], 02/15/2023 08:22:30 02/15/20 23 02/15/2023 LIPID PANEL LDL chol calc ([facility]) 144 mg/dL 0-99 above high normal Not Available [facility] ([facility]) [address] [facility], [place], [address], 02/15/2023 08:22:30 02/15/20 23 02/15/2023 LIPID PANEL 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 Not Available [facility] ([facility]) [address] [facility], [place], [address], 02/15/2023 08:22:33 02/15/20 23 02/15/2023 HEMOG LOBIN A1C hemoglobin A1C 6.0 % 4.8-5. 6 above high normal Predi abete s: 5.7 - 6.4 Diabe kashif: >6.4 Glyce belinda contr ol for adult s with diabe kashif: <7.0 Not Available [facility] ([facility]) [address] [facility], [place], [address], 02/15/2023 11:12:38 02/15/2002/15/2023 TSH REFLE X TO T4F TSH 1.880 uIU/m L 0.450- 4.500 Not Available [facility] ([facility]) [address] [facility], [place], [address], 02/15/2023 11:12:41 Result Notes None recorded. Problems Name Problem SNOMED Code Status Onset Date Resolution Date Notes Provider Name and Address Organization Details Recorded Time Pain of elbow region 63815560 Active 023 ongoing for a while Dary jackson [facility] 11:38:57 Problem Notes None recorded. Procedures Surgical History Date Name Laterality Status Provider Name and Address Organization Details Recorded Time Orthopedic Surgery completed Dary Barnett [facility] 01/25/2023 12:17:18 Imaging Results None recorded. Procedure [...] Updated DateTime 3 165.1 cm 41.3 kg/m2 536444. 91 g 84 /min 97.2 [degF] 97 % 97 % 2 121 mm[Hg] 81 mm[Hg] Dary Barnett [place] [facility] 3 11:35:30 Date Recorded Body height Body mass index (BMI) Body weight Heart rate Body temperature Oxygen saturation Oxygen saturation in Arterial blood by Pulse oximetry Pain severity - 0-10 verbal numeric rating [Score] - Reported Systolic blood pressure Diastolic blood pressure Provider Name and Address Organization Details Last Updated DateTime 3 165.1 cm 41.3 kg/m2 589608. 26 g 101 /min 97.1 [degF] 96 % 96 % 8 133 mm[Hg] 86 mm[Hg] Dominick Adams [place] [facility] 3 09:51:13 Social History Question Answer Notes [...] Or The Highest Degree You Have Received? [id number] [email or web address] Information not available 02/06/2023 Which Of Your Hands Is Dominant? Right [email or web address] Information not available 02/06/2023 Where Do You Live? Apartment [email or web address] Information not available 02/06/[address]23 Place Of [place] Informatio n not available 01/25/2023 Patients Living [...] Did You Ever Eat Less Than You [place] You Should Because There Wasn? t Enough [...] problem Medical History Condition Response hypothyroidism Y arthritis Y depression Y acid reflux/GERD Y neurologic disease Y heart attack ([place]) Y diabetes mellitus Y musculoskeletal disease Y fibromyalgia Y heart disease Y stroke Y high cholesterol Y back pain Y Gynecological HistoryNo gynecological history recorded. Obstetrics History GPAL:G 0 P 0 0 0 0 Immunizations Vaccine Type Date Status Note Provider Nam e and Address Organization Details Recorded Time zoster recombinant 12/06/2022 completed Dominick [place] [facility] 02/06/2023 09:52:30 Tdap 12/06/2022 completed Dominick Adams null[place] [facility] 02/06/2023 09:52:30 Influenza, split virus, quadrivalent, PF 08/30/2022 completed Dominick [place] null[place] [facility] 02/06/2023 09:52:30 Past Encounters Encounter ID Performer Location Encounter Start Date Encounter Closed Date Diagnosis/Indication Diagnosis SNOMED-CT Code Diagnosis ICD10 Code Diagnosis Note [id number] TOOTIE Ahumada [facility]_HAND_SU [facility] [address] [place] [address] 01/25/2023 11:22:05 01/25/2023 12:07:27 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 Needs updated labs. Hypothyroidism 44865713 E03.9 On Levothyrox ine 88mcg, tolerating well. Needs updated labs.-awai ting labs to determine refill dose Spinal tee nosis in cervical region 76787709 M48.02 Planned for surgery 02/15/23.-o btain records Bipolar disorder 7349892 4 F31.9 Stable on Oxcarbazep ine.-mark nue Oxcarbazep ine per Psychiatry Anxiety 17352866 F41.9 Stable on Duloxetine , Buspirone. -continue meds, f/u with Psychiatry Major depr essive disorder 955024640 F32.9 PHQ-9 score 12. No SI/HI. Stable on Duloxetine , Mirtazapin e.-continu e Duloxetine per Psychiatry Spasm 81803901 R25.2 Stable on PRN Baclofen. Congestive heart failure 26659702 I50.9 Reports history of CHF. No recent echo. On Furosemide , tolerating well. Not in acute HF. Allergic rhinitis 939225 04 J30.9 Controlled on Cetirizine in the past. Requesting refill. Gastroesop hageal reflux disease 042112469 K21.9 Stable. No unintentio nal weight loss. On PRN Omeprazole .-avoid trigger foods, large meals in one sitting, and eating close to bedtime-us e medication s as needed if preventati ve measures above do not control reflux Hepatitis C screening 41 1362069 Z11.59 Screening as below. Obstructiv e sleep apnea syndrome 13796932 G47.33 Possible. Reports snoring, unrefreshi ng sleep, and daytime somnolence . Health Concerns Section Related Observation LastModified by Organization Detai ls LastModified Time None Recorded Concern Status LastModified by Organization Details LastModified Time None Recorded Advance Directives Directive N: Payers Encounter Date Sequence Insurance Name Policy Number Policy Levine Covered Member ID Levine Member ID Guarantor Name 01/25/2023 2 [place] [employer] Manuela A Stone [id number] Manuela Stone 01/25/2023 1 [employer] (MEDICARE REPLACEMENT PPO) [id number] A Manuela A Stone [id number] Manuela Stone 02/06/2023 2 [place] [employer] Manuela A Stone [id number] Manuela Stone 02/06/2023 1 [employer] (MEDICARE REPLACEMENT PPO) [id number] A Manuela A Stone [id number] Manuela Stone Notes Date Note Type Note Provider Name and Address Organization Details Recorded Time 01/25/2023 text/html Ms. May is a 52-year-old female, levun-[id number], on disability, who presents to the Hand [...] and discussed. TOOTIE Ahumada [address] [facility], [place], [address], [facility] 01/30/2023 08:54:45 02/06/2023 text/html 52 [...] Kylie Mccormack MD [address], [place], [address], [facility] 02/06/2023 12:59:31 OBGyn Episode No OBEpisode recorded.
--- OUTSIDE RECORDS SUMMARY | 2025-01-15 07:54 | XMS_ITS | Encounter Summary ---
Author Organization [employer] Address [address] [facility] [address] [place] [address] Care Team Providers Care [employer] Planner Name Role Phone Fabio Jones MD Primary Care Prov ider Reason for Visit * Reason Onset Date Comments Results 12/11/2023 Encounter Details Date Type Department Care Team ([facility] Contact Info) Description 12/11/2023 Telephone [facility] [address] [place] [address] Fabio Jones MD [address] [place] [address] Results Social History Tobacco Use Types Packs/Day [...] results: labs Date when done: 12/05 Facility: [facility] Please contact pt at [phone] documented in this encounter Plan of Treatment Upcoming Encounters Date Type Department Care Team (Late st Contact Info) Description 03/10/2025 10:30 AM EDT Telemedicine [facility] [address] [place] [address] Fabio Jones MD [address] [place] [address] documented as of this encounter Visit Diagnoses Not on filedocumented in this encounter Additional Health Concerns Assessment Noted Time PHQ-9 Depression Total Score: 15 024 2:46 PM EST documented as of this encounter Care Teams [employer] Planner Relationship Specialty Start Date End Date Fabio Jones MD [address] [place] [address] PCP - General Internal Medicine 09/05/23 documented as of this encounter
--- OUTSIDE RECORDS SUMMARY | 2025-01-15 07:54 | XMS_ITS | Encounter Summary ---
Author Organization [employer] Address [address] [facility] [address] [place] [address] Care Team Providers Care Store Team Member Name Role Phone Fabio Jones MD Primary Care Prov ider Encounter Details Date Type Department Care Team (Late st Contact Info) Description 06/19/2024 Orders Only [facility] [address] [place], [place] [phone] Maco Galeaon MD [address] [place], [place] [phone] Social History Tobacco Use Types Packs/Day Years [...] Encounters Date Type Department Care Team ([facility] st Contact Info) Description 03/10/2025 10:30 AM EDT Telemedicine [facility] [address] [place], [place] [phone] SierraFabio Arguelles MD [address] [place], [place] [phone] documented as of this encounter Procedures Procedure Name Priority Date/Time Associated Diagnosis Comments T4, FREE Routine 06/19/2024 9:58 AM EDT documented in this encounter Results * (ABNORMAL) T4, Free (06/19/2024 9:58 AM EDT) Free T4 (Free Thyroxine) 0.69(L) 0.71 - 1.85 ng/dL [facility] 06/19/2024 9:58 AM EDT 06/19/2024 2:37 PM EDT us Maco Galeano MD LAB BLOOD ORDERABLES Final Result [facility] [address] [place] [address] [phone] documented in this encounter Visit Diagnoses Not on filedocumented in this encounter Additional Health Concerns Assessment Noted Time PHQ-9 Depression Total Score: 15 024 2:46 PM EST documented as of this encounter Care Teams Store Team Member Relationship Specialty Start Date End Date SierraFabio Arguelles MD [address] [place] [address] PCP - General Internal Medicine 09/05/23 documented as of this encounter
--- OUTSIDE RECORDS SUMMARY | 2025-01-15 07:54 | XMS_ITS | Encounter Summary ---
Author Organization [employer] Address [address] [facility] 7 [place] [address] Care Team Providers Care Vulcanizer Rubber Plate Name Role Phone Fabio Jones MD Primary Care Prov ider Reason for Visit * Reason Onset Date Comments Med Refill 12/11/2023 Encounter Details Date Type Department Care Team ([facility] Contact Info) Description 12/11/2023 Telephone [facility] MED & PEDS [address] [place] [address] Fabio Jones MD [address] [place] [address] Med Refill Social History Tobacco Use Types [...] 300 MG tablet To be sent to: [id number] [place], [place] - [facility] [place] [facility] documented in this encounter Plan of Treatment Upcoming Encounters Date Type Department Care Team (Late st Contact Info) Description 03/10/2025 10:30 AM EDT Telemedicine [facility] MED & PEDS [address] [place] [address] Fabio Jones MD [address] [place] [address] documented as of this encounter Visit Diagnoses Not on filedocumented in this encounter Additional Health Concerns Assessment Noted Time PHQ-9 Depression Total Score: 15 024 2:46 PM EST documented as of this encounter Care Teams Vulcanizer Rubber Plate Relationship Specialty Start Date End Date Fabio Jones MD [address] [place] [address] PCP - General Internal Medicine 09/05/23 documented as of this encounter
--- OUTSIDE RECORDS SUMMARY | 2025-01-15 07:54 | XMS_ITS | Encounter Summary ---
Author Organization [employer] Address [address] [facility] 7t [place] [address] Care Team Providers Care Receivable Executive Name Role Phone Fabio Jones MD Primary Care Prov ider Encounter Details Date Type Department Care Team (Late st Contact Info) Description 07/05/2024 Orders Only [facility] MED & PEDS [address] [place], [place] [phone] Maco Galeano MD [address] [place], [place] [phone] Acquired hypothyroidism (Primary Dx) Social History Tobacco [...] Info) Description 03/10/2025 10:30 AM EDT Telemedicine [facility] MED & PEDS [address] [place] [address] Fabio Jones MD [address] [place] [address] documented as of this encounter Visit Diagnoses Diagnosis Acquired hypothyroidism- Primary Unspecified hypothyroidism documented in this encounter Additional Health Concerns Assessment Noted Time PHQ-9 Depression Total Score: 15 024 2:46 PM EST documented as of this encounter Care Teams Receivable Executive Relationship Specialty Start Date End Date Fabio Jones MD [address] [place] [address] PCP - General Internal Medicine 09/05/23 documented as of this encounter
--- OUTSIDE RECORDS SUMMARY | 2025-01-15 07:54 | XMS_ITS | Encounter Summary ---
Author Organization [employer] Address [address] [facility] 7t [place] [address] Care Team Providers Care Dermatopathologist Name Role Phone Fabio Jones MD Primary Care Prov ider Encounter Details Date Type Department Care Team (Late st Contact Info) Description 03/27/2024 Orders Only [facility] MED & PEDS [address] [place], [place] [phone] Fabio Jones MD [address] [place] [address] Social History Tobacco Use Types Packs/Day Years [...] Upcoming Encounters Date Type Department Care Team ([facility] st Contact Info) Description 03/10/2025 10:30 AM EDT Telemedicine [facility] MED & PEDS [address] [place] [address] SierraFabio Arguelles MD [address] [place], [place] [phone] documented as of this encounter Procedures Procedure Name Priority Date/Time Associated Diagnosis Comments BI MAMMOGRAM SCREENING TOMOSYNTHESIS BILATERAL Routine 04/19/2024 2:15 PM EDT documented in this encounter Results * BI Mammogram Screening Tomosynthesis Bilateral (04/19/2024 2:15 PM EDT) Anatomical Region Laterality Modality Breast Bilateral Mammography 04/19/2024 2:15 PM EDT Narrative 05/20/2024 11:50 PM EDT ? [facility] [place] ? [address] ?[place] [address] ? Mammography Report ? Signed ? Patient: Stone,Manuela A ?MR#: [id number] ?? [id number] ? : 1970 ?Acct:[id number] ? Age/Sex: 53 / F ?ADM Date: 08/02/24 ? Loc: HO.MAMMO ? Attending Dr: Fabio Schneider MD ? Ordering Physician: Fabio Jones MD ?Res ?? ults: 1Negative ? Date of Service: 04/19/24 ?Follow Up: 1 Year From Orig ?? inal Mammogram ? Procedure(s): MM tomosynthesis screening BI ?? Accession Number(s): [id number] ? cc: Fabio Jones MD ? EXAMINATION: [...] DD/ 1415 ? TD/TT: 04/19/24 1435 ? Machine Packager: ? Procedure Note [place], Image - 05/20/2024 [facility] [address] [place] [address] Mammography Report Signed Patient: Manuela May AMR#: [id number] : 1970Acct:[id number] Age/Sex: 53 / FADM Date: 04/19/24 Loc: HO.MAMMO Attending Dr: Fabio Schneider MD Ordering Physician: Fabio Jones ults: 1Negative Date of Service: 04/19/24Follow Up: 1 Year From Orig inal Mammogram Procedure(s): MM tomosynthesis screening BI Accession Number(s): [id number] cc: Faboi Jones MD EXAMINATION: MM SCREENING DIGITAL BREAST [...] by Kelli Jacob MD in OV> 05/20/24 9118 DD/ 1415 TD/TT: 04/19/24 1435 Machine Packager: Fabio Schneider MD IMG BI PROCEDURES Final Result documented in this encounter Visit Diagnoses Not on filedocumented in this encounter Additional Health Concerns Assessment Noted Time PHQ-9 Depression Total Score: 15 024 2:46 PM EST documented as of this encounter Care Teams Dermatopathologist Relationship Specialty Start Date End Date Fabio Jones MD [address] [place] [phone] PCP - General Internal Medicine 09/05/23 documented as of this encounter
--- OUTSIDE RECORDS SUMMARY | 2025-01-15 07:54 | XMS_ITS | Clinical Summary ---
Author Organization Patient Business Ser [facility] [place] Address [address] [place] [address] Care Team Providers Care Preprint Analyst Name Role Phone Fabio Jones Primary Care [...] disea se) stage 3, GFR 30-59 ml/min ([facility]) Hypothyroid 09/14/2020 DX:Hypothyroid Hyperlipidemia 09/14/2020 DX:Hyperlipidemi a [...] RESULTING AGENCY - 11/07/2019 2:10 PM EST [id number] THINPREP PAP AMD CELL BLOCK: NEGATIVE FOR [...] Recently Relevant to Health Maintenance Care Teams Preprint Analyst Relationship Specialty Start Date End Date Fabio Jones [address] [place], [place] PCP - General 09/05/23
--- OUTSIDE RECORDS SUMMARY | 2025-01-15 07:54 | XMS_ITS | Clinical Summary ---
Author Organization [employer] Address [address] [facility] 7t [place] [address] Care Team Providers Care Manager Of Photography Name Role Phone Fabio Jones MD Primary [...] MG) BY MOUTH AT BEDTIME 30 tablet Active varenicline (Chantix) 1 MG tabletIndications :Smoker Take 1 tablet (1 mg) by mouth 2 times daily. Take with full glass of water. 120 tablet Active levothyroxine (Synthroid) 112 MCG tabletIndications :Acquired [...] TWICE DAILY 60 tablet 1 025 Active pregabalin (Lyrica) 50 MG capsuleIndication s:Neuropathic pain Take 1 capsule (50 mg) by mouth 2 times daily. 60 capsule 3 025 2024 Active baclofen (Lioresal) 10 MG tablet TAKE [...] low back pain with right-sided sciatica 10/22/2024 Assessment & Plan (01/07/2025 7:22 PM EDT): Mild improvement with current therapy, will add pregabalin, risk vs benefits discussed, follow up in 2 months Moderate persistent asthma without complication 06/10/2024 Assessment [...] Patient refers used to be followed at [facility] cardiology, will place referal Fibromyalgia 09/04/2023 Assessment [...] 12:39 PM EDT): Patient had surgery on [place] back on February 2023, needs follow up, [...] Encounters Date Type Department Care Team Description 01/07/2025 1:30 PM EDT Office Visit [facility] MED & PEDS [address] [place] [address] Fabio Jones MD Neuropathic pain (Primary Dx); Chronic bilateral low back pain with right-sided sciatica 01/07/2025 Travel 12/31/2024 Travel 12/17/2024 Refill [facility] [address] [place] [address] Fabio Jones MD 12/17/2024 Refill [facility] [address] [place] [address] Fabio Jones MD 12/12/2024 Orders Only GENERIC EXTERNAL DATA DEPARTMENT Provider, Generic External Data 10/22/2024 1:30 PM EST Office Visit [facility] [address] [place] [address] Fabio Jones MD Bipolar disease, chronic (CMS/HCC) [...] Moderate persistent asthma without complication 10/22/2024 Telephone [facility] [address] [place] [address] Fabio Jones MD Orthopedic APPT 10/22/2024 Travel from Last 3 Months Immunizations Name [...] housing situation today? I have sabino castillo 01/07/[address] you li ve. Do you have problems with any of the following? None of the above 01/07/2025 Food Insecurity Answer Date Recorded Within the past 12 months, y ou worried that your food would run out before you got money to buy more: Never True 01/07/2025 Within the past 12 months,th e food you bought just didn't last and you didn't have enough money to get more: Never True Transportation Answer Date Recorded In the past 12 months, has l ack of transportation kept you from medical appts, meetings, work or from getting things needed for daily living? No 01/07/2025 Utilities Answer Date Recorded In the past 12 months, has t he electric, gas, oil or water company threatened to shut off services in your home? No 01/07/2025 Depression Answer Date Recorded Patient Health Questionnaire-2 Score 0 08/02/2024 Internet Access Answer Date Recorded Internet Access Q1 Yes 01/07/2025 Internet Access Q2 Not on file 01/07/2025 Comments No Sex and Gender Information Value Date Recorded Sex Assigned at Female 07/20/2023 2:54 PM EDT Legal Sex Female 2:52 PM EDT Gender Identity Female 07/20/2023 2:54 PM EDT Sexual Orientation Don't know 11/14/2023 1: 36 PM EST Sexual Orientation Straight 11/14/2023 1: 36 PM EST Last Filed Vital Signs Vital Sign Reading Time Taken Comments Blood Pressure 140/73 01/07/2025 1:31 PM EDT Pulse 84 01/07/2025 1:31 PM EDT Temperature 36.8 ??C (98.3 ??F) 01/07/2025 1:31 PM ED T Respiratory Rate 20 01/07/2025 1:31 PM EDT Oxygen Saturation 97% 01/07/2025 1:31 PM EDT Inhaled Oxygen Concentration - - Weight 126 kg (278 lb 9.6 oz) 01/07/2025 1:31 PM EDT Height 165.1 cm (5' 5 ) 01/07/2025 1:31 PM EDT Body Mass Index 46.36 01/07/2025 1:31 PM EDT Plan of Treatment Upcoming Encounters Date Type Department Care Team ([facility] st Contact Info) Description 03/10/2025 10:[address] [facility] CH[facility] MED & PEDS [address] [place] [address] SierraFabio Arguelles MD [address] [place] [address] Health Maintenance Due Date Last Done Comments CT Colonography 1970 Colonoscopy 1970 Colorectal Cancer Screening 1970 FIT DNA/Cologuard 1970 FIT 1970 FOBT 1970 Sigmoidoscopy 1970 Hepatitis B Vaccines (1 of 3 - 19+ 3-dose series) 1989 Zoster Vaccines (1 of 2) 2020 COVID-19 Vaccine (2023- season) 2024 01/27/2021, 12/30/2020 Tobacco Screening 10/17/2024 10/17/2023 Depression Screening 08/02/2025 08/02/2024, 08/02/20 24 Alcohol/Substance Use Screening 01/07/2026 01/07/2025 SDOH Screening 01/07/2026 01/07/2025 Mammogram 04/19/2026 04/19/2024 Cervical Cancer Screening 10/17/2028 [...] 2:10 PM EDT) Immunoglobulin E TNP kU/L [facility] Comment:TEST NOT PERFORMED.Q uantity not sufficient. Mouse Urine Proteins (E72) IgE <0.10 kU/L [facility] Class 0 [facility] Cockroach (I6) IgE <0.10 kU/L [facility] Class 0 [facility] Dermatophagoides farinae (D2) IgE <0.10 kU/L [facility] Class 0 [facility] Cat Dander (E1) IgE <0.10 kU/L [facility] Class 0 [facility] Comment:THIS TEST WAS PERFOR MED AT:[facility] [address] [phone] THAKUR MD Dog Dander (E5) IgE <0.10 kU/L [facility] Class 0 [facility] Comment:THIS TEST WAS PERFOR MED AT:[facility] [id number] [place] [id number] THAKUR MD Raul Grass (G6) IgE <0.10 kU/L [facility] Class 0 [facility] Cladosporium herbarum (M2) IgE <0.10 kU/L [facility] Class 0 [facility] Aspergillus Fumigatis (M3) IgE <0.10 kU/L [facility] Class 0 [facility] Alternaria alternata (M6) IgE <0.10 kU/L [facility] Class 0 [facility] Comment:THIS TEST WAS PERFOR MED AT:[facility] [id number] [place] [id number] THAKUR MD Capulin Guthrie (t6) IgE <0.10 kU/L [facility] Class 0 [facility] Marbury (T7) IgE <0.10 kU/L [facility] Class 0 [facility] Pine [place] Tree (T10) IgE <0.10 kU/L [facility] Class 0 [facility] Hobbs (T11) IgE <0.10 kU/L [facility] Class 0 [facility] Winston (T14) IgE TNP kU/L [facility] Comment:TEST(S) NOT PERFORME D: [place] (T14) IGE CLASS WHITE ALAN (T15) IGE CLASSTEST NOT PERFORMED.Quantity not sufficient. Class TNP [facility] White Alan (t15) IgE TNP [facility] Class TNP [facility] White [place] (T70) IgE TNP kU/L [facility] Comment:TEST NOT PERFORMED.Q uantity not sufficient. Class TNP [facility] Common Ragweed (Short) (W1) IgE TNP kU/L [facility] Comment:TEST NOT PERFORMED.Q uantity not sufficient. Class TNP [facility] Mugwort (w6) IgE TNP kU/L [facility] Comment:TEST NOT PERFORMED.Q uantity not sufficient. Class TNP [facility] Dermatophagoides pteronyssinus (D1) IgE <0.10 kU/L [facility] Class 0 [facility] Bermuda Grass (g2) IgE <0.10 kU/L [facility] Class 0 [facility] Penicillium Notatum (M1) IgE <0.10 kU/L [facility] Class 0 [facility] Birch (T3) IgE <0.10 kU/L [facility] Class 0 [facility] Elm (t8) IgE <0.10 kU/L [facility] Class 0 [facility] Maple ([place]) (T1) IgE <0.10 kU/L [facility] Class 0 [facility] Rough Pigweed (W14) IgE TNP [facility] Class TNP [facility] Sheep [place] (W18) IgE TNP [facility] Class TNP [facility] Allergen Comment See Below [facility] Comment: Specific ?Level of AllergenIGE [...] and its analyticalperformance characteristics have been determined by[facility]. It has not been cleared or approvedby the U.S. Food and Drug Administration. This assayhas been validated pursuant to the CLIA regulationsand is used for clinical purposes.THIS TEST WAS PERFORMED AT:[facility] [place] [address] [phone] THAKUR MD 12/12/2024 2:10 PM EDT 12/12/2024 2:10 PM EDT us Generic External Data Provider LAB BLOOD ORDERAB LES Final Result [facility] [address] [place] [phone] * (ABNORMAL) CBC auto differential (12/12/2024 2:10 PM EDT) White Blood Count 6.9 4.8 - 10.8 X10*3/uL [facility] Red Blood Count 4.51 4.20 - 5.50 X10*6/uL [facility] Hemoglobin 12.3 12.0 - 16.0 g/dl [facility] Hematocrit 37.3 37.0 - 47.0 % [facility] Mean Corpuscular Volume 82.7 80.0 - 98.0 fL [facility] Mean Corpuscular Hemoglobin 27.3 27.0 - 33.0 pg [facility] Mean Corpuscular HGB Conc 33.0 31.0 - 35.0 g/dl [facility] Red Cell Distribution Width 12.8 11.0 - 16.0 % [facility] Platelet Count 396 160 - 400 X10*3/uL [facility] Mean Platelet Volume 9.6 9.4 - 12.3 fL [facility] Neutrophils Percent Auto 53.6 45 - 73 % [facility] Imm Gran Pct Auto 0.9(H) 0.0 - 0.4 % [facility] Lymphocytes Percent Auto 33.7 20 - 40 % [facility] Monocytes Percent Auto 8.2 2 - 11 % [facility] Eosinophils Percent Auto 2.0 0 - 4 % [facility] Basophils Percent Auto 1.6 0 - 2 % [facility] NRBC Pct Auto 0.0 0.0 - 0.2 /100WBC [facility] Neutrophils Absolute Auto 3.7 2.0 - 8.3 x10*3/uL [facility] Imm Gran Abs Auto 0.06(H) 0.00 - 0.03 X10*3/uL [facility] Lymphocytes Absolute Auto 2.3 1.2 - 4.9 X10*3/uL [facility] Monocytes Absolute Auto 0.6 0.1 - 1.2 X10*3/uL [facility] Eosinophils Absolute Auto 0.1 0.0 - 0.4 X10*3/uL [facility] Basophils Absolute Auto 0.1 0.0 - 0.2 X10*3/uL [facility] NRBC Abs Auto 0.000 0.0 - 0.012 X10*3/uL [facility] 12/12/2024 2:10 PM EDT 12/12/2024 2:10 PM EDT us Generic External Data Provider LAB BLOOD ORDERAB LES Final Result Performing Organization Address [facility] Co de Phone Number [facility] [address] [place] [phone] * BI Mammogram Screening Tomosynthesis Bilateral (04/19/2024 2:15 PM EDT) Anatomical Region Laterality Modality Breast Bilateral Mammography 04/19/2024 2:15 PM EDT Narrative 05/20/2024 11:50 PM EDT ? [facility] [place] ? [address] ?[place] [address] ? Mammography Report ? Signed ? Patient: Stone,Manuela A ?MR#: [id number] ?? [id number] ? : 1970 ?Acct:[id number] ? Age/Sex: 53 / F ?ADM Date: 04/19/24 ? Loc: HO.MAMMO ? Attending Dr: Fabio Schneider MD ? Ordering Physician: Fabio Jones MD ?Res ?? ults: 1Negative ? Date of Service: 04/19/24 ?Follow Up: 1 Year From Orig ?? inal Mammogram ? Procedure(s): MM tomosynthesis screening BI ?? Accession Number(s): [id number] ? cc: Fabio Jones MD ? EXAMINATION: [...] DD/ 1415 ? TD/TT: 04/19/24 1435 ? Shop Mechanic: ? Procedure Note Donkaleighinterpreter, Image - 05/20/2024 [facility] [address] [place], [place] [address] Mammography Report Signed Patient: Manuela May AMR#: [id number] : 1970Acct:[id number] Age/Sex: 53 / FADM Date: 04/19/24 Loc: HO.MAMMO Attending Dr: Fabio Schneider MD Ordering Physician: Fabio Jones ults: 1Negative Date of Service: 04/19/24Follow Up: 1 Year From Orig inal Mammogram Procedure(s): MM tomosynthesis screening BI Accession Number(s): [id number] cc: Fabio Jones MD EXAMINATION: MM SCREENING [...] by Kelli Jacob MD in OV> 05/20/24 2668 DD/ 1415 TD/TT: 04/19/24 1435 Shop Mechanic: us Fabio Schneider MD IMG BI PROCEDURES Final Result * Hepatitis C Antibody with Reflex to HCV, RNA, Quantitative, Real-Time PCR (12/06/2023 8:43 AM EDT) Pathologist [facility] Hepatitis C Antibody Nonreactive Nonreactive [facility] Comment:Antibodies to HCV no t detected; does not exclude early acuteHCV infection. Blood Venous blood specimen / Unknown 12/06/2023 8:43 AM EDT 12/06/2023 1:02 PM EDT us Fabio Schneider MD LAB BLOOD ORDERABL ES Final Result [facility] [address] [place] [phone] * (ABNORMAL) Lipid Panel, Standard (12/06/2023 8:43 AM EDT) Triglycerides 234(H) <150 mg/dL [facility] Comment:Desirable Triglyceri de: less than 150 mg/dLBorderline High Triglyceride 150-199 mg/dLHigh Triglyceride: 200-499 mg/dLVery High Triglyceride: greater than or equal to 5OO mg/dL Cholesterol 203(H) <200 mg/dL [facility] Comment:Desirable Cholestero l: less than 200 mg/dLBorderline High Cholesterol: 200-239 mg/dLHigh Cholesterol: greater than 239 mg/dL LDL Cholesterol Calculated 96 <100 mg/dL [facility] Comment:Desirable LDL: less than 100 mg/dLNear Optimal/Above Optimal LDL: 110- 129 mg/dLBorderline High LDL: 130-159 mg/dLHigh LDL: 160-189 mg/dLVery High LDL: greater than or equal to 190 mg/dL HDL Cholesterol 61 >40 mg/dL [facility] Comment:Desirable HDL: great er than 40 mg/dL Note: This HDL assay may give artificially low results in patients with liver disease. Blood Venous blood specimen / Unknown 12/06/2023 8:43 AM EDT 12/06/2023 12:57 PM EDT Fabio Schneider MD LAB BLOOD ORDERABL ES Final Result [facility] [address] [place] [phone] * HPV mRNA E6/E7 w/Reflex to HPV Genotypes 16, 18/45 (10/17/2023 2:00 PM EST) HPV nRNA E6/E7 Not Detected Not Detected [facility] Comment:Methodology: Transcr iption-Mediated AmplificationThis assay detects E6/E7 viral messenger RNA (mRNA) from 14high-risk HPV types (16,18,31,33,35,39,45,51,52,56,58,59,66,68).Cervical sources are required for HPV testing.If a vaginal source from a patient who has had atotal hysterectomy with removal of cervix wassubmitted, please contact the testing laboratoryfor alternative testing options.For additional information, please refer tohttp://education.Business Exchange/faq/TOM481i3(This link if provided for information/educational purposes only.)THIS TEST WAS PERFORMED AT:[facility] [place] [phone] THAKUR MD HPV mRNA E6/E7 TNP [facility] HPV 16 RNA [facility] HPV 18/45 RNA [facility] 10/17/2023 2:00 PM EST 10/19/2023 9:50 AM EST us John Johnsonferny [facility] CYTOLOGY ORDERABLES F inal Result [facility] [address] [place] [phone] * Pap Smear (10/17/2023 2:00 PM EST) Swab Cervix uteri structure / Unknown 10/17/2023 2:00 PM EST 10/19/2023 9:50 AM EST Narrative [facility] - 11/01/2023 7:22 AM EST ----- ------- Name: Manuela May ?Age/Sex: 53/F ? : 1970 Unit#: [id number] ?? Attend Dr: ?Re10/17/23 ?Status: PRE REF ? Location: HO.LNP ?Disch: ? ----- ------- SPEC : [id number] ? RECD: 10/19/23 ? STATUS: ??SOUT ? REQ NUM: [id number] ? OCHOA: 10/17/23-1400 ? SUBM DR: JOHN MARTIN CNEscobar ? ENTERED: ??10/19/23 ?SP TYPE: Pap Smr [...] 66, 68) ?? HPV testing performed by [facility], [place], [place]. ??See reference laboratory ?? portion of the EMR for entire report. ?Clinical Information LMP: Postmenopausal Previous PAP test: Unknown date/findings ? Material Received ?? ThinPrep-Cervical ----- ------- Signed (signature on file) MIRIAM Singh ([facility]) 11/01/23 0722 ? ----- ------- ? END OF REPORT ? John Martin [facility] CYTOLOGY ORDERABLES F inal Result [facility] [address] [place] [phone] from Last 3 Months or Most Recently Relevant to Health Maintenance Insurance [address] [place] [address] STANDARD [employer] MEDICARE REPLACEMENT Care Teams Manager Of Photography Relationship Specialty Start Date End Date Fabio Jones MD [address] [place] [phone] PCP - General Internal Medicine 09/05/23
--- OUTSIDE RECORDS SUMMARY | 2025-01-15 07:54 | XMS_ITS | Encounter Summary ---
Author Organization [employer] Address [address] [place] [address] 7 [place] [address] Care Team Providers Care Business Systems Technician Name Role Phone Fabio Jones MD Primary Care Prov ider Reason for Visit * Reason Onset Date Comments New Patient 07/20/2023 Encounter Details Date Type Department Care Team (Late Contact Info) Description 07/20/[address] [facility] [address] [place] [address] Augusto Jordan MD [address] [place] [address] New Patient Social History Tobacco Use Types [...] been transfer over to wait list for [employer]. EFFECTIVE SINCE 07/20/2023 documented in this encounter Plan of Treatment Upcoming Encounters Date Type Department Care Team (Late Contact Info) Description 03/10/2025 10:[address] [facility] [address] [place], [place] [phone] Fabio Jones MD [address] [place] [address] documented as of this encounter Visit Diagnoses Not on filedocumented in this encounter Care Teams Business Systems Technician Relationship Specialty Start Date End Date Fabio Jones MD [address] [place] [address] PCP - General Internal Medicine 09/05/23 documented as of this encounter
--- OUTSIDE RECORDS SUMMARY | 2025-01-15 07:54 | XMS_ITS | Encounter Summary ---
Author Organization [employer] Address [address] [facility] 7 [place] [address] Care Team Providers Care Occupational Ther Name Role Phone Fabio Jones MD Primary Care Prov ider Reason for Visit * Reason Comments Med Refill Encounter Details Date Type Department Care Team ([facility] st Contact Info) Description 10/08/2024 Refill [facility] PEDS [address] [place] [address] Fabio Jones MD [address] [place] [address] Social History Tobacco Use Types Packs/Day Years [...] Info) Description 03/10/2025 10:30 AM EDT Telemedicine [facility] MED & PED[facility] [address] [place] [address] Fabio Jones MD [address] [place] [address] documented as of this encounter Visit Diagnoses Not on filedocumented in this encounter Additional Health Concerns Assessment Noted Time PHQ-9 Depression Total Score: 0 08/02/20 24 10:30 AM EST documented as of this encounter Care Teams Occupational Ther Relationship Specialty Start Date End Date Fabio Jones MD [address] [place] [address] PCP - General Internal Medicine 09/05/23 documented as of this encounter
--- OUTSIDE RECORDS SUMMARY | 2025-01-15 07:54 | XMS_ITS | Patient Health Record ---
Author Organization [facility] Emelia cohen Billing Info Address [address] [place] [address] Care Team Providers Care Agricultural Education Instructor Name Role Phone HOLLY DUNN Primary Care Provider [phone] FRAN JACOBO Unavailable [phone] Laura Covarrubias MD Unavailable Unavailable Allergies Allergen [...] a day for 90 day(s) Not-Taking Biotin 46811 MCG 1 tablet Orally Once a day [...] - ALL PAYORS IM Intramuscular 08/30/2022 Administered [facility] [phone] Social History Tobacco Use: Social History Observation Description Date Details (start date - stop date) Current Smoker NA - NA Tobacco Status: Question Answer Notes Patient is a current every day smoker Problems Problem Type SNOMED Code ICD Code Onset Dates Problem Status W/U Status Risk Notes Problem [id number] Cervicalgia (M54.2) Active confirmed Problem [id number] Cervical myelopathy (G95.9) Active confirmed Plan Of [...] Date [employer] PPO MEDICARE PLAN [address] [place], [place] [id number] [place] L[place] Manuela Self - patient is the insured 3 [place] [address] [facility] [id number] Manuela May Self - patient is the insured 3 [employer] PPO [address] [address] [place], [place] [id number] Manuela May Self - patient is the insured 3 Medical (General) History Medical History History ICD Code Hyperlipidemia Esophageal reflux Depression Anxiety Surgical History Surgery Date(Month/Year) colonoscopy, repeat in 5 years, 2019 tubal ligation knee arthroscopy, right Hospitalization History Reason Date(Month/Year) see above
--- OUTSIDE RECORDS SUMMARY | 2025-01-15 07:54 | XMS_ITS | Encounter Summary ---
Author Organization [employer] Address [address] [facility] 7 [place] [address] Care Team Providers Care Websphere Administrator Name Role Phone Fabio Jones MD Primary Care Prov ider Reason for Visit * Reason Comments Med Refill Encounter Details Date Type Department Care Team (Late st Contact Info) Description 12/17/2024 Refill [facility] MED [facility] PEDS [address] [place] [address] Fabio Jones MD [address] [place] [address] Social History Tobacco Use Types Packs/Day Years [...] Description 03/10/2025 10:30 AM EDT Telemedicine [facility] & PEDS [address] [place] [address] Fabio Jones MD [address] [place] [address] documented as of this encounter Visit Diagnoses Not on filedocumented in this encounter Additional Health Concerns Assessment Noted Time PHQ-9 Depression Total Score: 0 08/02/20 24 10:30 AM EST documented as of this encounter Care Teams Websphere Administrator Relationship Specialty Start Date End Date Fabio Jones MD [address] [place] [address] PCP - General Internal Medicine 09/05/23 documented as of this encounter
--- OUTSIDE RECORDS SUMMARY | 2025-01-15 07:54 | XMS_ITS | Encounter Summary ---
Author Organization [employer] Address [address] [facility] 7t [place] [address] Care Team Providers Care Critical Care Paramedic Name Role Phone Fabio Jones MD Primary Care Prov ider Encounter Details Date Type Department Care Team (Late st Contact Info) Description 12/21/2023 Orders Only [facility] MED & PEDS [address] [place], [place] [phone] Fabio Jones MD [address] [place] [address] Social History Tobacco Use Types Packs/Day Years [...] Info) Description 03/10/2025 10:30 AM EDT Telemedicine [facility] MED & PEDS [address] [place] [address] Fabio Jones MD [address] [place] [address] documented as of this encounter Visit Diagnoses Not on filedocumented in this encounter Additional Health Concerns Assessment Noted Time PHQ-9 Depression Total Score: 15 024 2:46 PM EST documented as of this encounter Care Teams Critical Care Paramedic Relationship Specialty Start Date End Date Fabio Jones MD [address] [place] [address] PCP - General Internal Medicine 09/05/23 documented as of this encounter
== END ==
LOC: HO.CARD 07:51
PROVIDERS: PCP Internal Medicine; Visit Provider Internal Medicine Pulmonary Disease
DX: I50.9 Heart failure, unspecified (principal)
CPT/HCPCS: 93306; Q9957

== ENCOUNTER → 2025-01-15 07:54 | Outpatient (BNV) | payer MEDICARE, MEDICAID, SELFPAY | PROVIDERS: PCP Internal Medicine; Visit Provider Internal Medicine Cardiovascular Disease | DX: I50.9 Heart failure, unspecified (principal) | CPT/HCPCS: 93306 ==

== ENCOUNTER 2025-02-14 13:00 | Outpatient (RCR) | payer MEDICARE, MEDICAID, SELFPAY ==
--- NOTE | 2025-01-15 13:51 | MHC.PT.EP ---
[facility] [place] Office [place] Office [place] Office [address] Joan Lim [address] [phone] F: [phone] F: [phone] F: [phone] F: [phone] Physical Therapy Plan of Care Date of Evaluation: 01/15/25 Date of Surgery: Diagnosis: This is a 54 yo female presenting to skilled PT with a script for spondylosis lumbar with myelopathy/radiculopathy. Assessment: This is a 54 yo female presenting to skilled PT with a script for spondylosis lumbar with myelopathy/radiculopathy. Patient reporting ongoing lower back pain now for about 2 years progressively getting worse without injury. Her back pain is located across the low back (but can vary and is usually more on the L). She also reports B LE pain (posteriorly down into the gastrocs). Pain increases with standing (10-15 mins), walking (10-15 mins but can be much less than this as well). Pain slightly improves with sitting and laying down (on her sides). Pain is described as my nerves are being pulled , back has some numbness and tingling, and sharp pain. Pain comes and goes. She is being followed by pain management but has not had any care through them yet except a referral to PT. She has not had any PT for this before. Her daughter assists with cooking, cleaning, ADLs for dressing and washing. She does drive still and does not work. She reports a lot of falls random and tripping. She wants a cane but wants a prescription for it/does not want to pay for it. Assessment reveals pain that ranges from up to a 10/10 at the worst. Patient demos decreased lumbar and thoracic ROM, strength of core strength, back strength and LE strength, TTP at surrounding lumbar soft tissues, L glut, lumbar SP and impaired posture with forward trunk, forward head and rounded shoulders. Based on functional limitations, impaired QOL and pain tolerance patient is a good candidate for skilled PT 2x/wk for 4wks. Frequency and Duration: The patient will be seen 2x/wk for 4wks Short Term Goals: Pt will demonstrate improved postural awareness and understanding of core engagement with supine and standing tasks without cues throughout session to improve overall back safety in 2 weeks. Pt will demonstrate centralization of sx in 2 weeks. Pt will continue to reinforce precautions, sitting, standing and ADL modifications with proper body mechanics in 2 wks. Post Closing Specialist Goals: Pt will demonstrate improved outcome measure by 5 points in 4 weeks for improved functional mobility. Pt will demonstrate ability to bend and lift WNL min to no pain for household tasks in 4 wks. Pt will be I in HEP and compliant in 4wks Treatment Plan: Modalities to reduce pain, spasms and effusion. Manual therapy to restore motion and function. Therapeutic exercise to improve strength and flexibility. Neuromuscular re-education for posture and balance. Therapeutic activities to return to functional activities of daily living. Electronically signed by: Madelaine Ling PT Please sign and return to therapist. Thank you for your referral.
--- NOTE | 2025-03-17 08:42 | MHC.PT.DC ---
[facility] [place] Office [place] Office [place] Office [address] Joan Lim [address] [phone] F: [phone] F: [phone] F: [phone] F: [phone] Physical Therapy Discharge Report Diagnosis: This is a 54 yo female presenting to skilled PT with a script for spondylosis lumbar with myelopathy/radiculopathy. Date of Surgery: Date of Evaluation: 01/15/25 Date of Discharge: 03/17/25 Treatments to Date: 3 Cancellations to Date: 0 No Shows to Date: 0 Discharge Status: Patient Elected to Stop Recommend MD Follow-up Discharge Summary: [facility] and 2 sessions of PT, last note on 02/14: Patient reports that she was sore for about 2 days after the last therapy session. She has 1 more booked appointment, she wants to decide next week if she wants to add more on. She reports that she currently has a lot of appointments. I provided her with an updated HEP to take home. Chart was closed after 30 days 01/31: Today we started on MH with stretching and core strengthening. She got a little sore with band work but still tolerated ther-ex. I ended on the stepper today and the patient enjoyed this. I will plan to add to her HEP hip abduction and hip adduction as long as she tolerated this session well. Next session we will add in core OH lifts and mini squats. This is a 54 yo female presenting to skilled PT with a script for spondylosis lumbar with myelopathy/radiculopathy. Patient reporting ongoing lower back pain now for about 2 years progressively getting worse without injury. Her back pain is located across the low back (but can vary and is usually more on the L). She also reports B LE pain (posteriorly down into the gastrocs). Pain increases with standing (10-15 mins), walking (10-15 mins but can be much less than this as well). Pain slightly improves with sitting and laying down (on her sides). Pain is described as my nerves are being pulled , back has some numbness and tingling, and sharp pain. Pain comes and goes. She is being followed by pain management but has not had any care through them yet except a referral to PT. She has not had any PT for this before. Her daughter assists with cooking, cleaning, ADLs for dressing and washing. She does drive still and does not work. She reports a lot of falls random and tripping. She wants a cane but wants a prescription for it/does not want to pay for it. Assessment reveals pain that ranges from up to a 10/10 at the worst. Patient demos decreased lumbar and thoracic ROM, strength of core strength, back strength and LE strength, TTP at surrounding lumbar soft tissues, L glut, lumbar SP and impaired posture with forward trunk, forward head and rounded shoulders. Based on functional limitations, impaired QOL and pain tolerance patient is a good candidate for skilled PT 2x/wk for 4wks. Electronically signed by: Madelaine Ling, PT Please sign and return to therapist. Thank you for your referral.
== END 2025-03-17 08:45 | disposition home or self-care (01) ==
LOC: HO.PTCHIC 13:00
PROVIDERS: PCP Internal Medicine; Visit Provider Anesthesiology
DX: M47.816 Spondylosis without myelopathy or radiculopathy, lumbar region (principal); M51.369 Other intervertebral disc degeneration, lumbar region without mention of lumbar back pain or lower extremity pain
CPT/HCPCS: 97110; 97162

== ENCOUNTER → 2025-03-04 10:31 | Outpatient (REF) | payer MEDICARE, MEDICAID, SELFPAY | LOC: HO.SL 10:31 | PROVIDERS: PCP Internal Medicine; Visit Provider Internal Medicine Pulmonary Disease | DX: G47.33 Obstructive sleep apnea (adult) (pediatric) (principal) | CPT/HCPCS: 95806 ==

== ENCOUNTER → 2025-03-04 10:42 | Outpatient (BNV) | payer MEDICARE, MEDICAID, SELFPAY | PROVIDERS: PCP Internal Medicine; Visit Provider Internal Medicine | DX: R06.83 Snoring (principal) | CPT/HCPCS: 95806 ==

== ENCOUNTER 2025-03-07 15:25 | Outpatient (REF) | payer MEDICARE, MEDICAID, SELFPAY ==
--- NOTE | 2025-03-07 15:27 | EMG_ITS ---
Chief complaint: Chronic numbness, at least 2 years, left 4th and 5th digits, with elbow pain Reason for referral: Evaluate for ulnar neuropathy versus radiculopathy Procedure done: Precautions and/or limitations: Previous cervical fusion The limb temperature was monitored continuously and remained between 32-36 degrees C during the performance of the NCS. Ulnar motor NCS was performed with moderate elbow flexion between 70-90 degrees, with across-elbow distance of 10 cm. Nerve Conduction Studies Anti Sensory Summary Table ?Stim Site NR Onset (ms) Norm Onset (ms) Peak (ms) Norm Peak (ms) O-P Amp (?V) Norm O-P Amp Site1 Site2 Delta-0 (ms) Dist (cm) Simón (m/s) Norm Simón (m/s) Left DorsCutan Anti Sensory (Dorsum 5th MC) Wrist NR Wrist Dorsum 5th MC 0.0 Left Median Anti Sensory (2nd Digit) Wrist ? 2.3 3.0 <3.6 33.5 >10 Wrist 2nd Digit 2.3 14.0 61 Left Radial Anti Sensory (Thumb) Forearm ? 1.7 2.2 <3.1 24.2 Forearm Thumb 1.7 0.0 Left Ulnar Anti Sensory (5th Digit) Wrist ? 2.3 2.8 <3.7 12.8 >15.0 Wrist 5th Digit 2.3 14.0 61 Motor Summary Table ?Stim Site NR Onset (ms) Norm Onset (ms) O-P Amp (mV) Norm O-P Amp iAmp (mV) Amp (1st) (%) Site1 Site2 Delta-0 (ms) Dist (cm) Simón (m/s) Norm Simón (m/s) Left Median Motor (Abd Poll Brev) Wrist ? 3.0 <3.9 11.5 >4.5 13.4 100.0 Elbow Wrist 4.0 19.0 48 >45 Elbow ? 7.0 10.0 12.0 87.0 Left Ulnar Motor (Abd Dig Minimi) Wrist ? 2.5 <3.0 8.8 >5 11.1 100.0 B Elbow Wrist 3.1 16.0 52 >45 B Elbow ? 5.6 8.0 10.1 90.9 A Elbow B Elbow 2.2 10.0 45 >45 A Elbow ? 7.8 8.1 10.3 92.0 Left Ulnar Motor (FDI) Wrist ? 3.8 <3.0 7.9 >5 9.7 100.0 B Elbow Wrist 3.1 16.0 52 >45 B Elbow ? 6.9 7.3 8.9 92.4 A Elbow B Elbow 2.2 10.0 45 >45 A Elbow ? 9.1 7.1 8.7 89.9 EMG ?Side Muscle Nerve Root Ins Act Fibs Psw Amp Dur Poly Recrt Int Pat Comment Left 1stDorInt Ulnar C8-T1 Nml Nml Nml Nml Nml 0 Nml Complete Left Biceps Musculocut C5-6 Nml Nml Nml Nml Nml 0 Nml Complete Left Triceps Radial C6-7-8 Nml Nml Nml Nml Nml 0 Nml Complete Left Deltoid Axillary C5-6 Nml Nml Nml Nml Nml 0 Nml Complete Left ABD Dig Min Ulnar C8-T1 Nml Nml Nml Nml Nml 0 Nml Complete Left FlexCarpiUln Ulnar C8,T1 Nml Nml Nml Nml Nml 0 Nml Complete Paraspinal EMG ?Side Muscle Nerve Root Ins Act Fibs Psw Comment Left Cervical Upper Rami Nml Nml Nml Left Cervical Mid Rami Nml Nml Nml Left Cervical Lower Rami Nml Nml Nml FINDINGS: Left ulnar neuropathy, recording at FDI, showed prolonged distal latency, normal amplitude and slight slowing of conduction velocity across the elbow. Left ulnar sensory nerve showed normal peak latency but small amplitude. DUCS absent response. All other nerves tested were within normal. Concentric needle EMG was performed in selected muscles of the left upper extremity and cervical paraspinals. Study did not reveal signs of electric abnormalities as shown in the table above. IMPRESSION: 1. This is an abnormal study. 2. There is electrodiagnostic evidence for left ulnar neuropathy at the elbow. 3. There is no electrodiagnostic evidence for median neuropathy, brachial plexopathy, or cervical radiculopathy. CLINICAL COMMENT: Referring patient to Dr. Yusuf, hand surgery. Thank you for your kind referral. Jessy Edwards MD, JAYLIN Board Certified, [place] [employer] and [employer] (ABPMR) Board Certified, [place] [employer] Electro[employer]ostic [employer] (ABEM) CODIN [id number] [facility]
--- OUTSIDE RECORDS SUMMARY | 2025-03-07 15:27 | XMS_ITS | Clinical Summary ---
Author Organization [employer] Address [address] [facility] [address] [place] [address] Care Team Providers Care Paraprofessional Aide Name Role Phone Fabio Jones MD Primary [...] Take 15 mg by mouth at bedtime. 08/15/20 23 Active OXcarbazepine (Trileptal) 300 MG tabletIndications :Fibromyalgia Take 1 tablet (300 mg) by mouth 2 times daily. 60 tablet 12/18/19 24 Active DULoxetine (Cymbalta) [address] capsuleIndication s:Fibromyalgia Take 1 capsule (60 mg) by mouth 2 times daily. 60 capsule 12/18/19 24 Active hydrOXYzine pamoate (Vistaril) 25 MG capsule TAKE 1 CAPSULE(25 MG) BY MOUTH EVERY 12 HOURS NEEDED FOR ANXIETY 60 capsule 1 12/25/19 24 Active furosemide (Lasix) 20 MG tablet Take 1 tablet (20 mg) by mouth Once per day. 90 tablet 3 03/14/20 24 2024 Active traZODone (Desyrel) 50 MG tablet TAKE 1 TABLET(50 MG) BY MOUTH AT BEDTIME 30 tablet 04/29/20 24 Active varenicline (Chantix) 1 MG tabletIndications :Smoker Take 1 tablet (1 mg) by mouth 2 times daily. Take with full glass of water. 120 tablet 06/06/20 24 Active levothyroxine (Synthroid) 112 MCG tabletIndications :Acquired hypothyroidism Take 1 tablet (112 mcg) by mouth before breakfast. 30 tablet 11 07/05/20 24 2024 Active Fluticasone-Umecl idin-Vilant (Trelegy Ellipta) 100-62.5-25 MCG/ACT aerosol powder Inhale 1 puff Once per day. 60 each 3 08/02/20 24 Active albuterol 108 (90 Base) MCG/ACT inhaler Inhale 2 puffs every 6 (six) hours if needed for wheezing. 18 g 11 08/02/20 24 2024 Active lidocaine (Lidoderm) 5 % patchIndications: Chronic bilateral low back pain with right-sided sciatica Apply 1 patch topically Once per day. Remove & discard patch within 12 hours or as directed by MD. 20 patch 3 10/22/19 25 Active pregabalin (Lyrica) 50 MG capsuleIndication s:Neuropathic pain Take 1 capsule (50 mg) by mouth 2 times daily. 60 capsule 3 01/08/20 25 2024 Active cetirizine (ZyrTEC) 10 MG tablet TAKE 1 TABLET BY MOUTH ONCE DAILY 90 tablet 3 01/18/20 25 Active atorvastatin (Lipitor) 10 MG tablet TAKE 1 TABLET(10 MG) BY MOUTH DAILY 90 tablet 3 01/23/20 25 Active baclofen (Lioresal) 10 MG tablet TAKE 1 TABLET(10 MG) BY MOUTH TWICE DAILY 60 tablet 1 02/25/20 25 Active fluticasone (Flonase) 50 MCG/ACT nasal spray SHAKE LIQUID WELL, PRIME PUMP, AND INSTILL 1 TO 2 SPRAYS IN EACH NOSTRIL ONCE DAILY 16 g 3 02/25/20 25 Active fluticasone (Flonase) 50 MCG/ACT nasal spray SHAKE GENTLY, PRIME PUMP AND ADMINISTER 1-2 SPRAYS INTO EACH NOSTRIL ONCE DAILY. CLEAN TIP AFTERWARDS 16 g 3 10/10/19 25 2024 Discontinued baclofen (Lioresal) 10 MG tablet TAKE 1 TABLET(10 MG) BY MOUTH TWICE DAILY 60 tablet 1 12/19/19 25 2024 Discontinued Active Problems Problem Noted Date Diagnosed Date [...] Patient refers used to be followed at [facility], will place referal Fibromyalgia 09/04/2023 Assessment [...] Encounters Date Type Department Care Team Description 03/07/2025 Telephone [facility] [address] [place] [address] Fabio Jones MD chart prep 03/03/2025 Travel 02/24/2025 Refill [facility] [address] [place] [address] Fabio Jones MD 02/24/2025 Refill [facility] [address] [place] [address] Fabio Jones MD 02/23/2025 Refill [facility] [address] [place] [address] Fabio Jones MD 01/18/2025 Refill [facility] [address] [place] [address] Fabio Jones MD 01/17/2025 Refill [facility] [address] [place] [address] Fabio Jones MD 01/07/2025 1:30 PM EDT Office Visit [facility] [address] [place] [address] Fabio Jones MD Neuropathic pain (Primary Dx); Chronic bilateral low back pain with right-sided sciatica 01/07/2025 Travel 12/31/2024 Travel 12/17/2024 Refill [facility] [address] [place] [address] Fabio Jones MD 12/17/2024 Refill [facility] [address] [place] [address] Fabio Joens MD 12/12/2024 Orders Only GENERIC EXTERNAL DATA DEPARTMENT Provider, Generic External Data from Last 3 Months Immunizations Immunization Administration Dates Next Due Influenza Injectable Quadriv [...] 84 01/07/2025 1:31 PM EDT Temperature 36.8 C (98.3 F) 01/07/2025 1:31 PM EDT Respiratory Rate 20 01/07/2025 1:31 PM EDT Oxygen Saturation 97% 01/07/2025 1:31 PM EDT Inhaled Oxygen Concentration - - Weight 126 kg (278 lb 9.6 oz) 01/07/2025 1:31 PM EDT Height 165.1 cm (5' 5 ) 01/07/2025 1:31 PM EDT Body Mass Index 46.36 01/07/2025 1:31 PM EDT Plan of Treatment Upcoming Encounters Date Type Department Care Team ([facility] st Contact Info) Description 03/10/2025 10:30 AM EDT Telemedicine [facility] [address] [place] [address] Fabio Jones MD [address] [place] [address] Health Maintenance Due Date Last Done Comments CT Colonography 1970 Colonoscopy 1970 Colorectal Cancer Screening 1970 FIT DNA/Cologuard 1970 FIT 1970 FOBT 1970 Sigmoidoscopy 1970 Hepatitis B Vaccines (1 of 3 - 19+ 3-dose series) 1989 Zoster Vaccines (1 of 2) 2020 COVID-19 Vaccine ( season) 2024 01/27/2021, 12/30/2020 Tobacco Screening 10/17/2024 10/17/2023 Depression Screening 08/02/2025 08/02/2024, 08/02/20 Disability Screening 10/15/2025 10/15/2024 Alcohol/Substance Use Screening 01/07/2026 01/07/2025 SDOH Screening [...] 2:10 PM EDT) Immunoglobulin E TNP kU/L [facility] Comment:TEST NOT PERFORMED.Q uantity not sufficient. Mouse Urine Proteins (E72) IgE <0.10 kU/L [facility] Class 0 [facility] Cockroach (I6) IgE <0.10 kU/L [facility] Class 0 [facility] Dermatophagoides farinae (D2) IgE <0.10 kU/L [facility] Class 0 [facility] Cat Dander (E1) IgE <0.10 kU/L [facility] Class 0 [facility] Comment:THIS TEST WAS PERFOR MED AT:[facility] [address] [place] [phone] THAKUR MD Dog Dander (E5) IgE <0.10 kU/L [facility] Class 0 [facility] Comment:THIS TEST WAS PERFOR MED AT:[facility] [address] [place] [id number] THAKUR MD Raul Grass (G6) IgE <0.10 kU/L [facility] Class 0 [facility] Cladosporium herbarum (M2) IgE <0.10 kU/L [facility] Class 0 [facility] Aspergillus Fumigatis (M3) IgE <0.10 kU/L [facility] Class 0 [facility] Alternaria alternata (M6) IgE <0.10 kU/L [facility] Class 0 [facility] Comment:THIS TEST WAS PERFOR MED AT:[employer] [place] [phone] THAKUR MD Augusta Humble (t6) IgE <0.10 kU/L [facility] Class 0 [facility] [place] (T7) IgE <0.10 kU/L [facility] Class 0 [facility] Pinckard Tree (T10) IgE <0.10 kU/L [facility] Class 0 [facility] [place] (T11) IgE <0.10 kU/L [facility] Class 0 [facility] [place] (T14) IgE TNP kU/L [facility] Comment:TEST(S) NOT PERFORME D: [place] (T14) IGE CLASS WHITE ALAN (T15) IGE CLASSTEST NOT PERFORMED.Quantity not sufficient. Class TNP [facility] White [place] (t15) IgE TNP [facility] Class TNP [facility] [place] (T70) IgE TNP kU/L [facility] Comment:TEST NOT PERFORMED.Q uantity not sufficient. Class TNP [facility] Common Ragweed (Short) (W1) IgE TNP kU/L [facility] Comment:TEST NOT PERFORMED.Q uantity not sufficient. Class TNP [facility] Mugwort (w6) IgE TNP kU/L [facility] Comment:TEST NOT PERFORMED.Q uantity not sufficient. Class TNP [facility] Dermatophagoides pteronyssinus (D1) IgE <0.10 kU/L [facility] Class 0 [facility] Bermuda Grass (g2) IgE <0.10 kU/L [facility] Class 0 [facility] Penicillium Notatum (M1) IgE <0.10 kU/L [facility] Class 0 [facility] Birch (T3) IgE <0.10 kU/L [facility] Class 0 [facility] Elm (t8) IgE <0.10 kU/L [facility] Class 0 [facility] Maple (Cadiz) (T1) IgE <0.10 kU/L [facility] Class 0 [facility] Rough Pigweed (W14) IgE TNP [facility] Class TNP [facility] Sheep [place] (W18) IgE [facility] Class TNP [facility] Allergen Comment See Below [facility] Comment: Specific Level of AllergenIGE Class kU/L Specific IGE Antibody ----- --------- 0 <0.10 Absent/Undetectable 0/1 0.10-0.34 Very Low Level 1 0.35-0.69 Low Level 2 0.70-3.49 Moderate Level 3 3.50-17.4 High Level 4 17.5-49.9 Very High Level 5 50-100 Very High Level 6 >100 Very High LevelThe clinical relevance of allergen results of0.10-0.34 kU/L are undetermined and intended forspecialist use.Allergens denoted with a include results usingone or more analyte specific reagents. In thosecases, the test was developed and its analyticalperformance characteristics have been determined by[facility]. It has not been cleared or approvedby the U.S. Food and Drug Administration. This assayhas been validated pursuant to the CLIA regulationsand is used for clinical purposes.THIS TEST WAS PERFORMED AT:[employer] [place] [phone] THAKUR MD 12/12/2024 2:10 PM EDT 12/12/2024 2:10 PM EDT us Generic External Data Provider LAB BLOOD ORDERAB LES Final Result [facility] [address], [place] [phone] * (ABNORMAL) CBC auto differential (12/12/2024 2:10 PM EDT) White Blood Count 6.9 4.8 - 10.8 X10*3/uL [facility] Red Blood Count 4.51 4.20 - 5.50 X10*6/uL [facility] Hemoglobin 12.3 12.0 - 16.0 g/dl [facility] Hematocrit 37.3 37.0 - 47.0 % [facility] Mean Corpuscular Volume 82.7 80.0 - 98.0 fL [facility] Mean Corpuscular Hemoglobin 27.3 27.0 - 33.0 pg [facility] Mean Corpuscular HGB Conc 33.0 31.0 - 35.0 g/dl [facility] Red Cell Distribution Width 12.8 11.0 - 16.0 % [facility] Platelet Count 396 160 - 400 X10*3/uL [facility] Mean Platelet Volume 9.6 9.4 - 12.3 fL [facility] Neutrophils Percent Auto 53.6 45 - 73 % [facility] Imm Gran Pct Auto 0.9(H) 0.0 - 0.4 % [facility] Lymphocytes Percent Auto 33.7 20 - 40 % [facility] Monocytes Percent Auto 8.2 2 - 11 % [facility] Eosinophils Percent Auto 2.0 0 - 4 % [facility] Basophils Percent Auto 1.6 0 - 2 % [facility] NRBC Pct Auto 0.0 0.0 - 0.2 /100WBC [facility] Neutrophils Absolute Auto 3.7 2.0 - 8.3 x10*3/uL [facility] Imm Gran Abs Auto 0.06(H) 0.00 - 0.03 X10*3/uL [facility] Lymphocytes Absolute Auto 2.3 1.2 - 4.9 X10*3/uL [facility] Monocytes Absolute Auto 0.6 0.1 - 1.2 X10*3/uL [facility] Eosinophils Absolute Auto 0.1 0.0 - 0.4 X10*3/uL [facility] Basophils Absolute Auto 0.1 0.0 - 0.2 X10*3/uL [facility] NRBC Abs Auto 0.000 0.0 - 0.012 X10*3/uL [facility] 12/12/2024 2:10 PM EDT 12/12/2024 2:10 PM EDT us Generic External Data Provider LAB BLOOD ORDERAB LES Final Result Performing Organization Address City/State/[facility] Co de Phone Number [facility] [address] [place] [phone] * BI Mammogram Screening Tomosynthesis Bilateral (04/19/2024 2:15 PM EDT) Anatomical Region Laterality Modality Breast Bilateral Mammography 04/19/2024 2:15 PM EDT Narrative 05/20/2024 11:50 PM EDT [facility] [address] [place] [address] Mammography Report Signed Patient: Manuela May MR#: [id number] 670 : 1970 Acct:[id number] Age/Sex: 53 / F ADM Date: 04/19/24 Loc: HO.MAMMO Attending Dr: Fabio Schneider MD Ordering Physician: Fabio Jones MD Res ults: 1Negative Date of Service: 04/19/24 Follow Up: 1 Year From [facility] ina Mammogram Procedure(s): MM tomosynthesis screening BI Accession Number(s): [id number] cc: Fabio Jones MD EXAMINATION: MM SCREENING [...] 05/20/24 2348 DD/ 1415 TD/TT: 04/19/24 1435 Sheet Rock Taper: Procedure Note Donotuseinterpreter, Image - [facility]/20/[facility] [address] [place] [address] Mammography Report Signed Patient: Manuela May AMR#: [id number] : 1970Acct:[id number] Age/Sex: 53 / FADM Date: 04/19/24 Loc: HO.MAMMO Attending Dr: Fabio Schneider MD Ordering Physician: Fabio Jones ults: 1Negative Date of Service: 04/19/24Follow Up: 1 Year From [facility] ina Mammogram Procedure(s): MM tomosynthesis screening BI Accession Number(s): [id number] cc: Fabio Jones MD EXAMINATION: MM SCREENING [...] 05/20/24 2348 DD/ 1415 TD/TT: 04/19/24 1435 Sheet Rock Taper: Fabio Schneider MD IMG BI PROCEDURES Final Result * Hepatitis C Antibody with Reflex to HCV, RNA, Quantitative, Real-Time PCR (12/06/2023 8:43 AM EDT) Hepatitis C Antibody Nonreactive Nonreactive [facility] Comment:Antibodies to HCV no t detected; does not exclude early acuteHCV infection. Blood Venous blood specimen / Unknown 12/06/2023 8:43 AM EDT 12/06/2023 1:02 PM EDT Fabio Schneider MD LAB BLOOD ORDERABL ES Final Result [facility] [address] [place] [address] [phone] * (ABNORMAL) Lipid Panel, Standard (12/06/2023 8:43 AM EDT) Triglycerides 234(H) <150 mg/dL [facility] Comment:Desirable Triglyceri de: less than 150 mg/dLBorderline High Triglyceride 150-199 mg/dLHigh Triglyceride: 200-499 mg/dLVery High Triglyceride: greater than or equal to 5OO mg/dL Cholesterol 203(H) <200 mg/dL [facility] Comment:Desirable Cholestero l: less than 200 mg/dLBorderline High Cholesterol: 200-239 mg/dLHigh Cholesterol: greater than 239 mg/dL LDL Cholesterol Calculated 96 <100 mg/dL [facility] Comment:Desirable LDL: less than 100 mg/dLNear Optimal/Above Optimal LDL: 110- 129 mg/dLBorderline High LDL: 130-159 mg/dLHigh LDL: 160-189 mg/dLVery High LDL: greater than or equal to 190 mg/dL HDL Cholesterol 61 >40 mg/dL [facility] Comment:Desirable HDL: great er than 40 mg/dL Note: This HDL assay may give artificially low results in patients with liver disease. Blood Venous blood specimen / Unknown 12/06/2023 8:43 AM EDT 12/06/2023 12:57 PM EDT Fabio Schneider MD LAB BLOOD ORDERABL ES Final Result [facility] [address] [place] [phone] * HPV mRNA E6/E7 w/Reflex to HPV Genotypes 16, 18/45 (10/17/2023 2:00 PM EST) HPV nRNA E6/E7 Not Detected Not Detected [facility] Comment:Methodology: Transcr iption-Mediated AmplificationThis assay detects E6/E7 viral messenger RNA (mRNA) from 14high-risk HPV types (16,18,31,33,35,39,45,51,52,56,58,59,66,68).Cervical sources are required for HPV testing.If a vaginal source from a patient who has had atotal hysterectomy with removal of cervix wassubmitted, please contact the testing laboratoryfor alternative testing options.For additional information, please refer [email or web address]/faq/GTU376h3(This link if provided for information/educational purposes only.)THIS TEST WAS PERFORMED AT:[employer] [place] [phone] THAKUR MD HPV mRNA E6/E7 TNP [facility] HPV 16 RNA TNP [facility] HPV 18/45 RNA TNP [facility] 10/17/2023 2:00 PM EST 10/19/2023 9:50 AM EST us John Martin [facility] CYTOLOGY ORDERABLES F inal Result [facility] [address] [place] [address] [phone] * Pap Smear (10/17/2023 2:00 PM EST) Swab Cervix uteri structure / Unknown 10/17/2023 2:00 PM EST 10/19/2023 9:50 AM EST Narrative [facility] - 11/01/2023 7:22 AM EST ----- ------- Name: Manuela May Age/Sex: 53/F : 1970 Unit#: [id number] Attend Dr: Re10/17/23 Status: PRE REF Location: [facility] Disch: ----- ------- SPEC : [id number] RECD: 02 STATUS: JULIANE FLORES NUM: [id number] OCHOA: 10/17/23-[address]: JOHN MARTIN CNM ENTERED: 10/19/23 SP TYPE: Pap Smr OTHR DR: ORDERED: Pap Smear Interpretation Satisfactory for evaluation. No endocervical cells seen. Mild inflammation. Negative for intraepithelial lesion or malignancy. HPV mRNA E6/E7: NOT DETECTED This assay detects E6/E7 viral messenger RNA (mRNA) from 14 high-risk HPV types (16, 18, 31, 33, 35, 39, 45, 51, 52, 56, 58, 59, 66, 68) HPV testing performed by [facility], [place], [place]. See reference laboratory portion of the EMR for entire report. Clinical Information LMP: Postmenopausal Previous PAP test: Unknown date/findings Material Received ThinPrep-Cervical ----- ------- Signed (signature on file) MIRIAM Singh (ASCP) 11/01/23 0722 ----- ------- END OF REPORT John Martin CNM LAB CYTOLOGY ORDERABLES F inal Result [facility] [address] [place] [phone] from Last 3 Months or Most Recently Relevant to Health Maintenance Insurance [facility] STANDARD [employer] MEDICARE REPLACEMENT Care Teams Paraprofessional Aide Relationship Specialty Start Date End Date Fabio Jones MD [address] [place] [phone] PCP - General Internal Medicine 09/05/23
== END 2025-03-07 15:26 | disposition home or self-care (01) ==
LOC: HO.NEURO 15:25
PROVIDERS: PCP Internal Medicine; Visit Provider Physical Medicine & Rehabilitation
DX: R20.0 Anesthesia of skin (principal); G56.22 Lesion of ulnar nerve, left upper limb; Z98.1 Arthrodesis status; R94.131 Abnormal electromyogram [EMG]
CPT/HCPCS: 95886; 95909

== ENCOUNTER → 2025-03-07 15:27 | Outpatient (BNV) | payer MEDICARE, MEDICAID, SELFPAY | PROVIDERS: PCP Internal Medicine; Visit Provider Physical Medicine & Rehabilitation | DX: G56.22 Lesion of ulnar nerve, left upper limb (principal) | CPT/HCPCS: 95886; 95909 ==

== ENCOUNTER 2025-03-12 07:25 | Outpatient (REF) | payer MEDICARE, MEDICAID, SELFPAY ==
--- NOTE | ~2025-03-12 | CT_ITS ---
CLINICAL HISTORY: Z87.891 - Personal history of nicotine dependence CT lung cancer screening (LDCT) Comparison: CR - CHEST 2 VIEWS [id number] - 12/06/16 23:03 EDT Technique: Axial CT images of the chest using low-dose technique. Referring provider counseled the patient on shared decision-making for LDCT screening. Additional counseling was provided on smoking cessation. Effective radiation dose total: DLP 77.2 mGycm, CTDIvol 2.2 mGy. Findings: Lung: No suspicious lung nodules. No significant emphysematous changes. No evidence of mediastinal or hilar lymphadenopathy. Coronary artery calcifications: Not present Limited upper abdomen: Unremarkable Other: None Impression: Lung rads category 1; no suspicious lung nodules. Continue annual screening. Category 1: Normal; continue annual screening Category 2: Benign appearance or behavior, continue annual screening Category 3: Probably benign, [address] recommended Category 4A: Suspicious, [address] recommended; may consider PET/CT Category 4B: Suspicious, Additional diagnostics and/or tissue sampling recommended Category 4X: Suspicious, Additional diagnostics and/or tissue sampling recommended Category 0: Recalls (incomplete screen due to Incomplete coverage, Noise, Respiratory motion, Expiration, Obscured by acute abnormality) This document has been electronically signed by: Kendell Rapp MD on 03/13/2025 00:34:55
== END 2025-03-12 07:26 | disposition home or self-care (01) ==
LOC: HO.CT 07:25
PROVIDERS: PCP Internal Medicine; Visit Provider Internal Medicine Pulmonary Disease
DX: Z12.2 Encounter for screening for malignant neoplasm of respiratory organs (principal); Z87.891 Personal history of nicotine dependence; M47.816 Spondylosis without myelopathy or radiculopathy, lumbar region; M51.369 Other intervertebral disc degeneration, lumbar region without mention of lumbar back pain or lower extremity pain
CPT/HCPCS: 71271; 99212

== ENCOUNTER → 2025-03-12 07:27 | Outpatient (BNV) | payer MEDICARE, MEDICAID, SELFPAY | PROVIDERS: PCP Internal Medicine; Visit Provider Student in an Organized Health Care Education/Training Program | DX: Z12.2 Encounter for screening for malignant neoplasm of respiratory organs (principal); Z87.891 Personal history of nicotine dependence | CPT/HCPCS: 71271 ==

== ENCOUNTER 2025-03-12 08:14 | Outpatient (REF) | payer MEDICARE, MEDICAID, SELFPAY ==
[2025-03-12 14:56] LABS: Alanine Aminotransferase 60 U/L (0-31); Albumin Level 4.2 g/dL (3.5-5.0); Alkaline Phosphatase 89 U/L (39-117); Anion Gap 14 (12-20); Aspartate Amino Transferase 44 U/L (5-31); Bilirubin Total 0.2 mg/dL (0.0-1.0); Blood Urea Nitrogen 13 mg/dL (9-16); Calcium 9.6 mg/dL (8.4-10.2); Carbon Dioxide 26 mmol/L (22-29); Chloride 98 mmol/L (96-108); Cholesterol 175 mg/dL (<200); Estimated Glomerular Filt Rate > 60; Glucose Random 108 mg/dL (60-115); HDL Cholesterol 48 mg/dL (>40); LDL Cholesterol Calculated 60 mg/dL (<100); Potassium 4.5 mmol/L (3.3-5.1); Sodium 133 mmol/L (135-145); Total Protein 6.7 g/dL (6.5-8.0); Triglycerides 337 mg/dL (<150)
[2025-03-12 15:06] LABS: TSH reflex Free T4 2.94 uIU/mL (0.32-4.0)
== END 2025-03-12 08:15 | disposition home or self-care (01) ==
LOC: HO.CHCLDS 08:14
PROVIDERS: Visit Provider Internal Medicine
DX: I50.32 Chronic diastolic (congestive) heart failure (principal); E03.9 Hypothyroidism, unspecified
CPT/HCPCS: 36415; 80053; 80061; 84443

== ENCOUNTER 2025-03-12 11:08 | Outpatient (AMB) | payer MEDICARE, MEDICAID, SELFPAY ==
[2025-03-12 11:12] VITALS: BP 178/78; PULSE 82; RESP 18; O2SAT 97
--- NOTE | 2025-03-12 11:12 | MHC.OFFVIS ---
Vital Signs 03/12/25 11:12 Weight 282 lb BP 178/78 H Blood Pressure Location Rt brachial Position Sitting Respiration 18 Pulse 82 Pulse Source Pulse Oximeter Pulse Oximetry (%) 97 Oxygen Delivery Method Room Air Intake Visit Reasons: FU after PT Nurse Coordinator Required: No Allergies NSAIDS (Non-Steroidal Anti-Inflamma Adverse Reaction (Severe, Verified 03/12/25 11:14) acute kidney damage tramadol Adverse Reaction (Verified 03/12/25 11:14) Nausea HPI Comments Details: Manuela is very pleasant 54 years old female who presents in the this office after 4. years of absence. She was under my care in 2020, she received medial branch blocks and also she received interlaminar L4-5 epidural steroid injections. I sent her for physical therapy and she tried and went for 4 sessions of physical therapy including home exercise between the sessions. Reported only pain aggravation after physical therapy. Attention was attracted today that she is complaining on mostly pain off side of the central lumbar spine and more to the left. Physical exam see as below. I believe that she is suffering from sacroiliitis. I will schedule her for left diagnose sacroiliac joint injection. Risks and benefits were explained to the patient. I also believe that she has significant spondylosis of the lumbar spine and I need to assess degree of spondylosis and possibility of spondylolisthesis and/or spinal stenosis. Considering that her physical therapy was not successful to treat or improve her pain I will schedule her for MRI of the lumbar spine. Her past medical history significant for depression anxiety bipolar disorder and PTSD, she is suffering from headaches dizziness and fainting she is suffering from asthma and shortness of breath. She has history of arthritis. Her past surgical history significant for ACDF in 2022 in February. It was done in [facility]. Her neurosurgeon was Dr. Joyce. She reports that she stopped smoking cigarettes 1 year ago she denies drinking alcohol she drinks 1 large cup of coffee a day and she denies any recreational drugs. [facility] Medical History (Updated 01/02/25 @ 11:08 by Jessy Edwards MD) Tubular adenoma of colon GERD (gastroesophageal reflux disease) Thyroid disease Elevated cholesterol Spondylosis of lumbar spine Fibromyalgia Suicide attempt Headache Surgical History (Updated 01/02/25 @ 11:05 by Jessy Edwards MD) History of dental surgery Hx of anterior cruciate ligament surgery Hx of tubal ligation Family History Mother Depression Father No problems noted. Sister Diabetes Fibromyalgia Degenerative disc disease Bipolar 1 disorder Depression Son Depression Bipolar 2 disorder Son Depression Son Depression Daughter Depression Migraine Social History (Updated 12/12/24 @ 13:47 by Nara Luna, ON LICENSE OF [facility]) Are you a primary morning caregiver to a significant other at home: No Do you presently have visiting nurse or other home services: No Alcohol intake: never Patient Tobacco Use Status: Former Tobacco user Tobacco use type: Cigarette Years Smoked: quit 2023, started age 16, 1PPD, and vape. e-Cigarette/Vaping Use: Former Use Review of Systems Const All systems reviewed & are unremarkable except as noted in HPI and below ENT Reports Normal hearing present Neuro Reports Normal hearing present, Denies Abnormal speech present, Denies confusion and Denies Sensory deficit (Neuro) Psych Denies confusion Physical Exam Vital Signs: Last Vital Signs Pulse 82 03/12/25 11:12 Resp 18 03/12/25 11:12 BP 178/78 H 03/12/25 11:12 Pulse Ox 97 03/12/25 11:12 Oxygen Delivery Method Room Air 03/12/25 11:12 Const General: no acute distress; No confusion Nutritional Appearance: obese morbidly obese Orientation/consciousness: patient oriented x3 and No confusion Eyes General: appearance normal, both eyes and all related structures Pupils: Equal, round and reactive pupils present EOM: EOMs intact bilaterally Neck Neck: Yes full ROM Chest Chest palpation & inspection: normal inspection of the chest Resp Effort & Inspection: normal respiratory effort, able to speak in complete sentences, normal respiratory pattern, no audible wheezes and no cough Cardio Jugular venous distension: no JVD GI Inspection: Yes normal to inspection Back/Spine/Pelvis Other: Able to stand on bilateral tiptoes in bilateral heels, able to flex herself forward but unable to flex herself backwards due to severe pain. Jose Luis test is positive on the left, Gaenslen test is positive on the left, thigh thrust test is positive on the left, Stinchfield test is positive on the left, pelvic compression test is positive on the left. Neuro General: patient oriented x3, gait normal and No confusion Cranial nerves: Yes CN's II-XII intact bilaterally, Yes Equal, round and reactive pupils present, Yes Normal hearing present and Yes Ability to bilaterally elevate shoulders present Speech: No Abnormal speech present Gait exam (Neuro): Normal gait present Motor exam (neuro): 5/5 motor strength present throughout Sensory Exam: No Sensory deficit (Neuro) Extrem General: No pedal edema Psych Speech and movement: Normal speech and movement present Affect: normal affect Attitude: cooperative Thought process: Normal thought process present Thought content: Normal thought content present Insight: Good insight present (Psych) Judgement: Good judgement present (Psych) Results Reviewed Results Reviewed: MRI lumbar spine 05/12/2019. Conus medullaris appears normal. Lumbar vertebra normal in size and signal intensity. L1-L2 normal intervertebral disc. L2-L3 diffuse disc bulge and facet hypertrophy without central or foraminal stenosis. L3-L4 diffuse disc bulge and facet hypertrophy without significant central or foraminal stenosis. Fluid within facet joints. L4-5 diffuse disc bulge and facet hypertrophy causing mild central and mild bilateral foraminal stenosis. Fluid within facet joints. L5-S1. Bilateral facet hypertrophy causing mild bilateral foraminal stenosis. No central stenosis. Assessment & Plan Assessment & Plan (1) Spondylosis of lumbar region without myelopathy or radiculopathy: Code(s): M47.816 - Spondylosis without myelopathy or radiculopathy, lumbar region Category: Medical (2) Facet arthropathy, lumbar: Code(s): M47.816 - Spondylosis without myelopathy or radiculopathy, lumbar region Category: Medical (3) Disc degeneration, lumbar: Code(s): M51.369 - Other intervertebral disc degeneration, lumbar region without mention of lumbar back pain or lower extremity pain Category: Medical Plan This patient completely failed physical therapy. She reported pain aggravation. She actually was discharged from physical therapy. I will send her for the MRI of the lumbar spine. Most likely she has severe spondylosis of the lumbar spine with some of her pain generated from those joints in the back. Also attention was attracted today on signs of sacroiliitis on the left. I will schedule her for diagnostic sacroiliac joint injection. She reports that with walking for long period of time she experiences severe pain she is asking me to prescribe her the cane. I will send prescription of the cane to her pharmacy. She also reports that Tylenol does not help her pain. She has minimal pain relief on baclofen. She is currently on baclofen 10 mg b.i.d.. I will stop this baclofen 10 mg b.i.d. and in will send new prescription for her baclofen 20 mg b.i.d.. Orders: Orders MR lumbar spine wo con Today M47.816 - Spondylosis without myelopathy or radiculopathy, lumbar region Medications: New cane As directed 1 ea 0RF baclofen 20 mg PO BID 60 tabs 8RF 30 days Discontinued baclofen Discontinued Reason: Doctor's Order 10 mg PO TID 30 days 90 tabs 8RF Patient Instructions: I here by testify that I spent 30 minutes in conversation with this patient as well as planning her care and organizing this note. Coding Level of Care Code Est Pt Level 4 (23102) Diagnoses Spondylosis of lumbar region without myelopathy or radiculopathy M47.816 Facet arthropathy, lumbar M47.816 Disc degeneration, lumbar M51.369
== END 2025-03-12 11:33 | disposition home or self-care (01) ==
LOC: HO.PMC 11:08
PROVIDERS: PCP Internal Medicine; Visit Provider Anesthesiology
DX: M47.816 Spondylosis without myelopathy or radiculopathy, lumbar region (principal); M51.369 Other intervertebral disc degeneration, lumbar region without mention of lumbar back pain or lower extremity pain; M53.3 Sacrococcygeal disorders, not elsewhere classified; M46.1 Sacroiliitis, not elsewhere classified
CPT/HCPCS: 99214

== ENCOUNTER 2025-03-28 13:54 | Outpatient (AMB) | payer MEDICARE, MEDICAID, SELFPAY ==
--- OUTSIDE RECORDS SUMMARY | 2025-03-28 13:59 | XMS_ITS | Encounter Summary ---
Author Organization [facility] Address [address] [place] [address] Care Team Providers Care Journeyman Tool And Die Maker Name Role Phone Xavier Mims MD Primary Care Provider [phone] [facility], Pcp Primary Care Provider Unavailabl e Fabio Jones MD Primary Care Prov ider Unavailable Zelda Sy MD Unavailable [phone] Melissa Mejia NP Unavailable [phone] Reason for Visit * Reason Onset Date Comments other 12/26/2016 FYI Encounter Details Date Type Department Care Team Description 12/26/2016 Telephone Adult Medicine B - [address] [id number] Xavier Mims MD [address] [place] [address] [id number] other (FYI) Social History Tobacco Use Types Packs/Day Years Used Date Smoking Tobacco: Former Cigarettes Q uit: 09/18/2003 Smokeless Tobacco: Never Alcohol Use Standard Drinks/Week Comments No 0 (1 standard drink = 0.6 oz pur e alcohol) Sex Assigned at Date Recorded Not on file Job Start Date Occupation Industry Not on file Not on file Not on file documented as of this encounter Miscellaneous Notes * Telephone Encounter - Mariel Mcgregor - 12/26/2016 4:27 PM EDT Caller requesting call back from provider: Is the caller the patient? YES If caller is not the patient, what is the callers name? N/A Callers relationship to patient? N/A If person calling is not the patient themselves, is there a verbal release in FYI or permanent comments for this person: NO Reason for call back: FYI the patient will be out of town for the next few months. She wanted to let know because she is on contract for a medication Caller offered to speak with the nurse for assistance: YES Response: Patient offered to speak with nurse for assistance and patient agreed. Message forwarded to nurse. documented in this encounter Plan of Treatment Not on file documented as of this encounter Visit Diagnoses Not on filedocumented in this encounter Additional Health Concerns Infection Onset Date Last Indicated Resolved Time COVID-19 09/19/2021 10/06/2021 documented as of this encounter Care Teams Journeyman Tool And Die Maker Relationship Specialty Start Date End Date Xavier Mims MD [address] [place] [id number] PCP - General Internal Medicine 06/04/15 12/14/22 [facility], Pcp [address] [place] [id number] PCP - General Internal Medicine 12/15/22 09/04/23 Fabio Jones MD [address] [place] [id number] PCP - General Internal Medicine 09/05/23 Zelda Sy MD [address] [place] [id number] [employer] Mach[employer] Coordinator Cardiology 11/21/23 Melissa Mejia NP [address] [place] [address] Nurse Practitioner Cardiology 04/26/24 documented as of this encounter
--- OUTSIDE RECORDS SUMMARY | 2025-03-28 14:00 | XMS_ITS | Clinical Summary ---
Author Organization Patient Business Ser [facility] Address [address] [place] [address] Care Team Providers Care Sports Information Director Name Role Phone Fabio Jones Primary Care [...] disea se) stage 3, GFR 30-59 ml/min (FORMERLY [facility]) Hypothyroid 09/14/2020 DX:Hypothyroid Hyperlipidemia 09/14/2020 DX:Hyperlipidemi a [...] 5 Years) and At-Risk Patients (6 to 49 Years) (2 of 2 - PCV) 02/29/2020 [...] 12/30/2020 Depression Screening 10/17/2024 10/17/2023 Influenza Vaccine (#1) 2025 , 06/21/2016, 07/10/2015 DTaP,Tdap,and Td Vaccines (2 - [...] interpreted with the aid of computer-aided detection. Comparison is made with 10/25/2019. Breast parenchyma is composed of scattered fibroglandular densities. Sonographically proven cyst in the outer right breast [...] RESULTING AGENCY - 11/07/2019 2:10 PM EST [id number] THINPREP PAP AMD CELL BLOCK: NEGATIVE FOR SQUAMOUS INTRAEPITHELIAL LESION AND MALIGNANCY . CLUE CELLS ARE PRESENT. CLAUDIA DUBOSE , CT(ASCP) (CASE SCREENED 11 05 2019) HEMALATHA ARCHER M.D. , PATHOLOGIST (CASE ELECTRONICALLY SIGNED 11 06 2019) RESULT OF APTIMA HIGH RISK HPV ASSAY: HIGH RISK HPV: NEGATIVE (SEROTYPES 16,18,31,33,35,39,45,51,52,56,58,59,66,68) COMPLETED ON 2019-11-04 ADEQUACY: SATISFACTORY ENDOCERVICAL/TRANSFORMATION ZONE COMPONENT PRESENT. SOURCE: THINPREP PAP HPV ANY DX: REFLEX 16 AND 18, CERVICAL, IMAGED CLINICAL INFORMATION: HPV ANY DIAGNOSIS. LMP 10/03/19, PAP HX NEG [Z12.4] CB 11/04/19 us Marta Ayala DO LAB CYTOLOGY ORDERABLES Final Result HISTORICAL TESTING LAB RESULTING AGENCY from Last 3 Months or Most Recently Relevant to Health Maintenance Care Teams Sports Information Director Relationship Specialty Start Date End Date Fabio Jones [address] [place], [place] PCP - General 09/05/23
--- OUTSIDE RECORDS SUMMARY | 2025-03-28 14:00 | XMS_ITS | Patient Health Record ---
Author Organization [facility] Address [address] [place] [address] Care Team Providers Care Scientist/Engineer Name Role Phone Guanaco Caldera Primary Care Provider [phone] Reason For Referral No Information Plan Of Treatment No Information Insurance Providers Payer Name Payer Address Payer Phone Subscriber Number Group Number Insured Name Patient Relationship to Insured Coverage Start Date Coverage End Date [facility] [employer] [address] [address] [id number] Manuela May Self - patient is the insured
--- OUTSIDE RECORDS SUMMARY | 2025-03-28 14:00 | XMS_ITS | Data Portability ---
Author Organization Ward Oconnor Address [address] [place], [place] [address] Assessment Encounter Date Assessment Date Assessment LastModified by Organization Details LastModified Time 11/15/2022 11/15/2022 52yo with complaints of neck, shoulder, knee, and low back pain. she had minimal relief with cdmbb. she has ptsd, fibromyalgia, and bipolar. she unable to take nsaids. she moved from [place]. we will order emg/ncs. we will continue [...] our protocol, the prescription drug monitoring program (E-FORCSE/RAMP JOCKEY AWARE) was reviewed and used in medical [...] to the chart under the results section. [email or web address] Not available 12/30/2022 09:29:00 01/09/2023 01/09/2023 52yo [...] our protocol, the prescription drug monitoring program (E-FORCSE/RAMP JOCKEY AWARE) was reviewed and used in medical [...] to schedule 2022 023 EDER Ospina MD, [address] [facility], [address], [place], [address], 05/09/202 3 17:29:08 neurologica l surgeon referral - Please schedule patient an appt for eval/treat for cervical stenosis. Thanks! 2022 023 anderson Joyce MD, [address], [address], [place], [address], 3 17:14:06 Procedures nerve conduction study/EMG (PROC) - 60 minutes, BILATERAL UPPER EXTREMITIES 2022 023 [email or web address] Not available 12:19:22 Surgeries None recorded. Imaging None recorded. Medication Orders hydrocodone 5 mg-acetamin ophen 325 mg tablet 2022 023 [id number], [address], [place], [place], [id number], 3 17:12:24 hydrocodone 5 mg-acetamin ophen 325 mg tablet 2022 0[id number], [address], [place], [place], [id number], 08:48:45 Patient TargetsNo targets recorded. Patient Instructions Encounter Date Encounter Id Patient Instructions Last Modified By Organization Details Last Modified Time 11/15/2022 [id number] E-Forsce Review: As per our protocol, the prescription drug monitoring program (E- FORCSE/RAMP JOCKEY AWARxE) was reviewed and used in medical decision making. Opioid Risk Information: As part of the educational protocol for those patients prescribed scheduled based pain medications, an informational handout provided by the CDC and the [place] [facility] was given to the patient. [...] As part of the comprehensive treatment at [facility] we have initiated a structured home exercise program. This program identifies specific exercises to stretch, strengthen and improve function of the associated muscles. We will monitor the overall progress as the treatment protocols continue and assess whether a prescribed program is indicated. Medication Assessment: As part of the ongoing assessment of the patient s response to the medication management protocol [...] patient. [email or web address] Not available 11/15/2022 15:55:23 01/09/2023 [id number] PDMP (Physician Drug Monitoring Program)/E-Forsce Review: As per our protocol, the prescription drug monitoring program (E- FORCSE/RAMP JOCKEY AWARxE) was reviewed and used in medical [...] As part of the comprehensive treatment at [facility] we have initiated a structured home [...] part of the ongoing assessment of the patient s response to the medication management protocol [...] ) No observ ation record ed. [email or web address] [facility] [address] [place], [address], 12/30/2022 12:25:27 Result Notes None recorded. Problems Name Problem SNOMED Code Status Onset Date Resolution Date Notes Provider Name and Address Organization Details Recorded Time Neck pain 74669930 Active 2021 Rhasheda Bickley null, MD - [facility] 2 09:44:50 Pain of knee region 8738839776 Active 2021 Rhasheda Bickley null, MD - [facility] 2 09:44:58 Pain in upper limb 254247667 Active 2022 Rhasheda Bickley null, MD - [facility] 3 15:56:05 Fibromyalgia 987489887 Active 2022 An Monalisa null, MD - [facility] 3 10:39:26 Fibromyalgia 280814877 Active 2022 An Monalisa null, MD - [facility] 3 10:39:37 Cervical spondylosis 926445406 Active 2022 An Monalisa null, MD - [facility] 3 10:39:38 Problem Notes None recorded. Procedures Surgical History Date Name Laterality Status Provider Name and Address Organization Details Recorded Time 3 SE Flowsheet completed OSBALDO PABLO D.O [address] [place], [address], [place] MD - [facility] 12/30/2022 09:29:02 3 Kure INTRA-ARTICULAR KNEE INJECTION UNDER ULTRASOUND GUIDANCE completed Laura Covarrubias MD [address] [place], [address], [place] MD - [facility] 11/16/2022 11:55:48 3 SE Cervical MBB Bilateral completed Laura Covarrubias MD [address] [place], [address], [place] MD - [facility] 11/01/2022 10:00:16 3 SE Cervical MBB Bilateral completed Laura Covarrubias MD [address] [place], [address], [place] MD - [facility] 09/25/2022 22:00:54 2 Kure INTRA-ARTICULAR KNEE INJECTION UNDER ULTRASOUND GUIDANCE completed Laura Covarrubias MD [address] [facility], [place], [address], MD [facility] 09/07/2022 16:02:54 Knee Surgery completed Amari Garnica [facility] 09/06/2022 16:52:56 Imaging Results None recorded. Procedure Notes None recorded. Medical Equipment None Reported. Allergies Allergen ID Allergen Name Allergen Category Reaction Reaction Severity Criticality Documentation Date Start Date Code Code System Note Provider Name and Address Organization Details Recorded Time 976242 ibuprofen medicatio n other Not available Not available 09/06/2022 5640 RxNorm MD Nahun Rapp [facility] 2 16:52:43 347571 Easprin medicatio n Not available Not available Not available 09/06/202289879 4 RxNorm Windy Fails MD Nahun jackson [facility] 3 11:29:45 434570 Non-stero idal anti-infl ammatory agent (product) medicatio n other Not available Not available 09/06/2022 98767 005 SNOMED MD Nahun Rapp [facility] 2 16:52:43 Medications Name Sig [...] DO NOT DRIVE, AND MUST HAVE A TRAWL NET MAKER 09/23 completed Not Available Not Available Not [...] Body mass index (BMI) Body weight Systolic And Diastolic Provider Name and Address Organization Details Last Updated DateTime 11/15/2022 165.1 cm 39.9 kg/m2 549683.17 g 122/84 mm[Hg] Windy Fails [facility] 11/15/2022 14:52:19 Date Recorded Body height Body temperature Body mass index (BMI) Body weight Systolic And Diastolic Provider Name and Address Organization Details Last Updated DateTime 11/16/2022 165.1 cm 96.8 [degF] 39.9 kg/m2 998700. 17 g 115/71 mm[Hg] Windy Fails MD - [facility] 11:29:22 Date Recorded Body height Body mass index (BMI) Body weight Systolic And Diastolic Provider Name and Address Organization Details Last Updated DateTime 12/26/2022 165.1 cm 39.9 kg/m2 762713.17 g 124/64 mm[Hg] Nataly Mariel Garnica [facility] 12/26/2022 13:58:50 Date Recorded Body height Body mass index (BMI) Body weight Heart rate Systolic And Diastolic Provider Name and Address Organization Details Last Updated DateTime 01/09/2023 165.1 cm 39.9 kg/m2 387128.1 7 g 82 /min 133/85 mm[Hg] India Garnica [facility] 01/09/2023 10:13:41 Social History Question Answer Notes LastModified by Organizat ion Details LastModified Time Tobacco Smoking Status Current Every Day Smoker MD Nahun Rapp [facility] 09/06/2022 16:52:53 Pain Level. 9 Information n [...] Not available 2021 16:52:46 Sister Back problem rbickley Not avail able 09/06/2022 16:52:46 Sister Disorder of thyroid gland rbickley Not available 2021 16:52:46 Sister Arthritis rbickley Not availabl e 09/06/2022 16:52:46 Medical History Condition Response Anxiety Disorder Y Thyroid Disease Y Arthritis Y Back Injury Y Headaches Y Fibromyalgia Y Depression Y Gynecological HistoryNo gynecological history recorded. Obstetrics History GPAL:G 0 P 0 0 0 0 Past Encounters Encounter ID Performer Location Encounter Start Date Encounter Closed Date Diagnosis/Indication Diagnosis SNOMED-CT Code Diagnosis ICD10 Code Diagnosis Note [id number] MD Mino [facility]ran[facility] [address] [place] [address] 09/06/2022 16:36:12 09/06/2022 17:56:06 Neck pain 36570690 M54.2 Pain of knee region 1003 502742 M25.569 Fibromyalgia 576862447 M 79.7 [id number] [facility] [address] [place] [address] 09/07/2022 15:33:10 09/07/2022 17:22:45 Pain of right knee joint 1573437744 18223 M25.781 [id number] MD [facility] [address] [place] [address] 09/21/2022 13:31:20 09/21/2022 15:22:14 Neck pain 90619276 M54.2 Pain of knee region 1003 046434 M25.569 Fibromyalgia 619960406 M 79.7 Cervical spondylosis 387 846681 M47.986 [id number] MD [facility] [address] [place] [address] 09/23/2022 08:29:51 09/26/2022 07:53:05 Cervical spondylosis 302582314 M47.449 [id number] [facility] [address] [place] [address] 10/17/2022 14:30:35 10/17/2022 15:26:21 Neck pain 75472820 M54.2 Pain of knee region 1003 141792 M25.569 Fibromyalgia 481712260 M 79.7 Cervical spondylosis 387 544870 M47.812 patient has failed therapy, nsaids, and home exercise ( 3 days per week from february to aug 2022) [id number] MD [facility] [address] [place] [address] 11/01/2022 08:48:10 11/02/2022 09:38:22 Cervical spondylosis 494720638 M47.812 patient has failed therapy, nsaids, and home exercise ( 3 days per week from february to aug 2022) [id number] MD Marcello [facility] [address] [place] [address] 11/15/2022 14:29:29 11/15/2022 17:14:05 Neck pain 48013416 M54.2 Pain of knee region 1003 959388 M25.569 Fibromyalgia 203773832 M 79.7 Cervical spondylosis 387 952248 M47.812 patient has failed therapy, nsaids, and home exercise ( 3 days per week from february to aug 2022) Pain in upper limb 71586 6003 M79.806 [id number] MD Marcello [facility] [address] [place] [address] 11/16/2022 11:23:47 11/16/2022 12:24:09 Osteoarthritis of right knee joint 6789649279 29548 M17.11 [id number] OSBALDO PABLO D.O [place] [address] [place] [address] 12/26/2022 13:43:08 12/26/2022 16:30:26 Paresthesia of upper limb 19495685 R20.2 [id number] [facility] [address] [place] [address] 01/09/2023 10:04:53 01/09/2023 12:52:51 Neck pain 71909251 M54.2 Pain of knee region 1003 707218 M25.569 Fibromyalgia 457753585 M 79.7 Cervical spondylosis 387 012385 M47.812 patient has failed therapy, nsaids, and home exercise ( 3 days per week from february to aug 2022) Pain in upper limb 27371 6003 M79.603 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 4446594108 62953 G56.12 Health Concerns Section Related Observation LastModified by Organization Detai ls LastModified Time None Recorded Concern Status LastModified by Organization Details LastModified Time None Recorded Advance Directives Directive None Recorded Payers Insurance Date Sequence Insurance Name Policy Number Policy Levine Covered Member ID Levine Member ID Guarantor Name 01/13/2023 1 [employer] (MEDICARE REPLACEMENT/A DVANTAGE - PPO) [id number] Manuela May [id number] Manuela May 01/13/2023 2 [place] [employer] Manuelaalexia May [id number] Manuela May 11/23/2022 [facility] Manuela A Stone [id number] Manuela May Notes Date Note Type Note Provider Name [...] systemic signs of infection. Laura Covarrubias MD [address] [place], [address], - [facility] 11/01/2022 12:20:24 11/15/2022 text/html HPI NewReported bypatient.Location [...] moderate bilaterally at C5-6. Laura Covarrubias MD [address] [place], [address], [employer] [facility] 11/16/2022 08:48:41 11/16/2022 text/html HISTORY: Ms. Yaneth [...] signs of infection. Laura Covarrubias MD [address] [facility], [place], [address], [employer] 11/16/2022 11:56:24 12/26/2022 text/html Ms May present [...] but becoming more consistent. OSBALDO PABLO D.O [address] [place], [address], MD [facility] 12/30/2022 09:34:20 01/09/2023 text/html HPI NewReported bypatient.Location :neck; lower back; general pain Timing:years ago; constant Context:cannot identify; bending; twisting Quality:aching; burning; sharp; shooting EEDR Severity:average pain 10/10; worst pain 10/10 Aggravating [...] moderate bilaterally at C5-6. Laura Covarrubias MD [address] [place], [address], MD [facility] 01/09/2023 16:57:30 OBGyn Episode No OBEpisode recorded.
--- OUTSIDE RECORDS SUMMARY | 2025-03-28 14:00 | XMS_ITS | Patient Health Record ---
Author Organization [facility] Emelia cohen Billing Info Address [address] [place] [address] Care Team Providers Care Road Crossing Guard Name Role Phone HOLLY DUNN Primary Care Provider [phone] FRAN JACOBO Unavailable [phone] Laura Covarrubias MD Unavailable Unavailable Allergies Allergen [...] a day for 90 day(s) Not-Taking Biotin 39620 MCG 1 tablet Orally Once a day [...] - ALL PAYORS IM Intramuscular 08/30/2022 Administered [facility] [address] Social History Tobacco Use: Social History Observation Description Date Details (start date - stop date) Current Smoker NA - NA Tobacco Status: Question Answer Notes Patient is a current every day smoker Problems Problem Type SNOMED Code ICD Code Onset Dates Problem Status W/U Status Risk Notes Problem 1341992598582 Cervicalgia (M54.2) Active confirmed Problem 659451276 Cervical myelopathy (G95.9) Active confirmed Plan Of [...] Date [employer]ET[employer] PPO MEDICARE PLAN [address] [place], [place] [id number] [place] Manuela Self - patient is the insured 3 [place] [address] [facility] [id number] Manuela May Self - patient is the insured 3 [employer] BEH[employer]IOR [employer] PPO [address] [address] [place], [place] [id number] Manuela May Self - patient is the insured 3 Medical (General) History Medical History History ICD Code Hyperlipidemia Esophageal reflux Depression Anxiety Surgical History Surgery Date(Month/Year) colonoscopy, repeat in 5 years, 2019 tubal ligation knee arthroscopy, right Hospitalization History Reason Date(Month/Year) see above
--- NOTE | 2025-03-28 14:02 | MHC.OFFVIS ---
Vital Signs 03/28/25 14:08 Height 5 ft 5 in Weight 242 lb BMI 40.3 Intake Visit Reasons: New Patient-ulnar neuropathy at the elbow Intake Note: Manuela is 54 year old right hand dominant female presents today for a new patient visit/ EMG Review of the left upper extemity. Patient was last seen with Dr Jaramillo who ordered am EMG to determine between radiculopathy versus ulnar neuropathy. She was also instructed to follow up with Pain Mgmt for her neck. Patient reports that she has having numbness and tingling of the Left 5th and 4th digits that radiatates up the ulnar aspect of the arm. IMPRESSION: 1. This is an abnormal study. 2. There is electrodiagnostic evidence for left ulnar neuropathy at the elbow. 3. There is no electrodiagnostic evidence for median neuropathy, brachial plexopathy, or cervical radiculopathy Allergies NSAIDS (Non-Steroidal Anti-Inflamma Adverse Reaction (Severe, Verified 03/12/25 11:14) acute kidney damage tramadol Adverse Reaction (Verified 03/12/25 11:14) Nausea PFSH Medical History (Updated 01/02/25 @ 11:08 by Jessy Edwards MD) Tubular adenoma of colon GERD (gastroesophageal reflux disease) Thyroid disease Elevated cholesterol Spondylosis of lumbar spine Fibromyalgia Suicide attempt Headache Surgical History (Updated 01/02/25 @ 11:05 by Jessy Edwards MD) History of dental surgery Hx of anterior cruciate ligament surgery Hx of tubal ligation Family History Mother Depression Father No problems noted. Sister Diabetes Fibromyalgia Degenerative disc disease Bipolar 1 disorder Depression Son Depression Bipolar 2 disorder Son Depression Son Depression Daughter Depression Migraine Social History (Updated 12/12/24 @ 13:47 by Nara Luna Sarah) Are you a primary career development associate to a significant other at home: No Do you presently have visiting nurse or other home services: No Alcohol intake: never Patient Tobacco Use Status: Former Tobacco user Tobacco use type: Cigarette Years Smoked: quit 2023, started age 16, 1PPD, and vape. e-Cigarette/Vaping Use: Former Use Physical Exam Vital Signs: BMI result Body Mass Index 40.3 Extrem Other: The patient was alert oriented and in no acute distress. She had some decreased subjective sensation in the ulnar nerve distribution of the left hand. Normal sensation to the median nerve distribution No thenar or intrinsic wasting. Good finger abduction and adduction She can make a fist and extend all of her digits with no locking or catching. Good elbow flexion and extension without pain No swelling or erythema No skin changes or rashes EMG nerve conduction study performed Dr. Jaramillo on 03/07/2025: FINDINGS: Left ulnar neuropathy, recording at FDI, showed prolonged distal latency, normal amplitude and slight slowing of conduction velocity across the elbow. Left ulnar sensory nerve showed normal peak latency but small amplitude. DUCS absent response. All other nerves tested were within normal IMPRESSION: 1. This is an abnormal study. 2. There is electrodiagnostic evidence for left ulnar neuropathy at the elbow. 3. There is no electrodiagnostic evidence for median neuropathy, brachial plexopathy, or cervical radiculopathy. CLINICAL COMMENT: Referring patient to Dr. Yusuf, hand surgery. Jessy Edwards MD, JAYLIN Assessment & Plan Assessment & Plan (1) Ulnar neuropathy at elbow: Code(s): G56.20 - Lesion of ulnar nerve, unspecified upper limb Category: Medical Qualifiers: Laterality: left Qualified Code(s): G56.22 - Lesion of ulnar nerve, left upper limb Plan Assessment and plan: 1. Left cubital tunnel syndrome With persistent numbness and tingling I educated her about this condition We discussed operative and non operative treatment options and she wished to proceed with surgery. The risks and benefits of operative treatment were discussed with the patient and the patient wishes to proceed with surgery. These risks include, but are not limited to risk of damage to blood vessels, nerves, tendons, infection, recurrence, incomplete relief of preoperative symptoms, persistent pain, possible need for further surgery and the risks associated with regional blocks and anesthesia. The plan is to take the patient to the operating room sometime in the next few weeks for the following procedures: 1. Left cubital tunnel release 2. [ ] All of the preoperative paperwork including the consent was filled out today. All the patient's questions were answered. The patient understands that they will be contacted by our surgery specialist soon to schedule this procedure She says that she has some asthma which is well-controlled. She denies any heart lung kidney problems or diabetes. Coding Level of Care Code Est Pt Level 4 (12052) Diagnoses Ulnar neuropathy at elbow of left upper extremity G56.22 Laterality: left
[2025-03-28 14:08] VITALS: BMI 40.3
== END 2025-03-28 14:35 | disposition home or self-care (01) ==
LOC: HO.HOS 13:54
PROVIDERS: PCP Internal Medicine; Visit Provider Orthopaedic Surgery
DX: G56.22 Lesion of ulnar nerve, left upper limb (principal)
CPT/HCPCS: 99214

== ENCOUNTER → 2025-03-28 13:54 | Outpatient (BNVA) | payer MEDICARE, MEDICAID, SELFPAY | PROVIDERS: PCP Internal Medicine; Visit Provider Orthopaedic Surgery | DX: G56.22 Lesion of ulnar nerve, left upper limb (principal) | CPT/HCPCS: 99212 ==

== ENCOUNTER 2025-04-10 14:19 | Outpatient (REF) | payer MEDICARE, MEDICAID, SELFPAY ==
--- OUTSIDE RECORDS SUMMARY | 2025-04-10 14:24 | XMS_ITS | Encounter Summary ---
Author Organization [employer] Address [address] [facility] 7t [place] [address] Care Team Providers Care Truck Switcher Name Role Phone Fabio Jones MD Primary Care Prov ider Encounter Details Date Type Department Care Team (Latest Contact Info) Description 03/13/2025 Results Follow-Up [facility] MED & PEDS [address] [place] [address] Fabio Jones MD [address] [place] [address] Comprehensive Metabolic Panel, Lipid Panel, Standard, TSH [...] Care Team (Late st Contact Info) Description 06/06/2025 10:30 AM EDT Telemedicine [facility] MED [facility] [address] [place] [address] Fabio Jones MD [address] [place] [address] documented as of this encounter Visit Diagnoses Not on filedocumented in this encounter Additional Health Concerns Assessment Noted Time PHQ-9 Depression Total Score: 0 08/02/20 24 10:30 AM EST documented as of this encounter Care Teams Truck Switcher Relationship Specialty Start Date End Date Fabio Jones MD [address] [place] [address] PCP - General Internal Medicine 09/05/23 documented as of this encounter
--- OUTSIDE RECORDS SUMMARY | 2025-04-10 14:24 | XMS_ITS | Patient Health Record ---
Author Organization [facility] Address [address] [place] [address] Care Team Providers Care Oyster Buyer Name Role Phone Guanaco Caldera Primary Care Provider [phone] Reason For Referral No Information Plan Of Treatment No Information Insurance Providers Payer Name Payer Address Payer Phone Subscriber Number Group Number Insured Name Patient Relationship to Insured Coverage Start Date Coverage End Date [facility] [address] [address] [id number] Manuela May Self - patient is the insured
--- OUTSIDE RECORDS SUMMARY | 2025-04-10 14:24 | XMS_ITS | Encounter Summary ---
Author Organization [facility] Address [address] [place] [address] Care Team Providers Care Imaging Assistant Name Role Phone Xavier Mims MD Primary Care Provider [phone] Formerly [facility], Pcp Primary Care Provider Unavailabl e Fabio Jones MD Primary Care Prov ider Unavailable Zelda Sy MD Unavailable [phone] Melissa Mejia NP Unavailable [phone] Reason for Visit * Reason Onset Date Comments other 12/26/2016 FYI Encounter Details Date Type Department Care Team Description 12/26/2016 Telephone Adult Medicine B - [address] [phone] Xavier Mims MD [address] [place] [address] [phone] other (FYI) Social History Tobacco Use Types [...] documented as of this encounter Care Teams Imaging Assistant Relationship Specialty Start Date End Date Xavier Mims MD [address] [place] [address] PCP - General Internal Medicine 06/04/15 12/14/22 Formerly [facility], Pcp [address] [place] [address] PCP - General Internal Medicine 12/15/22 09/04/23 Fabio Jones MD [address] [place] [address] PCP - General Internal Medicine 09/05/23 Zelda Sy MD [address] [place] [address] Tailings Worker Cardiology 11/21/23 Melissa Mejia NP [address] [place] [address] Nurse Practitioner Cardiology 04/26/24 documented as of this encounter
--- OUTSIDE RECORDS SUMMARY | 2025-04-10 14:25 | XMS_ITS | Clinical Summary ---
Author Organization [facility] Address [address] [place] [address] Care Team Providers Care Candle Molder Machine Name Role Phone Fabio Jones Primary Care [...] disea se) stage 3, GFR 30-59 ml/min ([facility]) Hypothyroid 09/14/2020 DX:Hypothyroid Hyperlipidemia 09/14/2020 DX:Hyperlipidemi a [...] RESULTING AGENCY - 11/07/2019 2:10 PM EST [id number] THINPREP PAP AMD CELL BLOCK: NEGATIVE FOR [...] Recently Relevant to Health Maintenance Care Teams Candle Molder Machine Relationship Specialty Start Date End Date Fabio Jones [address] [place], [place] PCP - General 09/05/23
--- OUTSIDE RECORDS SUMMARY | 2025-04-10 14:25 | XMS_ITS | Patient Health Record ---
Author Organization [facility] Emelia cohen Billing Info Address [address] [place] [address] Care Team Providers Care Director Of Sales And Marketing Name Role Phone HOLLY DUNN Primary Care Provider FRAN JACOBO Unavailable [phone] Laura Covarrubias MD Unavailable Unavailable Allergies Allergen [...] a day for 90 day(s) Not-Taking Biotin 34727 MCG 1 tablet Orally Once a day [...] - ALL PAYORS IM Intramuscular 08/30/2022 Administered [facility] [phone] Social History Tobacco Use: Social History Observation Description Date Details (start date - stop date) Current Smoker NA - NA Tobacco Status: Question Answer Notes Patient is a current every day smoker Problems Problem Type SNOMED Code ICD Code Onset Dates Problem Status W/U Status Risk Notes Problem 7689327355169 Cervicalgia (M54.2) Active confirmed Problem [id number] Cervical myelopathy (G95.9) Active confirmed Plan Of [...] Date [employer] PPO MEDICARE PLAN [address] [place], [place] [id number] [place] Manuela Self - patient is the insured 3 [place] [address] [facility] [id number] Manuela May Self - patient is the insured 3 [employer]IOR [employer] PPO [address] [address] [place], [place] [id number] Manuela May Self - patient is the insured 3 Medical (General) History Medical History History ICD Code Hyperlipidemia Esophageal reflux Depression Anxiety Surgical History Surgery Date(Month/Year) colonoscopy, repeat in 5 years, 2019 tubal ligation knee arthroscopy, right Hospitalization History Reason Date(Month/Year) see above
--- OUTSIDE RECORDS SUMMARY | 2025-04-10 14:25 | XMS_ITS | Data Portability ---
Author Organization [facility] Address [address] [place], [place] [address] Assessment Encounter Date Assessment Date Assessment LastModified by Organization Details LastModified Time 11/15/2022 11/15/2022 52yo with complaints of neck, shoulder, knee, and low back pain. she had minimal relief with cdmbb. she has ptsd, fibromyalgia, and bipolar. she unable to take nsaids. she moved from [place]. we will order emg/ncs. we will continue [...] our protocol, the prescription drug monitoring program (E-FORCSE/PULP PLANT SUPERVISOR AWARE) was reviewed and used in medical [...] to the chart under the results section. [email or web address] Not available 12/30/2022 09:29:00 01/09/2023 01/09/2023 52yo [...] our protocol, the prescription drug monitoring program (E-FORCSE/PULP PLANT SUPERVISOR AWARE) was reviewed and used in medical [...] to schedule 2022 023 EDER Ospina MD, [address] [facility], [address], [place], [address], 05/09/202 3 17:29:08 neurologica l surgeon referral - Please schedule patient an appt for eval/treat for cervical stenosis. Thanks! 2022 023 anderson Joyce MD, [address], [address], [place], [address], 3 17:14:06 Procedures nerve conduction study/EMG (PROC) - 60 minutes, BILATERAL UPPER EXTREMITIES 2022 023 [email or web address] Not available 12:19:22 Surgeries None recorded. Imaging None recorded. Medication Orders hydrocodone 5 mg-acetamin ophen 325 mg tablet 2022 023 [id number], [address], [place], [place], [phone], 3 17:12:24 hydrocodone 5 mg-acetamin ophen 325 mg tablet 2022 0[id number], [address], [place], [place], [id number], 08:48:45 Patient TargetsNo targets recorded. Patient Instructions Encounter Date Encounter Id Patient Instructions Last Modified By Organization Details Last Modified Time 11/15/2022 [id number] E-[facility] Review: As per our protocol, the prescription drug monitoring program (E- FORCSE/PULP PLANT SUPERVISOR AWARxE) was reviewed and used in medical decision making. Opioid Risk Information: As part of the educational protocol for those patients prescribed scheduled based pain medications, an informational handout provided by the CDC and the [facility] was given to the patient. [...] As part of the comprehensive treatment at [facility] we have initiated a structured home [...] patient. [email or web address] Not available 11/15/2022 15:55:23 01/09/2023 [id number] PDMP (Physician Drug Monitoring Program)/E-[facility]orsce Review: As per our protocol, the prescription drug monitoring program (E- FORCSE/PULP PLANT SUPERVISOR AWARxE) was reviewed and used in medical [...] As part of the comprehensive treatment at [facility] we have initiated a structured home [...] eval/treat for cervical stenosis. Thanks! Referring Physician: Lauar Covarrubias Pain Management, Encounter Date: 11/15/2022 Hand [...] ) No observ ation record ed. [email or web address] [facility] [address] [place], [address], 12/30/2022 12:25:27 Result Notes None recorded. Problems Name Problem SNOMED Code Status Onset Date Resolution Date Notes Provider Name and Address Organization Details Recorded Time Neck pain 90876033 Active 2021 Rhasheda Bickley null, MD - [facility] 2 09:44:50 Pain of knee region 8130739266 Active 2021 Rhasheda Bickley null, MD - [facility] 2 09:44:58 Pain in upper limb 060673792 Active 2022 Rhasheda Bickley null, MD - [facility] 3 15:56:05 Fibromyalgia 572755056 Active 2022 An Monalisa null, MD - [facility] 3 10:39:26 Fibromyalgia 685323430 Active 2022 An Monalisa null, MD - [facility] 3 10:39:37 Cervical spondylosis 349096294 Active 2022 An Monalisa null, MD - [facility] 3 10:39:38 Problem Notes None recorded. Procedures Surgical History Date Name Laterality Status Provider Name and Address Organization Details Recorded Time 3 SE Flowsheet completed OSBALDO PABLO D.O [address] [place], [address], [place] MD - [facility] 12/30/2022 09:29:02 3 Kure INTRA-ARTICULAR KNEE INJECTION UNDER ULTRASOUND GUIDANCE completed Laura Covarrubias MD [address] [place], [address], [place] MD - [facility] 11/16/2022 11:55:48 3 SE Cervical MBB Bilateral completed Laura Covarrubias MD [address] [place], [address], [place] MD - [facility] 11/01/2022 10:00:16 3 SE Cervical MBB Bilateral completed Laura Covarrubias MD [address] [place], [address], [place] MD - [facility] 09/25/2022 22:00:54 2 Kure INTRA-ARTICULAR KNEE INJECTION UNDER ULTRASOUND GUIDANCE completed Laura Covarrubias MD [address] [facility], [place], [address], MD [facility] 09/07/2022 16:02:54 Knee Surgery completed Amari Garnica [facility] 09/06/2022 16:52:56 Imaging Results None recorded. Procedure Notes None recorded. Medical Equipment None Reported. Allergies Allergen ID Allergen Name Allergen Category Reaction Reaction Severity Criticality Documentation Date Start Date Code Code System Note Provider Name and Address Organization Details Recorded Time 984472 ibuprofen medicatio n other Not available Not available 09/06/2022 5640 RxNorm MD Nahun Rapp [facility] 2 16:52:43 013090 Easprin medicatio n Not available Not available Not available 09/06/202227431 4 RxNorm Windy Fails MD Nahun jackson [facility] 3 11:29:45 025942 Non-stero idal anti-infl ammatory agent (product) medicatio n other Not available Not available 09/06/2022 26514 005 SNOMED MD Nahun Rapp [facility] [...] DO NOT DRIVE, AND MUST HAVE A ORDER EDITOR 09/23 completed Not Available Not Available Not [...] Updated DateTime 11/15/2022 165.1 cm 39.9 kg/m2 613917.17 g 122/84 mm[Hg] Windy Fails [facility] 11/15/2022 14:52:19 Date Recorded Body height Body temperature Body mass index (BMI) Body weight Systolic And Diastolic Provider Name and Address Organization Details Last Updated DateTime 11/16/2022 165.1 cm 96.8 [degF] 39.9 kg/m2 057058. 17 g 115/71 mm[Hg] Windy Fails MD - [facility] 11:29:22 Date Recorded Body height Body mass index (BMI) Body weight Systolic And Diastolic Provider Name and Address Organization Details Last Updated DateTime 12/26/2022 165.1 cm 39.9 kg/m2 260973.17 g 124/64 mm[Hg] Nataly Mariel Garnica [facility] [employer] 12/26/2022 13:58:50 Date Recorded Body height Body mass index (BMI) Body weight Heart rate Systolic And Diastolic Provider Name and Address Organization Details Last Updated DateTime 01/09/2023 165.1 cm 39.9 kg/m2 968454.1 7 g 82 /min 133/85 mm[Hg] [place] Garnica [facility] [employer] 01/09/2023 10:13:41 Social History Question Answer Notes LastModified by Organizat ion Details LastModified Time Tobacco Smoking Status Current Every Day Smoker MD Nahun Rapp [facility] [employer] 09/06/2022 16:52:53 Pain Level. 9 Information n [...] SNOMED-CT Code Diagnosis ICD10 Code Diagnosis Note [id number] MD Mino Cochrancomadeleine Rowan ce [address] [place] [address] 09/06/2022 16:36:12 09/06/2022 17:56:06 Neck pain 85646990 M54.2 Pain of knee region 1003 385731 M25.569 Fibromyalgia 671327678 M 79.7 [id number] MD [facility] [address] [place] [address] 09/07/2022 15:33:10 09/07/2022 17:22:45 Pain of right knee joint 6186533834 43052 M25.100 [id number] MD [facility] [address] [place] [address] 09/21/2022 13:31:20 09/21/2022 15:22:14 Neck pain 53557474 M54.2 Pain of knee region 1003 068061 M25.569 Fibromyalgia 885269478 M 79.7 Cervical spondylosis 387 188402 M47.352 [id number] MD [facility] [address] [place] [address] 09/23/2022 08:29:51 09/26/2022 07:53:05 Cervical spondylosis 690527852 M47.238 [id number] Laura [facility] [address] [place] [address] 10/17/2022 14:30:35 10/17/2022 15:26:21 Neck pain 26050058 M54.2 Pain of knee region 1003 730740 M25.569 Fibromyalgia 195396351 M 79.7 Cervical spondylosis 387 958931 M47.812 patient has failed therapy, nsaids, and home exercise ( 3 days per week from february to aug 2022) [id number] MD [facility] [address] [place] [address] 11/01/2022 08:48:10 11/02/2022 09:38:22 Cervical spondylosis 963361812 M47.812 patient has failed therapy, nsaids, and home exercise ( 3 days per week from february to aug 2022) [id number] MD Marcello [place] [facility] [address] [place] [address] 11/15/2022 14:29:29 11/15/2022 17:14:05 Neck pain 85223360 M54.2 Pain of knee region 1003 051347 M25.569 Fibromyalgia 508008944 M 79.7 Cervical spondylosis 387 190728 M47.812 patient has failed therapy, nsaids, and home exercise ( 3 days per week from february to aug 2022) Pain in upper limb 20889 6003 M79.116 [id number] MD Marcello [place] [facility] [address] [place] [address] 11/16/2022 11:23:47 11/16/2022 12:24:09 Osteoarthritis of right knee joint 3884463973 76153 M17.11 [id number] OSBALDO PABLO D.O [facility] [facility] [address] [place] [address] 12/26/2022 13:43:08 12/26/2022 16:30:26 Paresthesia of upper limb 88069108 R20.2 [id number] [address] [facility] 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 Health Concerns Section Related Observation LastModified by Organization Detai ls LastModified Time None Recorded Concern Status LastModified by Organization Details LastModified Time None Recorded Advance Directives Directive None Recorded Payers Insurance Date Sequence Insurance Name Policy Number Policy Levine Covered Member ID Levine Member ID Guarantor Name 01/13/2023 1 [employer] (MEDICARE REPLACEMENT/A DVANTAGE - PPO) [id number] Manuela A Stone [id number] Manuela Stone 01/13/2023 2 [place] [employer] Manuela A Stone [id number] Manuela Stone 11/23/2022 1 [facility] Manuela A Stone [id number] Manuela Stone Notes Date Note Type Note Provider Name and Address Organization Details Recorded Time 3 text/html Ms. May is a 52yo with [...] systemic signs of infection. Laura Covarrubias MD [address] [place], [address], - [facility] 11/01/2022 12:20:24 3 text/html HPI NewReported by PatientPain Management InitialFor timing, patient reports___ years agoandconstant. For context, patient reportscannot identify. For quality, patient reportsaching,burning,sh darshana, andshooting. For eder severity, patient reportsaverage pain 10/10andworst pain 10/10. For aggravating factors, patient reportssitting,walking,c old weather, anddamp weather(bending). For alleviating factors, patient reportslying down. For past treatments include, patient reportsmuscle relaxantsandsteroid injection(tens unit, pt/chiro care, nerve blocks). For eder prior imaging, patient reportsct scan,mri, andx ray(emg/ncs). For location, (general pain). Pain Management F/UReported by PatientHPIFor severity, patient reportssevere (8-10). For quality, patient reportsaching. For duration, patient reportspresent for >12 months. For timing, patient reportsconstant. For context, patient reportsoveruse. For alleviating factors, patient reportsrest. For aggravating factors, patient reportsmovement/position ingandbending over(standing, sitting, weather). For location, (neck, knee). Ms. May is a 52yo with complaints of neck, knee pain, and spasm. Imaging:MRI cervical spine . Multilevel disc osteophytic complexes results in moderate central calan stenosis at C5-6 and mild at C6-72. Multilevel foraminal stenosis which is moderate bilaterally at C2-3, moderate on right at C4-5, and moderate bilaterally at C5-6. Laura Covarrubias MD [address] [place], [address], - [facility] 11/16/2022 08:48:41 3 text/html HISTORY: Ms. May is a 52y with right knee pain. [...] systemic signs of infection. Laura Covarrubias MD [address] [facility], [place], [address], MD Nahun Shabazz [facility] [employer] 11/16/2022 11:56:24 3 text/html Ms May presents with a 6-month history of bilateral upper extremity numbness and tingling. She notes left greater than right. She notes pain sometimes starts in the periscapular area and sometimes at the elbow. She notes digit 4 and 5 most involved. Notes weakness when symptoms are worse. She notes symptoms are intermittent but becoming more consistent. OSBALDO PABLO D.O [address] [facility], [place], [address], MD Nahun [facility] [employer] 12/30/2022 09:34:20 3 text/html HPI NewReported by PatientPain Management InitialFor location, patient reportsneckandlower back(general pain). For timing, patient reports___ years agoandconstant. For context, patient reportscannot identify,bending, andtwisting. For quality, patient reportsaching,burning,sh darshana, andshooting. For eder severity, patient reportsaverage pain 10/10andworst pain 10/10. For aggravating factors, patient reportssitting,walking,c old weather, anddamp weather(bending). For alleviating factors, patient reportslying down. For past treatments include, patient reportsmuscle relaxantsandsteroid injection(tens unit, pt/chiro care, nerve blocks). For eder prior imaging, patient reportsct scan,mri, andx ray(emg/ncs). Pain Management F/UReported by PatientHPIFor severity, patient reportssevere (8-10). For quality, patient reportsaching. For duration, patient reportspresent for >12 months. For timing, patient reportsconstant. For context, patient reportsoveruse. For alleviating factors, patient reportsrest. For aggravating factors, patient reportsmovement/position ingandbending over(standing, sitting, weather). For location, (neck, knee). Ms. May is a 52yo with complaints of neck, knee pain, and spasm. Imaging:MRI cervical spine . Multilevel disc osteophytic complexes results in moderate central calan stenosis at C5-6 and mild at C6-72. Multilevel foraminal stenosis which is moderate bilaterally at C2-3, moderate on right at C4-5, and moderate bilaterally at C5-6. Laura Covarrubias MD [address] , [place], [address], - [facility] 01/09/2023 16:57:30 OBGyn Episode No OBEpisode recorded.
[2025-04-10 17:48] LABS: INTERNATIONAL NORM RATIO 0.8 (0.9-1.1); Prothrombin Time 9.5 SEC (10.9-12.4)
[2025-04-10 17:54] LABS: Alanine Aminotransferase 64 U/L (0-31); Albumin Level 4.7 g/dL (3.5-5.0); Alkaline Phosphatase 96 U/L (39-117); Anion Gap 12 (12-20); Aspartate Amino Transferase 38 U/L (5-31); Blood Urea Nitrogen 14 mg/dL (9-16); Calcium 9.1 mg/dL (8.4-10.2); Carbon Dioxide 26 mmol/L (22-29); Chloride 96 mmol/L (96-108); Estimated Glomerular Filt Rate > 60; Potassium 4.6 mmol/L (3.3-5.1); Sodium 129 mmol/L (135-145); Total Protein 7.3 g/dL (6.5-8.0)
== END 2025-04-10 14:20 | disposition home or self-care (01) ==
LOC: HO.CHCLDS 14:19
PROVIDERS: Visit Provider Student in an Organized Health Care Education/Training Program
DX: Z01.810 Encounter for preprocedural cardiovascular examination (principal)
CPT/HCPCS: 36415; 80048; 80076; 85610

== ENCOUNTER 2025-04-25 13:07 | Outpatient (AMB) | payer MEDICARE, MEDICAID, SELFPAY ==
--- NOTE | 2025-04-25 13:09 | MHC.OFFVIS ---
Vital Signs 04/25/25 13:10 Height 5 ft 5 in Weight 278 lb BMI 46.3 BP 142/87 H Blood Pressure Location Lt brachial Position Sitting Pulse 80 Pulse Source Pulse Oximeter Pulse Oximetry (%) 95 Oxygen Delivery Method Room Air Intake Visit Reasons: L cub. Veronica 05/08 Allergies NSAIDS (Non-Steroidal Anti-Inflamma Adverse Reaction (Severe, Verified 04/25/25 13:15) acute kidney damage tramadol Adverse Reaction (Intermediate, Verified 04/25/25 13:15) Nausea HPI HPI L cub. Tunnel 05/08 : Details: 54-year-old lady, recent 20+ pack-year smoker, with underlying obesity and congestive heart failure referred for evaluation pulmonary component to dyspnea. Patient states that she previously used albuterol MDI with some affect, but recently it is no longer helping. She also was tried on Trelegy and another unspecified inhaler that she was not able to tolerate. She does complain of significant dyspnea including at rest, orthopnea, and with exertion. She does complain of multiple environmental allergies for which she is taking Zyrtec and Flonase. She denies exposure to industrial dusts. Patient does not have family history of lung disease. She has been observed snoring and has daytime somnolence. After the last office visit patient had essentially normal sleep study, 2D echocardiogram, and immunologic/allergic workup. She has been tried on Anoro with significantly improved symptom control. Her lower extremity edema and orthopnea have also resolved. [facility] Medical History (Updated 04/25/25 @ 14:01 by Ezio Law MD) Family history of anesthesia complication PONV (postoperative nausea and vomiting) Hyponatremia SOB (shortness of breath) JACINDA (obstructive sleep apnea) Asthma Hypothyroid PTSD (post-traumatic stress disorder) MDD (major depressive disorder) Panic disorder Tubular adenoma of colon GERD (gastroesophageal reflux disease) Elevated cholesterol Spondylosis of lumbar spine Fibromyalgia Headache Surgical History (Updated 04/21/25 @ 13:10 by Sherita Bergeron RN) History of esophagogastroduodenoscopy (EGD) H/O colonoscopy Hx of fusion of cervical spine History of dental surgery Hx of anterior cruciate ligament surgery Hx of tubal ligation Family History Mother Depression Father No problems noted. Sister Diabetes Fibromyalgia Degenerative disc disease Bipolar 1 disorder Depression Son Depression Bipolar 2 disorder Son Depression Son Depression Daughter Depression Migraine Social History (Updated 12/12/24 @ 13:47 by Nara Luna [facility]) Household Members Other:: daughter Housing Other:: 2nd floor of 2 family house Are you a primary medical care administrator to a significant other at home: No Do you presently have visiting nurse or other home services: Yes (daughter is VETERINARY MEDICINE SCIENTIST) Alcohol intake: never Patient Tobacco Use Status: Former Tobacco user Tobacco use type: Cigarette Years Smoked: 15 e-Cigarette/Vaping Use: Former Use Review of Systems Const Denies daytime sleepiness, Denies excessive sweating, Denies fatigue, Denies fever(s), Denies lethargy, Denies malaise, Denies night sweats, Denies snoring and Denies weight loss Eyes Denies blurry vision and Denies itchy eyes ENT Denies nasal congestion, Denies post nasal drip, Denies sinus pain, Denies sinus pressure and Denies other ( Thrush) Card Denies chest pain, Denies pedal edema, Denies dyspnea, Denies orthopnea and Denies paroxysmal nocturnal dyspnea Resp Denies cough, Denies hemoptysis, Denies excessive phlegm production, Denies dyspnea, Denies snoring and Denies wheezing GI Denies abdominal pain and Denies heartburn Musc Denies myalgias, Denies arthralgias and Denies joint swelling Skin/Breast Denies rash Neuro Denies memory loss and Denies seizure-like activity Psych Denies abnormal sleep pattern, Denies anxiety and Denies memory loss Endo Denies excessive sweating, Denies fatigue and Denies heat intolerance Braden/Lymph Denies easy bruising Aller/Immun Denies itchy eyes, Denies seasonal rhinorrhea and Denies wheezing Physical Exam Vital Signs: Last Vital Signs Pulse 80 04/25/25 13:10 BP 142/87 H 04/25/25 13:10 Pulse Ox 95 04/25/25 13:10 Oxygen Delivery Method Room Air 04/25/25 13:10 BMI result Body Mass Index 46.3 Const General: no acute distress and alert Nutritional Appearance: obese Orientation/consciousness: Other orientation findings ( oriented) HEENT Head: Yes atraumatic Eyes General: appearance normal, both eyes and all related structures Sclerae: sclerae normal EOM: EOMs intact bilaterally Neck Neck: Yes supple Lymphatic: no lymphadenopathy noted Resp Effort & Inspection: normal respiratory effort and no use of accessory muscles Auscultation: clear to auscultation bilaterally Cardio Rate: regular rate Rhythm: regular rhythm Heart sounds: no gallops, no murmurs and no rubs Skin General skin exam: other ( warm) Extrem General: No clubbing, No cyanosis and No edema Assessment & Plan Assessment & Plan (1) COPD (chronic obstructive pulmonary disease): Code(s): J44.9 - Chronic obstructive pulmonary disease, unspecified Category: Medical Plan: Well controlled on current regimen of Anoro and albuterol MDI. Continue current regimen. (2) Personal history of nicotine dependence: Code(s): Z87.891 - Personal history of nicotine dependence Category: Medical Plan: Results of lung cancer screening CT chest reviewed, no worrisome nodules, continue with yearly screening. (3) Preop pulmonary/respiratory exam: Code(s): Z01.811 - Encounter for preprocedural respiratory examination Category: Medical Plan: At this time patient is at low risk for pulmonary perioperative complications for the proposed elbow surgery under general anesthesia. Coding Level of Care Code Est Pt Level 4 (43957) Complex EM visit Add On G2211 Diagnoses COPD (chronic obstructive pulmonary disease) J44.9 Personal history of nicotine dependence Z87.891 Preop pulmonary/respiratory exam Z01.811
[2025-04-25 13:10] VITALS: BP 142/87; PULSE 80; O2SAT 95; BMI 46.3
--- OUTSIDE RECORDS SUMMARY | 2025-04-25 13:10 | XMS_ITS | Patient Health Record ---
Author Organization [facility] Center Address [address] [place] [address] Care Team Providers Care Information Systems Coordinator Name Role Phone Guanaco Caldera Primary Care Provider Reason For Referral No Information Plan Of Treatment No Information Insurance Providers Payer Name Payer Address Payer Phone Subscriber Number Group Number Insured Name Patient Relationship to Insured Coverage Start Date Coverage End Date [facility] [place] [address] [address] [id number] Manuela May Self - patient is the insured
--- OUTSIDE RECORDS SUMMARY | 2025-04-25 13:10 | XMS_ITS | Clinical Summary ---
Author Organization Patient Business Ser [facility] Address [address] [place] [address] Care Team Providers Care Tool Sharpener Name Role Phone Fabio Jones Primary Care Provide r Allergies Active Allergy Reactions Criticality Noted Date Comments Nsaids (Non-Steroidal Anti-Inflammatory Drug) Renal Impairment 04/14/2025 Tramadol GI intolerance 04/14/2025 Medications lidocaine (LIDODERM) 5 % patch Apply 1 patch topically 1 (one) time each day. Remove & discard patch within 12 hours or as directed by MD. 30 each 5 05/14/20 25 Active methylPREDNISo lone (MedroL) 32 mg tablet Take 1 tablet (32 mg total) by mouth 1 (one) time each day for 4 days. Okay to change to other formulations as long as the milligram amounts are equivalent 4 tablet 5 04/18/20 25 acetaminophen (TYLENOL) 500 mg tablet Take 2 tablets (1,000 mg total) by mouth every 6 (six) hours if needed for mild pain for up to 10 days. 30 tablet 5 04/24/20 25 colchicine (COLCRYS) 0.6 mg tablet Take 1 tablet (0.6 mg total) by mouth 2 (two) times a day for 6 days. 12 each 5 04/20/20 25 Encounters Date Type Department Care Team Description 04/14/2025 12:22 PM EDT - 04/14/2025 1:22 PM EDT Emergency [facility] Emergency [address] [place] [address] Xavier Silvestre MD Acute pain of left wrist (Primary Dx); Other secondary gout, left wrist Discharge Disposition: Home or Self Care from Last 3 Months Surgical History Surgery Date Site/Laterality Comments TUBAL LIGATION PROCEDURE: HISTORICAL TUBAL LIGATION KNEE SURGERY PROCEDURE: HISTORICAL KNEE SURGERY; COMMENT: right COLONOSCOPY 2019 PROCEDURE: HISTORICAL COLONOSCOPY; COMMENT: polyps, rpt 5 yrs Medical History Medical History Date Comments CKD (chronic kidney disease) stage 3, GFR 30-59 ml/min (CMS/HCC V24, CMS/HCC V28) 08/04/2020 DX:CKD (chronic kidney disea se) stage 3, GFR 30-59 ml/min ([facility]) Hypothyroid 09/14/2020 DX:Hypothyroid Hyperlipidemia 09/14/2020 DX:Hyperlipidemi [...] Sign Reading Time Taken Comments Blood Pressure 130/83 04/14/2025 11:09 AM EDT Pulse 81 04/14/2025 11:09 AM EDT Temperature - - Respiratory Rate 18 04/14/2025 11:09 AM EDT Oxygen Saturation 96% 04/14/2025 11:09 AM EDT Inhaled Oxygen Concentration - - Weight 122 kg (270 lb) 04/14/2025 11:09 AM EDT Height 165.1 cm (5' 5 ) 04/14/2025 11:09 AM EDT Body Mass Index 44.93 04/14/2025 11:09 AM EDT Plan of Treatment Health Maintenance Due Date Last Done Comments Hepatitis B Vaccines (1 of 3 - 19+ 3-dose series) 1989 Zoster Vaccines (1 of 2) 2020 HIV Screening 08/27/2020 Medicare Annual Wellness Visit 08/27/2020 Social Influencers of Health Screening 08/27/2020 Breast Cancer Screening 03/20/2023 03/20/2021, 10/25 COVID-19 Vaccine ( - 2023- season) 2024 01/27/2021, 12/30/2020 Depression Screening 09/18/2024 Influenza Vaccine (#1) 2025 , 10/07/2020, 08/15/2020, Additional history exists Colorectal Cancer Screening: Colonoscopy 10/13/2025 10/13/2020 Hypertension/CHF/CAD Annual BMP Blood Test 04/10/2026 04/10/2025, 03/12/2025 Cervical Cancer Screening: Pap Smear 10/17/2026 10/17/2023, 11/01/2019 DTaP,Tdap,and Td Vaccines (5 - Td or Tdap) 02/07/2030 02/08/2020, 03/13/2019, 07/10/2015, Additional history exists Cholesterol Screening (Lipid Panel) 03/12/2030 03/12/2025 Hepatitis C Screening Completed 12/06/2023 Pneumococcal Vaccine: 50+ Years Completed 08/02/2024, 02/28/2019 [...] 20 months Aged Out No longer eligible based on patient's age to complete this topic Varicella Vaccines Aged Out No longer eligible based on patient's age to complete this topic Procedures Procedure Name Priority Date/Time Associated Diagnosis Comments XR WRIST 3+ VIEWS LEFT STAT 04/14/2025 11:23 AM EDT SCREENING MAMMOGRAPHY BI 2-VIEW BREAST INC CAD Routine 03/20/2021 1:41 PM EDT Encounter for screening mammogram for malignant neoplasm of breast PAP SMEAR Routine 11/01/2019 from Last 3 Months or Most Recently Relevant to Health Maintenance Results * XR Wrist 3+ Views Left (04/14/2025 11:23 AM EDT) Anatomical Region Laterality Modality Upper Extremities, Wrist Left Radiogr aphic Imaging 04/14/2025 12:4 5 PM EDT Impressions 04/14/2025 12:45 PM EDT FINDINGS/IMPRESSION: No acute fracture or dislocation. Joint spaces are preserved. No focal soft tissue swelling. -------- FINAL REPORT -------- Dictated By: KOBE GAGE Dictated Date: 04/14/2025 12:45 ET Assigned Physician: KOBE GAGE Reviewed and Electronically Signed By: KOBE GAGE Signed Date: 04/14/2025 12:45 ET Workstation ID: [id number] Transcribed By: Self Edit Transcribed Date: 04/14/2025 12:45 ET Narrative 04/14/2025 12:45 PM EDT XR WRIST 3+ VIEWS LEFT INDICATION: Pain TECHNIQUE: XR WRIST 3+ VIEWS LEFT COMPARISON: No priors available. Procedure Note Kobe Gage MD - 04/14/2025 XR WRIST 3+ VIEWS LEFT INDICATION: Pain TECHNIQUE: XR WRIST 3+ VIEWS LEFT COMPARISON: No priors available. IMPRESSION: FINDINGS/IMPRESSION: No acute fracture or dislocation. Joint spaces arepreserved. No focal soft tissue swelling. -------- FINAL REPORT -------- Dictated By: KOBE GGAE Dictated Date: 04/14/2025 12:45 ET Assigned Physician: KOBE GAGE Reviewed and Electronically Signed By: KOBE GAGE Signed Date: 04/14/2025 12:45 ET Workstation ID: [id number] Transcribed By: Self Edit Transcribed Date: 04/14/2025 12:45 ET us Xavier Silvestre MD IMG XR PROCEDURES Final Result * SCREENING MAMMOGRAPHY BI 2-VIEW BREAST INC [...] No mammographic evidence of malignancy. BI-RADS 2-benign Marta Ayala DO IMG XR PROCEDURES Final Resul t * Pap smear (11/01/2019) 11/01/2019 Narrative HISTORICAL TESTING LAB RESULTING AGENCY - 11/07/2019 2:10 PM EST [id number] THINPREP PAP AMD CELL BLOCK: NEGATIVE FOR [...] 10/03/19, PAP HX NEG [Z12.4] CB 11/04/19 Marta Ayala DO LAB CYTOLOGY ORDERABLES Final Result HISTORICAL TESTING LAB RESULTING AGENCY from Last 3 Months or Most Recently Relevant to Health Maintenance Insurance MEDICAID - [place] [employer] MEDICARE ADVANTAGE Care Teams Tool Sharpener Relationship Specialty Start Date End Date Fabio Jones [address] [place], [place] PCP - General 09/05/23
--- OUTSIDE RECORDS SUMMARY | 2025-04-25 13:10 | XMS_ITS | Patient Health Record ---
Author Organization [facility] Emelia cohen Billing Info Address [address] [place] [address] Care Team Providers Care Tmd Teacher Assistant Name Role Phone HOLLY DUNN Primary Care Provider FRAN JACOBO Unavailable [phone] Laura Covarrubias MD Unavailable Unavailable Allergies Allergen [...] a day for 90 day(s) Not-Taking Biotin 51506 MCG 1 tablet Orally Once a day [...] ALL PAYORS IM Intramuscular 08/30/2022 Administered [facility] [id number] [phone] Social History Tobacco Use: Social History Observation Description Date Details (start date - stop date) Current Smoker NA - NA Tobacco Status: Question Answer Notes Patient is a current every day smoker Problems Problem Type SNOMED Code ICD Code Onset Dates Problem Status W/U Status Risk Notes Problem [id number] Cervicalgia (M54.2) Active confirmed Problem [id number] Cervical myelopathy (G95.9) Active confirmed Plan Of [...] Date [employer] PPO MEDICARE PLAN [address] [place], [place] [id number] [place] Manuela Self - patient is the insured 3 [place] [address] [facility] [id number] Manuela May Self - patient is the insured 3 [employer] PPO [address] [address] [place], [place] [id number] Manuela May Self - patient is the insured 3 Medical (General) History Medical History History ICD Code Hyperlipidemia Esophageal reflux Depression Anxiety Surgical History Surgery Date(Month/Year) colonoscopy, repeat in 5 years, 2019 tubal ligation knee arthroscopy, right Hospitalization History Reason Date(Month/Year) see above
--- OUTSIDE RECORDS SUMMARY | 2025-04-25 13:10 | XMS_ITS | Clinical Summary ---
Author Organization [employer] Address [address] [place] [address] [address] [place] [address] Care Team Providers Care Field Insurance Sales Manager Name Role Phone Fabio Jones MD Primary Care Prov ider Allergies Active Allergy Reactions Criticality Noted Date Comments Nsaids 09/04/2023 Other reaction(s): I have kidney problems and was told not to take them Tramadol 09/04/2023 Other reaction(s): CAUSES NAUSEA AND VOMITING Medications * This document contains information received from the source organization and may not represent a complete record from that organization. OXcarbazepine (Trileptal) 300 MG tabletIndications :Fibromyalgia Take [...] ANXIETY 60 capsule 1 12/25/19 24 Active traZODone (Desyrel) 50 MG tablet TAKE 1 TABLET(50 MG) BY MOUTH AT BEDTIME 30 tablet 04/29/20 24 Active levothyroxine (Synthroid) 112 MCG tabletIndications :Acquired hypothyroidism Take 1 tablet (112 mcg) by mouth before breakfast. 30 tablet 11 07/05/20 24 025 Active Fluticasone-Umecl idin-Vilant (Trelegy Ellipta) 100-62.5-25 MCG/ACT aerosol powder Inhale 1 puff Once per day. 60 each 3 08/02/20 24 Active albuterol 108 (90 Base) MCG/ACT inhaler Inhale 2 puffs every 6 (six) hours if needed for wheezing. 18 g 11 08/02/20 24 025 Active lidocaine (Lidoderm) 5 % patchIndications: Chronic bilateral low back pain with right-sided sciatica Apply 1 patch topically Once per day. Remove & discard patch within 12 hours or as directed by MD. 20 patch 3 10/22/19 25 Active pregabalin (Lyrica) 50 MG capsuleIndication s:Neuropathic pain Take 1 capsule (50 mg) by mouth 2 times daily. 60 capsule 3 01/08/20 25 025 Active cetirizine (ZyrTEC) 10 MG tablet TAKE [...] DAILY 16 g 3 02/25/20 25 Active lidocaine-priloca ine (Emla) 2.5-2.5 % cream APPLY TOPICALLY TO THE AFFECTED AREA 1 TIME FOR 1 DOSE 30 g 3 04/04/20 25 Active mirtazapine (Remeron) 15 MG tablet Take 15 mg by mouth at bedtime. 08/15/20 23 025 Discontinued furosemide (Lasix) 20 MG tablet Take 1 tablet (20 mg) by mouth Once per day. 90 tablet 3 03/14/20 24 025 Discontinued varenicline (Chantix) 1 MG tabletIndications :Smoker Take 1 tablet (1 mg) by mouth 2 times daily. Take with full glass of water. 120 tablet 06/06/20 24 025 Discontinued lidocaine-priloca ine (Emla) 2.5-2.5 % cream Apply topically 1 (one) time for 1 dose. 30 g 3 10/22/19 25 025 Discontinued Active Problems Problem Noted Date Diagnosed Date Mixed hyperlipidemia 03/30/2025 Assessment & Plan (03/30/2025 12:55 PM EDT): On statin therapy, encouraged low cholesterol diet and exercise as tolerated, follow up in 4 monts Bipolar disease, chronic 10/22/2024 Moderate episode of [...] reviewed Acquired hypothyroidism 12/01/2023 Assessment & Plan (03/30/2025 12:52 PM EDT): New labs will be ordered for guidance of therapy, clinically euthyroid Assessment & Plan (06/10/2024 10:29 AM EDT): [...] Patient refers used to be followed at [facility] cardiology, will place referal Fibromyalgia 09/04/2023 Assessment & Plan (09/04/2023 9:23 PM EST): On duloxetine, reviewed lifestyle changes to improve condition MDD (major depressive disorder) 09/04/2023 Assessment & Plan (09/04/2023 9:24 PM EST): Will place referral, meds will be renewed as needed [...] for colon cancer 09/04/2023 Assessment & Plan (03/10/2025 10:53 AM EDT): Scheduled for May 2025 Assessment & Plan (09/04/2023 9:27 PM EST): Will refer for colonoscopy Screening for malignant neoplasm of cervix 09/04 Screening for breast cancer 09/04/2023 Assessment & Plan (09/04/2023 9:28 PM EST): Will refer for screening mammo Resolved Problems Problem Noted Date Diagnosed Date Resolved Date Anxiety 09/04/2023 10/17/2023 Encounters Date Type Department Care Team Description 04/21/2025 Orders Only GENERIC EXTERNAL DATA DEPARTMENT Provider, Generic External Data 04/11/2025 Telephone [facility] [address] [place] [address] Marilee Young MD Results 04/11/2025 Orders Only [facility] [address] [place] [address] Marilee Young MD Hyponatremia (Primary Dx) 04/11/2025 Orders Only [facility] [employer] [address] [place] [address] [phone] ProviderPower MD 04/10/2025 2:00 PM EDT Office Visit [facility] [address] [place] [address] Marilee Young MD Moderate persistent asthma without complication (Primary Dx); Preop cardiovascular exam 04/10/2025 Travel 04/04/2025 Refill [facility] [address] [place] [address] Fabio Jones MD 04/03/2025 Travel 04/02/2025 Telephone [facility] [address] [facility] [place] [address] Fabio Jones MD pre op 03/24/2025 Telephone [facility] [address] [place] [address] Fabio Jones MD requesting call back 03/17/2025 Orders Only [facility] [address] [place] [address] Maco Galeano MD Chronic bilateral low back pain with right-sided sciatica (Primary Dx); Spondylosis of lumbar region without myelopathy or radiculopathy 03/13/2025 Results Follow-Up [facility] [address] [place] [address] Fabio Jones MD Comprehensive Metabolic Panel, Lipid Panel, Standard, TSH W/Reflex to FT4 03/12/2025 Orders Only [facility] External Provider, [facility] 03/10/2025 10:30 AM EDT Telemedicine [facility] [address] [place] [address] Fabio Jones MD Acquired hypothyroidism (Primary Dx); Chronic diastolic congestive heart failure (CMS/HCC); Screening for colon cancer; Mixed hyperlipidemia 03/10/2025 Travel 03/07/2025 Telephone [facility] [address] [place] [address] Fabio Jones MD chart prep 03/03/2025 Travel 02/24/2025 Refill [facility] [address] [place] [address] Fabio Jones MD 02/24/2025 Refill [facility] [address] [place] [address] Fabio Jones MD 02/23/2025 Refill [facility] [address] [place] [address] Fabio Jones MD from Last 3 Months Immunizations Immunization Administration [...] Sign Reading Time Taken Comments Blood Pressure 135/71 04/10/2025 2:13 PM EDT Pulse 74 04/10/2025 2:13 PM EDT Temperature 36.7 C (98.1 F) 04/10/2025 2:13 PM EDT Respiratory Rate 16 04/10/2025 2:13 PM EDT Oxygen Saturation 98% 04/10/2025 2:13 PM EDT Inhaled Oxygen Concentration - - Weight 127 kg (279 lb) 04/10/2025 2:13 PM EDT Height 165.1 cm (5' 5 ) 04/10/2025 2:13 PM EDT Body Mass Index 46.43 04/10/2025 2:13 PM EDT Plan of Treatment Upcoming Encounters Date Type Department Care Team (Late st Contact Info) Description 06/06/2025 10:30 AM EDT Telemedicine [facility] [address] [place] [address] Fabio Jones MD [address] [place] [address] Health Maintenance Due Date Last Done Comments CT Colonography 1970 FIT DNA/Cologuard 1970 FIT 1970 FOBT 1970 Sigmoidoscopy 1970 Hepatitis B Vaccines (1 of 3 - 19+ 3-dose series) 1989 Zoster Vaccines (1 of 2) 2020 COVID-19 Vaccine ( season) 2024 01/27/2021, 12/30/2020 Tobacco Screening 10/17/2024 10/17/2023 Colonoscopy 05/16/2025 05/16/2024 Colorectal Cancer Screening 05/16/2025 Influenza Vaccine (#1) 2025 , 10/07/2020, 08/15/2020, Additional history exists Depression Screening 08/02/2025 08/02/2024, 08/02/20 Disability Screening 10/15/2025 10/15/2024 Alcohol/Substance Use Screening 01/07/2026 01/07/2025 SDOH Screening 01/07/2026 01/07/2025 Mammogram 04/19/2026 04/19/2024 Cervical Cancer Screening 10/17/2028 HPV/Cotest 10/17/2028 10/17/2023 Pap Smear 10/17/2028 10/17/2023 DTaP/Tdap/Td Vaccines (5 - Td or Tdap) 02/07/2030 02/08/2020, 03/13/2019, 07/10/2015, Additional history exists Lipid Panel 03/12/2030 03/12/2025, 12/06/2023 HIV Screening 12/05/2033 RSV Patients and Patients Aged 60 years or older (1 - 1-dose 75+ series) 2045 Hepatitis C Screening Completed 12/06/2023 Pneumococcal Vaccine: [...] Procedure Name Priority Date/Time Associated Diagnosis Comments ELECTROLYTE PANEL Routine 04/21/2025 1:5 8 PM EDT PROTHROMBIN TIME-INR Routine 04/10/2025 2:20 PM EDT Preop cardiovascular exam HEPATIC FUNCTION PANEL Routine 04/10/2025 2:20 PM EDT Preop cardiovascular exam BASIC METABOLIC PANEL Routine 04/10/2025 2:20 PM EDT Preop cardiovascular exam ECG 12-LEAD Routine 04/10/2025 11:32 AM EDT LDCT LUNG SCREENING Routine 03/13/2025 1 2:34 AM EDT TSH W/REFLEX TO FT4 Routine 03/12/2025 8 :19 AM EDT Acquired hypothyroidism LIPID PANEL, STANDARD Routine 03/12/2025 8:19 AM EDT Chronic diastolic congestive heart failure (CMS/HCC) COMPREHENSIVE METABOLIC PANEL Routine 03/12/2025 8:19 AM EDT Chronic diastolic congestive heart failure (CMS/HCC) HM COLONOSCOPY Routine 05/16/2024 BI MAMMOGRAM SCREENING TOMOSYNTHESIS BILATERAL Routine 04/19/2024 [...] Relevant to Health Maintenance Results * (ABNORMAL) Electrolyte Panel (04/21/2025 1:58 PM EDT) Sodium 132(L) 135 - 145 mmol/L [facility] Potassium 4.8 3.3 - 5.1 mmol/L [facility] Chloride 97 96 - 108 mmol/L [facility] Carbon Dioxide 27 22 - 29 mmol/L [facility] Anion Gap 13 12 - 20 [facility] 04/21/2025 1:58 PM EDT 04/21/2025 1:58 PM EDT us Generic External Data Provider LAB BLOOD ORDERAB LES Final Result Performing Organization Address [facility]/ZIP Co de Phone Number [facility] [address] [place] [phone] * (ABNORMAL) Prothrombin Time-INR (04/10/2025 2:20 PM EDT) Prothrombin Time 9.5(L) 10.9 - 12.4 SEC [facility] INTERNATIONAL NORM RATIO 0.8(L) 0.9 - 1.1 [facility] Comment:INTERNATIONAL NORMAL IZED RATIO (INR) REFERENCE RANGES Reference RangeFor patients not on anticoagulant therapy: 0.9 - 1.1INR ranges for oral anticoagulanttherapy:For prevention and treatment of venous thrombosis and pulmonary embolism: 2.0 - 3.0For acute myocardial infarction with aspirin therapy: 2.0 - 3.0For acute myocardial infarction without aspirin therapy: 3.0 - 4.0For patients with mechanical prosthetic heart valves: 2.5 - 3.5 Blood Venous blood specimen / Unknown 04/10/2025 2:20 PM EDT 04/10/2025 5:32 PM EDT us Marilee Young MD LAB BLOOD ORDERABLES Final Resul t Performing Organization Address [facility] Co de Phone Number [facility] [address] [place] [phone] * (ABNORMAL) Hepatic Function Panel (04/10/2025 2:20 PM EDT) Bilirubin, Total 0.2 0.0 - 1.0 mg/dL [facility] Bilirubin, Direct <0.2 0.0 - 0.5 mg/dL [facility] Aspartate Amino Transferase 38(H) 5 - 31 U/L [facility] Alanine Aminotransferase 64(H) 0 - 31 U/L [facility] Total Protein 7.3 6.5 - 8.0 g/dL [facility] Albumin Level 4.7 3.5 - 5.0 g/dL [facility] Alkaline Phosphatase 96 39 - 117 U/L [facility] Blood Venous blood specimen / Unknown 04/10/2025 2:20 PM EDT 04/10/2025 5:32 PM EDT Marilee Young MD LAB BLOOD ORDERABLES Final Resul t Performing Organization Address [facility] Co de Phone Number [facility] [address] [place] [phone] * (ABNORMAL) Basic Metabolic Panel (04/10/2025 2:20 PM EDT) Sodium 129(L) 135 - 145 mmol/L [facility] Potassium 4.6 3.3 - 5.1 mmol/L [facility] Chloride 96 96 - 108 mmol/L [facility] Carbon Dioxide 26 22 - 29 mmol/L [facility] Anion Gap 12 12 - 20 [facility] Urea Nitrogen (BUN) 14 9 - 16 mg/dL [facility] Creatinine, Serum 0.74 0.5 - 1.4 mg/dL [facility] Estimated Glomerular Filt Rate >60 [facility] Comment:Chronic Kidney Disea se: Estimated GFR < 60 mL/min/1.63m9Gntlty Kidney Disease: Estimated GFR < 15 mL/min/1.73m2 Glucose 104 60 - 115 mg/dL [facility] Calcium 9.1 8.4 - 10.2 mg/dL [facility] Blood Venous blood specimen / Unknown 04/10/2025 2:20 PM EDT 04/10/2025 5:32 PM EDT Marilee Young MD LAB BLOOD ORDERABLES Final Resul t Performing Organization Address [facility] Co de Phone Number [facility] [address] [place] [address] [phone] * ECG 12 lead (04/10/2025 11:32 AM EDT) us Historical Provider ECG ORDERABLES Final Res ult * CT Lung Screening Low dose (03/13/2025 12:34 AM EDT) Anatomical Region Laterality Modality Lung Computed Tomogra phy 03/13/2025 12:3 4 AM EDT Narrative 03/13/2025 12:36 AM EDT [place] [address] CT Scan Report Signed Patient: Manuela May MR#: [id number] 670 : 1970 Acct:[id number] Age/Sex: 54 / F ADM Date: 03/12/25 Loc: HO.CT Attending Dr: Ezio Law MD Ordering Physician: Ezio Law MD Date of Service: 03/12/25 Procedure(s): CT lung screening Accession Number(s): [id number] cc: Fabio Jones MD; Ezio Law MD Report Number: [id number]: Total DLP = 90.00 mGy-cm CLINICAL HISTORY: Z87.891 - Personal history of nicotine dependence CT lung cancer screening (LDCT) Comparison: CR - CHEST 2 VIEWS 15456 - 12/06/16 23:03 EDT Technique: Axial CT images of the chest using low-dose technique. Referring provider counseled the patient on shared decision-making for LDCT screening. Additional counseling was provided on smoking cessation. Effective radiation dose total: DLP 77.2 mGycm, CTDIvol 2.2 mGy. Findings: Lung: No suspicious lung nodules. No significant emphysematous changes. No evidence of mediastinal or hilar lymphadenopathy. Coronary artery calcifications: Not present Limited upper abdomen: Unremarkable Other: None Impression: Lung rads category 1; no suspicious lung nodules. Continue annual screening. Category 1: Normal; continue annual screening Category 2: Benign appearance or behavior, continue annual screening Category 3: Probably benign, [address] recommended Category 4A: Suspicious, [address] recommended; may consider PET/CT Category 4B: Suspicious, Additional diagnostics and/or tissue sampling recommended Category 4X: Suspicious, Additional diagnostics and/or tissue sampling recommended Category 0: Recalls (incomplete screen due to Incomplete coverage, Noise, Respiratory motion, Expiration, Obscured by acute abnormality) This document has been electronically signed by: Kendell Rapp MD on 03/13/2025 00:34:55 Dictated By: Kendell Rapp MD Signed By: <Electronically signed by Kendell Rapp MD in OV> 03/13/2535 DD/ TD/TT: 03/13/2533 Showroom Salesperson: Procedure Note Donotuseinterpreter, Image - 03/13/[address] [place] [address] [address] Scan Report Signed Patient: Manuela May AMR#: [id number] 670 : 1970Acct:[id number] Age/Sex: 54 / FADM Date: 03/12/25 Loc: HO.CT Attending Dr: Ezio Law MD Ordering Physician: Ezio Law MD Date of Service: 03/12/25 Procedure(s): CT lung screening Accession Number(s): [id number] cc: Fabio Jones MD; Ezio Law MD Report Number: [id number]: Total DLP = 90.00 mGy-cm CLINICAL HISTORY: Z87.891 - Personal history of nicotine dependence CT lung cancer screening (LDCT) Comparison: CR - CHEST 2 VIEWS 34881 - 12/06/16 23:03 EDT Technique: Axial CT images of the chest using low-dose technique. Referring provider counseled the patient on shared decision-making for LDCT screening. Additional counseling was provided on smoking cessation. Effective radiation dose total: DLP 77.2 mGycm, CTDIvol 2.2 mGy. Findings: Lung: No suspicious lung nodules. No significant emphysematous changes. No evidence of mediastinal or hilar lymphadenopathy. Coronary artery calcifications: Not present Limited upper abdomen: Unremarkable Other: None Impression: Lung rads category 1; no suspicious lung nodules. Continue annual screening. Category 1: Normal; continue annual screening Category 2: Benign appearance or behavior, continue annual screening Category 3: Probably benign, [address] recommended Category 4A: Suspicious, [address] recommended; may consider PET/CT Category 4B: Suspicious, Additional diagnostics and/or tissue sampling recommended Category 4X: Suspicious, Additional diagnostics and/or tissue sampling recommended Category 0: Recalls (incomplete screen due to Incomplete coverage, Noise, Respiratory motion, Expiration, Obscured by acute abnormality) This document has been electronically signed by: Kendell Rapp MD on 03/13/2025 00:34:55 Dictated By: Kendell Rapp MD Signed By: <Electronically signed by Kendell Rapp MD in OV> 03/13/2535 DD/ TD/TT: 03/13/2533 Showroom Salesperson: [facility] External Provider IMG CT PROCEDURES Edited Result - Final * TSH W/Reflex to FT4 (03/12/2025 8:19 AM EDT) TSH reflex Free T4 2.94 0.32 - 4.0 uIU/mL [facility] Blood Venous blood specimen / Unknown 03/12/2025 8:19 AM EDT 03/12/2025 2:28 PM EDT Fabio Schneider MD LAB BLOOD ORDERABL ES Final Result [facility] [address] [place] [phone] * (ABNORMAL) Lipid Panel, Standard (03/12/2025 8:19 AM EDT) Triglycerides 337(H) <150 mg/dL [facility] Comment:Desirable Triglyceri de: less than 150 mg/dLBorderline High Triglyceride 150-199 mg/dLHigh Triglyceride: 200-499 mg/dLVery High Triglyceride: greater than or equal to 5OO mg/dL Cholesterol 175 <200 mg/dL [facility] Comment:Desirable Cholestero l: less than 200 mg/dLBorderline High Cholesterol: 200-239 mg/dLHigh Cholesterol: greater than 239 mg/dL LDL Cholesterol Calculated 60 <100 mg/dL [facility] Comment:Desirable LDL: less than 100 mg/dLNear Optimal/Above Optimal LDL: 110- 129 mg/dLBorderline High LDL: 130-159 mg/dLHigh LDL: 160-189 mg/dLVery High LDL: greater than or equal to 190 mg/dL HDL Cholesterol 48 >40 mg/dL [facility] Comment:Desirable HDL: great er than 40 mg/dL Note: This HDL assay may give artificially low results in patients with liver disease. Blood Venous blood specimen / Unknown 03/12/2025 8:19 AM EDT 03/12/2025 2:28 PM EDT us Fabio Schneider MD LAB BLOOD ORDERABL ES Final Result [facility] [address] [place] [address] [phone] * (ABNORMAL) Comprehensive Metabolic Panel (03/12/2025 8:19 AM EDT) Sodium 133(L) 135 - 145 mmol/L [facility] Potassium 4.5 3.3 - 5.1 mmol/L [facility] Chloride 98 96 - 108 mmol/L [facility] Carbon Dioxide 26 22 - 29 mmol/L [facility] Anion Gap 14 12 - 20 [facility] Urea Nitrogen (BUN) 13 9 - 16 mg/dL [facility] Creatinine, Serum 0.84 0.5 - 1.4 mg/dL [facility] Estimated Glomerular Filt Rate >60 [facility] Comment:Chronic Kidney Disea se: Estimated GFR < 60 mL/min/1.62f4Bpynxj Kidney Disease: Estimated GFR < 15 mL/min/1.73m2 Glucose 108 60 - 115 mg/dL [facility] Calcium 9.6 8.4 - 10.2 mg/dL [facility] Bilirubin, Total 0.2 0.0 - 1.0 mg/dL [facility] Aspartate Amino Transferase 44(H) 5 - 31 U/L [facility] Alanine Aminotransferase 60(H) 0 - 31 U/L [facility] Total Protein 6.7 6.5 - 8.0 g/dL [facility] Albumin Level 4.2 3.5 - 5.0 g/dL [facility] Alkaline Phosphatase 89 39 - 117 U/L [facility] Blood Venous blood specimen / Unknown 03/12/2025 8:19 AM EDT 03/12/2025 2:28 PM EDT Fabio Schneider MD LAB BLOOD ORDERABL ES Final Result [facility] [address] [place] [phone] * Hm Colonoscopy (05/16/2024) Colonoscopy Normal Normal Narrative Naye Pena - 05/16/2024 . See see external hospital admission note on 05/16/2024.Repeat Colonoscopy in 1-2 years due to polyps removed and areas of fair prep on left. Follow up in 1yr scheduled Historical Provider HEALTH MAINTENANCE Edited Result - Final * BI Mammogram Screening Tomosynthesis Bilateral (04/19/2024 2:15 PM EDT) Anatomical Region Laterality Modality Breast Bilateral Mammography 04/19/2024 2:15 PM EDT Narrative 05/20/2024 11:50 PM EDT [facility] [address] [place] [address] Mammography Report Signed Patient: Manuela May MR#: [id number] 670 : 1970 Acct:[id number] Age/Sex: 53 / F ADM Date: 04/19/24 Loc: MAMMO Attending Dr: Fabio Schneider MD Ordering Physician: Fabio Jones MD Res ults: 1Negative Date of Service: 04/19/24 Follow Up: 1 Year From Orig ina Mammogram Procedure(s): MM tomosynthesis screening BI Accession Number(s): [id number] cc: Fabio Jones MD EXAMINATION: MM SCREENING [...] 05/20/24 2348 DD/ 1415 TD/TT: 04/19/24 1435 Showroom Salesperson: Procedure Note Donotuseinterpreter, Image - 05/20/2024 [facility] [address] [place] [address] [place] [address] Mammography Report Signed Patient: Manuela May AMR#: [id number] : 1970Acct:[id number] Age/Sex: 53 / FADM Date: 04/19/24 Loc: HO.MAMMO Attending Dr: Fabio Schneider MD Ordering Physician: Fabio Jones ults: 1Negative Date of Service: 04/19/24Follow Up: 1 Year From Orig ina Mammogram Procedure(s): MM tomosynthesis screening BI Accession Number(s): [id number] cc: Fabio Jones MD EXAMINATION: MM SCREENING [...] 05/20/24 2348 DD/ 1415 TD/TT: 04/19/24 1435 Showroom Salesperson: us Fabio Schneider MD IMG BI PROCEDURES Final Result * Hepatitis C Antibody with Reflex to HCV, RNA, Quantitative, Real-Time PCR (12/06/2023 8:43 AM EDT) Hepatitis C Antibody Nonreactive Nonreactive [facility] Comment:Antibodies to HCV no t detected; does not exclude early acuteHCV infection. Blood Venous blood specimen / Unknown 12/06/2023 8:43 AM EDT 12/06/2023 1:02 PM EDT us Fabio Schneider MD LAB BLOOD ORDERABL ES Final Result Performing Organization Address [facility] Co de Phone Number [facility] [address] [place] [address] [phone] * HPV mRNA E6/E7 w/Reflex to HPV Genotypes 16, 18/45 (10/17/2023 2:00 PM EST) HPV nRNA E6/E7 Not Detected Not Detected [facility] Comment:Methodology: Transcr iption-Mediated AmplificationThis assay detects E6/E7 viral messenger RNA (mRNA) from 14high-risk HPV types (16,18,31,33,35,39,45,51,52,56,58,59,66,68).Cervical sources are required for HPV testing.If a vaginal source from a patient who has had atotal hysterectomy with removal of cervix wassubmitted, please contact the testing laboratoryfor alternative testing options.For additional information, please refer tohttp://education.Joshfire/faq/SKX077a3(This link if provided for information/educational purposes only.)THIS TEST WAS PERFORMED AT:[facility] [place] [id number] THAKUR MD HPV mRNA E6/E7 TNP [facility] HPV 16 RNA [facility] HPV 18/45 RNA [facility] 10/17/2023 2:00 PM EST 10/19/2023 9:50 AM EST us John Martin CNM LAB CYTOLOGY ORDERABLES F inal Result Performing Organization Address [facility]/ZIP Co de Phone Number [facility] [address] [place] [phone] * Pap Smear (10/17/2023 2:00 PM EST) Swab Cervix uteri structure / Unknown 10/17/2023 2:00 PM EST 10/19/2023 9:50 AM EST [facility] - 11/01/2023 7:22 AM EST ----- ------- Name: Manuela May Age/Sex: 53/F : 1970 Unit#: [id number] Attend Dr: Re10/17/23 Status: PRE REF Location: [facility] Disch: ----- ------- SPEC : [id number] RECD: 10/19/23 STATUS: JULIANE AGUILAKayleen NUM: [id number] OCHOA: 10/17/23-[address]: [facility] ENTERED: 10/19/23-1132 SP TYPE: Pap Smr NATHALIA DR: ORDERED: Pap Smear Interpretation Satisfactory for evaluation. No endocervical cells seen. Mild inflammation. Negative for intraepithelial lesion or malignancy. HPV mRNA E6/E7: NOT DETECTED This assay detects E6/E7 viral messenger RNA (mRNA) from 14 high-risk HPV types (16, 18, 31, 33, 35, 39, 45, 51, 52, 56, 58, 59, 66, 68) HPV testing performed by [employer], [place], [place]. See reference laboratory portion of the EMR for entire report. Clinical Information LMP: Postmenopausal Previous PAP test: Unknown date/findings Material Received ThinPrep-Cervical ----- ------- Signed (signature on file) MIRIAM Singh ([facility]) 11/01/23 0722 ----- ------- END OF REPORT [facility] CYTOLOGY ORDERABLES F inal Result [facility] [address] [place] [phone] from Last 3 Months or Most Recently Relevant to Health Maintenance [place] [address] [place] [address] STANDARD [employer] MEDICARE REPLACEMENT Care Teams Field Insurance Sales Manager Relationship Specialty Start Date End Date Fabio Jones MD [address] [place] [phone] PCP - General Internal Medicine 09/05/23
== END 2025-04-25 13:26 | disposition home or self-care (01) ==
LOC: HO.HPS 13:08
PROVIDERS: PCP Internal Medicine; Visit Provider Internal Medicine Pulmonary Disease
DX: J44.9 Chronic obstructive pulmonary disease, unspecified (principal); Z87.891 Personal history of nicotine dependence; Z01.811 Encounter for preprocedural respiratory examination
CPT/HCPCS: 99214; G2211

== ENCOUNTER → 2025-04-25 13:07 | Outpatient (BNVA) | payer MEDICARE, MEDICAID, SELFPAY | PROVIDERS: PCP Internal Medicine; Visit Provider Internal Medicine Pulmonary Disease | DX: Z01.811 Encounter for preprocedural respiratory examination (principal); J44.9 Chronic obstructive pulmonary disease, unspecified; Z87.891 Personal history of nicotine dependence | CPT/HCPCS: 99212 ==

== ENCOUNTER 2025-04-30 09:48 | Outpatient (AMB) | payer MEDICARE, MEDICAID, SELFPAY ==
[2025-04-30 09:56] VITALS: BMI 46.3
--- NOTE | 2025-04-30 09:56 | MHC.OFFVIS ---
Vital Signs 04/30/25 09:56 Height 5 ft 5 in Weight 278 lb BMI 46.3 Intake Visit Reasons: Preop LT cubital 05/08/25 AR Intake Note: Manuela is a 54 year old right hand dominant female who presents today pre-operatively for discussion of their left cubital tunnel release scheduled for 05/08/[address] Yusuf. Consents signed in office today. Allergies NSAIDS (Non-Steroidal Anti-Inflamma Adverse Reaction (Severe, Verified 04/30/25 10:01) acute kidney damage tramadol Adverse Reaction (Intermediate, Verified 04/30/25 10:01) Nausea HPI HPI Preop LT cubital 05/08/25 AR: Details: Manuela is a 54 year old right hand dominant female who presents today pre-operatively for discussion of their left cubital tunnel release scheduled for 05/08/[address] Yusuf. The patient states that her symptoms have remained consistent from previous evaluation, and she would like to still move forward with left cubital tunnel release. Consents signed in office today. ON LICENSE OF [facility] Medical History (Updated 04/25/25 @ 14:01 by Ezio Law MD) Family history of anesthesia complication PONV (postoperative nausea and vomiting) Hyponatremia SOB (shortness of breath) JACINDA (obstructive sleep apnea) Asthma Hypothyroid PTSD (post-traumatic stress disorder) MDD (major depressive disorder) Panic disorder Tubular adenoma of colon GERD (gastroesophageal reflux disease) Elevated cholesterol Spondylosis of lumbar spine Fibromyalgia Headache Surgical History (Updated 04/21/25 @ 13:10 by Sherita Bergeron RN) History of esophagogastroduodenoscopy (EGD) H/O colonoscopy Hx of fusion of cervical spine History of dental surgery Hx of anterior cruciate ligament surgery Hx of tubal ligation Family History Mother Depression Father No problems noted. Sister Diabetes Fibromyalgia Degenerative disc disease Bipolar 1 disorder Depression Son Depression Bipolar 2 disorder Son Depression Son Depression Daughter Depression Migraine Social History (Updated 12/12/24 @ 13:47 by Nara Luna Sarah) Household Members Other:: daughter Housing Other:: 2nd floor of 2 family house Are you a primary respiratory care assistant to a significant other at home: No Do you presently have visiting nurse or other home services: Yes (daughter is CUSTOMER EQUIPMENT ENGINEER) Alcohol intake: never Patient Tobacco Use Status: Former Tobacco user Tobacco use type: Cigarette Years Smoked: 15 e-Cigarette/Vaping Use: Former Use Review of Systems Const All systems reviewed & are unremarkable except as noted in HPI and below Physical Exam Vital Signs: BMI result Body Mass Index 46.3 Extrem Other: The patient was alert oriented and in no acute distress. She had some decreased subjective sensation in the ulnar nerve distribution of the left hand. Normal sensation to the median nerve distribution No thenar or intrinsic wasting. Good finger abduction and adduction She can make a fist and extend all of her digits with no locking or catching. Good elbow flexion and extension without pain No swelling or erythema No skin changes or rashes EMG nerve conduction study performed Dr. Jaramillo on 03/07/2025: FINDINGS: Left ulnar neuropathy, recording at FDI, showed prolonged distal latency, normal amplitude and slight slowing of conduction velocity across the elbow. Left ulnar sensory nerve showed normal peak latency but small amplitude. DUCS absent response. All other nerves tested were within normal IMPRESSION: 1. This is an abnormal study. 2. There is electrodiagnostic evidence for left ulnar neuropathy at the elbow. 3. There is no electrodiagnostic evidence for median neuropathy, brachial plexopathy, or cervical radiculopathy. CLINICAL COMMENT: Referring patient to Dr. Yusuf, hand surgery. Jessy Edwards MD, JAYLIN Assessment & Plan Assessment & Plan (1) Ulnar neuropathy at elbow: Code(s): G56.20 - Lesion of ulnar nerve, unspecified upper limb Category: Medical Qualifiers: Laterality: left Qualified Code(s): G56.22 - Lesion of ulnar nerve, left upper limb Plan Assessment and plan: 1. Left cubital tunnel syndrome With persistent numbness and tingling I educated her about this condition We discussed operative and non operative treatment options and she wished to proceed with surgery. The risks and benefits of operative treatment were discussed with the patient and the patient wishes to proceed with surgery. These risks include, but are not limited to risk of damage to blood vessels, nerves, tendons, infection, recurrence, incomplete relief of preoperative symptoms, persistent pain, possible need for further surgery and the risks associated with regional blocks and anesthesia. The plan is to take the patient to the operating room sometime in the next few weeks for the following procedures: 1. Left cubital tunnel release All of the preoperative paperwork including the consent was filled out today. All the patient's questions were answered. The patient understands that they will be contacted by our home health scheduler soon to schedule this procedure She says that she has some asthma which is well-controlled. She denies any heart lung kidney problems or diabetes. Coding Level of Care Code Est Pt Level 4 (24147) Diagnoses Ulnar neuropathy at elbow of left upper extremity G56.22 Laterality: left
--- OUTSIDE RECORDS SUMMARY | 2025-04-30 10:24 | XMS_ITS | Clinical Summary ---
Author Organization [employer] Address [address] [place] [address] 7[address] [place] [address] Care Team Providers Care Rug Touch Up Painter Name Role Phone Fabio Jones MD Primary [...] Patient refers used to be followed at [facility] cardiology, will place referal Fibromyalgia 09/04/2023 [...] DEPARTMENT Provider, Generic External Data 04/11/2025 Telephone [facility] [address] [place] [address] Marilee Young MD Results 04/11/2025 Orders Only [facility] [address] [place] [address] Marilee Young MD Hyponatremia (Primary Dx) 04/11/2025 Orders Only [facility] Information Management [address] [place] [address] [phone] ProviderPower MD 04/10/2025 2:00 PM EDT Office Visit [facility] [address] [place] [address] Marilee Young MD Moderate persistent asthma without complication (Primary Dx); Preop cardiovascular exam 04/10/2025 Travel 04/04/2025 Refill [facility] [address] [place] [address] Fabio Jones MD 04/03/2025 Travel 04/02/2025 Telephone [facility] [address] [facility] [place] [facility] [place] [address] Fabio Jones MD pre op 03/24/2025 Telephone [facility] [address] [place] [address] Fabio Jones MD requesting call back 03/17/2025 Orders Only [facility] [address] [facility] [place] [address] Maco Galeano MD Chronic bilateral low back pain with right-sided sciatica (Primary Dx); Spondylosis of lumbar region without myelopathy or radiculopathy 03/13/2025 Results Follow-Up [facility] [address] [facility] [place] [address] Fabio Jones MD Comprehensive Metabolic Panel, Lipid Panel, Standard, TSH W/Reflex to FT4 03/12/2025 Orders Only [facility] External Provider, [facility] 03/10/2025 10:30 AM EDT Telemedicine [facility] [address] [facility] [place] [address] Fabio Jones MD Acquired hypothyroidism (Primary Dx); Chronic diastolic congestive heart failure (CMS/HCC); Screening for colon cancer; Mixed hyperlipidemia 03/10/2025 Travel 03/07/2025 Telephone [facility] [address] [place] [address] Fabio Jones MD chart prep 03/03/2025 Travel 02/24/2025 Refill [facility] [address] [place] [address] Fabio Jones MD 02/24/2025 Refill [facility] [address] [place] [address] Fabio Jones MD 02/23/2025 Refill [facility] [address] [place] [address] Fabio Jones MD from Last 3 Months [...] Info) Description 06/06/2025 10:30 AM EDT Telemedicine [facility] [address] [place] [address] Fabio Jones MD [address] [place] [address] Health Maintenance Due Date Last Done Comments [...] EDT) Sodium 132(L) 135 - 145 mmol/L [facility] Potassium 4.8 3.3 - 5.1 mmol/L [facility] Chloride 97 96 - 108 mmol/L [facility] Carbon Dioxide 27 22 - 29 mmol/L [facility] Anion Gap 13 12 - 20 [facility] 04/21/2025 1:58 PM EDT 04/21/2025 1:58 PM EDT us Generic External Data Provider LAB BLOOD ORDERAB LES Final Result Performing Organization Address [facility]/ZIP Co de Phone Number [facility] [address] [place] [address] [phone] * (ABNORMAL) Prothrombin Time-INR (04/10/2025 2:20 PM EDT) Prothrombin Time 9.5(L) 10.9 - 12.4 SEC [facility] INTERNATIONAL NORM RATIO 0.8(L) 0.9 - 1.1 [facility] Comment:INTERNATIONAL NORMAL IZED RATIO (INR) [...] ORDERABLES Final Resul t Performing Organization Address [facility] Co de Phone Number [facility] [address] [place] [address] [phone] * (ABNORMAL) Hepatic Function Panel (04/10/2025 2:20 PM EDT) Bilirubin, Total 0.2 0.0 - 1.0 mg/dL [facility] Bilirubin, Direct <0.2 0.0 - 0.5 mg/dL [facility] Aspartate Amino Transferase 38(H) 5 - 31 U/L [facility] Alanine Aminotransferase 64(H) 0 - 31 U/L [facility] Total Protein 7.3 6.5 - 8.0 g/dL [facility] Albumin Level 4.7 3.5 - 5.0 g/dL [facility] Alkaline Phosphatase 96 39 - 117 U/L [facility] Blood Venous blood specimen / Unknown 04/10/2025 2:20 PM EDT 04/10/2025 5:32 PM EDT Marilee Young MD LAB BLOOD ORDERABLES Final Resul t Performing Organization Address [facility] Co de Phone Number [facility] [address] [place] [phone] * (ABNORMAL) Basic Metabolic Panel (04/10/2025 2:20 PM EDT) Sodium 129(L) 135 - 145 mmol/L [facility] Potassium 4.6 3.3 - 5.1 mmol/L [facility] Chloride 96 96 - 108 mmol/L [facility] Carbon Dioxide 26 22 - 29 mmol/L [facility] Anion Gap 12 12 - 20 [facility] Urea Nitrogen (BUN) 14 9 - 16 mg/dL [facility] Creatinine, Serum 0.74 0.5 - 1.4 mg/dL [facility] Estimated Glomerular Filt Rate >60 [facility] Comment:Chronic Kidney Disea se: Estimated GFR < 60 mL/min/1.56q1Wvurke Kidney Disease: Estimated GFR < 15 mL/min/1.73m2 Glucose 104 60 - 115 mg/dL [facility] Calcium 9.1 8.4 - 10.2 mg/dL [facility] Blood Venous blood specimen / Unknown 04/10/2025 2:20 PM EDT 04/10/2025 5:32 PM EDT Marilee Young MD LAB BLOOD ORDERABLES Final Resul t Performing Organization Address [facility] Co de Phone Number [facility] [address] [place] [address] [phone] * ECG 12 lead (04/10/2025 11:32 AM EDT) us Historical Provider ECG ORDERABLES Final Res ult * CT Lung Screening Low dose (03/13/2025 12:34 AM EDT) Anatomical Region Laterality Modality Lung Computed Tomogra phy 03/13/2025 12:3 4 AM EDT Narrative 03/13/2025 12:36 AM EDT [place] [address] CT Scan Report Signed Patient: Manuela May MR#: [id number] 670 : 1970 Acct:[id number] Age/Sex: 54 / F ADM Date: 03/12/25 Loc: HO.CT Attending Dr: Ezio Law MD Ordering Physician: Ezio Law MD Date of Service: 03/12/25 Procedure(s): CT lung screening Accession Number(s): [id number] cc: Fabio Jones MD; Ezio Law MD Report Number: [id number]: Total DLP = 90.00 mGy-cm CLINICAL HISTORY: Z87.891 - Personal history of nicotine dependence CT lung cancer screening (LDCT) Comparison: CR - CHEST 2 VIEWS 96078 - 12/06/16 23:03 EDT Technique: Axial CT [...] MD in OV> 03/13/2535 DD/ TD/TT: 03/13/2533 Costume Technician: Procedure Note Donotuseinterpreter, Image - 03/13/[address] [place] [address] [address] Scan Report Signed Patient: Manuela May AMR#: [id number] 670 : 1970Acct:[id number] Age/Sex: 54 / FADM Date: 03/12/25 Loc: HO.CT Attending Dr: Ezio Law MD Ordering Physician: Ezio Law MD Date of Service: 03/12/25 Procedure(s): CT lung screening Accession Number(s): [id number] cc: Fabio Jones MD; Ezio Law MD Report Number: [id number]: Total DLP = 90.00 mGy-cm CLINICAL HISTORY: Z87.891 - Personal history of nicotine dependence CT lung cancer screening (LDCT) Comparison: CR - CHEST 2 VIEWS 35577 - 12/06/16 23:03 EDT Technique: Axial CT [...] MD in OV> 03/13/2535 DD/ TD/TT: 03/13/2533 Costume Technician: [facility] External Provider IMG CT PROCEDURES Edited Result - Final * TSH W/Reflex to FT4 (03/12/2025 8:19 AM EDT) TSH reflex Free T4 2.94 0.32 - 4.0 uIU/mL [facility] Blood Venous blood specimen / Unknown 03/12/2025 8:19 AM EDT 03/12/2025 2:28 PM EDT Fabio Schneider MD LAB BLOOD ORDERABL ES Final Result [facility] [address] [place] [address] [phone] * (ABNORMAL) Lipid Panel, Standard (03/12/2025 8:19 AM EDT) Triglycerides 337(H) <150 mg/dL [facility] Comment:Desirable Triglyceri de: less than 150 mg/dLBorderline High Triglyceride 150-199 mg/dLHigh Triglyceride: 200-499 mg/dLVery High Triglyceride: greater than or equal to 5OO mg/dL Cholesterol 175 <200 mg/dL [facility] Comment:Desirable Cholestero l: less than 200 mg/dLBorderline High Cholesterol: 200-239 mg/dLHigh Cholesterol: greater than 239 mg/dL LDL Cholesterol Calculated 60 <100 mg/dL [facility] Comment:Desirable LDL: less than 100 mg/dLNear Optimal/Above Optimal LDL: 110- 129 mg/dLBorderline High LDL: 130-159 mg/dLHigh LDL: 160-189 mg/dLVery High LDL: greater than or equal to 190 mg/dL HDL Cholesterol 48 >40 mg/dL [facility] Comment:Desirable HDL: great er than 40 mg/dL Note: This HDL assay may give artificially low results in patients with liver disease. Blood Venous blood specimen / Unknown 03/12/2025 8:19 AM EDT 03/12/2025 2:28 PM EDT us Fabio Schneider MD LAB BLOOD ORDERABL ES Final Result [facility] [address] [place] [address] [phone] * (ABNORMAL) Comprehensive Metabolic Panel (03/12/2025 8:19 AM EDT) Sodium 133(L) 135 - 145 mmol/L [facility] Potassium 4.5 3.3 - 5.1 mmol/L [facility] Chloride 98 96 - 108 mmol/L [facility] Carbon Dioxide 26 22 - 29 mmol/L [facility] Anion Gap 14 12 - 20 [facility] Urea Nitrogen (BUN) 13 9 - 16 mg/dL [facility] Creatinine, Serum 0.84 0.5 - 1.4 mg/dL [facility] Estimated Glomerular Filt Rate >60 [facility] Comment:Chronic Kidney Disea se: Estimated GFR < 60 mL/min/1.18a5Dcacjf Kidney Disease: Estimated GFR < 15 mL/min/1.73m2 Glucose 108 60 - 115 mg/dL [facility] Calcium 9.6 8.4 - 10.2 mg/dL [facility] Bilirubin, Total 0.2 0.0 - 1.0 mg/dL [facility] Aspartate Amino Transferase 44(H) 5 - 31 U/L [facility] Alanine Aminotransferase 60(H) 0 - 31 U/L [facility] Total Protein 6.7 6.5 - 8.0 g/dL [facility] Albumin Level 4.2 3.5 - 5.0 g/dL [facility] Alkaline Phosphatase 89 39 - 117 U/L [facility] Blood Venous blood specimen / Unknown 03/12/2025 8:19 AM EDT 03/12/2025 2:28 PM EDT Fabio Schneider MD LAB BLOOD ORDERABL ES Final Result [facility] [address] [place] [phone] * Hm Colonoscopy (05/16/2024) Colonoscopy Normal [...] PM EDT Narrative 05/20/2024 11:50 PM EDT [facility] [address] [place] [address] Mammography Report Signed Patient: Manuela May MR#: [id number] 670 : 1970 Acct:[id number] Age/Sex: 53 / F ADM Date: 04/19/24 Loc: MAMMO Attending Dr: Fabio Schneider MD Ordering Physician: Fabio Jones MD Res ults: 1Negative Date of Service: 04/19/24 Follow Up: 1 Year From Orig ina Mammogram Procedure(s): MM tomosynthesis screening BI Accession Number(s): [id number] cc: Fabio Jones MD EXAMINATION: MM SCREENING [...] 05/20/24 2348 DD/ 1415 TD/TT: 04/19/24 1435 Costume Technician: Procedure Note Donotuseinterpreter, Image - 05/20/2024 [facility] [address] [place] [address] [place] [address] Mammography Report Signed Patient: Manuela May AMR#: [id number] 670 : 1970Acct:[id number] Age/Sex: 53 / FADM Date: 04/19/24 Loc: HO.MAMMO Attending Dr: Fabio Schneider MD Ordering Physician: Fabio Jones ults: 1Negative Date of Service: 04/19/24Follow Up: 1 Year From Orig ina Mammogram Procedure(s): MM tomosynthesis screening BI Accession Number(s): [id number] cc: Fabio Jones MD EXAMINATION: MM SCREENING [...] 05/20/24 2348 DD/ 1415 TD/TT: 04/19/24 1435 Costume Technician: us Fabio Schneider MD IMG BI PROCEDURES Final Result * Hepatitis C Antibody with Reflex to HCV, RNA, Quantitative, Real-Time PCR (12/06/2023 8:43 AM EDT) Hepatitis C Antibody Nonreactive Nonreactive [facility] Comment:Antibodies to HCV no t detected; does not exclude early acuteHCV infection. Blood Venous blood specimen / Unknown 12/06/2023 8:43 AM EDT 12/06/2023 1:02 PM EDT us Fabio Schneider MD LAB BLOOD ORDERABL ES Final Result Performing Organization Address [facility] Co de Phone Number [facility] [address] [place] [phone] * HPV mRNA E6/E7 w/Reflex to HPV Genotypes 16, 18/45 (10/17/2023 2:00 PM EST) HPV nRNA E6/E7 Not Detected Not Detected [facility] Comment:Methodology: Transcr iption-Mediated AmplificationThis assay detects E6/E7 viral messenger RNA (mRNA) from 14high-risk HPV types (16,18,31,33,35,39,45,51,52,56,58,59,66,68).Cervical sources are required for HPV testing.If a vaginal source from a patient who has had atotal hysterectomy with removal of cervix wassubmitted, please contact the testing laboratoryfor alternative testing options.For additional information, please refer tohttp://education.[employer]/faq/AKV469n8(This link if provided for information/educational purposes only.)THIS TEST WAS PERFORMED AT:[facility] [place] [phone] THAKUR MD HPV mRNA E6/E7 TNP [facility] HPV 16 RNA [facility] HPV 18/45 RNA [facility] 10/17/2023 2:00 PM EST 10/19/2023 9:50 AM EST us John Martin CNM LAB CYTOLOGY ORDERABLES F inal Result Performing Organization Address [facility]/ZIP Co de Phone Number [facility] [address] [place] [address] [phone] * Pap Smear (10/17/2023 2:00 PM EST) Swab Cervix uteri structure / Unknown 10/17/2023 2:00 PM EST 10/19/2023 9:50 AM EST [facility] - 11/01/2023 7:22 AM EST ----- ------- Name: Manuela May Age/Sex: 53/F : 1970 Unit#: [id number] Attend Dr: Re10/17/23 Status: PRE REF Location: [facility] Disch: ----- ------- SPEC : [id number] RECD: 10/19/23 STATUS: JULIANE AGUILAKayleen NUM: [id number] OCHOA: 10/17/23-[address]: JOHN MARTIN [facility] ENTERED: 10/19/23-1132 SP TYPE: Pap Smr NATHALIA DR: ORDERED: Pap Smear Interpretation Satisfactory for evaluation. No endocervical cells seen. Mild inflammation. Negative for intraepithelial lesion or malignancy. HPV mRNA E6/E7: NOT DETECTED This assay detects E6/E7 viral messenger RNA (mRNA) from 14 high-risk HPV types (16, 18, 31, 33, 35, 39, 45, 51, 52, 56, 58, 59, 66, 68) HPV testing performed by [employer], [place], [place]. See reference laboratory portion of the EMR for entire report. Clinical Information LMP: Postmenopausal Previous PAP test: Unknown date/findings Material Received ThinPrep-Cervical ----- ------- Signed (signature on file) MIRIAM Singh ([facility]) 11/01/23 0722 ----- ------- END OF REPORT John Martin [facility] CYTOLOGY ORDERABLES F inal Result [facility] [address] [place] [phone] from Last 3 Months or Most Recently Relevant to Health Maintenance Insurance [address] [place] [address] STANDARD [employer] MEDICARE REPLACEMENT Care Teams Rug Touch Up Painter Relationship Specialty Start Date End Date Fabio Jones MD [address] [place] [phone] PCP - General Internal Medicine 09/05/23
--- OUTSIDE RECORDS SUMMARY | 2025-04-30 10:24 | XMS_ITS | Patient Health Record ---
Author Organization [facility] Billing Info Address [address] [place] [address] Care Team Providers Care Hand Silvering Supervisor Name Role Phone HOLLY DUNN Primary Care Provider FRAN JACOBO Unavailable [phone] Laura Covarrubias MD Unavailable Unavailable Allergies Allergen [...] a day for 90 day(s) Not-Taking Biotin 14256 MCG 1 tablet Orally Once a day [...] - ALL PAYORS IM Intramuscular 08/30/[address] [facility] [phone] Social History Tobacco Use: Social History Observation Description Date Details (start date - stop date) Current Smoker NA - NA Tobacco Status: Question Answer Notes Patient is a current every day smoker Problems Problem Type SNOMED Code ICD Code Onset Dates Problem Status W/U Status Risk Notes Problem 1485844688883 Cervicalgia (M54.2) Active confirmed Problem [id number] Cervical myelopathy (G95.9) Active confirmed Plan Of [...] Date AETNA PPO MEDICARE PLAN [address] [place], [place] [id number] [place] Lalo Manuela Self - patient is the insured 3 [place]ID [place] [address] [facility] [id number] Manuela May Self - patient is the insured 3 [employer] BEH[employer]IOR [employer] PPO [address] [address] [place], [place] [id number] Manuela May Self - patient is the insured 3 Medical (General) History Medical History History ICD Code Hyperlipidemia Esophageal reflux Depression Anxiety Surgical History Surgery Date(Month/Year) knee arthroscopy, right tubal ligation colonoscopy, repeat in 5 years, [place] 2019 Hospitalization History Reason Date(Month/Year) see above
--- OUTSIDE RECORDS SUMMARY | 2025-04-30 10:24 | XMS_ITS | Clinical Summary ---
Author Organization Patient Business Ser [facility] Address [address] [place] [address] Care Team Providers Care Beef Selector Name Role Phone Fabio Jones Primary Care [...] EDT - 04/14/2025 1:22 PM EDT Emergency [facility] Emergency [address] [place] [address] Xavier Silvestre MD Acute pain [...] disea se) stage 3, GFR 30-59 ml/min ([facility]) Hypothyroid 09/14/2020 DX:Hypothyroid Hyperlipidemia 09/14/2020 DX:Hyperlipidemi a [...] Signed Date: 04/14/2025 12:45 ET Workstation ID: [id number] Transcribed By: Self Edit Transcribed Date: 04/14/2025 [...] Signed Date: 04/14/2025 12:45 ET Workstation ID: [id number] Transcribed By: Self Edit Transcribed Date: 04/14/2025 [...] RESULTING AGENCY - 11/07/2019 2:10 PM EST [id number] THINPREP PAP AMD CELL BLOCK: NEGATIVE FOR [...] Relevant to Health Maintenance Insurance MEDICAID - [place] AETNA MEDICARE ADVANTAGE Care Teams Beef Selector Relationship Specialty Start Date End Date Fabio Jones [address] [place], [place] PCP - General 09/05/23
--- OUTSIDE RECORDS SUMMARY | 2025-04-30 10:24 | XMS_ITS | Patient Health Record ---
Author Organization [facility] Address [address] [place] [address] Care Team Providers Care Coding Advisor Name Role Phone Guanaco Caldera Primary Care Provider Reason For Referral No Information Plan Of Treatment No Information Insurance Providers Payer Name Payer Address Payer Phone Subscriber Number Group Number Insured Name Patient Relationship to Insured Coverage Start Date Coverage End Date [facility] [address] [address] [id number] Manuela May Self - patient is the insured
== END 2025-04-30 10:10 | disposition home or self-care (01) ==
LOC: HO.HOS 09:49
PROVIDERS: PCP Internal Medicine
DX: G56.22 Lesion of ulnar nerve, left upper limb (principal)
CPT/HCPCS: 99024

== ENCOUNTER 2025-05-12 07:10 | Day surgery (SDC) | payer MEDICARE, MEDICAID, SELFPAY ==
--- OUTSIDE RECORDS SUMMARY | 2025-04-08 11:50 | XMS_ITS | Encounter Summary ---
Author Organization [employer] Address [address] [facility] [address] [place] [address] Care Team Providers Care Server Software Engineer Name Role Phone Fabio Jones MD Primary Care Prov ider Encounter Details Date Type Department Care Team (Latest Contact Info) Description 03/13/2025 Results Follow-Up [facility] [address] [place] [address] Fabio Jones MD [address] [place] [address] Comprehensive Metabolic Panel, Lipid Panel, Standard, TSH W/Reflex to FT4 Social History Tobacco Use Types Packs/Day Years [...] Care Team (Late st Contact Info) Description 04/10/2025 2:45 PM EDT Office Visit [facility] [address] [place] [address] Alejandra Gustafson MD [address] [place] [address] 06/06/2025 10:30 AM EDT Telemedicine [facility] [address] [place] [address] Fabio Jones MD [address] [place] [address] documented as of this encounter Visit Diagnoses Not on filedocumented in this encounter Additional Health Concerns Assessment Noted Time PHQ-9 Depression Total Score: 0 08/02/20 24 10:30 AM EST documented as of this encounter Care Teams Server Software Engineer Relationship Specialty Start Date End Date Fabio Jones MD [address] [place] [address] PCP - General Internal Medicine 09/05/23 documented as of this encounter
--- OUTSIDE RECORDS SUMMARY | 2025-04-08 11:50 | XMS_ITS | Patient Health Record ---
Author Organization [facility] Em[facility] Billing Info Address [address] [place] [address] Care Team Providers Care Relief Operator Name Role Phone HOLLY DUNN Primary Care Provider FRAN JACOBO Unavailable [phone] Laura Covarrubias MD Unavailable Unavailable Allergies Allergen [...] a day for 90 day(s) Not-Taking Biotin 58626 MCG 1 tablet Orally Once a day [...] ALL PAYORS IM Intramuscular 08/30/2022 Administered [facility] [address]41 Social History Tobacco Use: Social History Observation Description Date Details (start date - stop date) Current Smoker NA - NA Tobacco Status: Question Answer Notes Patient is a current every day smoker Problems Problem Type SNOMED Code ICD Code Onset Dates Problem Status W/U Status Risk Notes Problem [id number] Cervicalgia (M54.2) Active confirmed Problem 715441872 Cervical myelopathy (G95.9) Active confirmed Plan Of [...] Date AETNA PPO MEDICARE PLAN [address] [place], [place] [id number] MD Lalo Manuela Self - patient is the insured 3 MED[place]ID [place] [address] [facility] [id number] Manuela May Self - patient is the insured 3 [employer] BEHAVIOR HE[employer] PPO [address] [address] [place], [place] [id number] Manuela May Self - patient is the insured 3 Medical (General) History Medical History History ICD Code Hyperlipidemia Esophageal reflux Depression Anxiety Surgical History Surgery Date(Month/Year) colonoscopy, repeat in 5 years, 2019 tubal ligation knee arthroscopy, right Hospitalization History Reason Date(Month/Year) see above
--- OUTSIDE RECORDS SUMMARY | 2025-04-08 11:50 | XMS_ITS | Patient Health Record ---
Author Organization [facility] Address [address] [place] [address] Care Team Providers Care Beekeeper Farmer Name Role Phone Guanaco Caldera Primary Care Provider Reason For Referral No Information Plan Of Treatment No Information Insurance Providers Payer Name Payer Address Payer Phone Subscriber Number Group Number Insured Name Patient Relationship to Insured Coverage Start Date Coverage End Date [facility] [address] [address] [id number] Manuela May Self - patient is the insured
--- OUTSIDE RECORDS SUMMARY | 2025-04-08 11:50 | XMS_ITS | Clinical Summary ---
Author Organization [facility] Business Ser [facility] Address [address] [place] [address] Care Team Providers Care Real Estate Legal Secretary Name Role Phone Fabio Jones Primary Care [...] disea se) stage 3, GFR 30-59 ml/min ([facility]) Hypothyroid 09/14/2020 DX:Hypothyroid Hyperlipidemia 09/14/2020 DX:Hyperlipidemi a [...] 5 season) 2024 01/27/2021, 12/30/2020 Depression Screening 09/18/2024 Influenza Vaccine (#1) 2025 , 06/21/2016, 07/10/2015 [...] RESULTING AGENCY - 11/07/2019 2:10 PM EST [id number] THINPREP PAP AMD CELL BLOCK: NEGATIVE FOR SQUAMOUS INTRAEPITHELIAL LESION AND MALIGNANCY . CLUE CELLS ARE PRESENT. CLAUDIA DUBOSE , MIRIAM(ASCP) (CASE SCREENED 11 05 2019) HEMALATHA ARCHER [...] Recently Relevant to Health Maintenance Care Teams Real Estate Legal Secretary Relationship Specialty Start Date End Date Fabio Jones [address] [place], [place] PCP - General 09/05/23
--- OUTSIDE RECORDS SUMMARY | 2025-04-08 11:50 | XMS_ITS | Encounter Summary ---
Author Organization [facility] Address [address] [place] [address] Care Team Providers Care Completion Manager Name Role Phone Xavier Mims MD Primary Care Provider [phone] Formerly [facility], 1928–1983, Pcp Primary Care Provider Unavailabl e Fabio Jones MD Primary Care Prov ider Unavailable Zelda Sy MD Unavailable [phone] Melissa Mejia NP Unavailable [phone] Reason for Visit * Reason Onset Date Comments other 12/26/2016 FYI Encounter Details Date Type Department Care Team Description 12/26/2016 Telephone Adult Medicine B - [address] [id number] Xavier Mims MD [address] [place] [address] [phone] other (FYI) Social History Tobacco Use Types [...] documented as of this encounter Care Teams Completion Manager Relationship Specialty Start Date End Date Xavier Mims MD [address] [place] [address] PCP - General Internal Medicine 06/04/15 12/14/22 Formerly [facility], 1928–[facility], Pcp [address] [place] [address] PCP - General Internal Medicine 12/15/22 09/04/23 Fabio Jones MD [address] [place] [address] 36790 PCP - General Internal Medicine 09/05/23 Zelda Sy MD [address] [place] [address] 35533 Environmental Management Specialist Cardiology 11/21/23 Melissa Mejia NP [address] [place] [address] Nurse Practitioner Cardiology 04/26/24 documented as of this encounter
[2025-04-21 13:13] VITALS: BP 136/64; PULSE 68; RESP 20; O2SAT 96; BMI 46.3
--- NOTE | 2025-04-21 13:27 | HO.ANESPROP2 ---
Documented by User: Angélica Benoit NP 04/28/25 13:49 HPI - Anesthesia Eval Consult details Narrative: 54yo F for Left Cubital Tunnel Release, 05/12/25 Pulmo optimized. Follows [facility] pulmo for COPD (20+ year smoking hx). COPD well controlled on current regimen BMI 46 Hyponatremia: previously instructed low Na diet for htn and possible hx remote CHF. Preop labs with Na @ 129. Has increased dietary Na. Labs rechecked at [facility] with Na improved to 132. PONV: Scopolamine previously with good effect Asthma: new dx with scheduled inhaler, requires albuterol in heat and humidity couple times a week GERD: ppi controls PMFSH Active Problems Active Problems: All Active Problems History of fusion of cervical spine (Acute) Chronic cervical radiculopathy (Acute) Ulnar neuropathy at elbow (Acute) Numbness of left hand (Acute) Personal history of nicotine dependence (Acute) Dyspnea on exertion (Acute) JACINDA (obstructive sleep apnea) (Acute) Environmental allergies (Acute) Disc degeneration, lumbar (Acute) Facet arthropathy, lumbar (Acute) Spondylosis of lumbar region without myelopathy or radiculopathy (Acute) Generalized anxiety disorder (Acute) Panic disorder (Acute) MDD (recurrent major depressive disorder) in remission (Acute) PTSD (post-traumatic stress disorder) (Acute) Hyperlipidemia (Acute) Hypothyroid (Acute) Insomnia (Acute) Depression (Acute) GERD (gastroesophageal reflux disease) (Acute) Heart failure (Acute) Fibromyalgia (Acute) Morbid obesity (Acute) Tubular adenoma of colon (Acute) Spondylosis of lumbar spine (Acute) Fibromyalgia (Acute) Past Medical History Medical History Family history of anesthesia complication PONV (postoperative nausea and vomiting) Hyponatremia SOB (shortness of breath) JACINDA (obstructive sleep apnea) Asthma Hypothyroid PTSD (post-traumatic stress disorder) MDD (major depressive disorder) Panic disorder Tubular adenoma of colon GERD (gastroesophageal reflux disease) Elevated cholesterol Spondylosis of lumbar spine Fibromyalgia Headache Family History Family History Mother Depression Father No problems noted. Sister Diabetes Fibromyalgia Degenerative disc disease Bipolar 1 disorder Depression Son Depression Bipolar 2 disorder Son Depression Son Depression Daughter Depression Migraine Family history of problems with anesthesia: No Surgical History Surgical History History of esophagogastroduodenoscopy (EGD) H/O colonoscopy Hx of fusion of cervical spine History of dental surgery Hx of anterior cruciate ligament surgery Hx of tubal ligation History of Problems with Anesthesia: Yes (PONV) Social History Social History Household Members Other:: daughter Housing Other:: 2nd floor of 2 family house Are you a primary ocular care aide to a significant other at home: No Do you presently have visiting nurse or other home services: Yes (daughter is CASH SURRENDER CALCULATOR) Alcohol intake: never Patient Tobacco Use Status: Former Tobacco user Tobacco use type: Cigarette Years Smoked: 15 e-Cigarette/Vaping Use: Former Use Use of substances other than those prescribed or required for medical reasons: No Have you been hit, kicked, punched, or otherwise hurt by someone within the past year? If so, by whom?: No Spiritual Healthcare Practices: no Episcopalian Healthcare Practices: no Cultural Healthcare Practices: no Are you DNR?: No Advance Directives Information Provided: Yes (as above noted) Advance Directives on File: No FDLMP: n/a Meds Allergies Allergy/AdvReac Type Severity Reaction Status Date / Time NSAIDS (Non-Steroidal AdvReac Severe acute Verified 04/30/25 10:01 Anti-Inflamma kidney damage tramadol AdvReac Intermediate Nausea Verified 04/30/25 10:01 Home Medications ?Medication ?Instructions ?Recorded ?Confirmed ?Last Taken ?Type atorvastatin 10 mg tablet 10 mg PO DAILY 03/02/21 05/12/25 Unknown History hydroxyzine HCl 50 mg tablet 50 mg PO BID 03/02/21 05/12/25 Unknown History alprazolam 0.5 mg tablet 0.5 mg PO BID PRN Anxiety 05/16/24 05/12/25 05/12/25 History albuterol sulfate 90 mcg/actuation 2 inh inhalation Q4H PRN Shortness 06/05/24 05/12/25 Unknown History aerosol inhaler Of Breath Or Wheezing cetirizine 10 mg tablet 10 mg PO DAILY 06/05/24 05/12/25 Unknown History duloxetine 60 mg capsule,delayed 60 mg PO BID 06/05/24 05/12/25 Unknown History release fluticasone propionate 50 1 spray intranasal DAILY 06/05/24 05/12/25 Unknown History mcg/actuation nasal spray,suspension levothyroxine 100 mcg tablet 100 mcg PO DAILY 06/05/24 05/12/25 05/12/25 History mirtazapine 15 mg tablet 15 mg PO BEDTIME 06/05/24 05/12/25 Unknown History oxcarbazepine 300 mg tablet 300 mg PO TID 06/05/24 05/12/25 Unknown History trazodone 50 mg tablet 50 mg PO BEDTIME 06/05/24 05/12/25 Unknown History Exam Height,Weight and Vital Signs: Height 5 ft 5 in Weight 126.3 kg Last Vital Signs Pulse 68 04/21/25 13:13 Resp 20 04/21/25 13:13 BP 136/64 04/21/25 13:13 Pulse Ox 96 04/21/25 13:13 O2 Del Method Room Air 04/21/25 13:13 Pertinent Lab Results Pertinent Lab Results: Laboratory Tests 12/12/24 04/21/25 14:10 13:58 Sodium 132 L Potassium 4.8 Chloride 97 Carbon Dioxide 27 Anion Gap 13 Laboratory Tests 12/12/24 14:10 WBC 6.9 Hgb 12.3 Hct 37.3 Plt Count 396 Narrative Narrative: ECHO 12/2024 Conclusions: - 1. Technically limited study despite use of contrast agent 2. Normal LV ejection fraction 60 65% with impaired relaxation filling pattern 3. Cardiac valvular Dopplers within normal limits 4. Normal measured RV systolic pressure Airway Mallampati Class: II TM Dist: >3cm Neck ROM: Full Denture: Upper and Lower Heart: RRR Lungs: CTAB Assessment and Plan Assessment Anesthesia Assessment: Anesthesia Plan Discussed and PAT Visit Final Anesthetic Review Family History of Problems with Anesthesia: No History of Problems with Anesthesia: Yes (PONV) Documented by User: Willis Stevenson MD 05/12/25 10:03 [facility] Past Medical History Medical History Family history of anesthesia complication PONV (postoperative nausea and vomiting) Hyponatremia SOB (shortness of breath) JACINDA (obstructive sleep apnea) Asthma Hypothyroid PTSD (post-traumatic stress disorder) MDD (major depressive disorder) Panic disorder Tubular adenoma of colon GERD (gastroesophageal reflux disease) Elevated cholesterol Spondylosis of lumbar spine Fibromyalgia Headache Functional capacity: independent ambulation Family History Family History Mother Depression Father No problems noted. Sister Diabetes Fibromyalgia Degenerative disc disease Bipolar 1 disorder Depression Son Depression Bipolar 2 disorder Son Depression Son Depression Daughter Depression Migraine Surgical History Surgical History History of esophagogastroduodenoscopy (EGD) H/O colonoscopy Hx of fusion of cervical spine History of dental surgery Hx of anterior cruciate ligament surgery Hx of tubal ligation Social History Social History Household Members Other:: daughter Housing Other:: 2nd floor of 2 family house Are you a primary ocular care aide to a significant other at home: No Do you presently have visiting nurse or other home services: Yes (daughter is CASH SURRENDER CALCULATOR) Alcohol intake: never Patient Tobacco Use Status: Former Tobacco user Tobacco use type: Cigarette Years Smoked: 15 e-Cigarette/Vaping Use: Former Use Use of substances other than those prescribed or required for medical reasons: No Have you been hit, kicked, punched, or otherwise hurt by someone within the past year? If so, by whom?: No Spiritual Healthcare Practices: no Episcopalian Healthcare Practices: no Cultural Healthcare Practices: no Are you DNR?: No Advance Directives Information Provided: Yes (as above noted) Advance Directives on File: No FDLMP: n/a Travel History History of recent travel: No Meds Allergies Allergy/AdvReac Type Severity Reaction Status Date / Time NSAIDS (Non-Steroidal AdvReac Severe acute Verified 04/30/25 10:01 Anti-Inflamma kidney damage tramadol AdvReac Intermediate Nausea Verified 04/30/25 10:01 Home Medications ?Medication ?Instructions ?Recorded ?Confirmed ?Last Taken ?Type atorvastatin 10 mg tablet 10 mg PO DAILY 03/02/21 05/12/25 Unknown History hydroxyzine HCl 50 mg tablet 50 mg PO BID 03/02/21 05/12/25 Unknown History alprazolam 0.5 mg tablet 0.5 mg PO BID PRN Anxiety 05/16/24 05/12/25 05/12/25 History albuterol sulfate 90 mcg/actuation 2 inh inhalation Q4H PRN Shortness 06/05/24 05/12/25 Unknown History aerosol inhaler Of Breath Or Wheezing cetirizine 10 mg tablet 10 mg PO DAILY 06/05/24 05/12/25 Unknown History duloxetine 60 mg capsule,delayed 60 mg PO BID 06/05/24 05/12/25 Unknown History release fluticasone propionate 50 1 spray intranasal DAILY 06/05/24 05/12/25 Unknown History mcg/actuation nasal spray,suspension levothyroxine 100 mcg tablet 100 mcg PO DAILY 06/05/24 05/12/25 05/12/25 History mirtazapine 15 mg tablet 15 mg PO BEDTIME 06/05/24 05/12/25 Unknown History oxcarbazepine 300 mg tablet 300 mg PO TID 06/05/24 05/12/25 Unknown History trazodone 50 mg tablet 50 mg PO BEDTIME 06/05/24 05/12/25 Unknown History Exam Exam Date and Time: 05/12/25 Airway Loose/Missing/Broken Teeth: Yes (edentulous) Other: normal Assessment and Plan Final Anesthetic Review NPO: Yes ASA Class: II Final Preanesthetic Review: No Changes in Pt Med Stat, Meds/Allgs Chart Reviewed, Consent Obtained/Reviewed and Anes Risks/Benef Reviewed Patient Risk: Intermediate Procedure Risk: Low Anesthetic Plan Anesthetic Plan: GA Disposition: Extended PACU
[2025-04-21 14:43] LABS: Anion Gap 13 (12-20); Carbon Dioxide 27 mmol/L (22-29); Chloride 97 mmol/L (96-108); Potassium 4.8 mmol/L (3.3-5.1); Sodium 132 mmol/L (135-145)
[2025-05-12] VITALS (9 sets, daily range): BP systolic 103–132; BP diastolic 60–80; PULSE 79–113; RESP 13–19; TEMP 36.1–36.5; O2SAT 95–100
[2025-05-12] MEDS: Lactated Ringers 1,000 ML 50 ML IVCONT (07:39)
--- NOTE | 2025-05-12 07:51 | MHC.SHP ---
Pre-Procedural Eval Section A - 24 Hr Update-Section A only Date of Service: 05/12/25 The patient is an INPATIENT: No Changes since office visit: No Cold of Flu in the past 2 weeks, No New Medical Problems, No Changes in Medication and No Patient answered all questions The patient has been examined within 24 hours of the surgical procedure. The History & Physical has been completed within 30 days and I have reviewed it.: Yes Section B - Complete if H&P > 30 days Chief Complaint: Lesion of ulnar nerve, left upper limb Allergies: Allergies Allergy/AdvReac Type Severity Reaction Status Date / Time NSAIDS (Non-Steroidal AdvReac Severe acute Verified 04/30/25 10:01 Anti-Inflamma kidney damage tramadol AdvReac Intermediate Nausea Verified 04/30/25 10:01 Plan I have reviewed the history and physical and performed a pertinent physical examination on my patient. No changes have occurred unless specified. Time Spent With Patient Time: Total time managing care of this patient today ____ minutes.
--- NOTE | 2025-05-12 07:52 | P.OP_ITS ---
Operative Note Operative Note Date of Service: 05/12/25 Narrative: Operative Note Narrative: Preop diagnosis: 1. Left Cubital tunnel syndrome Postop diagnosis: Same Procedure: 1. Left Cubital Tunnel Release Surgeon: Waleska Yusuf MD Space Technologist: None Anesthesia: General Anesthesia Findings: Thickening and fibrosis about the ulnar nerve at the cubital tunnel Implants: none Tourniquet time: 18 minutes EBL: 5.0 ml Specimen: none Drains: None Complications: None Disposition: Brought to the recovery room in stable condition Plan: Follow-up in 10-14 days for wound check, and suture removal Indications: The patient is 55 years old with left . The risks and benefits of operative treatment, including but not limited to risk of damage to blood vessels, nerves, tendons, infection, recurrence, persistent pain or numbness, incomplete resolution of preoperative symptoms, or need for further surgery were discussed with the patient and they wished to proceed with surgery. Procedure: Once consent was obtained patient was brought back to the operating suite and placed in the operating table in a supine position. Perioperative antibiotics and anesthesia was administered by the anesthesia team. The limb was prepped and draped in a standard surgical fashion, and a sterile tourniquet applied to the proximal aspect of the left upper extremity. The limb was elevated exsanguinated with Esmarch bandage and the tourniquet inflated to 250 mm of mercury for a total tourniquet time of 18 minutes. A 6 cm gently curved but longitudinally oriented incision was made centered over the cubital tunnel of the left upper extremity. Incision was made through the skin to the subcutaneous tissues using a # 15 Blade. I then dissected down to the level of the medial epicondyle and the cubital tunnel using tenotomy scissors. Care was taken to protect the medial antebrachial cutaneous nerve. The ulnar nerve was identified just posterior to the medial intermuscular septum. The ulnar nerve was released in a proximal to distal direction using tenotomy in iris scissors while directly visualizing and protecting the ulnar nerve. Thickening and fibrosis was appreciated about the ulnar nerve as it passed through the cubital tunnel. The ulnar nerve was assessed as I passed the elbow through full flexion and extension and was found to remain stable within its groove. At this point the tourniquet was deflated and hemostasis obtained with a brief period of local pressure and bipolar electrocautery. The wound was copiously irrigated with normal saline. The subcutaneous layer was closed with 4-0 Vicryl suture, and the skin edges were reapproximated with 5-0 nylon suture. The wound was infiltrated with some 1% lidocaine with epinephrine for postop pain control and sterile dressings were applied. The patient appears to have tolerated the procedure well and with no complications. All digits were well vascularized at the conclusion of the case.
--- NOTE | 2025-05-12 10:05 | HO.ANESPROP2 ---
[facility] Active Problems Active Problems: All Active Problems (Updated 04/25/25 @ 14:01 by Ezio Law MD) Preop pulmonary/respiratory exam (Acute) COPD (chronic obstructive pulmonary disease) (Acute) History of fusion of cervical spine (Acute) Chronic cervical radiculopathy (Acute) Ulnar neuropathy at elbow (Acute) Numbness of left hand (Acute) Personal history of nicotine dependence (Acute) Dyspnea on exertion (Acute) JACINDA (obstructive sleep apnea) (Acute) Environmental allergies (Acute) Disc degeneration, lumbar (Acute) Facet arthropathy, lumbar (Acute) Spondylosis of lumbar region without myelopathy or radiculopathy (Acute) Generalized anxiety disorder (Acute) Panic disorder (Acute) MDD (recurrent major depressive disorder) in remission (Acute) PTSD (post-traumatic stress disorder) (Acute) Hyperlipidemia (Acute) Hypothyroid (Acute) Insomnia (Acute) Depression (Acute) GERD (gastroesophageal reflux disease) (Acute) Heart failure (Acute) Fibromyalgia (Acute) Morbid obesity (Acute) Tubular adenoma of colon (Acute) Spondylosis of lumbar spine (Acute) Fibromyalgia (Acute) Past Medical History Medical History Family history of anesthesia complication PONV (postoperative nausea and vomiting) Hyponatremia SOB (shortness of breath) JACINDA (obstructive sleep apnea) Asthma Hypothyroid PTSD (post-traumatic stress disorder) MDD (major depressive disorder) Panic disorder Tubular adenoma of colon GERD (gastroesophageal reflux disease) Elevated cholesterol Spondylosis of lumbar spine Fibromyalgia Headache Functional capacity: independent ambulation Family History Family History Mother Depression Father No problems noted. Sister Diabetes Fibromyalgia Degenerative disc disease Bipolar 1 disorder Depression Son Depression Bipolar 2 disorder Son Depression Son Depression Daughter Depression Migraine Family history of problems with anesthesia: No Surgical History Surgical History History of esophagogastroduodenoscopy (EGD) H/O colonoscopy Hx of fusion of cervical spine History of dental surgery Hx of anterior cruciate ligament surgery Hx of tubal ligation History of Problems with Anesthesia: Yes (PONV) Social History Social History Household Members Other:: daughter Housing Other:: 2nd floor of 2 family house Are you a primary customer care professional to a significant other at home: No Do you presently have visiting nurse or other home services: Yes (daughter is BOILER PLANT OPERATOR) Alcohol intake: never Patient Tobacco Use Status: Former Tobacco user Tobacco use type: Cigarette Years Smoked: 15 e-Cigarette/Vaping Use: Former Use Use of substances other than those prescribed or required for medical reasons: No Have you been hit, kicked, punched, or otherwise hurt by someone within the past year? If so, by whom?: No Spiritual Healthcare Practices: no Mormonism Healthcare Practices: no Cultural Healthcare Practices: no Are you DNR?: No Advance Directives Information Provided: Yes (as above noted) Advance Directives on File: No FDLMP: n/a Meds Allergies Allergy/AdvReac Type Severity Reaction Status Date / Time NSAIDS (Non-Steroidal AdvReac Severe acute Verified 04/30/25 10:01 Anti-Inflamma kidney damage tramadol AdvReac Intermediate Nausea Verified 04/30/25 10:01 Active Medications: Current Medications Fentanyl (Fentanyl Citrate/Pf 100 Mcg/2 Ml Vial) 50 mcg IVPUSH Q5M PRN PRN Reason: Pain, Moderate to Severe (Pain Scale 4-10) Stop: 05/12/25 16:04 Hydromorphone HCl (Hydromorphone Hcl 0.5 Mg/0.5 Ml Syringe) 0.5 mg IVPUSH Q5M PRN PRN Reason: Pain, Moderate to Severe (Pain Scale 4-10) Stop: 05/12/25 16:04 Lactated Ringer's (Lr) 1,000 mls @ 50 mls/hr IVCONT .Q20H [facility] Last Admin: 05/12/25 07:39 Dose: 50 mls/hr Lactated Ringer's (Lr) 500 mls @ 20 mls/hr IVCONT .Q24H [facility] Naloxone HCl (Naloxone Hcl 0.4 Mg/Ml Vial) 0.04 mg IVPUSH Q5M PRN PRN Reason: Excessive sedation or RR < 8 Ondansetron HCl (Ondansetron Hcl 4 Mg/2 Ml Vial) 4 mg IVPUSH ONCE PRN PRN Reason: Nausea and Vomiting Stop: 05/12/25 16:04 Oxycodone HCl (Oxycodone Hcl Immed Release 5 Mg Tablet) 5 mg PO ONCE PRN PRN Reason: Pain, Moderate(Pain Scale 4-6) if no IV Access Stop: 05/12/25 16:04 Home Medications ?Medication ?Instructions ?Recorded ?Confirmed ?Last Taken ?Type atorvastatin 10 mg tablet 10 mg PO DAILY 03/02/21 05/12/25 Unknown History hydroxyzine HCl 50 mg tablet 50 mg PO BID 03/02/21 05/12/25 Unknown History alprazolam 0.5 mg tablet 0.5 mg PO BID PRN Anxiety 05/16/24 05/12/25 05/12/25 History albuterol sulfate 90 mcg/actuation 2 inh inhalation Q4H PRN Shortness 06/05/24 05/12/25 Unknown History aerosol inhaler Of Breath Or Wheezing cetirizine 10 mg tablet 10 mg PO DAILY 06/05/24 05/12/25 Unknown History duloxetine 60 mg capsule,delayed 60 mg PO BID 06/05/24 05/12/25 Unknown History release fluticasone propionate 50 1 spray intranasal DAILY 06/05/24 05/12/25 Unknown History mcg/actuation nasal spray,suspension levothyroxine 100 mcg tablet 100 mcg PO DAILY 06/05/24 05/12/25 05/12/25 History mirtazapine 15 mg tablet 15 mg PO BEDTIME 06/05/24 05/12/25 Unknown History oxcarbazepine 300 mg tablet 300 mg PO TID 06/05/24 05/12/25 Unknown History trazodone 50 mg tablet 50 mg PO BEDTIME 06/05/24 05/12/25 Unknown History Exam Height,Weight and Vital Signs: Height 5 ft 5 in Weight 126.3 kg Last Vital Signs Temp 97.0 F 05/12/25 07:34 Pulse 79 05/12/25 07:34 Resp 18 05/12/25 07:34 BP 103/60 05/12/25 07:34 Pulse Ox 98 05/12/25 07:34 O2 Del Method Room Air 05/12/25 07:34 Pertinent Lab Results Pertinent Lab Results: Laboratory Tests 04/21/25 13:58 Sodium 132 L Potassium 4.8 Chloride 97 Carbon Dioxide 27 Anion Gap 13 Assessment and Plan Final Anesthetic Review Family History of Problems with Anesthesia: No History of Problems with Anesthesia: Yes (PONV)
[2025-05-12] MEDS: oxyCODONE HCl Immed Release 5 MG TABLET PO (11:53)
== END 2025-05-12 13:22 | disposition home or self-care (01) ==
PROVIDERS: Nurse Practitioner; PCP Internal Medicine; Visit Provider Orthopaedic Surgery
PROC: (CPT 64718; principal; 2025-05-12 08:40)
DX: G56.22 Lesion of ulnar nerve, left upper limb (principal); G47.33 Obstructive sleep apnea (adult) (pediatric); R20.0 Anesthesia of skin; R20.2 Paresthesia of skin; M79.7 Fibromyalgia; M47.896 Other spondylosis, lumbar region; E03.9 Hypothyroidism, unspecified; R51.9 Headache, unspecified; E78.00 Pure hypercholesterolemia, unspecified; J44.9 Chronic obstructive pulmonary disease, unspecified; J45.40 Moderate persistent asthma, uncomplicated; E66.9 Obesity, unspecified; Z68.42 Body mass index [BMI] 45.0-49.9, adult; Z88.6 Allergy status to analgesic agent; Z88.8 Allergy status to other drugs, medicaments and biological substances; Z98.890 Other specified postprocedural states; Z87.891 Personal history of nicotine dependence; Z79.899 Other long term (current) drug therapy
CPT/HCPCS: 64718; 36415; 80051; J0131; J0690; J1100; J2003; J2004; J2405; J2704; J3010

== ENCOUNTER → 2025-05-12 07:10 | Outpatient (BNV) | payer MEDICARE, MEDICAID, SELFPAY | PROVIDERS: PCP Internal Medicine; Visit Provider Orthopaedic Surgery | DX: G56.22 Lesion of ulnar nerve, left upper limb (principal) | CPT/HCPCS: 64718 ==

== ENCOUNTER 2025-05-13 10:19 | Outpatient (AMB) | payer MEDICARE, MEDICAID, SELFPAY ==
[2025-05-13 10:42] VITALS: BMI 46.3
--- NOTE | 2025-05-13 10:42 | MHC.OFFVIS ---
Vital Signs 05/13/25 10:42 Height 5 ft 5 in Weight 278 lb BMI 46.3 Intake Visit Reasons: PO LT cubital tunnel 05/12/25 AR, bandage came off Intake Note: Manuela is a 55 year old right hand dominant female who presents today post-operatively for a bandage change status post Left Cubital Tunnel Release, DOS: 05/12/[address] Yusuf. Patient reports she was lying down and when she woke up her arpan wrap was at her wrist. She says she knew something was odd because it was already feeling loose. No further concerns. Allergies NSAIDS (Non-Steroidal Anti-Inflamma Adverse Reaction (Severe, Verified 05/13/25 10:45) acute kidney damage tramadol Adverse Reaction (Intermediate, Verified 05/13/25 10:45) Nausea HPI HPI PO LT cubital tunnel 05/12/25 AR, bandage came off: Details: Manulea is a 55 year old right hand dominant female who presents today post-operatively for a bandage change status post Left Cubital Tunnel Release, DOS: 05/12/[address] Yusuf. Patient reports she was lying down and when she woke up her arpan wrap was at her wrist. She says she knew something was odd because it was already feeling loose. No further concerns. [facility] Medical History Family history of anesthesia complication PONV (postoperative nausea and vomiting) Hyponatremia SOB (shortness of breath) JACINDA (obstructive sleep apnea) Asthma Hypothyroid PTSD (post-traumatic stress disorder) MDD (major depressive disorder) Panic disorder Tubular adenoma of colon GERD (gastroesophageal reflux disease) Elevated cholesterol Spondylosis of lumbar spine Fibromyalgia Headache Surgical History History of esophagogastroduodenoscopy (EGD) H/O colonoscopy Hx of fusion of cervical spine History of dental surgery Hx of anterior cruciate ligament surgery Hx of tubal ligation Family History Mother Depression Father No problems noted. Sister Diabetes Fibromyalgia Degenerative disc disease Bipolar 1 disorder Depression Son Depression Bipolar 2 disorder Son Depression Son Depression Daughter Depression Migraine Social History Household Members Other:: daughter Housing Other:: 2nd floor of 2 family house Are you a primary urgent care nurse practitioner to a significant other at home: No Do you presently have visiting nurse or other home services: Yes (daughter is PROFESSIONAL NURSING TUTOR) Alcohol intake: never Patient Tobacco Use Status: Former Tobacco user Tobacco use type: Cigarette Years Smoked: 15 e-Cigarette/Vaping Use: Former Use Review of Systems Const All systems reviewed & are unremarkable except as noted in HPI and below Physical Exam Vital Signs: BMI result Body Mass Index 46.3 Extrem Other: Incision on left elbow clean, dry, intact No evidence of surrounding erythema, ecchymosis No evidence of infection Patient is able to flex and extend the digits of the left hand without difficulty Compartments soft, nontender Distal sensation intact Capillary refill brisk Assessment & Plan Assessment & Plan (1) Ulnar neuropathy at elbow: Code(s): G56.20 - Lesion of ulnar nerve, unspecified upper limb Category: Medical Qualifiers: Laterality: left Qualified Code(s): G56.22 - Lesion of ulnar nerve, left upper limb Plan 1. Status post left cubital tunnel release DOS 05/12/2025 Dressing change in the office today Patient is educated there are no signs of surrounding infection around the incision site Should keep current dressing clean, dry, intact the next 4 days Patient is reminded of the typical postoperative course status post left cubital tunnel release Patient understands this and is amenable to this plan Follow-up for previously scheduled postop, sooner with any acute concerns Coding Level of Care Code Global (74721) Diagnoses Ulnar neuropathy at elbow of left upper extremity G56.22 Laterality: left
--- OUTSIDE RECORDS SUMMARY | 2025-05-13 10:59 | XMS_ITS | Encounter Summary ---
Author Organization [employer] Address [address] [facility] [address] [place] [address] Care Team Providers Care Willow Specialists Name Role Phone Fabio Jones MD Primary Care Prov ider Encounter Details Date Type Department Care Team (Late st Contact Info) Description 12/29/2023 Orders Only [facility] MED & PEDS [address] [place], [place] [phone] Fabio Jones MD [address] [place], [place] [phone] Chronic diastolic congestive heart failure (CMS/HCC) Social [...] Info) Description 06/06/2025 10:30 AM EDT Telemedicine [facility] MED & PEDS [address] [place] [address] Fabio Jones MD [address] [place] [address] documented as of this encounter Procedures Procedure [...] documented as of this encounter Care Teams Willow Specialists Relationship Specialty Start Date End Date Fabio Jones MD [address] [place] [address] PCP - General Internal Medicine 09/05/23 documented as of this encounter
--- OUTSIDE RECORDS SUMMARY | 2025-05-13 10:59 | XMS_ITS | Patient Health Record ---
Author Organization [facility] Billing Info Address [address] [place] [address] Care Team Providers Care Meteorologist Liaison Name Role Phone HOLLY DUNN Primary Care Provider FRAN JACOBO Unavailable [phone] Laura Covarrubias MD Unavailable Unavailable Allergies Allergen [...] a day for 90 day(s) Not-Taking Biotin 61282 MCG 1 tablet Orally Once a day [...] - ALL PAYORS IM Intramuscular 08/30/2022 Administered [facility] [phone] Social History Tobacco Use: Social History Observation Description Date Details (start date - stop date) Current Smoker NA - NA Tobacco Status: Question Answer Notes Patient is a current every day smoker Problems Problem Type SNOMED Code ICD Code Onset Dates Problem Status W/U Status Risk Notes Problem [id number] Cervicalgia (M54.2) Active confirmed Problem 410235905 Cervical myelopathy (G95.9) Active confirmed Plan Of [...] Date AETNA PPO MEDICARE PLAN [address] [place], [place] [id number] [place] Lalo Manuela Self - patient is the insured 3 [place]ID [place] [address] [facility] [id number] Manuela May Self - patient is the insured 3 [employer] BEHAVIOR [employer] PPO [address] [address] [place], [place] [id number] Manuela May Self - patient is the insured 3 Medical (General) History Medical History History ICD Code Hyperlipidemia Esophageal reflux Depression Anxiety Surgical History Surgery Date(Month/Year) colonoscopy, repeat in 5 years, 2019 tubal ligation knee arthroscopy, right Hospitalization History Reason Date(Month/Year) see above
--- OUTSIDE RECORDS SUMMARY | 2025-05-13 10:59 | XMS_ITS | Encounter Summary ---
Author Organization [employer] Address [address] [facility] 7 [place] [address] Care Team Providers Care Supervisor Electronics Assembly Name Role Phone Fabio Jones MD Primary Care Prov ider Reason for Visit * Reason Comments Med Refill Encounter Details Date Type Department Care Team ([facility] st Contact Info) Description 12/12/2023 Refill [facility] MED & PEDS [address] [place] [address] Fabio Jones MD [address] [place] [address] Social History Tobacco Use Types Packs/Day Years [...] Description 06/06/2025 10:30 AM EDT Telemedicine [facility] MED & PEDS [address] [place] [address] Fabio Jones MD [address] [place] [address] documented as of this encounter Visit Diagnoses Not on filedocumented in this encounter Additional Health Concerns Assessment Noted Time PHQ-9 Depression Total Score: 15 024 2:46 PM EST documented as of this encounter Care Teams Supervisor Electronics Assembly Relationship Specialty Start Date End Date Fabio Jones MD [address] [place] [address] PCP - General Internal Medicine 09/05/23 documented as of this encounter
--- OUTSIDE RECORDS SUMMARY | 2025-05-13 10:59 | XMS_ITS | Encounter Summary ---
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 [address] [place] [address] Phone: tel: fax: Referral ID Status Reason Start Date Expiration Date Visits Requested Visits Authorized [id number] Authorized Specialty Services Required 03/17/2025 03/17/2026 1 1 Encounter Details Date Type Department Care Team (Late st Contact Info) Description 03/17/2025 Orders Only [facility] MED & PEDS [address] [place] [address] Maco Galeano MD [address] [place] [address] Chronic bilateral low back pain with right-sided sciatica (Primary Dx); Spondylosis of lumbar region without myelopathy or radiculopathy Social History Tobacco Use Types Packs/Day Years [...] Info) Description 06/06/2025 10:30 AM EDT Telemedicine [facility] CH[facility] MED & PEDS [address] [place], [place] [phone] Fabio Jones MD [address] [place], [place] [phone] Scheduled Referrals Name Type Priority Associated Diagnoses Orde r Schedule Referral to Pain Medicine Outpatient Referral Routine 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 Expected: 03/17/2025 (Approximate), Expires: 03/17/2026 documented as of this encounter Visit Diagnoses Diagnosis Chronic bilateral low back pain with right-sided sciatica- Primary Spondylosis of lumbar region without myelopathy or radiculopathy documented in this encounter Additional Health Concerns Assessment Noted Time PHQ-9 Depression Total Score: 0 08/02/20 24 10:30 AM EST documented as of this encounter Care Teams Environmental Restoration Planner Relationship Specialty Start Date End Date Fabio Jones MD [address] [place] [address] PCP - General Internal Medicine 09/05/23 documented as of this encounter
--- OUTSIDE RECORDS SUMMARY | 2025-05-13 10:59 | XMS_ITS | Encounter Summary ---
Author Organization [email or web address] Address [address] [facility] 7 [place] [address] Care Team Providers Care Pole Frame Construction Worker Name Role Phone Fabio Jones MD Primary Care Prov ider Reason for Visit * Reason Comments Med Refill Encounter Details Date Type Department Care Team ([facility] st Contact Info) Description 10/08/2024 Refill [facility] CHC MED & PEDS [address] [place] [address] Fabio Jones MD [address] [place] [address] Social History Tobacco Use Types Packs/Day Years [...] Description 06/06/2025 10:30 AM EDT Telemedicine [facility] MED & PEDS [address] [place] [address] Fabio Jones MD [address] [place] [address] documented as of this encounter Visit Diagnoses Not on filedocumented in this encounter Additional Health Concerns Assessment Noted Time PHQ-9 Depression Total Score: 0 08/02/20 24 10:30 AM EST documented as of this encounter Care Teams Pole Frame Construction Worker Relationship Specialty Start Date End Date Faboi Jones MD [address] [place] [address] PCP - General Internal Medicine 09/05/23 documented as of this encounter
--- OUTSIDE RECORDS SUMMARY | 2025-05-13 10:59 | XMS_ITS | Clinical Summary ---
Author Organization [employer] Address [address] [place] [address] 7 [place] [address] Care Team Providers Care Automatic I Threading Machine Feeder Name Role Phone Fabio Jones MD Primary [...] from that organization. OXcarbazepine (Trileptal) 300 MG tabletIndications: Fibromyalgia Take [...] FOR ANXIETY 60 capsule 1 4 Active traZODone (Desyrel) 50 MG tablet TAKE 1 TABLET(50 MG) BY MOUTH AT BEDTIME 30 tablet 4 Active levothyroxine (Synthroid) 112 MCG tabletIndications: Acquired hypothyroidism Take 1 tablet (112 mcg) by mouth before breakfast. 30 tablet 11 4 07/05/20 25 Active Fluticasone-Umecli din-Vilant (Trelegy Ellipta) 100-62.5-25 MCG/ACT aerosol powder Inhale 1 puff Once per day. 60 each 3 4 Active albuterol 108 (90 Base) MCG/ACT inhaler Inhale 2 puffs every 6 (six) hours if needed for wheezing. 18 g 11 4 08/02/20 25 Active lidocaine (Lidoderm) 5 % patchIndications:C hronic bilateral low back pain with right-sided sciatica Apply 1 patch topically Once per day. Remove & discard patch within 12 hours or as directed by MD. 20 patch 3 5 Active pregabalin (Lyrica) 50 MG capsuleIndications :Neuropathic pain Take 1 capsule (50 mg) by mouth 2 times daily. 60 capsule 3 5 Active cetirizine (ZyrTEC) 10 MG tablet TAKE 1 TABLET BY MOUTH ONCE DAILY 90 tablet 3 5 Active atorvastatin (Lipitor) 10 MG tablet TAKE 1 TABLET(10 MG) BY MOUTH DAILY 90 tablet 3 5 Active baclofen (Lioresal) 10 MG tablet TAKE 1 TABLET(10 MG) BY MOUTH TWICE DAILY 60 tablet 1 5 Active fluticasone (Flonase) 50 MCG/ACT nasal spray SHAKE LIQUID WELL, PRIME PUMP, AND INSTILL 1 TO 2 SPRAYS IN EACH NOSTRIL ONCE DAILY 16 g 3 5 Active lidocaine-prilocai ne (Emla) 2.5-2.5 % cream APPLY TOPICALLY TO THE AFFECTED AREA 1 TIME FOR 1 DOSE 30 g 3 5 Active Active Problems Problem Noted Date Diagnosed Date Mixed hyperlipidemia 03/30/2025 Assessment & Plan (03/30/2025 12:55 PM EDT): On statin therapy, encouraged low cholesterol diet and exercise as tolerated, follow up in 4 [facility] Bipolar disease, chronic 10/22/2024 Moderate episode of [...] Patient refers used to be followed at [facility] cardiology, will place referal Fibromyalgia 09/04/2023 [...] 12:39 PM EDT): Patient had surgery on [place] back on February 2023, needs follow up, [...] DEPARTMENT Provider, Generic External Data 04/11/2025 Telephone [facility] MED & PEDS 505 [facility] [place] [address] Marilee Young MD Results 04/11/2025 Orders Only [facility] MED & PEDS 505 [place] [address] Marilee Young MD Hyponatremia (Primary Dx) 04/11/2025 Orders Only [facility] Information Management [address] [place] [phone] ProviderPower MD 04/10/2025 2:00 PM EDT Office Visit [facility] MED & PEDS [address] [place] [address] Marilee Young MD Moderate persistent asthma without complication (Primary Dx); Preop cardiovascular exam 04/10/2025 Travel 04/04/2025 Refill [facility] MED & PEDS 505 [place] [address] Fabio Jones MD 04/03/2025 Travel 04/02/2025 Telephone [facility] MED & PEDS [address] [place] [address] Fabio Jones MD pre op 03/24/2025 Telephone [facility] MED & PEDS [address] [place] [address] Fabio Jones MD requesting call back 03/17/2025 Orders Only [facility] MED & PEDS 505 [place] [address] Maco Galeano MD Chronic bilateral low back pain with right-sided sciatica (Primary Dx); Spondylosis of lumbar region without myelopathy or radiculopathy 03/13/2025 Results Follow-Up [facility] MED & PEDS [address] [place] [address] Fabio Jones MD Comprehensive Metabolic Panel, Lipid Panel, Standard, TSH W/Reflex to FT4 03/12/2025 Orders Only [facility] External Provider, [facility] 03/10/2025 10:[address] [facility] CHC MED & PEDS [address] [place] [address] Fabio Jones MD Acquired hypothyroidism (Primary Dx); Chronic diastolic congestive heart failure (CMS/HCC); Screening for colon cancer; Mixed hyperlipidemia 03/10/2025 Travel 03/07/[address] [facility] CHC MED & PEDS [address] [place] [address] Fabio Jones MD chart prep 03/03/2025 Travel 02/24/[address] [facility] CH[facility] MED & PEDS [address] [place] [address] Fabio Jones MD 02/24/[address] [facility] CH[facility] MED & PEDS [address] [place] [address] Fabio Jones MD 02/23/[address] [facility] CH[facility] MED & PEDS [address] [place] [address] Fabio Jones MD from Last 3 Months [...] ([facility] st Contact Info) Description 06/06/2025 10:[address] [facility] CHC MED & PEDS [address] [place] [address] Fabio Jones MD [address] [place] [address] Health Maintenance Due Date Last Done Comments CT Colonography 1970 FIT DNA/Cologuard 1970 FIT 1970 FOBT 1970 Sigmoidoscopy 1970 Hepatitis B Vaccines (1 of 3 - 19+ 3-dose series) 1989 Zoster Vaccines (1 of 2) 2020 COVID-19 Vaccine (3 - 2023- season) 2024 01/27/2021, 12/30/2020 Tobacco Screening 10/17/2024 10/17/2023 Colonoscopy 05/16/2025 05/16/2024 Colorectal Cancer Screening 05/16/2025 Influenza Vaccine (#1) 2025 , 10/07/2020, 08/15/2020, Additional history exists Depression Screening 08/02/2025 08/02/2024, 08/02/20 24 Disability Screening 10/15/2025 10/15/2024 Alcohol/Substance Use Screening [...] EDT) Sodium 132(L) 135 - 145 mmol/L [facility] Potassium 4.8 3.3 - 5.1 mmol/L [facility] Chloride 97 96 - 108 mmol/L [facility] Carbon Dioxide 27 22 - 29 mmol/L [facility] Anion Gap 13 12 - 20 [facility] 04/21/2025 1:58 PM EDT 04/21/2025 1:58 PM EDT us Generic External Data Provider LAB BLOOD ORDERAB LES Final Result [facility] [address] [place] [address] [phone] * (ABNORMAL) Prothrombin Time-INR (04/10/2025 2:20 PM EDT) Prothrombin Time 9.5(L) 10.9 - 12.4 SEC [facility] INTERNATIONAL NORM RATIO 0.8(L) 0.9 - 1.1 [facility] Comment:INTERNATIONAL NORMAL IZED RATIO (INR) [...] ORDERABLES Final Resul t Performing Organization Address [facility] Co de Phone Number [facility] [address] [place] [phone] * (ABNORMAL) Hepatic Function Panel (04/10/2025 2:20 PM EDT) Bilirubin, Total 0.2 0.0 - 1.0 mg/dL [facility] Bilirubin, Direct <0.2 0.0 - 0.5 mg/dL [facility] Aspartate Amino Transferase 38(H) 5 - 31 U/L [facility] Alanine Aminotransferase 64(H) 0 - 31 U/L [facility] Total Protein 7.3 6.5 - 8.0 g/dL [facility] Albumin Level 4.7 3.5 - 5.0 g/dL [facility] Alkaline Phosphatase 96 39 - 117 U/L [facility] Blood Venous blood specimen / Unknown 04/10/2025 2:20 PM EDT 04/10/2025 5:32 PM EDT Marilee Young MD LAB BLOOD ORDERABLES Final Resul t Performing Organization Address [facility] de Phone Number [facility] [address] [place] [phone] * (ABNORMAL) Basic Metabolic Panel (04/10/2025 2:20 PM EDT) Sodium 129(L) 135 - 145 mmol/L [facility] Potassium 4.6 3.3 - 5.1 mmol/L [facility] Chloride 96 96 - 108 mmol/L [facility] Carbon Dioxide 26 22 - 29 mmol/L [facility] Anion Gap 12 12 - 20 [facility] Urea Nitrogen (BUN) 14 9 - 16 mg/dL [facility] Creatinine, Serum 0.74 0.5 - 1.4 mg/dL [facility] Estimated Glomerular Filt Rate >60 [facility] Comment:Chronic Kidney Disea se: Estimated GFR < 60 mL/min/1.22g8Nppaza Kidney Disease: Estimated GFR < 15 mL/min/1.73m2 Glucose 104 60 - 115 mg/dL [facility] Calcium 9.1 8.4 - 10.2 mg/dL [facility] Blood Venous blood specimen / Unknown 04/10/2025 2:20 PM EDT 04/10/2025 5:32 PM EDT us Marilee Young MD LAB BLOOD ORDERABLES Final Resul t [facility] [address] [place] [phone] * ECG 12 lead (04/10/2025 11:32 AM EDT) Historical Provider ECG ORDERABLES Final Res ult * CT Lung Screening Low dose (03/13/2025 12:34 AM EDT) Anatomical Region Laterality Modality Lung Computed Tomogra phy 03/13/2025 12:3 4 AM EDT Narrative 03/13/2025 12:36 AM EDT [address] [address] [address] Scan Report Signed Patient: Manuela May MR#: [id number] 670 : 1970 Acct:[id number] Age/Sex: 54 / F ADM Date: 03/12/25 Loc: HO.CT Attending Dr: Ezio Law MD Ordering Physician: Ezio Law MD Date of Service: 03/12/25 Procedure(s): CT lung screening Accession Number(s): [id number] cc: Fabio Jones MD; Ezio Law MD Report Number: [id number]: Total DLP = 90.00 mGy-cm CLINICAL HISTORY: Z87.891 - Personal history of nicotine dependence CT lung cancer screening (LDCT) Comparison: CR - CHEST 2 VIEWS 82848 - 12/06/16 23:03 EDT Technique: Axial CT [...] MD in OV> 03/13/2535 DD/ TD/TT: 03/13/2533 Chalk Machine Operator: Procedure Note Donotuseinterpreter, Image - 03/13/[address] [address] [address] Scan Report Signed Patient: Manuela May AMR#: [id number] 670 : 1970Acct:[id number] Age/Sex: 54 / FADM Date: 03/12/25 Loc: HO.CT Attending Dr: Ezio Law MD Ordering Physician: Ezio Law MD Date of Service: 03/12/25 Procedure(s): CT lung screening Accession Number(s): [id number] cc: Fabio Jones MD; Ezio Law MD Report Number: [id number]: Total DLP = 90.00 mGy-cm CLINICAL HISTORY: Z87.891 - Personal history of nicotine dependence CT lung cancer screening (LDCT) Comparison: CR - CHEST 2 VIEWS 45007 - 12/06/16 23:03 EDT Technique: Axial CT [...] MD in OV> 03/13/2535 DD/ TD/TT: 03/13/2533 Chalk Machine Operator: [facility] External Provider IMG CT PROCEDURES Edited Result - Final * TSH W/Reflex to FT4 (03/12/2025 8:19 AM EDT) TSH reflex Free T4 2.94 0.32 - 4.0 uIU/mL [facility] Blood Venous blood specimen / Unknown 03/12/2025 8:19 AM EDT 03/12/2025 2:28 PM EDT Fabio Schneider MD LAB BLOOD ORDERABL ES Final Result Performing Organization Address City/State/[facility] Co de Phone Number [facility] [address] [place] [phone] * (ABNORMAL) Lipid Panel, Standard (03/12/2025 8:19 AM EDT) Triglycerides 337(H) <150 mg/dL [facility] Comment:Desirable Triglyceri de: less than 150 mg/dLBorderline High Triglyceride 150-199 mg/dLHigh Triglyceride: 200-499 mg/dLVery High Triglyceride: greater than or equal to 5OO mg/dL Cholesterol 175 <200 mg/dL [facility] Comment:Desirable Cholestero l: less than 200 mg/dLBorderline High Cholesterol: 200-239 mg/dLHigh Cholesterol: greater than 239 mg/dL LDL Cholesterol Calculated 60 <100 mg/dL [facility] Comment:Desirable LDL: less than 100 mg/dLNear Optimal/Above Optimal LDL: 110- 129 mg/dLBorderline High LDL: 130-159 mg/dLHigh LDL: 160-189 mg/dLVery High LDL: greater than or equal to 190 mg/dL HDL Cholesterol 48 >40 mg/dL [facility] Comment:Desirable HDL: great er than 40 mg/dL Note: This HDL assay may give artificially low results in patients with liver disease. Blood Venous blood specimen / Unknown 03/12/2025 8:19 AM EDT 03/12/2025 2:28 PM EDT us Fabio Schneider MD LAB BLOOD ORDERABL ES Final Result [facility] [address] [place] [address] [phone] * (ABNORMAL) Comprehensive Metabolic Panel (03/12/2025 8:19 AM EDT) Sodium 133(L) 135 - 145 mmol/L [facility] Potassium 4.5 3.3 - 5.1 mmol/L [facility] Chloride 98 96 - 108 mmol/L [facility] Carbon Dioxide 26 22 - 29 mmol/L [facility] Anion Gap 14 12 - 20 [facility] Urea Nitrogen (BUN) 13 9 - 16 mg/dL [facility] Creatinine, Serum 0.84 0.5 - 1.4 mg/dL [facility] Estimated Glomerular Filt Rate >60 [facility] Comment:Chronic Kidney Disea se: Estimated GFR < 60 mL/min/1.58b1Gesuwg Kidney Disease: Estimated GFR < 15 mL/min/1.73m2 Glucose 108 60 - 115 mg/dL [facility] Calcium 9.6 8.4 - 10.2 mg/dL [facility] Bilirubin, Total 0.2 0.0 - 1.0 mg/dL [facility] Aspartate Amino Transferase 44(H) 5 - 31 U/L [facility] Alanine Aminotransferase 60(H) 0 - 31 U/L [facility] Total Protein 6.7 6.5 - 8.0 g/dL [facility] Albumin Level 4.2 3.5 - 5.0 g/dL [facility] Alkaline Phosphatase 89 39 - 117 U/L [facility] Blood Venous blood specimen / Unknown 03/12/2025 8:19 AM EDT 03/12/2025 2:28 PM EDT Fabio Schneider MD LAB BLOOD ORDERABL ES Final Result [facility] [address] [place] [address] [phone] * Hm Colonoscopy (05/16/2024) Colonoscopy Normal [...] PM EDT Narrative 05/20/2024 11:50 PM EDT [address] [place] [address] Mammography Report Signed Patient: Manuela May MR#: [id number] 670 : 1970 Acct:[id number] Age/Sex: 53 / F ADM Date: 04/19/24 Loc: HO.MAMMO Attending Dr: Fabio Schneider MD Ordering Physician: Fabio Jones MD Res ults: 1Negative Date of Service: 04/19/24 Follow Up: 1 Year From Orig inal Mammogram Procedure(s): MM tomosynthesis screening BI Accession Number(s): [id number] cc: Fabio Jones MD EXAMINATION: MM SCREENING [...] by Kelli Jacob MD in OV> 05/20/24 5878 DD/ 1415 TD/TT: 04/19/24 1435 Chalk Machine Operator: Procedure Note Donotuseinterpreter, Image - 05/20/20[facility] [address] [place] [address] Mammography Report Signed Patient: Manuela May AMR#: [id number] 670 : 1970Acct:[id number] Age/Sex: 53 / FADM Date: 04/19/24 Loc: HO.MAMMO Attending Dr: Fabio Schneider MD Ordering Physician: Fabio Jones ults: 1Negative Date of Service: 04/19/24Follow Up: 1 Year From Orig ina Mammogram Procedure(s): MM tomosynthesis screening BI Accession Number(s): [id number] cc: Fabio Jones MD EXAMINATION: MM SCREENING [...] 11:48 PM EDT RP Dictated By: Kelli Jcaob MD Signed By: <Electronically signed by Kelli Jacob MD in OV> 05/20/24 2348 DD/ 1415 TD/TT: 04/19/24 1435 Chalk Machine Operator: Fabio Schneider MD IMG BI PROCEDURES Final Result * Hepatitis C Antibody with Reflex to HCV, RNA, Quantitative, Real-Time PCR (12/06/2023 8:43 AM EDT) Hepatitis C Antibody Nonreactive Nonreactive [facility] Comment:Antibodies to HCV no t detected; does not exclude early acuteHCV infection. Blood Venous blood specimen / Unknown 12/06/2023 8:43 AM EDT 12/06/2023 1:02 PM EDT Fabio Schneider MD LAB BLOOD ORDERABL ES Final Result [facility] [address] [place] [address] [phone] * HPV mRNA E6/E7 w/Reflex to HPV Genotypes 16, 18/45 (10/17/2023 2:00 PM EST) HPV nRNA E6/E7 Not Detected Not Detected [facility] Comment:Methodology: Transcr iption-Mediated AmplificationThis assay detects E6/E7 viral messenger RNA (mRNA) from 14high-risk HPV types (16,18,31,33,35,39,45,51,52,56,58,59,66,68).Cervical sources are required for HPV testing.If a vaginal source from a patient who has had atotal hysterectomy with removal of cervix wassubmitted, please contact the testing laboratoryfor alternative testing options.For additional information, please refer [email or web address].Joongel/faq/YOT163v0(This link if provided for information/educational purposes only.)THIS TEST WAS PERFORMED AT:[employer] [place] [phone] THAKUR MD HPV mRNA E6/E7 [facility] HPV 16 RNA [facility] HPV 18/45 RNA [facility] 10/17/2023 2:00 PM EST 10/19/2023 9:50 AM EST John Martin [facility] CYTOLOGY ORDERABLES F inal Result [facility] [address] [place] [address] [phone] * Pap Smear (10/17/2023 2:00 PM EST) Swab Cervix uteri structure / Unknown 10/17/2023 2:00 PM EST 10/19/2023 9:50 AM EST Narrative [facility] - 11/01/2023 7:22 AM EST ----- ------- Name: Manuela May Sarah Age/Sex: 53/F : 1970 Unit#: [id number] Attend Dr: Re10/17/23 Status: PRE [facility] Disch: ----- ------- SPEC : [id number] RECD: 10/19/23 STATUS: JULIANE FLORES NUM: [id number] OCHOA: 10/17/23-[address]: JOHN MARTIN ENTERED: 10/19/23 SP TYPE: Pap Smr OTHR DR: ORDERED: Pap Smear Interpretation Satisfactory for evaluation. No endocervical cells seen. Mild inflammation. Negative for intraepithelial lesion or malignancy. HPV mRNA E6/E7: NOT DETECTED This assay detects E6/E7 viral messenger RNA (mRNA) from 14 high-risk HPV types (16, 18, 31, 33, 35, 39, 45, 51, 52, 56, 58, 59, 66, 68) HPV testing performed by [employer], [place], [place]. See reference laboratory portion of the EMR for entire report. Clinical Information LMP: Postmenopausal Previous PAP test: Unknown date/findings Material Received ThinPrep-Cervical ----- ------- Signed (signature on file) MIRIAM Singh (ASCP) 11/01/23 0722 ----- ------- END OF REPORT John Martin CN LAB CYTOLOGY ORDERABLES F inal Result [facility] [address] [place] [phone] [phone] from Last 3 Months or Most Recently Relevant to Health Maintenance Insurance [facility] STANDARD [employer] MEDICARE REPLACEMENT Care Teams Automatic I Threading Machine Feeder Relationship Specialty Start Date End Date Fabio Jones MD [address] [place] [phone] PCP - General Internal Medicine 09/05/23
--- OUTSIDE RECORDS SUMMARY | 2025-05-13 10:59 | XMS_ITS | Encounter Summary ---
Author Organization [employer] Address [address] [facility] 7t [place] [address] Care Team Providers Care Hotel Or Motel Receptionist Name Role Phone Fabio Jones MD Primary Care Prov ider Encounter Details Date Type Department Care Team (Late st Contact Info) Description 06/19/2024 Orders Only [facility] MED & PEDS [address] [place], [place] [phone] Maco Galeano MD [address] [place], [place] [phone] Social History Tobacco Use Types Packs/Day Years [...] Upcoming Encounters Date Type Department Care Team ([facility] st Contact Info) Description 06/06/2025 10:30 AM EDT Telemedicine [facility] MED & PEDS [address] [place], [place] [phone] SierraFabio Arguelles MD [address] [place], [place] [phone] documented as of this encounter Procedures Procedure Name Priority Date/Time Associated Diagnosis Comments T4, FREE Routine 06/19/2024 9:58 AM EDT documented in this encounter Results * (ABNORMAL) T4, Free (06/19/2024 9:58 AM EDT) Free T4 (Free Thyroxine) 0.69(L) 0.71 - 1.85 ng/dL [facility] 06/19/2024 9:58 AM EDT 06/19/2024 2:37 PM EDT us Maco Galeano MD LAB BLOOD ORDERABLES Final Result [facility] [address] [place] [address] [phone] documented in this encounter Visit Diagnoses Not on filedocumented in this encounter Additional Health Concerns Assessment Noted Time PHQ-9 Depression Total Score: 15 024 2:46 PM EST documented as of this encounter Care Teams Hotel Or Motel Receptionist Relationship Specialty Start Date End Date SierraFabio Arguelles MD [address] [place] [phone] PCP - General Internal Medicine 09/05/23 documented as of this encounter
--- OUTSIDE RECORDS SUMMARY | 2025-05-13 10:59 | XMS_ITS | Encounter Summary ---
Author Organization [employer] Address [address] [facility] 7 [place] [address] Care Team Providers Care Heating And Ventilating Drafter Name Role Phone Fabio Jones MD Primary Care Prov ider Reason for Visit * Reason Comments Med Refill Encounter Details Date Type Department Care Team ([facility] st Contact Info) Description 10/09/2024 Refill [facility] MED & PEDS [address] [place] [address] Fabio Jones MD [address] [place] [address] Social History Tobacco Use Types Packs/Day Years [...] Info) Description 06/06/2025 10:30 AM EDT Telemedicine [facility] MED & PEDS [address] [place] [address] Fabio Jones MD [address] [place] [address] documented as of this encounter Visit Diagnoses Not on filedocumented in this encounter Additional Health Concerns Assessment Noted Time PHQ-9 Depression Total Score: 0 08/02/20 24 10:30 AM EST documented as of this encounter Care Teams Heating And Ventilating Drafter Relationship Specialty Start Date End Date Fabio Jones MD [address] [place] [address] PCP - General Internal Medicine 09/05/23 documented as of this encounter
--- OUTSIDE RECORDS SUMMARY | 2025-05-13 10:59 | XMS_ITS | Patient Health Record ---
Author Organization [facility] Address [address] [place] [address] Care Team Providers Care Farmer Cash Grain Name Role Phone Guanaco Caldera Primary Care Provider Reason For Referral No Information Plan Of Treatment No Information Insurance Providers Payer Name Payer Address Payer Phone Subscriber Number Group Number Insured Name Patient Relationship to Insured Coverage Start Date Coverage End Date [facility] [employer] [address] [address] [id number] Manuela May Self - patient is the insured
--- OUTSIDE RECORDS SUMMARY | 2025-05-13 10:59 | XMS_ITS | Encounter Summary ---
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 EFFECTIVE SINCE 07/20/2023 documented in this encounter Plan of Treatment Upcoming Encounters Date Type Department Care Team (Late Contact Info) Description 06/06/2025 10:30 AM EDT Telemedicine [facility] CHC MED & PEDS [address] [place], [place] [phone] Fabio Jones MD [address] [place] [address] documented as of this encounter Visit Diagnoses Not on filedocumented in this encounter Care Teams Guest Relation Officer Relationship Specialty Start Date End Date Fabio Jones MD [address] [place] [address] PCP - General Internal Medicine 09/05/23 documented as of this encounter
--- OUTSIDE RECORDS SUMMARY | 2025-05-13 10:59 | XMS_ITS | Encounter Summary ---
Author Organization [employer] Address [address] [facility] 7t [place] [address] Care Team Providers Care Package Winder Name Role Phone Fabio Jones MD Primary Care Prov ider Encounter Details Date Type Department Care Team (Late st Contact Info) Description 07/05/2024 Orders Only [facility] CHC MED & PEDS [address] [place], [place] [phone] Maco Galeano MD [address] [place], [place] [phone] Acquired hypothyroidism (Primary Dx) Social History Tobacco [...] Info) Description 06/06/2025 10:30 AM EDT Telemedicine [facility] MED & PEDS [address] [place] [address] Fabio Jones MD [address] [place] [address] documented as of this encounter Visit Diagnoses Diagnosis Acquired hypothyroidism- Primary Unspecified hypothyroidism documented in this encounter Additional Health Concerns Assessment Noted Time PHQ-9 Depression Total Score: 15 024 2:46 PM EST documented as of this encounter Care Teams Package Winder Relationship Specialty Start Date End Date Fabio Jones MD [address] [place] [address] PCP - General Internal Medicine 09/05/23 documented as of this encounter
--- OUTSIDE RECORDS SUMMARY | 2025-05-13 10:59 | XMS_ITS | Encounter Summary ---
Author Organization [employer] Address 75 [facility] 7t [place] [address] Care Team Providers Care Sports Medicine Coordinator Name Role Phone Fabio Jones MD Primary Care Prov ider Encounter Details Date Type Department Care Team (Late st Contact Info) Description 04/11/2025 Orders Only [facility] [address] [place] [address] ProviderPower MD Social History Tobacco Use Types Packs/Day Years [...] is your housing situation today? I have sabinorory castillo 01/07/[address] you [...] EDT Telemedicine [facility] MED & PEDS [address] [place] [address] Fabio Jones MD [address] [place] [address] documented as of this encounter Procedures Procedure Name Priority Date/Time Associated Diagnosis Comments ECG 12-LEAD Routine 04/10/2025 11:32 AM EDT documented in this encounter Results * ECG 12 lead (04/10/2025 11:32 AM EDT) us Historical Provider ECG ORDERABLES Final Res ult documented in this encounter Visit Diagnoses Not on filedocumented in this encounter Additional Health Concerns Assessment Noted Time PHQ-9 Depression Total Score: 0 08/02/20 24 10:30 AM EST documented as of this encounter Care Teams Sports Medicine Coordinator Relationship Specialty Start Date End Date Fabio Jones MD [address] [place] [address] PCP - General Internal Medicine 09/05/23 documented as of this encounter
--- OUTSIDE RECORDS SUMMARY | 2025-05-13 10:59 | XMS_ITS | Encounter Summary ---
Author Organization [employer] Address [address] [facility] 7t [place] [address] Care Team Providers Care Shear Scrapman Name Role Phone Fabio Jones MD Primary Care Prov ider Encounter Details Date Type Department Care Team (Latest Contact Info) Description 03/13/2025 Results Follow-Up [facility] CHC MED & PEDS [address] [place] [address] Fabio Jones MD [address] [place] [address] Comprehensive Metabolic Panel, Lipid Panel, Standard, TSH [...] 10:30 AM EDT Telemedicine [facility] MED & PEDS [address] [place] [address] Fabio Jones MD [address] [place] [address] documented as of this encounter Visit Diagnoses Not on filedocumented in this encounter Additional Health Concerns Assessment Noted Time PHQ-9 Depression Total Score: 0 08/02/20 24 10:30 AM EST documented as of this encounter Care Teams Shear Scrapman Relationship Specialty Start Date End Date Fabio Jones MD [address] [place] [address] PCP - General Internal Medicine 09/05/23 documented as of this encounter
--- OUTSIDE RECORDS SUMMARY | 2025-05-13 11:00 | XMS_ITS | Encounter Summary ---
Author Organization [employer] Address 75 [facility] 7 [place] [address] Care Team Providers Care Architectural Coating Finisher Name Role Phone Fabio Jones MD Primary Care Prov ider Reason for Visit * Reason Onset Date Comments Med Refill 02/24/2025 Encounter Details Date Type Department Care Team ([facility] st Contact Info) Description 02/24/2025 Refill [facility] CHC MED & PEDS [address] [place] [address] Fabio Jones MD [address] [place] [address] Social History Tobacco Use Types Packs/Day Years [...] Info) Description 06/06/2025 10:30 AM EDT Telemedicine [facility] MED & PEDS [address] [place] [address] Fabio Jones MD [address] [place] [address] documented as of this encounter Visit Diagnoses Not on filedocumented in this encounter Additional Health Concerns Assessment Noted Time PHQ-9 Depression Total Score: 0 08/02/20 24 10:30 AM EST documented as of this encounter Care Teams Architectural Coating Finisher Relationship Specialty Start Date End Date Fabio Jones MD [address] [place] [address] PCP - General Internal Medicine 09/05/23 documented as of this encounter
--- OUTSIDE RECORDS SUMMARY | 2025-05-13 11:00 | XMS_ITS | Encounter Summary ---
Author Organization [employer] Address 75 [facility] 7t [place] [address] Care Team Providers Care Storeroom Attendant Name Role Phone Fabio Jones MD Primary Care Prov ider Encounter Details Date Type Department Care Team (Late st Contact Info) Description 12/11/2023 Orders Only [facility] CHC MED & PEDS [address] [place], [place] [phone] Maco Galeano MD [address] [place], [place] [phone] Acquired hypothyroidism (Primary Dx); Fibromyalgia Social History [...] [facility] MED & PEDS [address] [place] [address] SierraFabio Arguelles MD [address] [place] [address] documented as of this encounter Procedures Procedure Name Priority Date/Time Associated Diagnosis Comments TSH W/REFLEX TO FT4 Routine 06/19/2024 9:58 AM EDT Acquired hypothyroidism documented in this encounter Results * (ABNORMAL) TSH W/Reflex to FT4 (06/19/2024 9:58 AM EDT) TSH reflex Free T4 9.10(H) 0.32 - 4.0 uIU/mL [facility] Blood Venous blood specimen / Unknown 06/19/2024 9:58 AM EDT 06/19/2024 2:37 PM EDT us Maco Galeano MD LAB BLOOD ORDERABLES Final Result [facility] [address] [place] [address] [phone] documented in this encounter Visit Diagnoses Diagnosis Acquired hypothyroidism- Primary Unspecified hypothyroidism Fibromyalgia Unspecified myalgia and myositis documented in this encounter Additional Health Concerns Assessment Noted Time PHQ-9 Depression Total Score: 15 024 2:46 PM EST documented as of this encounter Care Teams Storeroom Attendant Relationship Specialty Start Date End Date Fabio Jones MD [address] [place] [address] PCP - General Internal Medicine 09/05/23 documented as of this encounter
--- OUTSIDE RECORDS SUMMARY | 2025-05-13 11:00 | XMS_ITS | Encounter Summary ---
Author Organization [employer] Address 75 [facility] 7 [place] [address] Care Team Providers Care Public Records Researcher Name Role Phone Fabio Jones MD Primary Care Prov ider Reason for Visit * Reason Onset Date Comments Results 12/11/2023 Encounter Details Date Type Department Care Team ([facility] Contact Info) Description 12/11/2023 Telephone [facility] CHC MED & PEDS [address] [place] [address] Fabio Jones MD [address] [place] [address] Results Social History Tobacco Use Types Packs/Day [...] results: labs Date when done: 12/05 Facility: [facility] Please contact pt at [phone] documented in this encounter Plan of Treatment Upcoming Encounters Date Type Department Care Team (Late st Contact Info) Description 06/06/2025 10:30 AM EDT Telemedicine [facility] CHC MED & PEDS [address] [place] [address] Fabio Jones MD [address] [place] [address] documented as of this encounter Visit Diagnoses Not on filedocumented in this encounter Additional Health Concerns Assessment Noted Time PHQ-9 Depression Total Score: 15 024 2:46 PM EST documented as of this encounter Care Teams Public Records Researcher Relationship Specialty Start Date End Date Fabio Jones MD [address] [place] [address] PCP - General Internal Medicine 09/05/23 documented as of this encounter
--- OUTSIDE RECORDS SUMMARY | 2025-05-13 11:00 | XMS_ITS | Encounter Summary ---
Author Organization [employer] Address 75 [facility] 7t [place] [address] Care Team Providers Care 911 Dispatcher Name Role Phone Fabio Jones MD Primary Care Prov ider Encounter Details Date Type Department Care Team (Late st Contact Info) Description 03/27/2024 Orders Only [facility] CHC MED & PEDS [address] [place], [place] [phone] Fabio Jones MD [address] [place] [address] Social History Tobacco Use Types Packs/Day Years [...] Upcoming Encounters Date Type Department Care Team ([facility] st Contact Info) Description 06/06/2025 10:30 AM EDT Telemedicine [facility] CHC MED & PEDS [address] [place], [place] [phone] Fabio Jones MD [address] [place], [place] [phone] documented as of this encounter Procedures Procedure Name Priority Date/Time Associated Diagnosis Comments BI MAMMOGRAM SCREENING TOMOSYNTHESIS BILATERAL Routine 04/19/2024 2:15 PM EDT documented in this encounter Results * BI Mammogram Screening Tomosynthesis Bilateral (04/19/2024 2:15 PM EDT) Anatomical Region Laterality Modality Breast Bilateral Mammography 04/19/2024 2:15 PM EDT Narrative 05/20/2024 11:50 PM EDT [facility] [address] [place] [address] Mammography Report Signed Patient: Manuela May MR#: [id number] : 1970 Acct:[id number] Age/Sex: 53 / F ADM Date: 04/19/24 Loc: HO.MAMMO Attending Dr: Fabio Schneider MD Ordering Physician: Fabio Jones MD Res ults: 1Negative Date of Service: 04/19/24 Follow Up: 1 Year From Orig inal Mammogram Procedure(s): MM tomosynthesis screening BI Accession Number(s): [id number] cc: Fabio Jones MD EXAMINATION: MM SCREENING [...] 05/20/24 2348 DD/ 1415 TD/TT: 04/19/24 1435 Retail Loan Originator: Procedure Note Donotuseinterpreter, Image - 05/20/2024 [place] [facility] [address] [place] [address] Mammography Report Signed Patient: Manuela May AMR#: [id number] : 1970Acct:[id number] Age/Sex: 53 / FADM Date: 04/19/24 Loc: EELNA Attending Dr: Fabio Schnedier MD Ordering Physician: Fabio Jones ults: 1Negative Date of Service: 04/19/24Follow Up: 1 Year From Orig inal Mammogram Procedure(s): MM tomosynthesis screening BI Accession Number(s): [id number] cc: Fabio Jones MD EXAMINATION: MM SCREENING [...] 05/20/24 2348 DD/ 1415 TD/TT: 04/19/24 1435 Retail Loan Originator: Fabio Schneider MD IMG BI PROCEDURES Final Result documented in this encounter Visit Diagnoses Not on filedocumented in this encounter Additional Health Concerns Assessment Noted Time PHQ-9 Depression Total Score: 15 024 2:46 PM EST documented as of this encounter Care Teams 911 Dispatcher Relationship Specialty Start Date End Date Fabio Jones MD [address] [place] [address] PCP - General Internal Medicine 09/05/23 documented as of this encounter
--- OUTSIDE RECORDS SUMMARY | 2025-05-13 11:00 | XMS_ITS | Encounter Summary ---
Author Organization [employer] Address 75 [facility] 7 [place] [address] Care Team Providers Care Human Service Coordinator Name Role Phone Fabio Jones MD Primary Care Prov ider Reason for Visit * Reason Onset Date Comments Med Refill 05/03/2024 Encounter Details Date Type Department Care Team ([facility] st Contact Info) Description 05/03/2024 Refill [facility] CHC MED & PEDS [address] [place] [address] Fabio Jones MD [address] [place] [address] Social History Tobacco Use Types Packs/Day Years [...] Upcoming Encounters Date Type Department Care Team ([facility] st Contact Info) Description 06/06/2025 10:30 AM EDT Telemedicine [facility] MED & PEDS [address] [place] [address] Fabio Jones MD [address] [place] [address] documented as of this encounter Visit Diagnoses Not on filedocumented in this encounter Additional Health Concerns Assessment Noted Time PHQ-9 Depression Total Score: 15 024 2:46 PM EST documented as of this encounter Care Teams Human Service Coordinator Relationship Specialty Start Date End Date Fabio Jones MD [address] [place] [address] PCP - General Internal Medicine 09/05/23 documented as of this encounter
--- OUTSIDE RECORDS SUMMARY | 2025-05-13 11:00 | XMS_ITS | Clinical Summary ---
Author Organization Patient Business [employer] [facility] Address [address] [place] [address] Care Team Providers Care Early Childhood Teacher Name Role Phone Fabio Jones Primary Care [...] EDT - 04/14/2025 1:22 PM EDT Emergency [facility] Emergency [address] [place] [address] Xavier Silvestre MD Acute pain [...] se) stage 3, GFR 30-59 ml/min ([facility]) Hypothyroid 09/14/2020 DX:Hypothyroid Hyperlipidemia 09/14/2020 [...] Signed Date: 04/14/2025 12:45 ET Workstation ID: [id number] Transcribed By: Self Edit Transcribed Date: 04/14/2025 [...] Signed Date: 04/14/2025 12:45 ET Workstation ID: [id number] Transcribed By: Self Edit Transcribed Date: 04/14/2025 [...] RESULTING AGENCY - 11/07/2019 2:10 PM EST [id number] THINPREP PAP AMD CELL BLOCK: NEGATIVE FOR [...] Relevant to Health Maintenance Insurance MEDICAID - [place] [employer] MEDICARE ADVANTAGE Care Teams Early Childhood Teacher Relationship Specialty Start Date End Date Fabio Jones [address] [place], [place] PCP - General 09/05/23
--- OUTSIDE RECORDS SUMMARY | 2025-05-13 11:00 | XMS_ITS | Encounter Summary ---
Author Organization [employer] Address 75 [facility] 7t [place] [address] Care Team Providers Care Steel Rule Inspector Name Role Phone Fabio Jones MD Primary Care Prov ider Encounter Details Date Type Department Care Team (Late st Contact Info) Description 12/21/2023 Orders Only [facility] CHC MED & PEDS [address] [place], [place] [phone] Fabio Jones MD [address] [place] [address] Social History Tobacco Use Types Packs/Day Years [...] 06/06/2025 10:30 AM EDT Telemedicine [facility] MED & PEDS [address] [place] [address] Fabio Jones MD [address] [place] [address] documented as of this encounter Visit Diagnoses Not on filedocumented in this encounter Additional Health Concerns Assessment Noted Time PHQ-9 Depression Total Score: 15 024 2:46 PM EST documented as of this encounter Care Teams Steel Rule Inspector Relationship Specialty Start Date End Date Fabio Jones MD [address] [place] [address] PCP - General Internal Medicine 09/05/23 documented as of this encounter
--- OUTSIDE RECORDS SUMMARY | 2025-05-13 11:00 | XMS_ITS | Encounter Summary ---
Author Organization [employer] Address 75 [facility] 7 [place] [address] Care Team Providers Care Refinery Superintendent Name Role Phone Fabio Jones MD Primary Care Prov ider Reason for Visit * Reason Onset Date Comments Med Refill 12/11/2023 Encounter Details Date Type Department Care Team ([facility] Contact Info) Description 12/11/2023 Telephone [facility] CHC MED & PEDS [address] [place] [address] Fabio Jones MD [address] [place] [address] Med Refill Social History Tobacco Use Types [...] 300 MG tablet To be sent to: [id number] [place], [place] - [facility] BIB [facility] AT [facility] documented in this encounter Plan of Treatment Upcoming Encounters Date Type Department Care Team (Late st Contact Info) Description 06/06/2025 10:30 AM EDT Telemedicine [facility] MED & PEDS [address] [place] [address] Fabio Jones MD [address] [place] [address] documented as of this encounter Visit Diagnoses Not on filedocumented in this encounter Additional Health Concerns Assessment Noted Time PHQ-9 Depression Total Score: 15 024 2:46 PM EST documented as of this encounter Care Teams Refinery Superintendent Relationship Specialty Start Date End Date Fabio Jones MD [address] [place] [address] PCP - General Internal Medicine 09/05/23 documented as of this encounter
--- OUTSIDE RECORDS SUMMARY | 2025-05-13 11:00 | XMS_ITS | Encounter Summary ---
Author Organization [employer] Address [address] [facility] 7 [place] [address] Care Team Providers Care Mechanical Tech Name Role Phone Fabio Jones MD Primary Care Prov ider Reason for Visit * Reason Comments Med Refill Encounter Details Date Type Department Care Team (Late st Contact Info) Description 12/17/[address] [facility] CHC MED & PEDS [address] [place] [address] Fabio Jones MD [address] [place] [address] Social History Tobacco Use Types Packs/Day Years [...] Description 06/06/2025 10:30 AM EDT Telemedicine [facility] MED & PEDS [address] [place] [address] Fabio Jones MD [address] [place] [address] documented as of this encounter Visit Diagnoses Not on filedocumented in this encounter Additional Health Concerns Assessment Noted Time PHQ-9 Depression Total Score: 0 08/02/20 24 10:30 AM EST documented as of this encounter Care Teams Mechanical Tech Relationship Specialty Start Date End Date Fabio Jones MD [address] [place] [address] PCP - General Internal Medicine 09/05/23 documented as of this encounter
== END 2025-05-13 11:12 | disposition home or self-care (01) ==
LOC: HO.HOS 10:20
PROVIDERS: PCP Internal Medicine
DX: G56.22 Lesion of ulnar nerve, left upper limb (principal)
CPT/HCPCS: 99024

== ENCOUNTER → 2025-05-13 10:19 | Outpatient (BNVA) | payer MEDICARE, MEDICAID, SELFPAY | PROVIDERS: PCP Internal Medicine | DX: Z47.89 Encounter for other orthopedic aftercare (principal) | CPT/HCPCS: 99212 ==

== ENCOUNTER 2025-05-27 11:25 | Outpatient (AMB) | payer MEDICARE, MEDICAID, SELFPAY ==
[2025-05-27 11:27] VITALS: BMI 46.3
--- NOTE | 2025-05-27 11:27 | MHC.OFFVIS ---
Vital Signs 05/27/25 11:27 Height 5 ft 5 in Weight 278 lb BMI 46.3 Intake Visit Reasons: PO LT cubital 05/12/25 AR Intake Note: Manuela is a 55 year old right hand dominant female who presents today post-operatively status post Left Cubital Tunnel Release, DOS: 05/12/[address] Yusuf. Patient reports she is glacing machine tender around the incision. She denies numbness or tingling. Sutures were removed and steri strips applied. Allergies NSAIDS (Non-Steroidal Anti-Inflamma Adverse Reaction (Severe, Verified 05/27/25 11:27) acute kidney damage tramadol Adverse Reaction (Intermediate, Verified 05/27/25 11:27) Nausea HPI HPI PO LT cubital 05/12/25 AR: Details: Manuela is a 55 year old right hand dominant female who presents today post-operatively status post Left Cubital Tunnel Release, DOS: 05/12/[address] Yusuf. Patient reports she is glacing machine tender around the incision. Denies redness or discharge around incision site. She denies numbness or tingling. Sutures were removed and steri strips applied. [facility] Medical History Family history of anesthesia complication PONV (postoperative nausea and vomiting) Hyponatremia SOB (shortness of breath) JACINDA (obstructive sleep apnea) Asthma Hypothyroid PTSD (post-traumatic stress disorder) MDD (major depressive disorder) Panic disorder Tubular adenoma of colon GERD (gastroesophageal reflux disease) Elevated cholesterol Spondylosis of lumbar spine Fibromyalgia Headache Surgical History History of esophagogastroduodenoscopy (EGD) H/O colonoscopy Hx of fusion of cervical spine History of dental surgery Hx of anterior cruciate ligament surgery Hx of tubal ligation Family History Mother Depression Father No problems noted. Sister Diabetes Fibromyalgia Degenerative disc disease Bipolar 1 disorder Depression Son Depression Bipolar 2 disorder Son Depression Son Depression Daughter Depression Migraine Social History Household Members Other:: daughter Housing Other:: 2nd floor of 2 family house Are you a primary manager respiratory care to a significant other at home: No Do you presently have visiting nurse or other home services: Yes (daughter is [employer]PERVIS[employer]) Alcohol intake: never Patient Tobacco Use Status: Former Tobacco user Tobacco use type: Cigarette Years Smoked: 15 e-Cigarette/Vaping Use: Former Use Review of Systems Const All systems reviewed & are unremarkable except as noted in HPI and below Physical Exam Vital Signs: BMI result Body Mass Index 46.3 Extrem Other: Patient is alert, oriented, and in no acute distress. Neuro: Normal sensation of the tips of all digits of the left hand at this time Vascular: Cap refill brisk Pain: Some tenderness to palpation noted around incision site on the medial aspect of the left elbow No pain with range of motion of the left elbow ROM: Patient was able to flex and extend the left elbow fully and without difficulty Skin: Well approximated and well healing incision site noted on the medial aspect of the left elbow No lacerations or abrasions. General: No ecchymosis, erythema, or evidence of infection. Psych: Appears grossly normal Affect normal Attitude cooperative Assessment & Plan Assessment & Plan (1) Cubital tunnel syndrome on left: Code(s): G56.22 - Lesion of ulnar nerve, left upper limb Category: Medical Plan 1. Status post left cubital tunnel release DOS 05/12/2025 With good symptom resolution postoperatively Patient appears to be recovering well postoperatively Patient was educated about the typical recovery course Sutures removed, Steri-Strips applied without issue No under water times one-week, 2 lb weight limit x2 weeks Dressings when out and about for the next 5 days Patient understands this and is amenable to this plan Follow-up as needed with any acute concerns Coding Level of Care Code Global (92220) Diagnoses Cubital tunnel syndrome on left G56.22
--- OUTSIDE RECORDS SUMMARY | 2025-05-27 13:52 | XMS_ITS | Clinical Summary ---
Author Organization [employer] Address [address] [place] [address] 7 [place] [address] Care Team Providers Care Airframe And Power Plant Mechanic Name Role Phone Fabio Jones MD Primary [...] exercise as tolerated, follow up in [facility] Bipolar disease, chronic 10/22/2024 Moderate episode [...] Patient refers used to be followed at [facility] cardiology, will place referal Fibromyalgia 09/04/2023 [...] 12:39 PM EDT): Patient had surgery on [place] back on February 2023, needs follow up, [...] DEPARTMENT Provider, Generic External Data 04/11/2025 Telephone [facility] [address] [place] [address] Marilee Young MD Results 04/11/2025 Orders Only [facility] [address] [place] [address] Marilee Young MD Hyponatremia (Primary Dx) 04/11/2025 Orders Only [facility] Information Management [address] [place] [phone] ProviderPower MD 04/10/2025 2:00 PM EDT Office Visit [facility] [address] [place] [address] Marilee Young MD Moderate persistent asthma without complication (Primary Dx); Preop cardiovascular exam 04/10/2025 Travel 04/04/2025 Refill [facility] 505 [facility] [place] [address] Fabio Jones MD 04/03/2025 Travel 04/02/2025 Telephone [facility] [address] [place] [address] Fabio Jones MD pre op 03/24/2025 Telephone [facility] 505 [place] [address] Fabio Jones MD requesting call back 03/17/2025 Orders Only [facility] 505 [facility] [place] [facility] [place] [address] Maco Galeano MD Chronic bilateral low back pain with right-sided sciatica (Primary Dx); Spondylosis of lumbar region without myelopathy or radiculopathy 03/13/2025 Results Follow-Up [facility] 505 [facility] [place] [address] Fabio Jones MD Comprehensive Metabolic Panel, Lipid Panel, Standard, TSH W/Reflex to FT4 03/12/2025 Orders Only [facility] External Provider, [facility] 03/10/2025 10:30 AM EDT Telemedicine [facility] [address] [place] [address] Fabio Jones MD Acquired hypothyroidism (Primary Dx); Chronic diastolic congestive heart failure (CMS/HCC); Screening for colon cancer; Mixed hyperlipidemia 03/10/2025 Travel 03/07/2025 Telephone [facility] [address] [place] [address] Fabio Jones MD chart prep 03/03/2025 Travel 02/24/2025 Refill [facility] [address] [place] [address] Fabio Jones MD 02/24/2025 Refill [facility] [address] [place] [address] Fabio Jones MD from Last 3 Months [...] Upcoming Encounters Date Type Department Care Team ([facility] st Contact Info) Description 06/06/2025 10:30 AM EDT Telemedicine [facility] [address] [place] [address] Fabio Jones MD 505 [place] [address] Health Maintenance Due Date Last Done Comments CT Colonography 1970 FIT DNA/Cologuard 1970 FIT 1970 FOBT 1970 Sigmoidoscopy 1970 Hepatitis B Vaccines (1 of 3 - 19+ 3-dose series) 1989 Zoster Vaccines (1 of 2) 2020 Tobacco Screening 10/17/2024 10/17/2023 Colonoscopy 05/16/2025 05/16/2024 Colorectal Cancer Screening 05/16/2025 COVID-19 Vaccine ( season) 2025 01/27/2021, 12/30/2020 Influenza Vaccine (#1) 2025 , 10/07/2020, 08/15/2020, [...] EDT) Sodium 132(L) 135 - 145 mmol/L [facility] Potassium 4.8 3.3 - 5.1 mmol/L [facility] Chloride 97 96 - 108 mmol/L [facility] Carbon Dioxide 27 22 - 29 mmol/L [facility] Anion Gap 13 12 - 20 [facility] 04/21/2025 1:58 PM EDT 04/21/2025 1:58 PM EDT us Generic External Data Provider LAB BLOOD ORDERAB LES Final Result [facility] [address] [place] [address] [phone] * (ABNORMAL) Prothrombin Time-INR (04/10/2025 2:20 PM EDT) Prothrombin Time 9.5(L) 10.9 - 12.4 SEC [facility] INTERNATIONAL NORM RATIO 0.8(L) 0.9 - 1.1 [facility] Comment:INTERNATIONAL NORMAL IZED RATIO (INR) [...] ORDERABLES Final Resul t Performing Organization Address City/[facility] Co de Phone Number [facility] [address] [place] [phone] * (ABNORMAL) Hepatic Function Panel (04/10/2025 2:20 PM EDT) Pathologist [facility] Bilirubin, Total 0.2 0.0 - 1.0 mg/dL [facility] Bilirubin, Direct <0.2 0.0 - 0.5 mg/dL [facility] Aspartate Amino Transferase 38(H) 5 - 31 U/L [facility] Alanine Aminotransferase 64(H) 0 - 31 U/L [facility] Total Protein 7.3 6.5 - 8.0 g/dL [facility] Albumin Level 4.7 3.5 - 5.0 g/dL [facility] Alkaline Phosphatase 96 39 - 117 U/L [facility] Blood Venous blood specimen / Unknown 04/10/2025 2:20 PM EDT 04/10/2025 5:32 PM EDT Marilee Young MD LAB BLOOD ORDERABLES Final Resul t Performing Organization Address City/[facility]/ZIP Co de Phone Number [facility] [address] [place] [phone] * (ABNORMAL) Basic Metabolic Panel (04/10/2025 2:20 PM EDT) Sodium 129(L) 135 - 145 mmol/L [facility] Potassium 4.6 3.3 - 5.1 mmol/L [facility] Chloride 96 96 - 108 mmol/L [facility] Carbon Dioxide 26 22 - 29 mmol/L [facility] Anion Gap 12 12 - 20 [facility] Urea Nitrogen (BUN) 14 9 - 16 mg/dL [facility] Creatinine, Serum 0.74 0.5 - 1.4 mg/dL [facility] Estimated Glomerular Filt Rate >60 [facility] Comment:Chronic Kidney Disea se: Estimated GFR < 60 mL/min/1.31m2Exqfcy Kidney Disease: Estimated GFR < 15 mL/min/1.73m2 Glucose 104 60 - 115 mg/dL [facility] Calcium 9.1 8.4 - 10.2 mg/dL [facility] Blood Venous blood specimen / Unknown 04/10/2025 2:20 PM EDT 04/10/2025 5:32 PM EDT Marilee Young MD LAB BLOOD ORDERABLES Final Resul t [facility] [address] [place] [phone] * ECG 12 lead (04/10/2025 11:32 AM EDT) Historical Provider ECG ORDERABLES Final Res ult * CT Lung Screening Low dose (03/13/2025 12:34 AM EDT) Anatomical Region Laterality Modality Lung Computed Tomogra phy 03/13/2025 12:3 4 AM EDT Narrative 03/13/2025 12:36 AM EDT [address] [address] [address] Scan Report Signed Patient: Manuela May MR#: [id number] 670 : 1970 Acct:[id number] Age/Sex: 54 / F ADM Date: 03/12/25 Loc: HO.CT Attending Dr: Ezio Law MD Ordering Physician: Ezio Law MD Date of Service: 03/12/25 Procedure(s): CT lung screening Accession Number(s): [id number] cc: Fabio Jones MD; Ezio Law MD Report Number: [id number]: Total DLP = 90.00 mGy-cm CLINICAL HISTORY: Z87.891 - Personal history of nicotine dependence CT lung cancer screening (LDCT) Comparison: CR - CHEST 2 VIEWS 23419 - 12/06/16 23:03 EDT Technique: Axial CT [...] MD in OV> 03/13/2535 DD/ TD/TT: 03/13/2533 Coring Machine Operator: Procedure Note Donotuseinterpreter, Image - 03/13/[address] [address] [address] Scan Report Signed Patient: Manuela May AMR#: [id number] 670 : 1970Acct:[id number] Age/Sex: 54 / FADM Date: 03/12/25 Loc: HO.CT Attending Dr: Ezio Law MD Ordering Physician: Ezio Law MD Date of Service: 03/12/25 Procedure(s): CT lung screening Accession Number(s): [id number] cc: Fabio Jones MD; Ezio Law MD Report Number: [id number]: Total DLP = 90.00 mGy-cm CLINICAL HISTORY: Z87.891 - Personal history of nicotine dependence CT lung cancer screening (LDCT) Comparison: CR - CHEST 2 VIEWS 38415 - 12/06/16 23:03 EDT Technique: Axial CT [...] MD in OV> 03/13/2535 DD/ TD/TT: 03/13/2533 Coring Machine Operator: [facility] External Provider IMG CT PROCEDURES Edited Result - Final * TSH W/Reflex to FT4 (03/12/2025 8:19 AM EDT) TSH reflex Free T4 2.94 0.32 - 4.0 uIU/mL [facility] Blood Venous blood specimen / Unknown 03/12/2025 8:19 AM EDT 03/12/2025 2:28 PM EDT Fabio Schneider MD LAB BLOOD ORDERABL ES Final Result [facility] [address] [place] [phone] * (ABNORMAL) Lipid Panel, Standard (03/12/2025 8:19 AM EDT) Triglycerides 337(H) <150 mg/dL [facility] Comment:Desirable Triglyceri de: less than 150 mg/dLBorderline High Triglyceride 150-199 mg/dLHigh Triglyceride: 200-499 mg/dLVery High Triglyceride: greater than or equal to 5OO mg/dL Cholesterol 175 <200 mg/dL [facility] Comment:Desirable Cholestero l: less than 200 mg/dLBorderline High Cholesterol: 200-239 mg/dLHigh Cholesterol: greater than 239 mg/dL LDL Cholesterol Calculated 60 <100 mg/dL [facility] Comment:Desirable LDL: less than 100 mg/dLNear Optimal/Above Optimal LDL: 110- 129 mg/dLBorderline High LDL: 130-159 mg/dLHigh LDL: 160-189 mg/dLVery High LDL: greater than or equal to 190 mg/dL HDL Cholesterol 48 >40 mg/dL [facility] Comment:Desirable HDL: great er than 40 mg/dL Note: This HDL assay may give artificially low results in patients with liver disease. Blood Venous blood specimen / Unknown 03/12/2025 8:19 AM EDT 03/12/2025 2:28 PM EDT us Fabio Schneider MD LAB BLOOD ORDERABL ES Final Result [facility] [address] [place] [phone] * (ABNORMAL) Comprehensive Metabolic Panel (03/12/2025 8:19 AM EDT) Sodium 133(L) 135 - 145 mmol/L [facility] Potassium 4.5 3.3 - 5.1 mmol/L [facility] Chloride 98 96 - 108 mmol/L [facility] Carbon Dioxide 26 22 - 29 mmol/L [facility] Anion Gap 14 12 - 20 [facility] Urea Nitrogen (BUN) 13 9 - 16 mg/dL [facility] Creatinine, Serum 0.84 0.5 - 1.4 mg/dL [facility] Estimated Glomerular Filt Rate >60 [facility] Comment:Chronic Kidney Disea se: Estimated GFR < 60 mL/min/1.87h9Frfgog Kidney Disease: Estimated GFR < 15 mL/min/1.73m2 Glucose 108 60 - 115 mg/dL [facility] Calcium 9.6 8.4 - 10.2 mg/dL [facility] Bilirubin, Total 0.2 0.0 - 1.0 mg/dL [facility] Aspartate Amino Transferase 44(H) 5 - 31 U/L [facility] Alanine Aminotransferase 60(H) 0 - 31 U/L [facility] Total Protein 6.7 6.5 - 8.0 g/dL [facility] Albumin Level 4.2 3.5 - 5.0 g/dL [facility] Alkaline Phosphatase 89 39 - 117 U/L [facility] Blood Venous blood specimen / Unknown 03/12/2025 8:19 AM EDT 03/12/2025 2:28 PM EDT Fabio Schneider MD LAB BLOOD ORDERABL ES Final Result [facility] [address] [place] [phone] * Hm Colonoscopy (05/16/2024) Colonoscopy Normal [...] PM EDT Narrative 05/20/2024 11:50 PM EDT [facility] [address] [place] [address] Mammography Report Signed Patient: Manuela May MR#: [id number] 670 : 1970 Acct:[id number] Age/Sex: 53 / F ADM Date: 04/19/24 Loc: HO.MAMMO Attending Dr: Fabio Schneider MD Ordering Physician: Fabio Jones MD Res ults: 1Negative Date of Service: 04/19/24 Follow Up: 1 Year From [facility] ina Mammogram Procedure(s): MM tomosynthesis screening BI Accession Number(s): [id number] cc: Fabio Jones MD EXAMINATION: MM SCREENING [...] by Kelli Jacob MD in OV> 05/20/24 8518 DD/ 1415 TD/TT: 04/19/24 1435 Coring Machine Operator: Procedure Note Donotuseinterpreter, Image - 05/20/2024 [facility] [address] [place] [address] Mammography Report Signed Patient: Manuela May AMR#: [id number] : 1970Acct:[id number] Age/Sex: 53 / FADM Date: 04/19/24 Loc: HO.MAMMO Attending Dr: Fabio Schneider MD Ordering Physician: Fabio Jones ults: 1Negative Date of Service: 04/19/24Follow Up: 1 Year From Orig inal Mammogram Procedure(s): MM tomosynthesis screening BI Accession Number(s): [id number] cc: Fabio Jones MD EXAMINATION: MM SCREENING [...] 05/20/24 2348 DD/ 1415 TD/TT: 04/19/24 1435 Coring Machine Operator: us Fabio Schneider MD IMG BI PROCEDURES Final Result * Hepatitis C Antibody with Reflex to HCV, RNA, Quantitative, Real-Time PCR (12/06/2023 8:43 AM EDT) Hepatitis C Antibody Nonreactive Nonreactive [facility] Comment:Antibodies to HCV no t detected; does not exclude early acuteHCV infection. Blood Venous blood specimen / Unknown 12/06/2023 8:43 AM EDT 12/06/2023 1:02 PM EDT us Fabio Schneider MD LAB BLOOD ORDERABL ES Final Result [facility] [address] [place] [address] [phone] * HPV mRNA E6/E7 w/Reflex to HPV Genotypes 16, 18/45 (10/17/2023 2:00 PM EST) HPV nRNA E6/E7 Not Detected Not Detected [facility] Comment:Methodology: Transcr iption-Mediated AmplificationThis assay detects E6/E7 viral messenger RNA (mRNA) from 14high-risk HPV types (16,18,31,33,35,39,45,51,52,56,58,59,66,68).Cervical sources are required for HPV testing.If a vaginal source from a patient who has had atotal hysterectomy with removal of cervix wassubmitted, please contact the testing laboratoryfor alternative testing options.For additional information, please refer [email or web address](This link if provided for information/educational purposes only.)THIS TEST WAS PERFORMED AT:[facility] [place] [phone] THAKUR MD HPV mRNA E6/E7 TNP [facility] HPV 16 RNA TNP [facility] HPV 18/45 RNA [facility] 10/17/2023 2:00 PM EST 10/19/2023 9:50 AM EST John Martin [facility] CYTOLOGY ORDERABLES F inal Result [facility] [address] [place] [phone] * Pap Smear (10/17/2023 2:00 PM EST) Swab Cervix uteri structure / Unknown 10/17/2023 2:00 PM EST 10/19/2023 9:50 AM EST Narrative [facility] - 11/01/2023 7:22 AM EST ----- ------- Name: Manuela May Age/Sex: 53/F : 1970 Unit#: [id number] Attend Dr: Re10/17/23 Status: PRE REF Location: [facility] Disch: ----- ------- SPEC : [id number] RECD: 10/19/23 STATUS: JULIANE FLORES NUM: [id number] OCHOA: 10/17/23-13[address] [facility] DR: JOHN MARTIN [facility] ENTERED: 10/19/23 SP TYPE: Pap Smr OTHR DR: ORDERED: Pap Smear Interpretation Satisfactory for evaluation. No endocervical cells seen. Mild inflammation. Negative for intraepithelial lesion or malignancy. HPV mRNA E6/E7: NOT DETECTED This assay detects E6/E7 viral messenger RNA (mRNA) from 14 high-risk HPV types (16, 18, 31, 33, 35, 39, 45, 51, 52, 56, 58, 59, 66, 68) HPV testing performed by [employer], [place], [place]. See reference laboratory portion of the EMR for entire report. Clinical Information LMP: Postmenopausal Previous PAP test: Unknown date/findings Material Received ThinPrep-Cervical ----- ------- Signed (signature on file) MIRIAM Singh (ASCP) 11/01/23 0722 ----- ------- END OF REPORT us John Eugenioaddy CNM LAB CYTOLOGY ORDERABLES F inal Result [facility] [address] [place] [phone] from Last 3 Months or Most Recently Relevant to Health Maintenance Insurance [employer] MEDICARE REPLACEMENT Care Teams Airframe And Power Plant Mechanic Relationship Specialty Start Date End Date Fabio Jones MD [address] [place] [phone] PCP - General Internal Medicine 09/05/23
--- OUTSIDE RECORDS SUMMARY | 2025-05-27 13:52 | XMS_ITS | Encounter Summary ---
Author Organization [employer] Address [address] [facility] 7 [place] [address] Care Team Providers Care Painter Tumbling Barrel Name Role Phone Fabio Jones MD Primary Care Prov ider Reason for Visit * Reason Comments Med Refill Encounter Details Date Type Department Care Team ([facility] st Contact Info) Description 10/09/2024 Refill [facility] [address] [place] [address] Fabio Jones MD [address] [place] [address] Social History Tobacco Use Types Packs/Day Years [...] Description 06/06/2025 10:30 AM EDT Telemedicine [facility] [address] [place] [address] Fabio Jones MD [address] [place] [address] documented as of this encounter Visit Diagnoses Not on filedocumented in this encounter Additional Health Concerns Assessment Noted Time PHQ-9 Depression Total Score: 0 08/02/20 24 10:30 AM EST documented as of this encounter Care Teams Painter Tumbling Barrel Relationship Specialty Start Date End Date Fabio Jones MD [address] [place] [address] PCP - General Internal Medicine 09/05/23 documented as of this encounter
--- OUTSIDE RECORDS SUMMARY | 2025-05-27 13:53 | XMS_ITS | Encounter Summary ---
Author Organization [employer] Address [address] [facility] 7 [place] [address] Care Team Providers Care Deputy Sheriff Lieutenant Name Role Phone Fabio Jones MD Primary Care Prov ider Reason for Visit * Reason Onset Date Comments Med Refill 02/24/2025 Encounter Details Date Type Department Care Team ([facility] st Contact Info) Description 02/24/2025 Refill [facility] [address] [place] [address] Fabio Jones MD [address] [place] [address] Social History Tobacco Use Types Packs/Day Years [...] Info) Description 06/06/2025 10:30 AM EDT Telemedicine [facility] [address] [place] [address] Fabio Jones MD [address] [place] [address] documented as of this encounter Visit Diagnoses Not on filedocumented in this encounter Additional Health Concerns Assessment Noted Time PHQ-9 Depression Total Score: 0 08/02/20 24 10:30 AM EST documented as of this encounter Care Teams Deputy Sheriff Lieutenant Relationship Specialty Start Date End Date Fabio Jones MD [address] [place] [address] PCP - General Internal Medicine 09/05/23 documented as of this encounter
--- OUTSIDE RECORDS SUMMARY | 2025-05-27 13:53 | XMS_ITS | Encounter Summary ---
Author Organization [employer] Address [address] [facility] 7t [place] [address] Care Team Providers Care Yarn Comber Name Role Phone Fabio Jones MD Primary Care Prov ider Encounter Details Date Type Department Care Team (Late st Contact Info) Description 12/21/2023 Orders Only [facility] [address] [place], [place] [phone] Fabio Jones MD [address] [place] [address] Social History Tobacco Use Types Packs/Day Years [...] Info) Description 06/06/2025 10:30 AM EDT Telemedicine [facility] [address] [place] [address] Fabio Jones MD [address] [place] [address] documented as of this encounter Visit Diagnoses Not on filedocumented in this encounter Additional Health Concerns Assessment Noted Time PHQ-9 Depression Total Score: 15 024 2:46 PM EST documented as of this encounter Care Teams Yarn Comber Relationship Specialty Start Date End Date Fabio Jones MD [address] [place] [address] PCP - General Internal Medicine 09/05/23 documented as of this encounter
--- OUTSIDE RECORDS SUMMARY | 2025-05-27 13:53 | XMS_ITS | Encounter Summary ---
Author Organization [employer] Address [address] [facility] 7t [place] [address] Care Team Providers Care Causticiser Name Role Phone Fabio Jones MD Primary Care Prov ider Reason for Visit * Reason Comments Med Refill Encounter Details Date Type Department Care Team ([facility] st Contact Info) Description 10/08/2024 Refill [facility] [address] [place] [address] Fabio Jones MD [address] [place] [address] Social History Tobacco Use Types Packs/Day Years [...] [facility] [address] [place] [address] Fabio Jones MD [address] [place] [address] documented as of this encounter Visit Diagnoses Not on filedocumented in this encounter Additional Health Concerns Assessment Noted Time PHQ-9 Depression Total Score: 0 08/02/20 24 10:30 AM EST documented as of this encounter Care Teams Causticiser Relationship Specialty Start Date End Date Fabio Jones MD [address] [place] [address] PCP - General Internal Medicine 09/05/23 documented as of this encounter
--- OUTSIDE RECORDS SUMMARY | 2025-05-27 13:53 | XMS_ITS | Encounter Summary ---
Author Organization [employer] Address [address] [facility] 7t [place] [address] Care Team Providers Care Court Stenographer Name Role Phone Fabio Jones MD Primary Care Prov ider Reason for Visit * Reason Comments Med Refill Encounter Details Date Type Department Care Team ([facility] st Contact Info) Description 12/12/[address] [facility] [address] [place] [address] Fabio Jones MD [address] [place] [address] Social History Tobacco Use Types Packs/Day Years [...] Info) Description 06/06/2025 10:30 AM EDT Telemedicine [facility] [address] [place] [address] Fabio Jones MD [address] [place] [address] documented as of this encounter Visit Diagnoses Not on filedocumented in this encounter Additional Health Concerns Assessment Noted Time PHQ-9 Depression Total Score: 15 024 2:46 PM EST documented as of this encounter Care Teams Court Stenographer Relationship Specialty Start Date End Date Fabio Jones MD [address] [place] [address] PCP - General Internal Medicine 09/05/23 documented as of this encounter
--- OUTSIDE RECORDS SUMMARY | 2025-05-27 13:53 | XMS_ITS | Encounter Summary ---
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 Maco Galeano MD [address] [place] [address] Phone: tel: fax: [facility] [address] [facility] [address] [place] [address] Phone: tel: fax: Referral ID Status Reason Start Date Expiration Date Visits Requested Visits Authorized [id number] Authorized Specialty Services Required 03/17/2025 03/17/2026 1 1 Encounter Details Date Type Department Care Team (Late st Contact Info) Description 03/17/2025 Orders Only [facility] [address] [place] [address] Maco Galeano MD [address] [place] [address] Chronic bilateral low back pain with right-sided [...] Info) Description 06/06/2025 10:30 AM EDT Telemedicine [facility] [address] [place], [place] [phone] Fabio Jones MD [address] [place], [place] [phone] Scheduled Referrals Name Type Priority Associated Diagnoses [...] documented as of this encounter Care Teams Barge Captain Relationship Specialty Start Date End Date Fabio Jones MD [address] [place] [address] PCP - General Internal Medicine 09/05/23 documented as of this encounter
--- OUTSIDE RECORDS SUMMARY | 2025-05-27 13:53 | XMS_ITS | Encounter Summary ---
Author Organization [employer] Address [address] [facility] 7t [place] [address] Care Team Providers Care Lan Administrator Name Role Phone Fabio Jones MD Primary Care Prov ider Encounter Details Date Type Department Care Team (Late st Contact Info) Description 07/05/2024 Orders Only [facility] [address] [place], [place] [phone] Maco Galeano MD [address] [place], [place] [phone] Acquired hypothyroidism (Primary Dx) Social History Tobacco [...] [facility] [address] [place] [address] Fabio Jones MD [address] [place] [address] documented as of this encounter Visit Diagnoses Diagnosis Acquired hypothyroidism- Primary Unspecified hypothyroidism documented in this encounter Additional Health Concerns Assessment Noted Time PHQ-9 Depression Total Score: 15 024 2:46 PM EST documented as of this encounter Care Teams Lan Administrator Relationship Specialty Start Date End Date Fabio Jones MD [address] [place] [address] PCP - General Internal Medicine 09/05/23 documented as of this encounter
--- OUTSIDE RECORDS SUMMARY | 2025-05-27 13:53 | XMS_ITS | Encounter Summary ---
Author Organization [employer] Address [address] [facility] 7 [place] [address] Care Team Providers Care Assembler Fluorescent Lights Name Role Phone Fabio Jones MD Primary Care Prov ider Reason for Visit * Reason Comments Med Refill Encounter Details Date Type Department Care Team (Late st Contact Info) Description 12/17/2024 Refill [facility] MED & PEDS [address] [place] [address] Fabio Jones MD [address] [place] [address] Social History Tobacco Use Types Packs/Day Years [...] [facility] MED & PEDS [address] [place] [address] Fabio Jones MD [address] [place] [address] documented as of this encounter Visit Diagnoses Not on filedocumented in this encounter Additional Health Concerns Assessment Noted Time PHQ-9 Depression Total Score: 0 08/02/20 24 10:30 AM EST documented as of this encounter Care Teams Assembler Fluorescent Lights Relationship Specialty Start Date End Date Fabio Jones MD [address] [place] [address] PCP - General Internal Medicine 09/05/23 documented as of this encounter
--- OUTSIDE RECORDS SUMMARY | 2025-05-27 13:53 | XMS_ITS | Encounter Summary ---
Author Organization [employer] Address 75 [facility] 7t [place] [address] Care Team Providers Care Icu Staff Nurse Name Role Phone Fabio Jones MD Primary Care Prov ider Encounter Details Date Type Department Care Team (Late st Contact Info) Description 04/11/2025 Orders Only [facility] [address] [place] [address] ProviderPower MD Social History Tobacco Use Types [...] [facility] MED & PEDS [address] [place] [address] Fabio Jones MD [address] [place] [address] documented as of this encounter Procedures Procedure [...] documented as of this encounter Care Teams Icu Staff Nurse Relationship Specialty Start Date End Date Fabio Jones MD [address] [place] [address] PCP - General Internal Medicine 09/05/23 documented as of this encounter
--- OUTSIDE RECORDS SUMMARY | 2025-05-27 13:53 | XMS_ITS | Patient Health Record ---
Author Organization [facility] Address [address] [place] [address] Care Team Providers Care Laborer Chemical Processing Name Role Phone Guanaco Caldera Primary Care Provider Reason For Referral No Information Plan Of Treatment No Information Insurance Providers Payer Name Payer Address Payer Phone Subscriber Number Group Number Insured Name Patient Relationship to Insured Coverage Start Date Coverage End Date [facility] [address] [address] [id number] Manuela May Self - patient is the insured
--- OUTSIDE RECORDS SUMMARY | 2025-05-27 13:53 | XMS_ITS | Encounter Summary ---
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 EFFECTIVE SINCE 07/20/2023 documented in this encounter Plan of Treatment Upcoming Encounters Date Type Department Care Team (Late Contact Info) Description 06/06/2025 10:30 AM EDT Telemedicine [facility] CHC MED & PEDS [address] [place], [place] [phone] Fabio Jones MD [address] [place] [address] documented as of this encounter Visit Diagnoses Not on filedocumented in this encounter Care Teams Special Services Coordinator Relationship Specialty Start Date End Date Fabio Jones MD [address] [place] [address] PCP - General Internal Medicine 09/05/23 documented as of this encounter
--- OUTSIDE RECORDS SUMMARY | 2025-05-27 13:53 | XMS_ITS | Clinical Summary ---
Author Organization [employer] [facility] Address [address] [place] [address] Care Team Providers Care Machine Repairer Name Role Phone Fabio Jones Primary Care Provide r Allergies Active Allergy Reactions Criticality Noted Date Comments Nsaids (Non-Steroidal Anti-Inflammatory Drug) Renal Impairment 04/14/2025 Tramadol GI intolerance 04/14/2025 Medications lidocaine (LIDODERM) 5 % patch Apply 1 patch topically 1 (one) time each day. Remove & discard patch within 12 hours or as directed by MD. 30 each 05/14/20 25 Encounters Date Type Department Care Team Description 04/14/2025 12:22 PM EDT - 04/14/2025 1:22 PM EDT Emergency [facility] Emergency [address] [place] [address] Xavier Silvestre MD Acute pain [...] disea se) stage 3, GFR 30-59 ml/min ([facility]) Hypothyroid 09/14/2020 DX:Hypothyroid Hyperlipidemia 09/14/2020 [...] 08/27/2020 Breast Cancer Screening 03/20/2023 03/20/2021, 10/25 Depression Screening 09/18/2024 COVID-19 Vaccine ( season) 2025 01/27/2021, 12/30/2020 [...] swelling. -------- FINAL REPORT -------- Dictated By: RAYMOND GAGE Dictated Date: 04/14/2025 12:45 ET Assigned Physician: RAYMOND GAGE Reviewed and Electronically Signed By: RAYMOND GAGE Signed Date: 04/14/2025 12:45 ET Workstation ID: [id number] Transcribed By: Self Edit Transcribed Date: 04/14/2025 12:45 ET Narrative 04/14/2025 12:45 PM EDT XR WRIST 3+ VIEWS LEFT INDICATION: Pain TECHNIQUE: XR WRIST 3+ VIEWS LEFT COMPARISON: No priors available. Procedure Note Raymond Gage MD - 04/14/2025 XR WRIST 3+ VIEWS LEFT INDICATION: Pain TECHNIQUE: XR WRIST 3+ VIEWS LEFT COMPARISON: No priors available. IMPRESSION: FINDINGS/IMPRESSION: No acute fracture or dislocation. Joint spaces arepreserved. No focal soft tissue swelling. -------- FINAL REPORT -------- Dictated By: RAYMOND GAGE Dictated Date: 04/14/2025 12:45 ET Assigned Physician: RAYMOND GAGE Reviewed and Electronically Signed By: RAYMOND GAGE Signed Date: 04/14/2025 12:45 ET Workstation ID: [id number] Transcribed By: Self Edit Transcribed Date: 04/14/2025 12:45 ET Xavier Silvestre MD IMG XR PROCEDURES Final [...] RESULTING AGENCY - 11/07/2019 2:10 PM EST [id number] THINPREP PAP AMD CELL BLOCK: NEGATIVE FOR [...] PAP HX NEG [Z12.4] CB 11/04/19 Marta Lucy DO LAB CYTOLOGY ORDERABLES Final Result HISTORICAL TESTING LAB RESULTING AGENCY from Last 3 Months or Most Recently Relevant to Health Maintenance Insurance MEDICAID - [place] AETNA MEDICARE ADVANTAGE Care Teams Machine Repairer Relationship Specialty Start Date End Date Fabio Jones [address] [place] [address] PCP - General 09/05/23
--- OUTSIDE RECORDS SUMMARY | 2025-05-27 13:53 | XMS_ITS | Encounter Summary ---
Author Organization [employer] Address [address] [facility] 7t [place] [address] Care Team Providers Care Supercharger Repair Supervisor Name Role Phone Fabio Jones MD Primary Care Prov ider Encounter Details Date Type Department Care Team (Late st Contact Info) Description 12/29/2023 Orders Only [facility] CHC MED & PEDS [address] [place], [place] [phone] Fabio Jones MD [address] [place], [place] [phone] Chronic diastolic congestive heart failure (CMS/HCC) Social [...] Info) Description 06/06/2025 10:30 AM EDT Telemedicine [facility] MED & PEDS [address] [place] [address] Fabio Jones MD [address] [place] [address] documented as of this encounter Procedures Procedure [...] documented as of this encounter Care Teams Supercharger Repair Supervisor Relationship Specialty Start Date End Date Fabio Jones MD [address] [place] [address] PCP - General Internal Medicine 09/05/23 documented as of this encounter
--- OUTSIDE RECORDS SUMMARY | 2025-05-27 13:53 | XMS_ITS | Encounter Summary ---
Author Organization [employer] Address 75 [facility] 7t [place] [address] Care Team Providers Care Unified Communications Architect Name Role Phone Fabio Jones MD Primary Care Prov ider Encounter Details Date Type Department Care Team (Late st Contact Info) Description 03/27/2024 Orders Only [facility] CHC MED & PEDS [address] [place], [place] [phone] Fabio Jones MD [address] [place] [address] Social History Tobacco Use Types Packs/Day Years [...] Upcoming Encounters Date Type Department Care Team ([facility] st Contact Info) Description 06/06/2025 10:30 AM EDT Telemedicine [facility] CHC MED & PEDS [address] [place], [place] [phone] Fabio Jones MD [address] [place], [place] [phone] documented as of this encounter Procedures Procedure Name Priority Date/Time Associated Diagnosis Comments BI MAMMOGRAM SCREENING TOMOSYNTHESIS BILATERAL Routine 04/19/2024 2:15 PM EDT documented in this encounter Results * BI Mammogram Screening Tomosynthesis Bilateral (04/19/2024 2:15 PM EDT) Anatomical Region Laterality Modality Breast Bilateral Mammography 04/19/2024 2:15 PM EDT Narrative 05/20/2024 11:50 PM EDT [facility] [address] [place] [address] Mammography Report Signed Patient: Manuela May MR#: [id number] : 1970 Acct:[id number] Age/Sex: 53 / F ADM Date: 04/19/24 Loc: HO.MAMMO Attending Dr: Fabio Schneider MD Ordering Physician: Fabio Jones MD Res ults: 1Negative Date of Service: 04/19/24 Follow Up: 1 Year From Orig inal Mammogram Procedure(s): MM tomosynthesis screening BI Accession Number(s): [id number] cc: Fabio Jones MD EXAMINATION: MM SCREENING [...] 05/20/24 2348 DD/ 1415 TD/TT: 04/19/24 1435 Chief Controller Tower: Procedure Note Donotuseinterpreter, Image - 05/20/2024 [place] [facility] [address] [place] [address] Mammography Report Signed Patient: Manuela May AMR#: [id number] : 1970Acct:[id number] Age/Sex: 53 / FADM Date: 04/19/24 Loc: E[place] Attending Dr: Fabio Schneider MD Ordering Physician: Fabio Jones ults: 1Negative Date of Service: 04/19/24Follow Up: 1 Year From Orig inal Mammogram Procedure(s): MM tomosynthesis screening BI Accession Number(s): [id number] cc: Fabio Jones MD EXAMINATION: MM SCREENING [...] 05/20/24 2348 DD/ 1415 TD/TT: 04/19/24 1435 Chief Controller Tower: Fabio Schneider MD IMG BI PROCEDURES Final Result documented in this encounter Visit Diagnoses Not on filedocumented in this encounter Additional Health Concerns Assessment Noted Time PHQ-9 Depression Total Score: 15 024 2:46 PM EST documented as of this encounter Care Teams Unified Communications Architect Relationship Specialty Start Date End Date Fabio Jones MD [address] [place] [address] PCP - General Internal Medicine 09/05/23 documented as of this encounter
--- OUTSIDE RECORDS SUMMARY | 2025-05-27 13:53 | XMS_ITS | Encounter Summary ---
Author Organization [employer] Address 75 [facility] 7 [place] [address] Care Team Providers Care Lan Specialist Name Role Phone Fabio Jones MD Primary Care Prov ider Reason for Visit * Reason Onset Date Comments Med Refill 12/11/2023 Encounter Details Date Type Department Care Team ([facility] Contact Info) Description 12/11/2023 Telephone [facility] CHC MED & PEDS [address] [place] [address] Fabio Jones MD [address] [place] [address] Med Refill Social History Tobacco Use Types [...] 300 MG tablet To be sent to: [id number] [place], [place] - [facility] BIB [place] AT [facility] documented in this encounter Plan of Treatment Upcoming Encounters Date Type Department Care Team (Late st Contact Info) Description 06/06/2025 10:30 AM EDT Telemedicine [facility] MED & PEDS [address] [place] [address] Fabio Jones MD [address] [place] [address] documented as of this encounter Visit Diagnoses Not on filedocumented in this encounter Additional Health Concerns Assessment Noted Time PHQ-9 Depression Total Score: 15 024 2:46 PM EST documented as of this encounter Care Teams Lan Specialist Relationship Specialty Start Date End Date Fabio Jones MD [address] [place] [address] PCP - General Internal Medicine 09/05/23 documented as of this encounter
--- OUTSIDE RECORDS SUMMARY | 2025-05-27 13:53 | XMS_ITS | Patient Health Record ---
Author Organization [facility] Emelia cohen Billing Info Address [address] [place] [address] Care Team Providers Care Training Intern Name Role Phone HOLLY DUNN Primary Care Provider FRAN JACOBO Unavailable [phone] Laura Covarrubias MD Unavailable Unavailable Allergies Allergen [...] a day for 90 day(s) Not-Taking Biotin 18794 MCG 1 tablet Orally Once a day [...] - ALL PAYORS IM Intramuscular 08/30/2022 Administered [facility] [phone] Social History Tobacco Use: Social History Observation Description Date Details (start date - stop date) Current Smoker NA - NA Tobacco Status: Question Answer Notes Patient is a current every day smoker Problems Problem Type SNOMED Code ICD Code Onset Dates Problem Status W/U Status Risk Notes Problem [id number] Cervicalgia (M54.2) Active confirmed Problem [id number] Cervical myelopathy (G95.9) Active confirmed Plan Of [...] Date AETNA PPO MEDICARE PLAN [address] [place], [place] [id number] [place] Manuela Self - patient is the insured 3 [place]ICAID [place] [address] [facility] [id number] Manuela May Self - patient is the insured 3 [employer] BEHAVIOR [employer] PPO [address] [address] [place], [place] [id number] Manuela May Self - patient is the insured 3 Medical (General) History Medical History History ICD Code Hyperlipidemia Esophageal reflux Depression Anxiety Surgical History Surgery Date(Month/Year) colonoscopy, repeat in 5 years, 2019 tubal ligation knee arthroscopy, right Hospitalization History Reason Date(Month/Year) see above
--- OUTSIDE RECORDS SUMMARY | 2025-05-27 13:53 | XMS_ITS | Encounter Summary ---
Author Organization [employer] Address 75 [facility] 7 [place] [address] Care Team Providers Care Police Patrol Officer Name Role Phone Fabio Jones MD Primary Care Prov ider Reason for Visit * Reason Onset Date Comments Results 12/11/2023 Encounter Details Date Type Department Care Team ([facility] Contact Info) Description 12/11/2023 Telephone [facility] CHC MED & PEDS [address] [place] [address] Fabio Jones MD [address] [place] [address] Results Social History Tobacco Use Types Packs/Day [...] results: labs Date when done: 12/05 Facility: [facility] Please contact pt at [phone] documented in this encounter Plan of Treatment Upcoming Encounters Date Type Department Care Team (Late st Contact Info) Description 06/06/2025 10:30 AM EDT Telemedicine [facility] CHC MED & PEDS [address] [place] [address] Fabio Jones MD [address] [place] [address] documented as of this encounter Visit Diagnoses Not on filedocumented in this encounter Additional Health Concerns Assessment Noted Time PHQ-9 Depression Total Score: 15 024 2:46 PM EST documented as of this encounter Care Teams Police Patrol Officer Relationship Specialty Start Date End Date Fabio Jones MD [address] [place] [address] PCP - General Internal Medicine 09/05/23 documented as of this encounter
--- OUTSIDE RECORDS SUMMARY | 2025-05-27 13:53 | XMS_ITS | Encounter Summary ---
Author Organization [employer] Address [address] [facility] 7 [place] [address] Care Team Providers Care Postulant Name Role Phone Fabio Jones MD Primary Care Prov ider Reason for Visit * Reason Onset Date Comments Med Refill 05/03/2024 Encounter Details Date Type Department Care Team ([facility] st Contact Info) Description 05/03/2024 Refill [facility] CHC MED & PEDS [address] [place] [address] Fabio Jones MD [address] [place] [address] Social History Tobacco Use Types Packs/Day Years [...] Upcoming Encounters Date Type Department Care Team ([facility] st Contact Info) Description 06/06/2025 10:30 AM EDT Telemedicine [facility] MED & PEDS [address] [place] [address] Fabio Jones MD [address] [place] [address] documented as of this encounter Visit Diagnoses Not on filedocumented in this encounter Additional Health Concerns Assessment Noted Time PHQ-9 Depression Total Score: 15 024 2:46 PM EST documented as of this encounter Care Teams Postulant Relationship Specialty Start Date End Date Fabio Jones MD [address] [place] [address] PCP - General Internal Medicine 09/05/23 documented as of this encounter
--- OUTSIDE RECORDS SUMMARY | 2025-05-27 13:53 | XMS_ITS | Encounter Summary ---
Author Organization [employer] Address [address] [facility] 7t [place] [address] Care Team Providers Care Assistant Name Role Phone Fabio Jones MD Primary Care Prov ider Encounter Details Date Type Department Care Team (Late st Contact Info) Description 12/11/2023 Orders Only [facility] CHC MED & PEDS [address] [place], [place] [phone] Maco Galeano MD [address] [place], [place] [phone] Acquired hypothyroidism (Primary Dx); Fibromyalgia Social History [...] 06/06/2025 10:30 AM EDT Telemedicine [facility] MED & PEDS [address] [place] [address] SierraFabio Arguelles MD [address] [place] [address] documented as of this encounter Procedures Procedure Name Priority Date/Time Associated Diagnosis Comments TSH W/REFLEX TO FT4 Routine 06/19/2024 9:58 AM EDT Acquired hypothyroidism documented in this encounter Results * (ABNORMAL) TSH W/Reflex to FT4 (06/19/2024 9:58 AM EDT) TSH reflex Free T4 9.10(H) 0.32 - 4.0 uIU/mL [facility] Blood Venous blood specimen / Unknown 06/19/2024 9:58 AM EDT 06/19/2024 2:37 PM EDT us Maco Galeano MD LAB BLOOD ORDERABLES Final Result [facility] [address] [place] [address] [phone] documented in this encounter Visit Diagnoses Diagnosis Acquired hypothyroidism- Primary Unspecified hypothyroidism Fibromyalgia Unspecified myalgia and myositis documented in this encounter Additional Health Concerns Assessment Noted Time PHQ-9 Depression Total Score: 15 024 2:46 PM EST documented as of this encounter Care Teams Assistant Relationship Specialty Start Date End Date Fabio Jones MD [address] [place] [address] PCP - General Internal Medicine 09/05/23 documented as of this encounter
--- OUTSIDE RECORDS SUMMARY | 2025-05-27 13:53 | XMS_ITS | Encounter Summary ---
Author Organization [employer] Address 75 [facility] 7t [place] [address] Care Team Providers Care Aircraft General Repair Mechanic Name Role Phone Fabio Jones MD Primary Care Prov ider Encounter Details Date Type Department Care Team (Late st Contact Info) Description 06/19/2024 Orders Only [facility] CHC MED & PEDS [address] [place], [place] [phone] Maco Galeano MD [address] [place], [place] [phone] Social History Tobacco Use Types Packs/Day Years [...] Upcoming Encounters Date Type Department Care Team ([facility] st Contact Info) Description 06/06/2025 10:30 AM EDT Telemedicine [facility] CHC MED & PEDS [address] [place], [place] [phone] SierraFabio Arguelles MD [address] [place], [place] [phone] documented as of this encounter Procedures Procedure Name Priority Date/Time Associated Diagnosis Comments T4, FREE Routine 06/19/2024 9:58 AM EDT documented in this encounter Results * (ABNORMAL) T4, Free (06/19/2024 9:58 AM EDT) Free T4 (Free Thyroxine) 0.69(L) 0.71 - 1.85 ng/dL [facility] 06/19/2024 9:58 AM EDT 06/19/2024 2:37 PM EDT us Maco Galeano MD LAB BLOOD ORDERABLES Final Result [facility] [address] [place] [address] [phone] documented in this encounter Visit Diagnoses Not on filedocumented in this encounter Additional Health Concerns Assessment Noted Time PHQ-9 Depression Total Score: 15 024 2:46 PM EST documented as of this encounter Care Teams Aircraft General Repair Mechanic Relationship Specialty Start Date End Date SierraFabio Arguelles MD [address] [place] [phone] PCP - General Internal Medicine 09/05/23 documented as of this encounter
== END 2025-05-27 11:53 | disposition home or self-care (01) ==
LOC: HO.HOS 11:26
PROVIDERS: PCP Internal Medicine
DX: G56.22 Lesion of ulnar nerve, left upper limb (principal)
CPT/HCPCS: 99024

== ENCOUNTER → 2025-05-27 11:25 | Outpatient (BNVA) | payer MEDICARE, MEDICAID, SELFPAY | PROVIDERS: PCP Internal Medicine | DX: G56.22 Lesion of ulnar nerve, left upper limb (principal) | CPT/HCPCS: 99212 ==

== ENCOUNTER 2025-06-04 11:16 | Outpatient (AMB) | payer OTHER, MEDICAID, SELFPAY ==
--- NOTE | 2025-06-04 11:20 | A.OFFVIS_ITS ---
Vital Signs 06/04/25 11:21 Height 5 ft 5 in Weight 268 lb BMI 44.6 BP 116/58 L Blood Pressure Location Rt brachial Position Sitting Pulse 80 Pulse Source Pulse Oximeter Pulse Oximetry (%) 95 Oxygen Delivery Method Room Air Intake Visit Reasons: 1 yr follow up to discuss colonoscopy Intake Note: Est pt for mgmt of GERD + dysphagia CC: C.O. constipation w/o evidence of hematochezia or melena. Pt denies any difficulties with GERD or dysphagia at this time. Currently only taking PPI. Pt states that her docusate is no longer effective and she only has 1-2 BMs / week on average. Pt believes that bisacodyl may work better as she has taken that prior to colonoscopies in the past. [employer] Supervisor Required: No Accompanied by: Self / Same As Patient Allergies NSAIDS (Non-Steroidal Anti-Inflamma Adverse Reaction (Severe, Verified 06/04/25 11:21) acute kidney damage tramadol Adverse Reaction (Intermediate, Verified 06/04/25 11:21) Nausea HPI HPI 1 yr follow up to discuss colonoscopy: Details: LAST VISIT GERD (gastroesophageal reflux disease) Tubular adenoma of colon Dysphagia Plan Will change PPI to Nexium. Patient will start famotidine at bedtime. Avoid dietary triggers and late night snacking. Staying upright for minimum 3 hours after meals discussed with patient. Patient will try to take Dulcolax daily. Does not empty her bowels completely. Increase fluid intake and activity to promote better bowel motility. Follow-up in the office in 1 year to discuss going for colonoscopy. Patient will call our office if she will have any GI concerning symptoms. Patient is agreeable to current plan of care and verbalizes understanding of instructions. She was given the opportunity to ask questions and all questions answered. ? Thank you for allowing me to participate in her care New esomeprazole magnesium (Nexium) 40 mg PO DAILY 90 caps 5RF K21.9 famotidine (Pepcid) 20 mg PO BEDTIME 90 tabs 3RF K21.9 Refilled bisacodyl (Dulcolax (bisacodyl)) Start taking 2 tablet every night 7 days before the procedure and 1 day before procedure take 4 tablets at noon time followed by MiraLax prep 10 mg (2 x 5 mg) PO BEDTIME 16 tabs 0RF Z12.11 Discontinued pantoprazole take one tablet half an hour before breakfast Discontinued Reason: Doctor's Order 40 mg PO DAILY 90 tabs 3RF K21.9 TODAY'S VISIT Patient is here today for follow-up and to discuss going for colonoscopy. Patient had colonoscopy in April of 2024, suboptimal prep and recommendation was made for patient to return for colonoscopy in 1-2 years. Patient continues to have trouble moving her bowels only 2-3 bowel movements a week. Patient states that Colace was not helping her. Patient reports that previously she took Dulcolax and felt like that was helpful and she was able to move her bowels. Patient denies melena, hematochezia, unintentional weight loss or ribbon like stools. Denies any dyspepsia, dysphagia or odynophagia. Acid reflux suppressed by Nexium. She denies any issues with anesthesia in the past. No history of sleep apnea. Patient is not taking any anticoagulation medication. Denies any cardiac or respiratory symptoms. [facility] Medical History (Updated 06/04/25 @ 11:43 by GINNY Castillo) Family history of anesthesia complication PONV (postoperative nausea and vomiting) Hyponatremia SOB (shortness of breath) JACINDA (obstructive sleep apnea) Asthma Hypothyroid PTSD (post-traumatic stress disorder) MDD (major depressive disorder) Panic disorder Tubular adenoma of colon GERD (gastroesophageal reflux disease) Elevated cholesterol Spondylosis of lumbar spine Fibromyalgia Headache Surgical History (Updated 06/04/25 @ 11:43 by GINNY Castillo) Left elbow pain History of esophagogastroduodenoscopy (EGD) H/O colonoscopy Hx of fusion of cervical spine History of dental surgery Hx of anterior cruciate ligament surgery Hx of tubal ligation Family History Mother Depression Father No problems noted. Sister Diabetes Fibromyalgia Degenerative disc disease Bipolar 1 disorder Depression Son Depression Bipolar 2 disorder Son Depression Son Depression Daughter Depression Migraine Social History Household Members Other:: daughter Housing Other:: 2nd floor of 2 family house Are you a primary foster care case manager to a significant other at home: No Do you presently have visiting nurse or other home services: Yes (daughter is WORKERS COMPENSATION MANAGER) Alcohol intake: never Patient Tobacco Use Status: Former Tobacco user Tobacco use type: Cigarette Years Smoked: 15 e-Cigarette/Vaping Use: Former Use Review of Systems Const Denies weight gain and Denies weight loss ENT Reports no additional complaints, Denies dysphagia and Denies odynophagia Card Reports no additional complaints Resp Reports no additional complaints GI Denies abdominal pain, Denies belching, Denies melena, Reports bloating, Denies change in bowel habits, Denies dysphagia, Denies excessive flatus, Denies dyspepsia, Reports heartburn, Denies diarrhea, Denies loose stools, Denies nausea, Denies odynophagia and Denies vomiting Reports no additional complaints Musc Reports no additional complaints Neuro Reports no additional complaints Psych Reports no additional complaints Endo Reports no additional complaints Physical Exam Vital Signs: Last Vital Signs Pulse 80 06/04/25 11:21 BP 116/58 L 06/04/25 11:21 Pulse Ox 95 06/04/25 11:21 Oxygen Delivery Method Room Air 06/04/25 11:21 BMI result Body Mass Index 44.6 Const General: healthy appearing and no acute distress Nutritional Appearance: obese Orientation/consciousness: patient oriented x3 Resp Effort & Inspection: normal respiratory effort, able to speak in complete sentences, no tracheal deviation and symmetric chest movement Auscultation: clear to auscultation bilaterally Cardio Rate: regular rate GI Inspection: Yes normal to inspection, No distended and Yes obesity Palpation (GI): Soft to palpation, not firm, nontender and No hepatosplenomegaly present Auscultation: normal bowel sounds General: Yes no CVA tenderness Back/Spine/Pelvis Back: no CVA tenderness Skin General skin exam: elasticity normal, turgor normal and dry skin Neuro General: patient oriented x3 Psych Appearance: grossly normal Mental Status: mental status grossly normal Assessment & Plan Assessment & Plan (1) GERD (gastroesophageal reflux disease): Code(s): K21.9 - Gastro-esophageal reflux disease without esophagitis Category: Medical Qualifiers: Esophagitis presence: with esophagitis Esophagitis bleeding: without hemorrhage Qualified Code(s): K21.00 - Gastro-esophageal reflux disease with esophagitis, without bleeding (2) Tubular adenoma of colon: Code(s): D12.6 - Benign neoplasm of colon, unspecified Category: Medical (3) Constipation: Code(s): K59.00 - Constipation, unspecified Qualifiers: Constipation type: slow transit constipation Qualified Code(s): K59.01 - Slow transit constipation (4) Screen for colon cancer: Code(s): Z12.11 - Encounter for screening for malignant neoplasm of colon Plan Patient will start taking Dulcolax daily. Increase fluid intake and activity to promote better bowel motility. Patient will avoid fiber 1 week before procedure. Later meals 2 days before procedure with clear liquid day before procedure. What to expect before during and after procedure discussed with patient. Stressed the importance of good bowel prep and clear liquid diet day before procedure. Continue Nexium. Avoid dietary triggers and late night snacking. Staying upright for minimum 3 hours after meals discussed with patient. I will see patient after the procedure, sooner on as needed basis. She is agreeable to this plan and verbalizes understanding of instructions. She was given the opportunity to ask questions and all questions answered. Thank you for allowing me to participate in her care Medications: New bisacodyl (Dulcolax (bisacodyl)) 10 mg (2 x 5 mg) PO BEDTIME 180 tabs 4RF polyethylene glycol 3350 (Miralax) As directed by gastroenterology department at [facility] 238 grams PO ONCE 238 grams 0RF Z12.11 - Encounter for screening for malignant neoplasm of colon Coding Level of Care Code Est Pt Level 3 (34181) Diagnoses Gastroesophageal reflux disease with esophagitis without hemorrhage K21.00 Esophagitis presence: with esophagitis Esophagitis bleeding: without hemorrhage Tubular adenoma of colon D12.6 Slow transit constipation K59.01 Constipation type: slow transit constipation Screen for colon cancer Z12.11 Time Spent (min) 30 Comment 20 minutes spent with patient and additional 10 minutes spent reviewing her records
[2025-06-04 11:21] VITALS: BP 116/58; PULSE 80; O2SAT 95; BMI 44.6
--- OUTSIDE RECORDS SUMMARY | 2025-06-04 14:29 | XMS_ITS | Clinical Summary ---
Author Organization [employer] Address [address] [place] [address] 7 [place] [address] Care Team Providers Care Senior Ecologist Name Role Phone Fabio Jones MD Primary [...] exercise as tolerated, follow up in 4 [facility] Bipolar disease, chronic 10/22/2024 Moderate episode of [...] Will send pft and will renew albuterol SHREYL (generalized anxiety disorder) 10/17/2023 Chronic diastolic congestive [...] Patient refers used to be followed at [facility] cardiology, will place referal Fibromyalgia 09/04/2023 [...] 12:39 PM EDT): Patient had surgery on [place] back on February 2023, needs follow up, [...] Encounters Date Type Department Care Team Description 05/30/2025 Travel 04/21/2025 Orders Only GENERIC EXTERNAL DATA DEPARTMENT Provider, Generic External Data 04/11/2025 Telephone [facility] [address] [facility] [place] [address] Marilee Young MD Results 04/11/2025 Orders Only [facility] [address] [facility] [place] [address] Marilee Young MD Hyponatremia (Primary Dx) 04/11/2025 Orders Only [facility] Information Management [address] [place] [phone] ProviderPower MD 04/10/2025 2:00 PM EDT Office Visit [facility] [address] [facility] [place] [address] Marilee Young MD Moderate persistent asthma without complication (Primary Dx); Preop cardiovascular exam 04/10/2025 Travel 04/04/2025 Refill [facility] [address] [facility] [place] [address] Fabio Jones MD 04/03/2025 Travel 04/02/2025 Telephone [facility] [address] [facility] [place] [address] Faboi Jones MD pre op 03/24/2025 Telephone [facility] [address] [place] [address] Fabio Jones MD requesting call back 03/17/2025 Orders Only [facility] [address] [place] [address] Maco Galeano MD Chronic bilateral low back pain with right-sided sciatica (Primary Dx); Spondylosis of lumbar region without myelopathy or radiculopathy 03/13/2025 Results Follow-Up [facility] [address] [facility] [place] [address] Fabio Jones MD Comprehensive Metabolic Panel, Lipid Panel, Standard, TSH W/Reflex to FT4 03/12/2025 Orders Only [facility] External Provider, [facility] 03/10/2025 10:30 AM EDT Telemedicine [facility] [address] [place] [address] Fabio Jones MD Acquired hypothyroidism (Primary Dx); Chronic diastolic congestive heart failure (CMS/HCC); Screening for colon cancer; Mixed hyperlipidemia 03/10/2025 Travel 03/07/2025 Telephone [facility] [address] [place] [address] Fabio Jones MD chart prep from Last 3 Months Immunizations Immunization Administration [...] the past 12 months, has t he [employer], gas, oil or water company threatened to [...] Description 06/06/2025 10:[address] [facility] [address] [place], [place] [phone] Fabio Jones MD [address] [place] [address] Health Maintenance Due Date Last Done Comments CT Colonography 1970 FIT DNA/Cologuard 1970 FIT 1970 FOBT 1970 Sigmoidoscopy 1970 Hepatitis B Vaccines (1 of 3 - 19+ 3-dose series) 1989 Zoster Vaccines (1 of 2) 2020 Tobacco Screening 10/17/2024 10/17/2023 Colonoscopy 05/16/2025 05/16/2024 Colorectal Cancer Screening 05/16/2025 COVID-19 Vaccine ( - 2024- season) 2025 01/27/2021, 12/30/2020 Influenza Vaccine (#1) [...] EDT) Sodium 132(L) 135 - 145 mmol/L [facility] Potassium 4.8 3.3 - 5.1 mmol/L [facility] Chloride 97 96 - 108 mmol/L [facility] Carbon Dioxide 27 22 - 29 mmol/L [facility] Anion Gap 13 12 - 20 [facility] 04/21/2025 1:58 PM EDT 04/21/2025 1:58 PM EDT us Generic External Data Provider LAB BLOOD ORDERAB LES Final Result [facility] [address] [place] [phone] * (ABNORMAL) Prothrombin Time-INR (04/10/2025 2:20 PM EDT) Prothrombin Time 9.5(L) 10.9 - 12.4 SEC [facility] INTERNATIONAL NORM RATIO 0.8(L) 0.9 - 1.1 [facility] Comment:INTERNATIONAL NORMAL IZED RATIO (INR) [...] ORDERABLES Final Resul t Performing Organization Address City/[facility]/ZIP Co de Phone Number [facility] [address] [place] [phone] * (ABNORMAL) Hepatic Function Panel (04/10/2025 2:20 PM EDT) Bilirubin, Total 0.2 0.0 - 1.0 mg/dL [facility] Bilirubin, Direct <0.2 0.0 - 0.5 mg/dL [facility] Aspartate Amino Transferase 38(H) 5 - 31 U/L [facility] Alanine Aminotransferase 64(H) 0 - 31 U/L [facility] Total Protein 7.3 6.5 - 8.0 g/dL [facility] Albumin Level 4.7 3.5 - 5.0 g/dL [facility] Alkaline Phosphatase 96 39 - 117 U/L [facility] Blood Venous blood specimen / Unknown 04/10/2025 2:20 PM EDT 04/10/2025 5:32 PM EDT Marilee Young MD LAB BLOOD ORDERABLES Final Resul t Performing Organization Address [facility] Co de Phone Number [facility] [address] [place] [phone] * (ABNORMAL) Basic Metabolic Panel (04/10/2025 2:20 PM EDT) Sodium 129(L) 135 - 145 mmol/L [facility] Potassium 4.6 3.3 - 5.1 mmol/L [facility] Chloride 96 96 - 108 mmol/L [facility] Carbon Dioxide 26 22 - 29 mmol/L [facility] Anion Gap 12 12 - 20 [facility] Urea Nitrogen (BUN) 14 9 - 16 mg/dL [facility] Creatinine, Serum 0.74 0.5 - 1.4 mg/dL [facility] Estimated Glomerular Filt Rate >60 [facility] Comment:Chronic Kidney Disea se: Estimated GFR < 60 mL/min/[id number] Kidney Disease: Estimated GFR < 15 mL/min/1.73m2 Glucose 104 60 - 115 mg/dL [facility] Calcium 9.1 8.4 - 10.2 mg/dL [facility] Blood Venous blood specimen / Unknown 04/10/2025 2:20 PM EDT 04/10/2025 5:32 PM EDT us Marilee Young MD LAB BLOOD ORDERABLES Final Resul t [facility] [address] [place] [phone] * ECG 12 lead (04/10/2025 11:32 AM EDT) us Historical Provider ECG ORDERABLES Final Res ult * CT Lung Screening Low dose (03/13/2025 12:34 AM EDT) Anatomical Region Laterality Modality Lung Computed Tomogra phy 03/13/2025 12:3 4 AM EDT Narrative 03/13/2025 12:36 AM EDT [address] [address] [address] Scan Report Signed Patient: Manuela May MR#: [id number] 670 : 1970 Acct:[id number] Age/Sex: 54 / F ADM Date: 03/12/25 Loc: HO.CT Attending Dr: Ezio Law MD Ordering Physician: Ezio Law MD Date of Service: 03/12/25 Procedure(s): CT lung screening Accession Number(s): [id number] cc: Fabio Jones MD; Ezio Law MD Report Number: [id number]: Total DLP = 90.00 mGy-cm CLINICAL HISTORY: Z87.891 - Personal history of nicotine dependence CT lung cancer screening (LDCT) Comparison: CR - CHEST 2 VIEWS 62302 - 12/06/16 23:03 EDT Technique: Axial CT [...] MD in OV> 03/13/2535 DD/ TD/TT: 03/13/2533 Dipping Machine Operator: Procedure Note Donotuseinterpreter, Image - 03/13/[address] [address] [address] Scan Report Signed Patient: Manuela May [facility]#: [id number] 670 : 1970Acct:[id number] Age/Sex: 54 / FADM Date: 03/12/25 Loc: HO.CT Attending Dr: Ezio Law MD Ordering Physician: Ezio Law MD Date of Service: 03/12/25 Procedure(s): CT lung screening Accession Number(s): [id number] cc: Fabio Jones MD; Ezio Law MD Report Number: [id number]: Total DLP = 90.00 mGy-cm CLINICAL HISTORY: Z87.891 - Personal history of nicotine dependence CT lung cancer screening (LDCT) Comparison: CR - CHEST 2 VIEWS 61857 - 12/06/16 23:03 EDT Technique: Axial CT [...] MD in OV> 03/13/2535 DD/ TD/TT: 03/13/2533 Dipping Machine Operator: [facility] External Provider IMG CT PROCEDURES Edited Result - Final * TSH W/Reflex to FT4 (03/12/2025 8:19 AM EDT) TSH reflex Free T4 2.94 0.32 - 4.0 uIU/mL [facility] Blood Venous blood specimen / Unknown 03/12/2025 8:19 AM EDT 03/12/2025 2:28 PM EDT Fabio Schneider MD LAB BLOOD ORDERABL ES Final Result Performing Organization Address [facility] de Phone Number [facility] [address] [place] [phone] * (ABNORMAL) Lipid Panel, Standard (03/12/2025 8:19 AM EDT) Triglycerides 337(H) <150 mg/dL [facility] Comment:Desirable Triglyceri de: less than 150 mg/dLBorderline High Triglyceride 150-199 mg/dLHigh Triglyceride: 200-499 mg/dLVery High Triglyceride: greater than or equal to 5OO mg/dL Cholesterol 175 <200 mg/dL [facility] Comment:Desirable Cholestero l: less than 200 mg/dLBorderline High Cholesterol: 200-239 mg/dLHigh Cholesterol: greater than 239 mg/dL LDL Cholesterol Calculated 60 <100 mg/dL [facility] Comment:Desirable LDL: less than 100 mg/dLNear Optimal/Above Optimal LDL: 110- 129 mg/dLBorderline High LDL: 130-159 mg/dLHigh LDL: 160-189 mg/dLVery High LDL: greater than or equal to 190 mg/dL HDL Cholesterol 48 >40 mg/dL [facility] Comment:Desirable HDL: great er than 40 mg/dL Note: This HDL assay may give artificially low results in patients with liver disease. Blood Venous blood specimen / Unknown 03/12/2025 8:19 AM EDT 03/12/2025 2:28 PM EDT us Fabio Schneider MD LAB BLOOD ORDERABL ES Final Result Performing Organization Address [facility] Co de Phone Number [facility] [address] [place] [phone] * (ABNORMAL) Comprehensive Metabolic Panel (03/12/2025 8:19 AM EDT) [facility] Sodium 133(L) 135 - 145 mmol/L [facility] Potassium 4.5 3.3 - 5.1 mmol/L [facility] Chloride 98 96 - 108 mmol/L [facility] Carbon Dioxide 26 22 - 29 mmol/L [facility] Anion Gap 14 12 - 20 [facility] Urea Nitrogen (BUN) 13 9 - 16 mg/dL [facility] Creatinine, Serum 0.84 0.5 - 1.4 mg/dL [facility] Estimated Glomerular Filt Rate >60 [facility] Comment:Chronic Kidney Disea se: Estimated GFR < 60 mL/min/1.08d8Zlxrkj Kidney Disease: Estimated GFR < 15 mL/min/1.73m2 Glucose 108 60 - 115 mg/dL [facility] Calcium 9.6 8.4 - 10.2 mg/dL [facility] Bilirubin, Total 0.2 0.0 - 1.0 mg/dL [facility] Aspartate Amino Transferase 44(H) 5 - 31 U/L [facility] Alanine Aminotransferase 60(H) 0 - 31 U/L [facility] Total Protein 6.7 6.5 - 8.0 g/dL [facility] Albumin Level 4.2 3.5 - 5.0 g/dL [facility] Alkaline Phosphatase 89 39 - 117 U/L [facility] Blood Venous blood specimen / Unknown 03/12/2025 8:19 AM EDT 03/12/2025 2:28 PM EDT us Fabio Schneider MD LAB BLOOD ORDERABL ES Final Result [facility] [address] [place] [phone] * Hm Colonoscopy (05/16/2024) Colonoscopy Normal Normal Narrative Naye Pena - 05/16/2024 . See see external hospital admission note on 05/16/2024.Repeat Colonoscopy in 1-2 years due to polyps removed and areas of fair prep on left. Follow up in 1yr scheduled us Historical Provider [facility] MAINTENANCE Edited Result - Final * BI Mammogram Screening Tomosynthesis Bilateral (04/19/2024 2:15 PM EDT) Anatomical Region Laterality Modality Breast Bilateral Mammography 04/19/2024 2:15 PM EDT Narrative 05/20/2024 11:50 PM EDT [facility] [place] [address] Mammography Report Signed Patient: Manuela May MR#: [id number] 670 : 1970 Acct:[id number] Age/Sex: 53 / F ADM Date: 04/19/24 Loc: HO.MAMMO Attending Dr: Fabio Schneider MD Ordering Physician: Fabio Jones MD Res ults: 1Negative Date of Service: 04/19/24 Follow Up: 1 Year From [facility] ina Mammogram Procedure(s): MM tomosynthesis screening BI Accession Number(s): [id number] cc: Fabio Jones MD EXAMINATION: MM SCREENING [...] Jacob MD Signed By: <Electronically signed by Kelil Jacob MD in OV> 05/20/24 2348 DD/ 1415 TD/TT: 04/19/24 1435 Dipping Machine Operator: Procedure Note Donotuseinterpreter, Image - 05/20/2024 [facility] [address] [place] [address] Mammography Report Signed Patient: Manuela May AMR#: [id number] 670 : 1970Acct:[id number] Age/Sex: 53 / FADM Date: 04/19/24 Loc: HO.MAMMO Attending Dr: Fabio Schneider MD Ordering Physician: Fabio Jones ults: 1Negative Date of Service: 04/19/24Follow Up: 1 Year From Orig ina Mammogram Procedure(s): MM tomosynthesis screening BI Accession Number(s): [id number] cc: Fabio Jones MD EXAMINATION: MM SCREENING [...] 05/20/24 2348 DD/ 1415 TD/TT: 04/19/24 1435 Dipping Machine Operator: Fabio Schneider MD IMG BI PROCEDURES Final Result * Hepatitis C Antibody with Reflex to HCV, RNA, Quantitative, Real-Time PCR (12/06/2023 8:43 AM EDT) Hepatitis C Antibody Nonreactive Nonreactive [facility] Comment:Antibodies to HCV no t detected; does not exclude early acuteHCV infection. Blood Venous blood specimen / Unknown 12/06/2023 8:43 AM EDT 12/06/2023 1:02 PM EDT Fabio Schneider MD LAB BLOOD ORDERABL ES Final Result [facility] [address] [place] [address] [phone] * HPV mRNA E6/E7 w/Reflex to HPV Genotypes 16, 18/45 (10/17/2023 2:00 PM EST) HPV nRNA E6/E7 Not Detected Not Detected [facility] Comment:Methodology: Transcr iption-Mediated AmplificationThis assay detects E6/E7 viral messenger RNA (mRNA) from 14high-risk HPV types (16,18,31,33,35,39,45,51,52,56,58,59,66,68).Cervical sources are required for HPV testing.If a vaginal source from a patient who has had atotal hysterectomy with removal of cervix wassubmitted, please contact the testing laboratoryfor alternative testing options.For additional information, please refer tohttp://education.[employer]/faq/SJL023j2(This link if provided for information/educational purposes only.)THIS TEST WAS PERFORMED AT:[facility] [address] [id number] THAKUR MD HPV mRNA E6/E7 TNP [facility] HPV 16 RNA TNP [facility] HPV 18/45 RNA TNP [facility] 10/17/2023 2:00 PM EST 10/19/2023 9:50 AM EST us John Martin [facility] LAB CYTOLOGY ORDERABLES F inal Result [facility] [address] [place] [address] [phone] * Pap Smear (10/17/2023 2:00 PM EST) Swab Cervix uteri structure / Unknown 10/17/2023 2:00 PM EST 10/19/2023 9:50 AM EST Narrative [facility] - 11/01/2023 7:22 AM EST ----- ------- Name: Manuela May Age/Sex: 53/F : 1970 Unit#: [id number] Attend Dr: Re10/17/23 Status: PRE REF Location: [facility] Disch: ----- ------- SPEC : [id number] RECD: 10/19/23 STATUS: JULIANE FLORES NUM: [id number] OCHOA: 10/17/23-[address]: JOHN MARTIN CNM ENTERED: 10/19/23 [...] 59, 66, 68) HPV testing performed by [facility], [place], [place]. See reference laboratory portion of the EMR for entire report. Clinical Information LMP: Postmenopausal Previous PAP test: Unknown date/findings Material Received ThinPrep-Cervical ----- ------- Signed (signature on file) MIRIAM Singh (ASCP) 11/01/23 0722 ----- ------- END OF REPORT John Martin CNM LAB CYTOLOGY ORDERABLES F inal Result [facility] [address] [place] [phone] from Last 3 Months or Most Recently Relevant to Health Maintenance Insurance [facility] STANDARD [employer] MEDICARE REPLACEMENT Care Teams Senior Ecologist Relationship Specialty Start Date End Date Fabio Jones MD [address] [place] [phone] PCP - General Internal Medicine 09/05/23
--- OUTSIDE RECORDS SUMMARY | 2025-06-04 14:29 | XMS_ITS | Encounter Summary ---
Author Organization [employer] Address [address] [facility] 7t [place] [address] Care Team Providers Care Senior Consulting Manager Name Role Phone Fabio Jones MD Primary Care Prov ider Encounter Details Date Type Department Care Team (Late st Contact Info) Description 04/11/2025 Orders Only [facility] [address] [place] [address] ProviderPower MD Social History Tobacco Use Types [...] 06/06/2025 10:30 AM EDT Telemedicine [facility] [address] [place] [address] Fabio Jones MD [address] [place] [address] documented as of this encounter Procedures Procedure [...] documented as of this encounter Care Teams Senior Consulting Manager Relationship Specialty Start Date End Date Fabio Jones MD [address] [place] [address] PCP - General Internal Medicine 09/05/23 documented as of this encounter
--- OUTSIDE RECORDS SUMMARY | 2025-06-04 14:29 | XMS_ITS | Patient Health Record ---
Author Organization [facility] Address [address] [place] [address] Care Team Providers Care Seed Mill Superintendent Name Role Phone Guanaco Caldera Primary Care Provider Reason For Referral No Information Plan Of Treatment No Information Insurance Providers Payer Name Payer Address Payer Phone Subscriber Number Group Number Insured Name Patient Relationship to Insured Coverage Start Date Coverage End Date [facility] [employer] PLAN [address] [address] [id number] Manuela May Self - patient is the insured
--- OUTSIDE RECORDS SUMMARY | 2025-06-04 14:29 | XMS_ITS | Encounter Summary ---
Author Organization [employer] Address [address] [facility] 7t [place] [address] Care Team Providers Care Photographic Aide Name Role Phone Fabio Jones MD Primary Care Prov ider Encounter Details Date Type Department Care Team (Late st Contact Info) Description 07/05/2024 Orders Only [facility] [address] [place], [place] [phone] Maco Galeano MD [address] [place], [place] [phone] Acquired hypothyroidism (Primary Dx) Social History Tobacco [...] 06/06/2025 10:30 AM EDT Telemedicine [facility] [address] [place] [address] Fabio Jones MD [address] [place] [address] documented as of this encounter Visit Diagnoses Diagnosis Acquired hypothyroidism- Primary Unspecified hypothyroidism documented in this encounter Additional Health Concerns Assessment Noted Time PHQ-9 Depression Total Score: 15 024 2:46 PM EST documented as of this encounter Care Teams Photographic Aide Relationship Specialty Start Date End Date Fabio Jones MD [address] [place] [address] PCP - General Internal Medicine 09/05/23 documented as of this encounter
--- OUTSIDE RECORDS SUMMARY | 2025-06-04 14:29 | XMS_ITS | Encounter Summary ---
Author Organization [employer] Address [address] [facility] 7t [place] [address] Care Team Providers Care Stationary Engineer Refrigeration Name Role Phone Fabio Jones MD Primary Care Prov ider Reason for Visit * Reason Comments Med Refill Encounter Details Date Type Department Care Team ([facility] st Contact Info) Description 10/09/2024 Refill [facility] [address] [place] [address] Fabio Jones MD [address] [place] [address] Social History Tobacco Use Types Packs/Day Years [...] [facility] [address] [place] [address] Fabio Jones MD [address] [place] [address] documented as of this encounter Visit Diagnoses Not on filedocumented in this encounter Additional Health Concerns Assessment Noted Time PHQ-9 Depression Total Score: 0 08/02/20 24 10:30 AM EST documented as of this encounter Care Teams Stationary Engineer Refrigeration Relationship Specialty Start Date End Date Fabio Jones MD [address] [place] [address] PCP - General Internal Medicine 09/05/23 documented as of this encounter
--- OUTSIDE RECORDS SUMMARY | 2025-06-04 14:29 | XMS_ITS | Encounter Summary ---
Author Organization [employer] Address [address] [facility] 7t [place] [address] Care Team Providers Care Agriculture Scientist Name Role Phone Fabio Jones MD Primary Care Prov ider Reason for Visit * Reason Comments Med Refill Encounter Details Date Type Department Care Team ([facility] st Contact Info) Description 10/08/2024 Refill [facility]EDS [address] [place] [address] Fabio Jones MD [address] [place] [address] Social History Tobacco Use Types Packs/Day Years [...] Telemedicine [facility] [address] [place] [address] Fabio Jones MD [address] [place] [address] documented as of this encounter Visit Diagnoses Not on filedocumented in this encounter Additional Health Concerns Assessment Noted Time PHQ-9 Depression Total Score: 0 08/02/20 24 10:30 AM EST documented as of this encounter Care Teams Agriculture Scientist Relationship Specialty Start Date End Date Fabio Jones MD [address] [place] [address] PCP - General Internal Medicine 09/05/23 documented as of this encounter
--- OUTSIDE RECORDS SUMMARY | 2025-06-04 14:29 | XMS_ITS | Encounter Summary ---
Author Organization [employer] Address [address] [place] [address] 7 [place] [address] Care Team Providers Care Dividend Deposit Entry Clerk Name Role Phone Fabio Jones MD Primary Care Prov ider Reason for Visit * Reason Onset Date Comments New Patient 07/20/2023 Encounter Details Date Type Department Care Team (Late Contact Info) Description 07/20/2023 Telephone [facility] MEDICINE [address] [place] [address] Augusto Jordan MD [address] [place] [address] New Patient Social History Tobacco Use Types [...] been transfer over to wait list for GENERAL MANAGER FOOD. EFFECTIVE SINCE 07/20/2023 documented in this encounter Plan of Treatment Upcoming Encounters Date Type Department Care Team (Late Contact Info) Description 06/06/2025 10:30 AM EDT Telemedicine [facility] MED [facility] PEDS [address] [place], [place] [phone] Fabio Jones MD [address] [place] [address] documented as of this encounter Visit Diagnoses Not on filedocumented in this encounter Care Teams Dividend Deposit Entry Clerk Relationship Specialty Start Date End Date Fabio Jones MD [address] [place] [address] PCP - General Internal Medicine 09/05/23 documented as of this encounter
--- OUTSIDE RECORDS SUMMARY | 2025-06-04 14:29 | XMS_ITS | Patient Health Record ---
Author Organization [facility] Emelia cohen Billing Info Address [address] [place] [address] Care Team Providers Care Negative Turner Name Role Phone HOLLY DUNN Primary Care Provider FRAN JACOBO Unavailable [phone] Laura Covarrubias MD Unavailable Unavailable Allergies Allergen [...] a day for 90 day(s) Not-Taking Biotin 43167 MCG 1 tablet Orally Once a day [...] - ALL PAYORS IM Intramuscular 08/30/2022 Administered [facility] [phone] [phone] Social History Tobacco Use: Social History Observation Description Date Details (start date - stop date) Current Smoker NA - NA Tobacco Status: Question Answer Notes Patient is a current every day smoker Problems Problem Type SNOMED Code ICD Code Onset Dates Problem Status W/U Status Risk Notes Problem [id number] Cervicalgia (M54.2) Active confirmed Problem [id number] Cervical myelopathy (G95.9) Active confirmed Plan Of [...] Date [employer] PPO MEDICARE PLAN [address] [place], [place] [id number] [place] L[place] Manuela Self - patient is the insured 3 [place] [address] [facility] [id number] Manuela May Self - patient is the insured 3 [employer] PPO [address] [address] [place], [place] [id number] Manuela May Self - patient is the insured 3 Medical (General) History Medical History History ICD Code Hyperlipidemia Esophageal reflux Depression Anxiety Surgical History Surgery Date(Month/Year) colonoscopy, repeat in 5 years, 2019 tubal ligation knee arthroscopy, right Hospitalization History Reason Date(Month/Year) see above
--- OUTSIDE RECORDS SUMMARY | 2025-06-04 14:29 | XMS_ITS | Encounter Summary ---
Author Organization [employer] Address [address] [facility] 7t [place] [address] Care Team Providers Care Joss House Keeper Name Role Phone Fabio Jones MD Primary Care Prov ider Reason for Visit * Reason Comments Med Refill Encounter Details Date Type Department Care Team ([facility] st Contact Info) Description 12/12/2023 Refill [facility] CHC MED & PEDS [address] [place] [address] Fabio Jones MD [address] [place] [address] Social History Tobacco Use Types Packs/Day Years [...] 06/06/2025 10:30 AM EDT Telemedicine [facility] MED & PEDS 505 [place] [address] Fabio Jones MD 505 [place] [address] documented as of this encounter Visit Diagnoses Not on filedocumented in this encounter Additional Health Concerns Assessment Noted Time PHQ-9 Depression Total Score: 15 024 2:46 PM EST documented as of this encounter Care Teams Joss House Keeper Relationship Specialty Start Date End Date Fabio Jones MD 505 [place] [address] PCP - General Internal Medicine 09/05/23 documented as of this encounter
--- OUTSIDE RECORDS SUMMARY | 2025-06-04 14:29 | XMS_ITS | Encounter Summary ---
Author Organization [employer] Address [address] [facility] 7t [place] [address] Care Team Providers Care Office Machine Technician Name Role Phone Fabio Jones MD Primary Care Prov ider Encounter Details Date Type Department Care Team (Late st Contact Info) Description 06/19/2024 Orders Only [facility] CHC MED & PEDS [address] [place], [place] [phone] Maco Galeano MD 505 [place], [place] [phone] Social History Tobacco Use Types Packs/Day Years [...] Info) Description 06/06/2025 10:30 AM EDT Telemedicine [facility] CHC MED & PEDS [address] [place], [place] [phone] SierraFabio Arguelles MD 505 [place], [place] [phone] documented as of this encounter Procedures Procedure Name Priority Date/Time Associated Diagnosis Comments T4, FREE Routine 06/19/2024 9:58 AM EDT documented in this encounter Results * (ABNORMAL) T4, Free (06/19/2024 9:58 AM EDT) Free T4 (Free Thyroxine) 0.69(L) 0.71 - 1.85 ng/dL [facility] 06/19/2024 9:58 AM EDT 06/19/2024 2:37 PM EDT us Maco Galeano MD LAB BLOOD ORDERABLES Final Result [facility] [address] [place] [address] [phone] documented in this encounter Visit Diagnoses Not on filedocumented in this encounter Additional Health Concerns Assessment Noted Time PHQ-9 Depression Total Score: 15 024 2:46 PM EST documented as of this encounter Care Teams Office Machine Technician Relationship Specialty Start Date End Date SierraFabio Arguelles MD [address] [place] [address] PCP - General Internal Medicine 09/05/23 documented as of this encounter
--- OUTSIDE RECORDS SUMMARY | 2025-06-04 14:29 | XMS_ITS | Encounter Summary ---
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 Maco Galeano MD [address] [place] [address] Phone: tel: fax: [facility] [address] [facility] [address] [place] [address] Phone: tel: fax: Referral ID Status Reason Start Date Expiration Date Visits Requested Visits Authorized [id number] Authorized Specialty Services Required 03/17/2025 03/17/2026 1 1 Encounter Details Date Type Department Care Team (Late st Contact Info) Description 03/17/2025 Orders Only [facility] CHC MED & PEDS [address] [place] [address] Maco Galeano MD 505 [place] [address] Chronic bilateral low back pain with right-sided [...] Description 06/06/2025 10:30 AM EDT Telemedicine [facility] CHC MED & PEDS [address] [place], [place] [phone] Fabio Jones MD [address] [place], [place] [phone] Scheduled Referrals Name Type Priority Associated Diagnoses [...] documented as of this encounter Care Teams Church Warden Relationship Specialty Start Date End Date Fabio Jones MD [address] [place] [address] PCP - General Internal Medicine 09/05/23 documented as of this encounter
--- OUTSIDE RECORDS SUMMARY | 2025-06-04 14:29 | XMS_ITS | Encounter Summary ---
Author Organization [employer] Address [address] [facility] 7t [place] [address] Care Team Providers Care Seat Pack Inspector Name Role Phone Fabio Jones MD Primary Care Prov ider Encounter Details Date Type Department Care Team (Late st Contact Info) Description 12/21/2023 Orders Only [facility] CHC MED & PEDS [address] [place], [place] [phone] Fabio Jones MD [address] [place] [address] Social History Tobacco Use Types Packs/Day Years [...] 06/06/2025 10:30 AM EDT Telemedicine [facility] MED & PEDS [address] [place] [address] Fabio Jones MD [address] [place] [address] documented as of this encounter Visit Diagnoses Not on filedocumented in this encounter Additional Health Concerns Assessment Noted Time PHQ-9 Depression Total Score: 15 024 2:46 PM EST documented as of this encounter Care Teams Seat Pack Inspector Relationship Specialty Start Date End Date Fabio Jones MD [address] [place] [address] PCP - General Internal Medicine 09/05/23 documented as of this encounter
--- OUTSIDE RECORDS SUMMARY | 2025-06-04 14:29 | XMS_ITS | Encounter Summary ---
Author Organization [employer] Address [address] [facility] 7t [place] [address] Care Team Providers Care Mobile Battery Technician Name Role Phone Fabio Jones MD Primary Care Prov ider Encounter Details Date Type Department Care Team (Late st Contact Info) Description 12/29/2023 Orders Only [facility] CHC MED & PEDS [address] [place], [place] [phone] Fabio Jones MD [address] [place], [place] [phone] Chronic diastolic congestive heart failure (CMS/HCC) Social [...] Info) Description 06/06/2025 10:30 AM EDT Telemedicine [facility] MED & PEDS [address] [place] [address] Fabio Jones MD [address] [place] [address] documented as of this encounter Procedures Procedure [...] documented as of this encounter Care Teams Mobile Battery Technician Relationship Specialty Start Date End Date Fabio Jones MD [address] [place] [address] PCP - General Internal Medicine 09/05/23 documented as of this encounter
--- OUTSIDE RECORDS SUMMARY | 2025-06-04 14:29 | XMS_ITS | Encounter Summary ---
Author Organization [employer] Address 75 [facility] 7t [place] [address] Care Team Providers Care Shine Worker Name Role Phone Fabio Jnoes MD Primary Care Prov ider Encounter Details Date Type Department Care Team (Latest Contact Info) Description 05/30/2025 Travel Social History Tobacco Use Types Packs/Day [...] Description 06/06/2025 10:30 AM EDT Telemedicine [facility] MED & PEDS 505 [place] [address] Fabio Jones MD [address] [place] [address] documented as of this encounter Visit Diagnoses Not on filedocumented in this encounter Additional Health Concerns Assessment Noted Time PHQ-9 Depression Total Score: 0 08/02/20 24 10:30 AM EST documented as of this encounter Care Teams Shine Worker Relationship Specialty Start Date End Date Fabio Jones MD [address] [place] [address] PCP - General Internal Medicine 09/05/23 documented as of this encounter
--- OUTSIDE RECORDS SUMMARY | 2025-06-04 14:30 | XMS_ITS | Encounter Summary ---
Author Organization [employer] Address [address] [facility] 7 [place] [address] Care Team Providers Care Patient Relations Director Name Role Phone Fabio Jones MD Primary Care Prov ider Reason for Visit * Reason Onset Date Comments Results 12/11/2023 Encounter Details Date Type Department Care Team ([facility] Contact Info) Description 12/11/[address] [facility] CHC MED & PEDS [address] [place] [address] Fabio Jones MD [address] [place] [address] Results Social History Tobacco Use Types Packs/Day [...] results: labs Date when done: 12/05 Facility: [facility] Please contact pt at [phone] documented in this encounter Plan of Treatment Upcoming Encounters Date Type Department Care Team (Late st Contact Info) Description 06/06/2025 10:30 AM EDT Telemedicine [facility] CHC MED & PEDS [address] [place] [address] Fabio Jones MD [address] [place] [address] documented as of this encounter Visit Diagnoses Not on filedocumented in this encounter Additional Health Concerns Assessment Noted Time PHQ-9 Depression Total Score: 15 024 2:46 PM EST documented as of this encounter Care Teams Patient Relations Director Relationship Specialty Start Date End Date Fabio Jones MD [address] [place] [address] PCP - General Internal Medicine 09/05/23 documented as of this encounter
--- OUTSIDE RECORDS SUMMARY | 2025-06-04 14:30 | XMS_ITS | Clinical Summary ---
Author Organization Patient Business Ser [facility] Address [address] [place] [address] Care Team Providers Care Latex Fashions Designer Name Role Phone Fabio Jones Primary Care [...] EDT - 04/14/2025 1:22 PM EDT Emergency [facility] Emergency [address] [place] [address] Xavier Silvestre MD Acute pain [...] disea se) stage 3, GFR 30-59 ml/min ([facility]) Hypothyroid 09/14/2020 DX:Hypothyroid Hyperlipidemia 09/14/2020 DX:Hyperlipidemi a [...] Signed Date: 04/14/2025 12:45 ET Workstation ID: [id number] Transcribed By: Self Edit Transcribed Date: 04/14/2025 [...] Signed Date: 04/14/2025 12:45 ET Workstation ID: [id number] Transcribed By: Self Edit Transcribed Date: 04/14/2025 [...] RESULTING AGENCY - 11/07/2019 2:10 PM EST [id number] THINPREP PAP AMD CELL BLOCK: NEGATIVE FOR [...] - [place] [employer] MEDIC[place]ANTAGE Care Teams Latex Fashions Designer Relationship Specialty Start Date End Date Fabio Jones [address] [place] [address] PCP - General 09/05/23
--- OUTSIDE RECORDS SUMMARY | 2025-06-04 14:30 | XMS_ITS | Encounter Summary ---
Author Organization [employer] Address 75 [facility] 7t [place] [address] Care Team Providers Care Certified Forklift Operator Name Role Phone Fabio Jones MD Primary Care Prov ider Encounter Details Date Type Department Care Team (Late st Contact Info) Description 03/27/2024 Orders Only [facility] CHC MED & PEDS [address] [place], [place] [phone] Fabio Jones MD 505 [place] [address] Social History Tobacco Use Types Packs/Day Years [...] Upcoming Encounters Date Type Department Care Team ([facility] st Contact Info) Description 06/06/2025 10:30 AM EDT Telemedicine [facility] CHC MED & PEDS [address] [place], [place] [phone] Fabio Jones MD [address] [place], [place] [phone] documented as of this encounter Procedures Procedure Name Priority Date/Time Associated Diagnosis Comments BI MAMMOGRAM SCREENING TOMOSYNTHESIS BILATERAL Routine 04/19/2024 2:15 PM EDT documented in this encounter Results * BI Mammogram Screening Tomosynthesis Bilateral (04/19/2024 2:15 PM EDT) Anatomical Region Laterality Modality Breast Bilateral Mammography 04/19/2024 2:15 PM EDT Narrative 05/20/2024 11:50 PM EDT [facility] [address] [place] [address] Mammography Report Signed Patient: Manuela May MR#: [id number] : 1970 Acct:[id number] Age/Sex: 53 / F ADM Date: 04/19/24 Loc: HO.MAMMO Attending Dr: Fabio Schneider MD Ordering Physician: Fabio Jones MD Res ults: 1Negative Date of Service: 04/19/24 Follow Up: 1 Year From Orig inal Mammogram Procedure(s): MM tomosynthesis screening BI Accession Number(s): [id number] cc: Fabio Jones MD EXAMINATION: MM SCREENING [...] 05/20/24 2348 DD/ 1415 TD/TT: 04/19/24 1435 Reinforced Ironworker: Procedure Note Donotuseinterpreter, Image - 05/20/2024 [place] [facility] [address] [place] [address] Mammography Report Signed Patient: Manuela May AMR#: [id number] : 1970Acct:[id number] Age/Sex: 53 / FADM Date: 04/19/24 Loc: E[facility] Attending Dr: Fabio Schneider MD Ordering Physician: Fabio Jones ults: 1Negative Date of Service: 04/19/24Follow Up: 1 Year From Orig inal Mammogram Procedure(s): MM tomosynthesis screening BI Accession Number(s): [id number] cc: Fabio Jones MD EXAMINATION: MM SCREENING [...] for their next mammogram. Electronically signed by: eKlli Jacob MD 05/20/2024 11:48 PM EDT Dictated By: Kelli Jacob MD Signed By: <Electronically signed by Kelli Jacob MD in OV> 05/20/24 2348 DD/ 1415 TD/TT: 04/19/24 1435 Reinforced Ironworker: Fabio Schneider MD IMG BI PROCEDURES Final Result documented in this encounter Visit Diagnoses Not on filedocumented in this encounter Additional Health Concerns Assessment Noted Time PHQ-9 Depression Total Score: 15 024 2:46 PM EST documented as of this encounter Care Teams Certified Forklift Operator Relationship Specialty Start Date End Date Fabio Jones MD [address] [place] [address] PCP - General Internal Medicine 09/05/23 documented as of this encounter
--- OUTSIDE RECORDS SUMMARY | 2025-06-04 14:30 | XMS_ITS | Encounter Summary ---
Author Organization [employer] Address 75 [facility] 7 [place] [address] Care Team Providers Care Cord Tire Builder Name Role Phone Fabio Jones MD Primary Care Prov ider Reason for Visit * Reason Onset Date Comments Med Refill 12/11/2023 Encounter Details Date Type Department Care Team ([facility] Contact Info) Description 12/11/2023 Telephone [facility] CHC MED & PEDS [address] [place] [address] Fabio Jones MD [address] [place] [address] Med Refill Social History Tobacco Use Types [...] 300 MG tablet To be sent to: [id number] [place], [place] - [facility] BIB [place] AT [facility] documented in this encounter Plan of Treatment Upcoming Encounters Date Type Department Care Team (Late st Contact Info) Description 06/06/2025 10:30 AM EDT Telemedicine [facility] MED & PEDS [address] [place] [address] Fabio Jones MD [address] [place] [address] documented as of this encounter Visit Diagnoses Not on filedocumented in this encounter Additional Health Concerns Assessment Noted Time PHQ-9 Depression Total Score: 15 024 2:46 PM EST documented as of this encounter Care Teams Cord Tire Builder Relationship Specialty Start Date End Date Fabio Jones MD [address] [place] [address] PCP - General Internal Medicine 09/05/23 documented as of this encounter
--- OUTSIDE RECORDS SUMMARY | 2025-06-04 14:30 | XMS_ITS | Encounter Summary ---
Author Organization [employer] Address [address] [facility] 7t [place] [address] Care Team Providers Care Lumber Bearer Name Role Phone Fabio Jones MD Primary Care Prov ider Encounter Details Date Type Department Care Team (Late st Contact Info) Description 12/11/2023 Orders Only [facility] CHC MED & PEDS [address] [place], [place] [phone] Maco Galeano MD [address] [place], [place] [phone] Acquired hypothyroidism (Primary Dx); Fibromyalgia Social History [...] [facility] MED & PEDS [address] [place] [address] SierraFabio Arguelles MD [address] [place] [address] documented as of this encounter Procedures Procedure [...] Result [facility] [address] [place] [address] [phone] documented in this encounter Visit Diagnoses Diagnosis Acquired hypothyroidism- Primary Unspecified hypothyroidism Fibromyalgia Unspecified myalgia and myositis documented in this encounter Additional Health Concerns Assessment Noted Time PHQ-9 Depression Total Score: 15 024 2:46 PM EST documented as of this encounter Care Teams Lumber Bearer Relationship Specialty Start Date End Date Fabio Jones MD [address] [place] [address] PCP - General Internal Medicine 09/05/23 documented as of this encounter
--- OUTSIDE RECORDS SUMMARY | 2025-06-04 14:30 | XMS_ITS | Encounter Summary ---
Author Organization [employer] Address 75 [facility] 7t [place] [address] Care Team Providers Care Railroad Dispatcher Name Role Phone Fabio Jones MD Primary Care Prov ider Reason for Visit * Reason Comments Med Refill Encounter Details Date Type Department Care Team (Late st Contact Info) Description 12/17/2024 Refill [facility] CHC MED & PEDS [address] [place] [address] Fabio Jones MD [address] [place] [address] Social History Tobacco Use Types Packs/Day Years [...] Description 06/06/2025 10:30 AM EDT Telemedicine [facility] MED & PEDS [address] [place] [address] Fabio Jones MD [address] [place] [address] documented as of this encounter Visit Diagnoses Not on filedocumented in this encounter Additional Health Concerns Assessment Noted Time PHQ-9 Depression Total Score: 0 08/02/20 24 10:30 AM EST documented as of this encounter Care Teams Railroad Dispatcher Relationship Specialty Start Date End Date Fabio Jones MD [address] [place] [address] PCP - General Internal Medicine 09/05/23 documented as of this encounter
--- OUTSIDE RECORDS SUMMARY | 2025-06-04 14:30 | XMS_ITS | Encounter Summary ---
Author Organization [employer] Address [address] [facility] 7 [place] [address] Care Team Providers Care Scales Inspector Name Role Phone Fabio Jones MD Primary Care Prov ider Reason for Visit * Reason Onset Date Comments Med Refill 05/03/2024 Encounter Details Date Type Department Care Team ([facility] st Contact Info) Description 05/03/2024 Refill [facility] CHC MED & PEDS [address] [place] [address] Fabio Jones MD [address] [place] [address] Social History Tobacco Use Types Packs/Day Years [...] Upcoming Encounters Date Type Department Care Team ([facility] st Contact Info) Description 06/06/2025 10:30 AM EDT Telemedicine [facility] MED & PEDS [address] [place] [address] Fabio Jones MD [address] [place] [address] documented as of this encounter Visit Diagnoses Not on filedocumented in this encounter Additional Health Concerns Assessment Noted Time PHQ-9 Depression Total Score: 15 024 2:46 PM EST documented as of this encounter Care Teams Scales Inspector Relationship Specialty Start Date End Date Fabio Jones MD [address] [place] [address] PCP - General Internal Medicine 09/05/23 documented as of this encounter
--- OUTSIDE RECORDS SUMMARY | 2025-06-04 14:30 | XMS_ITS | Encounter Summary ---
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 Name Role Phone Fabio Jones MD Primary Care Prov ider Reason for Visit * Reason Onset Date Comments Med Refill 02/24/2025 Encounter Details Date Type Department Care Team ([facility] st Contact Info) Description 02/24/2025 Refill [facility] CHC MED & PEDS [address] [place] [address] Fabio Jones MD [address] [place] [address] Social History Tobacco Use Types Packs/Day Years [...] Info) Description 06/06/2025 10:30 AM EDT Telemedicine [facility] MED & PEDS [address] [place] [address] Fabio Jones MD [address] [place] [address] documented as of this encounter Visit Diagnoses Not on filedocumented in this encounter Additional Health Concerns Assessment Noted Time PHQ-9 Depression Total Score: 0 08/02/20 24 10:30 AM EST documented as of this encounter Care Teams Retail Mortgage Banker Relationship Specialty Start Date End Date Fabio Jones MD [address] [place] [address] PCP - General Internal Medicine 09/05/23 documented as of this encounter
== END 2025-06-04 12:56 | disposition home or self-care (01) ==
LOC: HO.HGI 11:17
PROVIDERS: PCP Internal Medicine; Visit Provider Nurse Practitioner Family
DX: Z01.818 Encounter for other preprocedural examination (principal); Z12.11 Encounter for screening for malignant neoplasm of colon; Z86.0101 Personal history of adenomatous and serrated colon polyps; K21.00 Gastro-esophageal reflux disease with esophagitis, without bleeding; K59.01 Slow transit constipation
CPT/HCPCS: S0285